=== PATIENT | female | born 1945 | race Caucasian/White ===

== ENCOUNTER 2016-04-06 16:50 | Emergency (ER) | payer OTHER ==
[2016-04-06] VITALS (9 sets, daily range): BP systolic 100–171; BP diastolic 58–103; PULSE 90–96; RESP 16–19; TEMP 98.3; O2SAT 93–100
[~2016-04-06] VITALS: Ht 152.4 cm; Wt 60.0 kg
[~2016-04-06 16:50] MED LIST: ADVA250A INH; ALBU17I INH; ASPI-119 PO; CARV3.12 PO; CYCL-36 PO; ENAL5TAB98 PO; IPRA18I INH; LISI-363 PO; ULTR50TA PO
[2016-04-06] MEDS ORDERED: SODIUM CHLORID 0.9% 500 ML INJ 500 ML IV ONE (17:00)
[2016-04-06] MEDS ORDERED: SODIUM CHLORIDE 0.9% FLUSH 5 ML FLUSH IVF PRN (17:00)
[2016-04-06] MEDS: RESP: ALBUTEROL 2.5 MG/IPRATROPIUM 0.5 MG NEB (SCH) INH (17:22)
[2016-04-06] MEDS ORDERED: LISI-515 PO (17:28)
[2016-04-06] MEDS ORDERED: ATOR40TA16 PO (17:28)
[2016-04-06] MEDS ORDERED: CARV3.125 PO (17:28)
[2016-04-06] MEDS ORDERED: ASPI1TAB69 PO (17:28)
--- NOTE | 2016-04-06 17:29 | PD ---
HPI Chief Complaint: Chest Pain Time Seen by Provider: 17:00 (Jam Che) Travel History International Travel<30 days: No Contact w/Intl Traveler<30days: No Traveled to known affect area: No (Jam Che) History of Present Illness HPI 70-year-old female brought in by EMS with complaints of intermittent chest pressure since this morning. Patient states one week history of cough and cold symptoms, without productive cough, fever, sore throat, or upper respiratory symptoms. Patient states this morning she's had increased shortness of breath, chest pressure, and cough and wheeze. Patient has a history of COPD with chronic bronchitis in the past. Patient also has a history of a stent placement for CAD in December 2015. Patient called the animal is due to the ongoing symptoms and she was afraid. Patient took 3 baby aspirin this morning. Patient was given 125 mg of Solu-Medrol and 2 DuoNeb in the ambulance with improvement of her symptoms. EKG performed by EMS showed no significant ST changes. Upon arrival the patient states she is back to her baseline. Patient continues to smoke one half to one pack of cigarettes per day. She has no known drug allergies. (Jam Che) PFSH Past Medical History Arthritis: Yes Asthma: No Blood Disorders: No Anxiety: No Depression: Yes Heart Rhythm Problems: No Cancer: No Cardiac Catheterization: Yes Cardiovascular Problems: Yes High Cholesterol: Yes Chest Pain: Yes Congestive Heart Failure: No COPD: Yes Diminished Hearing: Yes (RIGHT EAR) Endocrine: No Glaucoma: No Genitourinary: No Hypertension: Yes Immune Disorder: No Musculoskeletal: Yes Neurologic: No Psychiatric: No Reproductive: No Respiratory: No Myocardial Infarction: Yes (X 2) Sleep Apnea: No Tetanus Vaccination: < 5 Years Influenza Vaccination: No ?: Not Menopausal: Yes (Jam Che) Past Surgical History Coronary Stent: Yes (X 2) (Jam Che) Social History Alcohol Use: Yes (SOCIAL- WINE OR MIX DRINKS) Tobacco Use: Yes (<1/2 PPD) Substance Use: No (Jam Che) Allergies-Medications (Allergen,Severity, Reaction): Coded Allergies: No Known Allergies (Verified , 01/30/14) Reported Meds & Prescriptions Reported Meds & Active Scripts Active Reported Coreg (Carvedilol) 3.125 Mg Tab 3.125 Mg PO BID Lisinopril 20 Mg Tab 20 Mg PO DAILY Atorvastatin (Atorvastatin Calcium) 40 Mg Tab 40 Mg PO DAILY Aspirin 81 Mg Tabdr 81 Mg PO DAILY (Myles Hedrick MD) Review of Systems Except as stated in HPI: all other systems reviewed are Neg General / Constitutional: No: Fever, Chills, Weight Gain, Weight Loss Eyes: No: Visual changes HENT: Positive: Congestion, No: Headaches, Sore Throat, Rhinitis, Rhinorrhea, Neck Stiffness, Neck Pain, Ear Discharge, Earache Cardiovascular: Positive: Chest Pain or Discomfort, No: Palpitations, Irregular Rhythm, Tachycardia Respiratory: Positive: Cough, Shortness of Breath, Wheezing, Sneezing, No: Orthopnea, Hemoptysis, Stridor, Night Sweats, Pleuritic Pain Gastrointestinal: No: Nausea, Vomiting, Abdominal Pain Genitourinary: No: Dysuria Musculoskeletal: No: Pain Skin: No Rash Neurologic: No: Weakness Psychiatric: No: Depression Endocrine: No: Polydipsia Hematologic/Lymphatic: No: Easy Bruising (Jam Che) Physical Exam Narrative GENERAL: Patient appears in mild distress and anxious. SKIN: Warm and dry. Normal color. Normal turgor. HEAD: Atraumatic. Normocephalic. EYES: Pupils equal and round. No scleral icterus. No injection or drainage. ENT: No nasal bleeding or discharge. Mucous membranes pink and moist. TMs are clear bilaterally. Sinuses are nontender to palpation. Pharynx appears normal. No significant lymphadenopathy or erythema. No postnasal drip. NECK: Trachea midline. No JVD. Supple nontender. CARDIOVASCULAR: Regular rate and rhythm. No murmurs gallops or rubs. RESPIRATORY: No accessory muscle use. Patient has nonclearing wheezes and rhonchi in the right lower and middle lobe. To auscultation. Breath sounds equal bilaterally. GASTROINTESTINAL: Abdomen soft, non-tender, nondistended. Hepatic and splenic margins not palpable. MUSCULOSKELETAL: Extremities without clubbing, cyanosis, or edema. No obvious deformities. NEUROLOGICAL: Awake and alert. No obvious cranial nerve deficits. Motor grossly within normal limits. Five out of 5 muscle strength in the arms and legs. Normal speech. PSYCHIATRIC: Appropriate mood and affect; insight and judgment normal. (Jam Che) Data Data Last Documented VS Vital Signs Date Time Temp Pulse Resp B/P Pulse Ox O2 Delivery O2 Flow Rate FiO2 04/06/16 23:12 90 18 100/63 95 04/06/16 18:00 Nasal Cannula 2 04/06/16 16:53 98.3 (Myles Hedrick MD) Orders Electrocardiogram (04/06/16 17:00) B-Type Natriuretic Peptide (04/06/16 17:00) Ckmb (Isoenzyme) Profile (04/06/16 17:00) Complete Blood Count With Diff (04/06/16 17:00) Comprehensive Metabolic Panel (04/06/16 17:00) D-Dimer (04/06/16 17:00) Magnesium (Mg) (04/06/16 17:00) Prothrombin Time / Inr (Pt) (04/06/16 17:00) Act Partial Throm Time (Ptt) (04/06/16 17:00) Troponin I (04/06/16 17:00) Chest, Single Ap (04/06/16 17:00) Ecg Monitoring (04/06/16 17:00) Bilateral Bp Monitoring (04/06/16 17:00) Iv Access Insert/Monitor (04/06/16 17:00) Oximetry (04/06/16 17:00) Oxygen Administration (04/06/16 17:00) Sodium Chloride 0.9% Flush (Ns Flush) (04/06/16 17:00) Sodium Chlorid 0.9% 500 Ml Inj (Ns 500 M (04/06/16 17:00) Influenzae A/B Antigen (04/06/16 17:00) Albuterol-Ipratropium Neb (Duoneb Neb) (04/06/16 17:00) Ceftriaxone Inj (Rocephin Inj) (04/06/16 18:30) Azithromycin Inj (Zithromax Inj) (04/06/16 18:30) (Myles Hedrick MD) Labs Laboratory Tests Test 04/06/16 17:10 White Blood Count 10.8 TH/MM3 Red Blood Count 4.66 MIL/MM3 Hemoglobin 14.6 GM/DL Hematocrit 42.5 % Mean Corpuscular Volume 91.1 FL Mean Corpuscular Hemoglobin 31.3 PG Mean Corpuscular Hemoglobin 34.4 % Concent Red Cell Distribution Width 13.7 % Platelet Count 406 TH/MM3 Mean Platelet Volume 7.8 FL Neutrophils (%) (Auto) 50.4 % Lymphocytes (%) (Auto) 32.2 % Monocytes (%) (Auto) 8.4 % Eosinophils (%) (Auto) 7.9 % Basophils (%) (Auto) 1.1 % Neutrophils # (Auto) 5.4 TH/MM3 Lymphocytes # (Auto) 3.5 TH/MM3 Monocytes # (Auto) 0.9 TH/MM3 Eosinophils # (Auto) 0.9 TH/MM3 Basophils # (Auto) 0.1 TH/MM3 CBC Comment DIFF FINAL Differential Comment Prothrombin Time 10.8 SEC Prothromb Time International 1.0 RATIO Ratio Activated Partial 26.9 SEC Thromboplast Time D-Dimer Quantitative (PE/DVT) 0.88 MG/L FEU Sodium Level 143 MEQ/L Potassium Level 3.6 MEQ/L Chloride Level 110 MEQ/L Carbon Dioxide Level 26.2 MEQ/L Anion Gap 7 MEQ/L Blood Urea Nitrogen 19 MG/DL Creatinine 1.05 MG/DL Estimat Glomerular Filtration 52 ML/MIN Rate Random Glucose 98 MG/DL Calcium Level 8.9 MG/DL Magnesium Level 2.0 MG/DL Total Bilirubin 0.5 MG/DL Aspartate Amino Transf 13 U/L (AST/SGOT) Alanine Aminotransferase 15 U/L (ALT/SGPT) Alkaline Phosphatase 66 U/L Total Creatine Kinase 79 U/L Troponin I 0.02 NG/ML B-Type Natriuretic Peptide 129 PG/ML Total Protein 7.6 GM/DL Albumin 3.9 GM/DL (Myles Hedrick MD) Labs Laboratory Tests Test 04/06/16 17:10 White Blood Count 10.8 TH/MM3 Red Blood Count 4.66 MIL/MM3 Hemoglobin 14.6 GM/DL Hematocrit 42.5 % Mean Corpuscular Volume 91.1 FL Mean Corpuscular Hemoglobin 31.3 PG Mean Corpuscular Hemoglobin 34.4 % Concent Red Cell Distribution Width 13.7 % Platelet Count 406 TH/MM3 Mean Platelet Volume 7.8 FL Neutrophils (%) (Auto) 50.4 % Lymphocytes (%) (Auto) 32.2 % Monocytes (%) (Auto) 8.4 % Eosinophils (%) (Auto) 7.9 % Basophils (%) (Auto) 1.1 % Neutrophils # (Auto) 5.4 TH/MM3 Lymphocytes # (Auto) 3.5 TH/MM3 Monocytes # (Auto) 0.9 TH/MM3 Eosinophils # (Auto) 0.9 TH/MM3 Basophils # (Auto) 0.1 TH/MM3 CBC Comment DIFF FINAL Differential Comment Sodium Level 143 MEQ/L Potassium Level 3.6 MEQ/L Chloride Level 110 MEQ/L Carbon Dioxide Level 26.2 MEQ/L Anion Gap 7 MEQ/L Blood Urea Nitrogen 19 MG/DL Creatinine 1.05 MG/DL Estimat Glomerular Filtration 52 ML/MIN Rate Random Glucose 98 MG/DL Calcium Level 8.9 MG/DL Magnesium Level 2.0 MG/DL Total Bilirubin 0.5 MG/DL Aspartate Amino Transf 13 U/L (AST/SGOT) Alanine Aminotransferase 15 U/L (ALT/SGPT) Alkaline Phosphatase 66 U/L Total Creatine Kinase 79 U/L Troponin I 0.02 NG/ML B-Type Natriuretic Peptide 129 PG/ML Total Protein 7.6 GM/DL Albumin 3.9 GM/DL (Jam Che) [facility] Medical Decision Making Medical Screen Exam Complete: Yes Emergency Medical Condition: Yes Differential Diagnosis Atypical chest pain. Bronchitis. Pneumonia. Cardiac syndrome. CHF. Narrative Course Patient is medically stable at time of exam. EKG is performed showing nonspecific T wave abnormalities but otherwise no acute changes. This reviewed with Dr. guerra. Chest x-ray is ordered. Labs ordered including CBC, CMP, proBNP, PT PTT and INR, d-dimer, magnesium, troponin and CK-MB. Rapid influenza test is ordered. IV access is obtained patient is given a 500 mL normal saline bolus as well as duo nebs every 15 minutes 3. 1815 hrs. patient feels much improved after her duo nebs 3. CBC is unremarkable. CMP is unremarkable. ProBNP is 187. Troponin and CK-MB are normal. PT PTT and INR are within normal limits. Chest x-ray shows no significant acute findings per radiologist. Patient will be treated with Rocephin 1000 mg IV as well as azithromycin 500 mg IV. (Jam Che) Diagnosis Primary Impression: Bronchitis Additional Impression: Atypical chest pain Referrals: Primary Care Physician 3 days Scripts Azithromycin (Zithromax Z-Toribio)250 Mg [id number] Mg PO DIRECTED #1 DSPK Ref 0 500 MG (2 tabs) day 1, then 1 tab days 2-5. Prov:Myles Hedrick MD 04/06/16 Disposition: 01 DISCHARGE HOME Condition: Stable Jam Che Apr 06, 2016 17:29 Myles Hedrick MD Apr 06, 2016 23:19
[2016-04-06 17:44] LABS: AUTOMATED NEUTROPHIL # 5.4 TH/MM3 (1.8-7.7); BASOPHIL # 0.1 TH/MM3 (0-0.2); BASOPHIL % 1.1 % (0.0-2.0); EOSINOPHIL # 0.9 TH/MM3 (0-0.4); EOSINOPHIL % 7.9 % (0.0-4.0); HEMATOCRIT 42.5 % (35.0-46.0); HEMO FLAGS DIFF FINAL; LYMPH % 32.2 % (9.0-44.0); LYMPHOCYTE # 3.5 TH/MM3 (1.0-4.8); MEAN CELL VOLUME 91.1 FL (80.0-100.0); MEAN CORPUSCULAR HEMOGLOBIN 31.3 PG (27.0-34.0); MEAN CORPUSCULAR HGB CONC 34.4 % (32.0-36.0); MONO % 8.4 % (0.0-8.0); NEUT % 50.4 % (16.0-70.0); PLATELET COUNT 406 TH/MM3 (150-450); RED BLOOD COUNT 4.66 MIL/MM3 (4.00-5.30); RED CELL DISTRIBUTION WIDTH 13.7 % (11.6-17.2); WHITE BLOOD COUNT 10.8 TH/MM3 (4.0-11.0)
--- NOTE | 2016-04-06 18:03 | RADRPT ---
EXAM DATE/TIME: 04/06/2016 17:19 [facility] COMPARISON: CHEST SINGLE AP, June 21, 2012, 17:10. INDICATIONS : Cough, shortness of breath for 24 hours MEDICAL HISTORY : None. SURGICAL HISTORY : Stent placements ENCOUNTER: Initial ACUITY: 1 day PAIN SCORE: 4/10 LOCATION: Bilateral chest FINDINGS: A single view of the chest demonstrates the lungs to be symmetrically aerated without evidence of mas s, infiltrate or effusion. The cardiomediastinal contours are unremarkable. Osseous structures are intact. CONCLUSION: No acute disease. Bentley Rhodes MD on April 06, 2016 at 18:01 Board Certified Radiologist. This report was verified electronically.
[2016-04-06 18:04] LABS: ANION GAP 7 MEQ/L (5-15); AST (GOT) 13 U/L (15-37); BICARBONATE 26.2 MEQ/L (21.0-32.0); BLOOD UREA NITROGEN 19 MG/DL (7-18); CHLORIDE 110 MEQ/L (98-107); GLOMERULAR FILTRATION RATE 52 ML/MIN (>89); POTASSIUM 3.6 MEQ/L (3.5-5.1); SODIUM (NA) 143 MEQ/L (136-145)
[2016-04-06 18:08] LABS: ALKALINE PHOSPHATASE 66 U/L (45-117); ALT (GPT) 15 U/L (10-53); TOTAL BILIRUBIN ADULT 0.5 MG/DL (0.2-1.0)
[2016-04-06 18:10] LABS: CREATINE KINASE 79 U/L (26-192)
[2016-04-06 18:27] LABS: APTT (PATIENT) 26.9 SEC (24.3-30.1); PROTHROMBIN TIME - PATIENT 10.8 SEC (9.8-11.6)
[2016-04-06] MEDS ORDERED: AZITHROMYCIN INJ 500 MG in SODIUM CHLOR 0.9% 250 ML INJ 250 ML IV ONE (18:30)
[2016-04-06] MEDS ORDERED: cefTRIAXone INJ 1,000 MG in SODIUM CHLORIDE 0.9% INJ 100 ML IV ONE (18:30)
[2016-04-06] MEDS ORDERED: ZITHTAB PO (23:20)
[2016-04-07 03:55] VITALS: BP 128/59; PULSE 100; RESP 16; O2SAT 96
--- NOTE | 2016-04-08 21:03 | EKG ---
Date Performed: 04/06/2016 Time Performed: 17:14:29 PTAGE: 70 years EKG: Sinus rhythm NONSPECIFIC T-WAVE ABNORMALITY BORDERLINE ECG PREVIOUS TRACING : 06/21/2012 17.15 Compared to prior tracing no significant change DOCTOR: Rashi Whyte Interpretating Date/Time 04/08/2016 21:02:31
== END 2016-04-07 08:01 | disposition home or self-care (01) ==
LOC: NEPC 16:50 → NEPA 04-07 08:01
DX: J40 Bronchitis, not specified as acute or chronic (principal); R07.89 Other chest pain; R94.31 Abnormal electrocardiogram [ECG] [EKG]; I25.10 Atherosclerotic heart disease of native coronary artery without angina pectoris; I10 Essential (primary) hypertension; F17.200 Nicotine dependence, unspecified, uncomplicated; E78.00 Pure hypercholesterolemia, unspecified; H91.91 Unspecified hearing loss, right ear; I25.2 Old myocardial infarction; Z98.61 Coronary angioplasty status; Z87.09 Personal history of other diseases of the respiratory system; Z87.39 Personal history of other diseases of the musculoskeletal system and connective tissue; Z86.59 Personal history of other mental and behavioral disorders
CPT/HCPCS: 71010; 80053; 82550; 83735; 83880; 84484; 85025; 85379; 85610; 85730; 87804; 93005; 94640; 94664; 96361; 96374; 96375; 99285; J0456; J0696; J7040; J7050

== ENCOUNTER 2016-05-10 15:30 | Emergency (ER) | payer OTHER ==
[~2016-05-10] VITALS: Ht 149.9 cm; Wt 55.0 kg
[~2016-05-10 15:30] MED LIST changes: -ADVA250A INH; -ALBU17I INH; -ASPI-119 PO; +ASPI1TAB69 PO; +ATOR40TA16 PO; -CARV3.12 PO; +CARV3.125 PO; -CYCL-36 PO; -ENAL5TAB98 PO; -IPRA18I INH; -LISI-363 PO; +LISI-515 PO; -ULTR50TA PO; +ZITHTAB PO
[2016-05-10 15:32] VITALS: BP 112/66; PULSE 98; RESP 20; TEMP 97.8; O2SAT 95
[2016-05-10] MEDS ORDERED: VENTAER INH (15:42)
[2016-05-10] MEDS ORDERED: LEVA750T PO (15:42)
[2016-05-10 15:57] VITALS: RESP 22; O2SAT 97
[2016-05-10] MEDS: RESP: ALBUTEROL 2.5 MG/IPRATROPIUM 0.5 MG NEB (SCH) INH (15:58)
[2016-05-10] MEDS ORDERED: SODIUM CHLORIDE 0.9% FLUSH 5 ML FLUSH IVF PRN (16:00)
--- NOTE | 2016-05-10 16:00 | PD ---
HPI Chief Complaint: Respiratory Symptoms Time Seen by Provider: 15:40 Travel History International Travel<30 days: No Contact w/Intl Traveler<30days: No Traveled to known affect area: No History of Present Illness HPI This is a 70-year-old female with history of COPD, presents today with complaints of COPD exacerbation. The patient states that this time every year, she becomes short of breath and has a cough. She states she has a cough is nonproductive and feels as though she needs to cough up phlegm but just can't. She denies any fevers, chills. She does report that she's had diffuse wheezing. She uses an inhaler at home. She states that normally when she has these episodes, she has to go on steroids and antibiotics. There are no other complaints the time of my examination. PFSH Past Medical History Hx Anticoagulant Therapy: Yes (ASA) Arthritis: Yes Asthma: No Blood Disorders: No Anxiety: No Depression: Yes Heart Rhythm Problems: No Cancer: No Cardiac Catheterization: Yes Cardiovascular Problems: Yes (HBP) High Cholesterol: Yes Chest Pain: Yes Congestive Heart Failure: No COPD: Yes Diminished Hearing: Yes (RIGHT EAR) Endocrine: No Glaucoma: No Genitourinary: No Hypertension: Yes Immune Disorder: No Musculoskeletal: Yes Neurologic: No Psychiatric: No Reproductive: No Respiratory: Yes (COPD) Myocardial Infarction: Yes (X 2) Sleep Apnea: No Tetanus Vaccination: Unknown ?: Not Menopausal: Yes Past Surgical History Coronary Stent: Yes (X 2) Social History Alcohol Use: No Tobacco Use: Yes (<1/2 PPD) Substance Use: No Allergies-Medications (Allergen,Severity, Reaction): Coded Allergies: No Known Allergies (Verified , 01/30/14) Reported Meds & Prescriptions Reported Meds & Active Scripts Active Medrol Dosepak (Methylprednisolone) 4 Mg Dspk 4 Mg PO DIRECTED Per Pharmacist direction Doxycycline Hyclate 100 Mg Cap 100 Mg PO BID Reported Ventolin Hfa 18 GM Inh (Albuterol Sulfate) 90 Mcg/Act Aer 2 Puff INH Q4-6H PRN Levaquin (Levofloxacin) 750 Mg Tab 750 Mg PO DAILY Coreg (Carvedilol) 3.125 Mg Tab 3.125 Mg PO BID Lisinopril 20 Mg Tab 20 Mg PO DAILY Atorvastatin (Atorvastatin Calcium) 40 Mg Tab 40 Mg PO DAILY Aspirin 81 Mg Tabdr 81 Mg PO DAILY Review of Systems Except as stated in HPI: all other systems reviewed are Neg General / Constitutional: No: Fever, Chills HENT: No: Lightheadedness, Congestion Cardiovascular: No: Chest Pain or Discomfort, Palpitations Respiratory: Positive: Cough (nonproductive), Shortness of Breath, Wheezing Gastrointestinal: No: Nausea, Vomiting, Abdominal Pain Genitourinary: Positive: Other (patient does admit to stress incontinence.), No: Dysuria, Nocturia Musculoskeletal: No: Weakness Neurologic: No: Weakness, Dizziness Physical Exam Narrative GENERAL: Well-nourished, well-developed patient, in no acute respiratory distress.. SKIN: Warm and dry. HEAD: Normocephalic/atraumatic. EYES: No injection or drainage. NECK: Supple, trachea midline. CARDIOVASCULAR: Regular rate and rhythm without murmurs, gallops, or rubs. RESPIRATORY: Diffuse expiratory wheezes in all 4 lung gama. No Rales appreciated GASTROINTESTINAL: Abdomen soft, non-tender, nondistended. MUSCULOSKELETAL: No cyanosis, or edema. NEUROLOGICAL: Awake and alert. Cranial nerves II through XII intact. Motor grossly within normal limits. Five out of 5 muscle strength in all muscle groups. Normal speech. Data Data Last Documented VS Vital Signs Date Time Temp Pulse Resp B/P Pulse Ox O2 Delivery O2 Flow Rate FiO2 05/10/16 17:46 97.8 87 20 105/67 97 Nasal Cannula 3 Orders Iv Access Insert/Monitor (05/10/16 15:48) Ecg Monitoring (05/10/16 15:48) Oximetry (05/10/16 15:48) Oxygen Administration (05/10/16 15:48) Chest, Single Ap (05/10/16 15:48) Sodium Chloride 0.9% Flush (Ns Flush) (05/10/16 16:00) Albuterol-Ipratropium Neb (Duoneb Neb) (05/10/16 16:00) MDM Medical Decision Making Medical Screen Exam Complete: Yes Emergency Medical Condition: Yes Differential Diagnosis Bronchitis versus pneumonia versus COPD exacerbation Narrative Course 70-year-old female history COPD, who is continue to smoke, presents here with COPD exacerbation. Patient eyes a fevers, chills. She has nonproductive cough. The patient has chest x-ray is consistent with COPD with no acute infiltrate. She's been given one nebulizer via EMS into doing nebs here in the emergency department. She received Solu-Medrol via [facility]. She feels much improved. She'll be discharged with a prescription for doxycycline 100 mg by mouth twice a day 10 days. She also be given a prescription for Medrol Dosepak. She's been told to stop smoking. She'll follow up with her primary care physician as needed. Diagnosis Primary Impression: COPD exacerbation Additional Impression: tobaccoism Additional Instructions: Stop smoking. Return if feeling worse. Scripts Methylprednisolone Dosepak (Medrol Dosepak)4 Mg Dspk4 Mg PO DIRECTED #1 DSPK Ref 0 Per Pharmacist direction Prov:Capo Dalal MD 05/10/16 Doxycycline Hyclate 100 Mg [id number] Mg PO BID #20 CAP Ref 0 Prov:Capo Dalal MD 05/10/16 Disposition: 01 DISCHARGE HOME Capo Dalal MD May 10, 2016 16:00
--- NOTE | 2016-05-10 16:20 | RADRPT ---
EXAM DATE/TIME: 05/10/2016 16:08 [facility] COMPARISON: CHEST SINGLE AP, April 06, 2016, 17:19. INDICATIONS : Shortness of breath. MEDICAL HISTORY : Chronic obstructive pulmonary disease. SURGICAL HISTORY : Cardiac stent. ENCOUNTER: Initial ACUITY: 1 week PAIN SCORE: 0/10 LOCATION: chest FINDINGS: A single view of the chest demonstrates the lungs to be symmetrically aerated without evidence of mas s, infiltrate or effusion. The lungs are hyperinflated bilaterally. The cardiomediastinal contours a re unremarkable. Osseous structures are intact. CONCLUSION: Hyperinflation suggesting COPD. No acute infiltrate or effusion. Michael Damon Jr., MD on May 10, 2016 at 16:19 Board Certified Radiologist. This report was verified electronically.
[2016-05-10 17:46] VITALS: BP 105/67; PULSE 87; RESP 20; TEMP 97.8; O2SAT 97
[2016-05-10] MEDS ORDERED: MEDR4PAK PO (18:32)
[2016-05-10] MEDS ORDERED: DOXY100C PO (18:32)
== END 2016-05-10 19:15 | disposition home or self-care (01) ==
LOC: NEPE 15:30
DX: J44.1 Chronic obstructive pulmonary disease with (acute) exacerbation (principal); I10 Essential (primary) hypertension; I25.2 Old myocardial infarction; E78.00 Pure hypercholesterolemia, unspecified; F32.9 Major depressive disorder, single episode, unspecified; Z79.82 Long term (current) use of aspirin; F17.210 Nicotine dependence, cigarettes, uncomplicated
CPT/HCPCS: 71010; 94640; 94664

== ENCOUNTER 2016-06-14 00:17 | Emergency (ER) | payer OTHER ==
[~2016-06-14] VITALS: Ht 149.9 cm; Wt 54.5 kg
[~2016-06-14 00:17] MED LIST changes: +DOXY100C PO; +LEVA750T PO; +MEDR4PAK PO; +VENTAER INH; -ZITHTAB PO
[2016-06-14 00:18] VITALS: BP 189/91; PULSE 108; RESP 24; TEMP 98.2; O2SAT 89
--- NOTE | 2016-06-14 00:37 | PD ---
HPI Chief Complaint: Respiratory Distress Time Seen by Provider: 00:29 Travel History International Travel<30 days: No Contact w/Intl Traveler<30days: No Traveled to known affect area: No History of Present Illness HPI 71yo F with PMH of COPD presents to the ED with c/o sob and cough for a few hours. Feels like her COPD. Denies any fever, chest pain, n/v, abdominal pain , focal weakness or numbness. Pt used her pumps but it didnt help. Does not use oxygen at home. Pt was last here 05/10/16 for COPD exacerbation and was discharged with doxycycline. PFSH Past Medical History Hx Anticoagulant Therapy: Yes (ASA) Arthritis: Yes Asthma: No Blood Disorders: No Anxiety: No Depression: Yes Heart Rhythm Problems: No Cancer: No Cardiac Catheterization: Yes Cardiovascular Problems: Yes High Cholesterol: Yes Chest Pain: Yes Congestive Heart Failure: No COPD: Yes Diminished Hearing: Yes (RIGHT EAR) Endocrine: No Glaucoma: No Genitourinary: No Hypertension: Yes Immune Disorder: No Musculoskeletal: Yes Neurologic: No Psychiatric: No Reproductive: No Respiratory: Yes Myocardial Infarction: Yes (X 2) Sleep Apnea: No Tetanus Vaccination: > 5 Years Menopausal: Yes Past Surgical History Coronary Stent: Yes (X 2) Social History Alcohol Use: No Tobacco Use: Yes (<1/2 PPD) Substance Use: No Allergies-Medications (Allergen,Severity, Reaction): Coded Allergies: No Known Allergies (Verified , 06/14/16) Reported Meds & Prescriptions Reported Meds & Active Scripts Active Ventolin Hfa 18 GM Inh (Albuterol Sulfate) 90 Mcg/Act Aer 2 Puff INH Q4H PRN Prednisone 20 Mg Tab 20 Mg PO BID 5 Days Medrol Dosepak (Methylprednisolone) 4 Mg Dspk 4 Mg PO DIRECTED Per Pharmacist direction Doxycycline Hyclate 100 Mg Cap 100 Mg PO BID Reported Ventolin Hfa 18 GM Inh (Albuterol Sulfate) 90 Mcg/Act Aer 2 Puff INH Q4-6H PRN Levaquin (Levofloxacin) 750 Mg Tab 750 Mg PO DAILY Coreg (Carvedilol) 3.125 Mg Tab 3.125 Mg PO BID Lisinopril 20 Mg Tab 20 Mg PO DAILY Atorvastatin (Atorvastatin Calcium) 40 Mg Tab 40 Mg PO DAILY Aspirin 81 Mg Tabdr 81 Mg PO DAILY Review of Systems Except as stated in HPI: all other systems reviewed are Neg Physical Exam Narrative GENERAL: 71yo F in mild distress. SKIN: Focused skin assessment warm/dry. HEAD: Atraumatic. Normocephalic. NECK: Trachea midline. No JVD. CARDIOVASCULAR: Regular rate and rhythm. No murmur appreciated. RESPIRATORY: Expiratory wheezing bilaterally. GASTROINTESTINAL: Abdomen soft, non-tender, nondistended. MUSCULOSKELETAL: No obvious deformities. No clubbing. No cyanosis. No edema. NEUROLOGICAL: Awake and alert. No obvious cranial nerve deficits. Motor grossly within normal limits. Normal speech. PSYCHIATRIC: Appropriate mood and affect; insight and judgment normal. Data Data Last Documented VS Vital Signs Date Time Temp Pulse Resp B/P Pulse Ox O2 Delivery O2 Flow Rate FiO2 06/14/16 06:29 103 18 135/63 94 06/14/16 01:53 Nasal Cannula 1.00 06/14/16 00:18 98.2 Orders Complete Blood Count With Diff (06/14/16 00:32) Basic Metabolic Panel (Bmp) (06/14/16 00:32) B-Type Natriuretic Peptide (06/14/16 00:32) Act Partial Throm Time (Ptt) (06/14/16 00:32) Prothrombin Time / Inr (Pt) (06/14/16 00:32) Magnesium (Mg) (06/14/16 00:32) Ckmb (Isoenzyme) Profile (06/14/16 00:32) Troponin I (06/14/16 00:32) Arterial Blood Gas (Abg) (06/14/16 00:32) Blood Culture (06/14/16 00:32) Iv Access Insert/Monitor (06/14/16 00:32) Electrocardiogram (06/14/16 00:32) Ecg Monitoring (06/14/16 00:32) Oximetry (06/14/16 00:32) Oxygen Administration (06/14/16 00:32) Chest, Single Ap (06/14/16 00:32) Sodium Chloride 0.9% Flush (Ns Flush) (06/14/16 00:45) Methylprednisolone So Succ Inj (Solumedr (06/14/16 00:45) Albuterol-Ipratropium Neb (Duoneb Neb) (06/14/16 00:45) Hydralazine Inj (Apresoline Inj) (06/14/16 00:45) Guaifen-Cod 200-20 Mg/10ml Liq (Robituss (06/14/16 03:15) Labs Laboratory Tests Test 06/14/16 06/14/16 00:50 01:30 Blood Gas Puncture Site RT RADIAL Blood Gas Patient Temperature 98.6 Blood Gas HCO3 24 mmol/L Blood Gas Base Excess 0.0 mmol/L Blood Gas Oxygen Saturation 90 % Arterial Blood pH 7.41 Arterial Blood Partial 39 mmHg Pressure CO2 Arterial Blood Partial 61 mmHG Pressure O2 Arterial Blood Oxygen Content 15.4 Vol % Arterial Blood 1.9 % Carboxyhemoglobin Arterial Blood Methemoglobin 0.4 % Blood Gas Hemoglobin 12.2 G/DL Oxygen Delivery Device NASAL CANNULA Blood Gas Liter Flow 2 L/M White Blood Count 12.3 TH/MM3 Red Blood Count 4.28 MIL/MM3 Hemoglobin 12.7 GM/DL Hematocrit 38.5 % Mean Corpuscular Volume 89.9 FL Mean Corpuscular Hemoglobin 29.7 PG Mean Corpuscular Hemoglobin 33.0 % Concent Red Cell Distribution Width 13.9 % Platelet Count 334 TH/MM3 Mean Platelet Volume 9.9 FL Neutrophils (%) (Auto) 83.5 % Lymphocytes (%) (Auto) 10.4 % Monocytes (%) (Auto) 2.8 % Eosinophils (%) (Auto) 2.7 % Basophils (%) (Auto) 0.6 % Neutrophils # (Auto) 10.3 TH/MM3 Lymphocytes # (Auto) 1.3 TH/MM3 Monocytes # (Auto) 0.4 TH/MM3 Eosinophils # (Auto) 0.3 TH/MM3 Basophils # (Auto) 0.1 TH/MM3 CBC Comment DIFF FINAL Differential Comment Prothrombin Time 10.5 SEC Prothromb Time International 1.0 RATIO Ratio Activated Partial 30.1 SEC Thromboplast Time Sodium Level 139 MEQ/L Potassium Level 3.5 MEQ/L Chloride Level 106 MEQ/L Carbon Dioxide Level 27.2 MEQ/L Anion Gap 6 MEQ/L Blood Urea Nitrogen 13 MG/DL Creatinine 0.98 MG/DL Estimat Glomerular Filtration 56 ML/MIN Rate Random Glucose 144 MG/DL Calcium Level 9.3 MG/DL Magnesium Level 3.1 MG/DL Total Creatine Kinase 76 U/L Troponin I 0.03 NG/ML B-Type Natriuretic Peptide 190 PG/ML MDM Medical Decision Making Medical Screen Exam Complete: Yes Emergency Medical Condition: Yes Interpretation(s) EKG: Sinus tachycardia at 119bpm. Normal axis. TWI III. Laboratory Tests Test 06/14/16 06/14/16 00:50 01:30 Blood Gas Puncture Site RT RADIAL Blood Gas Patient Temperature 98.6 Blood Gas HCO3 24 mmol/L (22-26) Blood Gas Base Excess 0.0 mmol/L (-2-2) Blood Gas Oxygen Saturation 90 % (90-100) Arterial Blood pH 7.41 (7.380-7.420) Arterial Blood Partial 39 mmHg (38-42) Pressure CO2 Arterial Blood Partial 61 mmHG Pressure O2 (61-120) Arterial Blood Oxygen Content 15.4 Vol % (12.0-20.0) Arterial Blood 1.9 % (0-4) Carboxyhemoglobin Arterial Blood Methemoglobin 0.4 % (0-2) Blood Gas Hemoglobin 12.2 G/DL (12.0-16.0) Oxygen Delivery Device NASAL CANNULA Blood Gas Liter Flow 2 L/M White Blood Count 12.3 TH/MM3 (4.0-11.0) Red Blood Count 4.28 MIL/MM3 (4.00-5.30) Hemoglobin 12.7 GM/DL (11.6-15.3) Hematocrit 38.5 % (35.0-46.0) Mean Corpuscular Volume 89.9 FL (80.0-100.0) Mean Corpuscular Hemoglobin 29.7 PG (27.0-34.0) Mean Corpuscular Hemoglobin 33.0 % Concent (32.0-36.0) Red Cell Distribution Width 13.9 % (11.6-17.2) Platelet Count 334 TH/MM3 (150-450) Mean Platelet Volume 9.9 FL (7.0-11.0) Neutrophils (%) (Auto) 83.5 % (16.0-70.0) Lymphocytes (%) (Auto) 10.4 % (9.0-44.0) Monocytes (%) (Auto) 2.8 % (0.0-8.0) Eosinophils (%) (Auto) 2.7 % (0.0-4.0) Basophils (%) (Auto) 0.6 % (0.0-2.0) Neutrophils # (Auto) 10.3 TH/MM3 (1.8-7.7) Lymphocytes # (Auto) 1.3 TH/MM3 (1.0-4.8) Monocytes # (Auto) 0.4 TH/MM3 (0-0.9) Eosinophils # (Auto) 0.3 TH/MM3 (0-0.4) Basophils # (Auto) 0.1 TH/MM3 (0-0.2) CBC Comment DIFF FINAL Differential Comment Prothrombin Time 10.5 SEC (9.8-11.6) Prothromb Time International 1.0 RATIO Ratio Activated Partial 30.1 SEC Thromboplast Time (24.3-30.1) Sodium Level 139 MEQ/L (136-145) Potassium Level 3.5 MEQ/L (3.5-5.1) Chloride Level 106 MEQ/L (98-107) Carbon Dioxide Level 27.2 MEQ/L (21.0-32.0) Anion Gap 6 MEQ/L (5-15) Blood Urea Nitrogen 13 MG/DL (7-18) Creatinine 0.98 MG/DL (0.50-1.00) Estimat Glomerular Filtration 56 ML/MIN (>89) Rate Random Glucose 144 MG/DL (74-106) Calcium Level 9.3 MG/DL (8.5-10.1) Magnesium Level 3.1 MG/DL (1.5-2.5) Total Creatine Kinase 76 U/L (26-192) Troponin I 0.03 NG/ML (0.02-0.05) B-Type Natriuretic Peptide 190 PG/ML (0-100) Last Impressions Chest X-Ray 06/14/16 0032 Signed Impressions: Service Date/Time: Tuesday, June 14, 2016 00:34 - CONCLUSION: No acute cardiopulmonary abnormality is identified. Bentley Rincon MD Differential Diagnosis COPD exacerbation vs. Pneumonia vs. ACS Narrative Course 71yo F with COPD here with worsening sob today. Feels like her COPD but her pumps were not working. Labs reviewed, mild leukocytosis at 12.3. BNP 190. Troponin is 0.03. Magnesium is elevated at 3.1. ABG reviewed. CXR showed no acute cardiopulmonary abnormality. Pt given duonebs x3, methylprednisolone, robitussin and reevaluated at bedside. SOB has resolved. Pt is saturating at 92% on RA. Pt' blood pressure was elevated at 189/91 so hydralazine 5mg given. BP improved to 127/60. Pt has ambulated int the ED without sob so will have pt follow up as outpatient. Return precautions given. Diagnosis Primary Impression: COPD exacerbation Patient Instructions: General Instructions Departure Forms: Tests/Procedures Additional Instructions: Please follow up with your PMD in 3-7 days. Return to the ED if symptoms worsen. Med/Other Pt SpecificInfo: Prescription(s) given Scripts Albuterol 18 GM Inh (Ventolin Hfa 18 GM Inh)90 Mcg/Act Aer2 Puff INH Q4H PRN ( SHORTNESS OF BREATH) #1 INHALER Ref 0 Prov:Liz Lora DO 06/14/16 Prednisone 20 Mg Tab20 Mg PO BID 5 Days Ref 0 Prov:Liz Lora DO 06/14/16 Disposition: 01 DISCHARGE HOME Condition: Stable Liz Lora DO Jun 14, 2016 00:37
[2016-06-14] MEDS ORDERED: methylPREDNISolone SOD SUCC 125 MG/2 ML VIAL IVP ONE (00:45)
[2016-06-14] MEDS ORDERED: SODIUM CHLORIDE 0.9% FLUSH 10 ML FLUSH IVF PRN (00:45)
[2016-06-14] MEDS ORDERED: hydrALAZINE HCL 20 MG/ML VIAL IV PUSH ONE (00:45)
[2016-06-14] MEDS: RESP: ALBUTEROL 2.5 MG/IPRATROPIUM 0.5 MG NEB (SCH) INH ×2 (00:54→00:55)
[2016-06-14 00:58] LABS: BLOOD GAS CARBOXYHEMOGLOBIN 1.9 % (0-4); BLOOD GAS HCO3 24 mmol/L (22-26); BLOOD GAS METHEMOGLOBIN 0.4 % (0-2); BLOOD GAS O2 HGB SATURATION 90 % (90-100); BLOOD GAS OXYGEN CONTENT 15.4 Vol % (12.0-20.0); BLOOD GAS PCO2 39 mmHg (38-42); BLOOD GAS PO2 61 mmHG (61-120); BLOOD GAS TOTAL HGB 12.2 G/DL (12.0-16.0); CRITICAL VALUE NO; DRAW SITE RT RADIAL; LITER FLOW 2 L/M; NUMBER OF ARTERIAL PUNCTURES 1; OXYGEN DEVICE NASAL CANNULA; TEMP CORR TO 98.6
[2016-06-14 00:59] LABS: STAT YES; ULNAR PULSE PRESENT
--- NOTE | 2016-06-14 01:04 | RADRPT ---
EXAM DATE/TIME: 06/14/2016 00:34 [facility] COMPARISON: CHEST SINGLE AP, May 10, 2016, 16:08. INDICATIONS : Shortness of breath. MEDICAL HISTORY : Chronic obstructive pulmonary disease. SURGICAL HISTORY : Cardiac stent. ENCOUNTER: Initial ACUITY: 1 day PAIN SCORE: 0/10 LOCATION: Bilateral chest FINDINGS: Portable AP view of the chest demonstrates a normal-sized cardiac silhouette. No effusion, consolidat ion, or pneumothorax is visualized. The bones and soft tissues demonstrate no acute abnormality. Mult iple EKG lines overlie the patient. CONCLUSION: No acute cardiopulmonary abnormality is identified. Bentley Rincon MD on June 14, 2016 at 1:00 Board Certified Radiologist. This report was verified electronically.
[2016-06-14 01:42] VITALS: BP 127/60; PULSE 108; RESP 18; O2SAT 95
[2016-06-14 01:53] VITALS: O2SAT 95
[2016-06-14 01:53] LABS: AUTOMATED NEUTROPHIL # 10.3 TH/MM3 (1.8-7.7); BASOPHIL # 0.1 TH/MM3 (0-0.2); BASOPHIL % 0.6 % (0.0-2.0); EOSINOPHIL # 0.3 TH/MM3 (0-0.4); EOSINOPHIL % 2.7 % (0.0-4.0); HEMATOCRIT 38.5 % (35.0-46.0); HEMO FLAGS DIFF FINAL; LYMPH % 10.4 % (9.0-44.0); LYMPHOCYTE # 1.3 TH/MM3 (1.0-4.8); MEAN CELL VOLUME 89.9 FL (80.0-100.0); MEAN CORPUSCULAR HEMOGLOBIN 29.7 PG (27.0-34.0); MONO % 2.8 % (0.0-8.0); NEUT % 83.5 % (16.0-70.0); PLATELET COUNT 334 TH/MM3 (150-450); RED BLOOD COUNT 4.28 MIL/MM3 (4.00-5.30); RED CELL DISTRIBUTION WIDTH 13.9 % (11.6-17.2); WHITE BLOOD COUNT 12.3 TH/MM3 (4.0-11.0)
[2016-06-14 02:03] LABS: BICARBONATE 27.2 MEQ/L (21.0-32.0); MAGNESIUM 3.1 MG/DL (1.5-2.5); POTASSIUM 3.5 MEQ/L (3.5-5.1)
[2016-06-14 02:05] LABS: APTT (PATIENT) 30.1 SEC (24.3-30.1); PROTHROMBIN TIME - PATIENT 10.5 SEC (9.8-11.6)
[2016-06-14] MEDS ORDERED: guaiFENesin/CODEINE SYRUP 200 MG/20 MG/10 ML CUP PO ONE (03:15)
[2016-06-14] MEDS ORDERED: VENTAER INH (03:21)
[2016-06-14] MEDS ORDERED: PRED20 PO (03:21)
[2016-06-14 06:29] VITALS: BP 135/63; PULSE 103; RESP 18; O2SAT 94
--- NOTE | 2016-06-14 16:39 | EKG ---
Date Performed: 06/14/2016 Time Performed: 02:01:43 PTAGE: 71 years EKG: ATRIAL FLUTTER/TACHYCARDIA WITH RAPID VENTRICULAR RESPONSE NONSPECIFIC T-WAVE ABNORMALITY A BNORMAL RHYTHM ECG Compared to prior tracing no significant change PREVIOUS TRACING : 04/06/2016 17.14 DOCTOR: Aristides Carty Interpretating Date/Time 06/14/2016 16:36:55
== END 2016-06-14 08:31 | disposition home or self-care (01) ==
LOC: NEPC 00:17 → NEPA 08:31
DX: J44.1 Chronic obstructive pulmonary disease with (acute) exacerbation (principal); I10 Essential (primary) hypertension; I25.2 Old myocardial infarction; F17.200 Nicotine dependence, unspecified, uncomplicated; R00.0 Tachycardia, unspecified; R06.02 Shortness of breath
CPT/HCPCS: 36600; 71010; 80048; 82550; 82805; 83735; 83880; 84484; 85025; 85610; 85730; 87040; 93005; 94640; 94664; 96374; 99285; J2930

== ENCOUNTER 2017-10-18 11:52 | Inpatient (IN) ==
[2017-10-18] MEDS ORDERED: Sod Chloride 0.9% Inj 1,000 ML IV.CONT SCH (12:30)
--- NOTE | 2017-10-18 12:31 | ED ---
HPI General Chief Complaint: Altered Mental Status Stated Complaint: Altered mental Time Seen by Provider: 10/18/17 12:03 History of Present Illness HPI narrative: The patient was seen and examined in the presence of the nurse. This patient apparently was found by her intoxicated roommate this morning to be altered and paramedics were called. History is very sketchy at this point. paramedics spoke with a roommate who they describe is very intoxicated appearing. Apparently the roommate was drinking as well. She was seen normal around 8:00 last night. This morning she was found with a right-sided facial droop and has right arm weakness. She only says ouch to painful stimuli but does not speak otherwise. She does not follow commands. History is very limited. Related Data Home Medications Medication Instructions Recorded Confirmed Unable to Obtain Home Meds 10/18/17 10/18/17 Allergies Allergy/AdvReac Type Severity Reaction Status Date / Time No Known Allergies Allergy Unverified 10/18/17 12:02 Review of Systems ROS Unobtainable unobtainable due to mental status PMFSH Medical History Medical History Arthritis (Acute) CAD (coronary artery disease) (Acute) COPD (chronic obstructive pulmonary disease) (Acute) Depression (Acute) HLD (hyperlipidemia) (Acute) [place] (hard of hearing) (Acute) HTN (hypertension) (Acute) Myocardial infarct (Acute) Surgical History Surgical History Stented coronary artery (Acute) Social History Social History Substance History: Unable to Obtain Smoking Status: Unknown if ever smoked How Often Do You Have a Drink Containing Alcohol: Unable to Obtain Recent Travel in [facility] within the Last 8 Weeks: No Recent Out of Country Travel within the Last 8 Weeks: No Exam Narrative Exam Narrative: GENERAL: Well-nourished, well-developed patient in no apparent distress. SKIN: Focused skin assessment reveals no rash and nodules. Skin is Warm and dry. HEAD: Atraumatic. Normocephalic. EYES: Pupils equal and round. No scleral icterus. No injection or drainage. ENT: No nasal bleeding or discharge. Mucous membranes pink and moist. NECK: Trachea midline. No JVD. CARDIOVASCULAR: Regular rate and rhythm. No murmur appreciated. RESPIRATORY: No accessory muscle use. Clear to auscultation. Breath sounds equal bilaterally. GASTROINTESTINAL: Abdomen soft, non-tender, nondistended. Hepatic and splenic margins not palpable. MUSCULOSKELETAL: No obvious deformities. No clubbing. No cyanosis. No edema. NEUROLOGICAL: Awake but not cooperative or verbalizing. Seems obtunded. Has prominent right-sided facial droop. It is hard to accurately gauge motor strength or sensation given her limited participation. She does withdraw both legs to pain stimuli and move them. 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 I cannot get her to do much with the right hand and arm. It is not flaccid but seems very weak. Has a normal gag reflex. Is controlling her airway. PSYCHIATRIC: Appropriate mood and affect; insight and judgment poor. Course Initial Documented Vital Signs Temperature 97.8 F 10/18/17 12:02 Pulse Rate 88 10/18/17 12:02 Respiratory Rate 18 10/18/17 12:02 Blood Pressure 187/83 H 10/18/17 12:02 Pulse Oximetry 98 10/18/17 12:02 Last Documented Vital Signs Temperature 98.7 F 10/18/17 12:18 Pulse Rate 108 H 10/18/17 16:00 Respiratory Rate 18 10/18/17 16:00 Blood Pressure 187/90 H 10/18/17 16:00 Pulse Oximetry 97 10/18/17 16:00 Critical Care Time Critical Care Time: Yes Total Critical Care Time: 78 Attestation: Aggregate critical care time was 78 minutes. Time to perform other separately billable procedures was not included in the critical care time. My time did not include minutes spent treating any other patients simultaneously or on activities that did not directly contribute to the patient's treatment. The services I provided to this patient were to treat and/or prevent clinically significant deterioration that could result in: Aspiration, permanent neurologic deficit, cardiopulmonary arrest I provided critical care services requiring my management, as noted below: Chart data review, documentation time, medication orders and management, vital sign assessments/reviewing monitor data, ordering and reviewing lab tests, ordering and interpreting/reviewing x-rays and diagnostic studies, care of the patient and discussion of the patient with the admitting physicians. Medical Decision Making MDM Narrative Medical decision making narrative: IV placed and labs sent I reviewed her EKG shows sinus rhythm without ST elevation Brain CT shows subacute ischemic stroke with petechial hemorrhage Catheterized urine is reviewed Tox screen noted Alcohol is negative Patient has significant accelerated hypertension which have been monitoring closely. However it is never reaches stage where we would emergently treat in the face of ischemic stroke. I reviewed this in detail with hospitalist Dr. Morgan. He will admit to intensive care and will closely monitor the blood pressure and decide when and if to treat it. Blood thinners will be held given the petechial hemorrhage involved. I do not think the patient needs emergent neurosurgeon evaluation at this time. Patient seems to have neurologic deficits. I do not know her baseline. It is clearly not stroke alert criteria or TPA candidate given the length of time of 16 hours since last seen normal. Plus that report is from the reportedly intoxicated roommates are not reliable. Differential Diagnosis Differential Diagnosis: Acute ischemic stroke, hemorrhagic stroke, brain mass, intoxication Medical Records Medical records reviewed: Yes I reviewed the patient's medical records. She was seen last here a year and a half ago for COPD Lab Data Lab results reviewed: Yes I reviewed the patient's lab results. Result diagrams: 10/18/17 12:29 10/18/17 12:29 Lab Results 10/18/17 10/18/17 10/18/17 Range/Units 12:12 12:29 12:29 WBC 9.1 (4.0-11.0) th/mm3 RBC 4.64 (4.00-5.30) mil/mm3 Hgb 14.7 (11.6-15.3) gm/dL Hct 43.5 (35.0-46.0) % MCV 93.8 (80.0-100.0) fL MCH 31.6 (27.0-34.0) pg MCHC 33.7 (32.0-36.0) % RDW 13.5 (11.6-17.2) % Plt Count 324 (150-450) th/mm3 MPV 8.3 (7.0-11.0) fL Prelim Diff (Auto) Slide review pending Neut % (Auto) 69.1 (16.0-70.0) % Lymph % (Auto) 18.9 (9.0-44.0) % [place] % (Auto) 6.0 (0.0-8.0) % Eos % (Auto) 4.9 H (0.0-4.0) % Baso % (Auto) 1.1 (0.0-2.0) % Neut # (Auto) 6.3 (1.8-7.7) th/mm3 Lymph # (Auto) 1.7 (1.0-4.8) th/mm3 [place] # (Auto) 0.5 (0.0-0.9) th/mm3 Eos # (Auto) 0.4 (0.0-0.4) th/mm3 Baso # (Auto) 0.1 (0.0-0.2) th/mm3 WBC Differential . Diff Scan Auto diff confirmed Differential Comment . Platelet Estimate Normal (Normal) Platelet Morphology Normal (Normal) PT 10.0 (9.8-11.6) sec INR 1.0 Ratio APTT 22.7 L (24.3-30.1) sec Sodium (136-145) meq/L Potassium (3.5-5.1) meq/L Chloride (98-107) meq/L Carbon Dioxide (21.0-32.0) meq/L Anion Gap (5-15) meq/L BUN (7-18) mg/dL Creatinine (0.50-1.00) mg/dL Estimated GFR (>89) mL/min POC Glucose 79 (68-110) mg/dl Random Glucose (74-106) mg/dL Calcium (8.5-10.1) mg/dL Total Bilirubin (0.2-1.0) mg/dL AST (15-37) U/L ALT (10-53) U/L Alkaline Phosphatase (45-117) U/L Total Protein (6.4-8.2) g/dL Albumin (3.4-5.0) g/dL Urine Color (Yellw/Straw) Urine Clarity (Clear) Urine pH (5.0-8.5) Ur Specific [place] (1.002-1.035) Urine Protein (Neg-Trace) mg/dL Urine Glucose (UA) (Negative) mg/dL Urine Ketones (Negative) mg/dL Urine Occult Blood (Negative) Urine Nitrate (Negative) Urine Bilirubin (Negative) Urine Urobilinogen (Less than 2) mg/dL Ur Leukocyte Esterase (Negative) Urine RBC (0-3) /hpf Urine WBC (0-5) /hpf Ur Squamous Epith Cells (0-5) /hpf Micro UA Comment Urine Culture Comments Urine Opiates Screen (Neg) Ur Barbiturates Screen (Neg) Ur Amphetamines Screen (Neg) U Benzodiazepines Scrn (Neg) Urine Cocaine Screen (Neg) U Cannabinoids Screen (Neg) Serum Alcohol (0-5) mg/dL 10/18/17 10/18/17 10/18/17 Range/Units 12:29 12:29 12:29 WBC (4.0-11.0) th/mm3 RBC (4.00-5.30) mil/mm3 Hgb (11.6-15.3) gm/dL Hct (35.0-46.0) % MCV (80.0-100.0) fL MCH (27.0-34.0) pg MCHC (32.0-36.0) % RDW (11.6-17.2) % Plt Count (150-450) th/mm3 MPV (7.0-11.0) fL Prelim Diff (Auto) Neut % (Auto) (16.0-70.0) % Lymph % (Auto) (9.0-44.0) % [place] % (Auto) (0.0-8.0) % Eos % (Auto) (0.0-4.0) % Baso % (Auto) (0.0-2.0) % Neut # (Auto) (1.8-7.7) th/mm3 Lymph # (Auto) (1.0-4.8) th/mm3 [place] # (Auto) (0.0-0.9) th/mm3 Eos # (Auto) (0.0-0.4) th/mm3 Baso # (Auto) (0.0-0.2) th/mm3 WBC Differential Diff Scan Differential Comment Platelet Estimate (Normal) Platelet Morphology (Normal) PT (9.8-11.6) sec INR Ratio APTT (24.3-30.1) sec Sodium 141 (136-145) meq/L Potassium 4.1 (3.5-5.1) meq/L Chloride 110 H (98-107) meq/L Carbon Dioxide 23.0 (21.0-32.0) meq/L Anion Gap 8 (5-15) meq/L BUN 11 (7-18) mg/dL Creatinine 0.99 (0.50-1.00) mg/dL Estimated GFR 55 L (>89) mL/min POC Glucose (68-110) mg/dl Random Glucose 90 (74-106) mg/dL Calcium 8.7 (8.5-10.1) mg/dL Total Bilirubin 0.7 (0.2-1.0) mg/dL AST 23 (15-37) U/L ALT 15 (10-53) U/L Alkaline Phosphatase 58 (45-117) U/L Total Protein 7.2 (6.4-8.2) g/dL Albumin 3.7 (3.4-5.0) g/dL Urine Color Straw (Yellw/Straw) Urine Clarity Clear (Clear) Urine pH 5.0 (5.0-8.5) Ur Specific [place] 1.009 (1.002-1.035) Urine Protein Negative (Neg-Trace) mg/dL Urine Glucose (UA) Negative (Negative) mg/dL Urine Ketones Negative (Negative) mg/dL Urine Occult Blood Small H (Negative) Urine Nitrate Negative (Negative) Urine Bilirubin Negative (Negative) Urine Urobilinogen Less than 2 (Less than 2) mg/dL Ur Leukocyte Esterase Negative (Negative) Urine RBC Less than 1 (0-3) /hpf Urine WBC Less than 1 (0-5) /hpf Ur Squamous Epith Cells 5 (0-5) /hpf Micro UA Comment Cath-culture not ind Urine Culture Comments Cath-cult not ind Urine Opiates Screen Pos H (Neg) Ur Barbiturates Screen Neg (Neg) Ur Amphetamines Screen Neg (Neg) U Benzodiazepines Scrn Neg (Neg) Urine Cocaine Screen Neg (Neg) U Cannabinoids Screen Neg (Neg) Serum Alcohol Less than 3 (0-5) mg/dL Imaging Data Radiologist's impression: Head CT 10/18/17 12:21 CONCLUSION: 1. Subacute left MCA distribution infarct associated with some trace petechial hemorrhage in the deep white matter. . Discharge Plan Discharge Disposition Patient Disposition: 30 Still Patient Discharge Details Diagnosis: Ischemic cerebrovascular accident (CVA), Accelerated hypertension, Hemorrhage, petechial Physicians Team ED Provider: Randy Marquez Primary Care Provider: UNKNOWN, Attending Provider: Sy Morgan Rxs /Orders / Referrals /Forms Prescriptions: No Action Unable to Obtain Home Meds RF: 0 Discharge Interventions Interventions: Vital Signs Last Done: 10/18/17 16:00 Status ED Status: Admitted Patient
[2017-10-18 12:50] LABS: Baso # (Auto) 0.1 th/mm3 (0.0-0.2); Baso % (Auto) 1.1 % (0.0-2.0); Eos # (Auto) 0.4 th/mm3 (0.0-0.4); Eos % (Auto) 4.9 % (0.0-4.0); Hematocrit 43.5 % (35.0-46.0); Hemoglobin 14.7 gm/dL (11.6-15.3); Lymph # (Auto) 1.7 th/mm3 (1.0-4.8); Lymph % (Auto) 18.9 % (9.0-44.0); Mean Corpuscular HGB Conc 33.7 % (32.0-36.0); Mean Corpuscular Hemoglobin 31.6 pg (27.0-34.0); Mean Corpuscular Volume 93.8 fL (80.0-100.0); Mean Platelet Volume 8.3 fL (7.0-11.0); Mono # (Auto) 0.5 th/mm3 (0.0-0.9); Neut # (Auto) 6.3 th/mm3 (1.8-7.7); Neut % (Auto) 69.1 % (16.0-70.0); Platelet Count 324 th/mm3 (150-450); Red Blood Count 4.64 mil/mm3 (4.00-5.30); Red Cell Distribution Width 13.5 % (11.6-17.2); White Blood Count 9.1 th/mm3 (4.0-11.0)
[2017-10-18 12:55] LABS: Bilirubin,Urine Negative (Negative); Clarity,Urine Clear (Clear); Color,Urine Straw (Yellw/Straw); Glucose,Urine (UA) Negative (Negative); Leukocyte Esterase,Urine Negative (Negative); Nitrite,Urine Negative (Negative); Specific Gravity,Urine 1.009 (1.002-1.035); Squamous Epithelial Cell,Urine 5 /hpf (0-5)
[2017-10-18 12:59] LABS: Activated Partial Thrombo Time 22.7 sec (24.3-30.1); Amphetamine Screen,Urine Neg (Neg); Barbiturate Screen,Urine Neg (Neg); Cannabinoid Screen,Urine Neg (Neg); Cocaine Screen,Urine Neg (Neg)
[2017-10-18 13:04] LABS: Alanine Aminotransferase 15 U/L (10-53)
[2017-10-18 13:06] LABS: Alkaline Phosphatase 58 U/L (45-117); Total Protein 7.2 g/dL (6.4-8.2)
[2017-10-18 13:07] LABS: Albumin 3.7 g/dL (3.4-5.0); Anion Gap 8 meq/L (5-15); Aspartate Aminotransferase 23 U/L (15-37); Blood Urea Nitrogen 11 mg/dL (7-18); Calcium 8.7 mg/dL (8.5-10.1); Chloride 110 meq/L (98-107); Glomerular Filtration Rate 55 mL/min (>89); Glucose,Random 90 mg/dL (74-106); Sodium 141 meq/L (136-145)
[2017-10-18 13:08] LABS: Opiate Screen,Urine Pos (Neg); Potassium 4.1 meq/L (3.5-5.1)
[2017-10-18 13:23] LABS: Platelet Estimate Normal (Normal); Platelet Morphology Normal (Normal)
--- NOTE | 2017-10-18 13:38 | ECG ---
Date Performed: 10/18/2017 Time Performed: 12:22:11 PTAGE: 72 years EKG: Sinus rhythm WITH SINUS ARRHYTHMIA POSSIBLE LEFT ATRIAL ENLARGEMENT NONSPECIFIC T-WAVE ABNORMALITY BORDERLINE ECG Compared to PREVIOUS TRACING , no longer tachycardic PREVIOUS TRACIN06/14/2016 02.01 DOCTOR: Olena Brush Interpretating Date/Time 10/18/2017 13:36:55
--- NOTE | 2017-10-18 14:34 | CT ---
EXAM DATE: 10/18/2017 2:21 PM EDT AGE/SEX: 72 years / Female INDICATIONS: Right side weakness, non-verbal. Last seen normal yesterday. CLINICAL DATA: This is the patient's initial encounter. Patient reports that signs and symptoms have been present for 1 day and indicates a pain score of Nonresponsive. MEDICAL/SURGICAL HISTORY: Non-responsive. Non-responsive. RADIATION DOSE: 42.56 CTDI (mGy) COMPARISON: No prior exams available for comparison. TECHNIQUE: CT of the head without contrast. Using automated exposure control and adjustment of the mA and/or kV according to patient size, radiation dose was kept as low as reasonably achievable to ob tain optimal diagnostic quality images. DICOM format image data is available electronically for revi ew and comparison. FINDINGS: There is abnormal low attenuation in the left hemisphere in the left MCA distribution most characteri stic of a subacute infarction. Probable trace petechial hemorrhage in the deep white matter on the le ft side seen on image #16. Currently there is no significant mass effect or midline shift. CONCLUSION: 1. Subacute left MCA distribution infarct associated with some trace petechial hemorrhage in the julissa p white matter. . Electronically signed by: Jerrell Dodson MD 10/18/2017 2:33 PM EDT
[2017-10-18] MEDS ORDERED: Labetalol HCl Inj 100 MG/20 ML Vial IV.PUSH PRN (16:33)
[2017-10-18] MEDS ORDERED: Dextrose 50% in Water 50 ML Vial IV.PUSH PRN (16:33)
--- NOTE | 2017-10-18 17:16 | XR ---
EXAM DATE: 10/18/2017 5:13 PM EDT AGE/SEX: 72 years / Female INDICATIONS: Subacute ischemic CVA with petechial hemorrhage. COPD. CLINICAL DATA: This is the patient's initial encounter. Patient reports that signs and symptoms have been present for 1 day and indicates a pain score of Nonresponsive. MEDICAL/SURGICAL HISTORY: Chronic obstructive pulmonary disease. . Cartiac stent. COMPARISON: . FINDINGS: A single AP view of the chest demonstrates the lungs to be symmetrically aerated without evidence of mass, infiltrate or effusion. The cardiomediastinal contours are unremarkable. Osseous structures a re intact. CONCLUSION: Negative examination. Electronically signed by: Piter Cleveland MD 10/18/2017 5:15 PM EDT
--- NOTE | 2017-10-18 17:20 | P.HP ---
History of Present Illness Primary Care Physician: UNKNOWN History of Present Illness: This is a 72-year-old female who was brought in by EMS because of altered mental status. History is mainly taken from ED and chart review. Apparently patient was last seen normal last night. This morning she was found with right- sided facial droop and right arm weakness. She was not following commands and was not verbal. According to her roommate who was intoxicated, patient is also an alcoholic. Head CT shows subacute left MCA CVA with petechial hemorrhages. [employer]ch reviewed shows she has history of COPD, coronary artery disease status post stent, hyperlipidemia and hypertension. Family history father of Kourtney Gehrig's and mother with cancer type not known. At this time, she is awake but has expressive aphasia. She is following commands intermittently. All other systems reviewed negative Inpatient Certification: I certify that the inpatient services were ordered in accordance with Medicare regulations governing the order. This includes certification that hospital inpatient services are reasonable and necessary and in the case of services not specified as inpatient-only under 42 CFR 419.22(n), that they are appropriately provided as inpatient services in accordance to with the 2-midnight benchmark under 43 CFR 412.3(e) Estimated Total Length of Stay (Days): 2 Plans for Post Hospital Care: Home Review of Systems All other systems reviewed negative except as stated in HPI [facility] - History History Provided By: Medical Record - Medical History Medical History: Medical History (Last Updated 10/18/17 @ 15:05 by Hanny Marti) Arthritis CAD (coronary artery disease) COPD (chronic obstructive pulmonary disease) Depression HLD (hyperlipidemia) [place] (hard of hearing) HTN (hypertension) Myocardial infarct - Surgical History Surgical History: Surgical History (Last Updated 10/18/17 @ 15:05 by Hanny Marti) Stented coronary artery - Tobacco History Smoking Status: Unknown if ever smoked - Alcohol History How Often Do You Have a Drink Containing Alcohol: Unable to Obtain - Substance Use History Substance History: Unable to Obtain - Travel History Recent Travel in the [place] Within the Last 8 Weeks: No Recent Travel Out of the Country Within the Last 8 Weeks: No - Immunization History Tetanus Immunization: Unable to Assess Hx Influenza Vaccine This Season: Unable to Assess Medications and Allergies Active Medications: Active Medications Albuterol (Albuterol Concentrated Neb) 2.5 mg NEB Q6HR NEB PRN PRN Reason: DYSPNEA Dextrose (D50w Vial) 50 ml IV.PUSH UNSCH PRN PRN Reason: PER HYPOGLYCEMIA PROTOCOL Enalaprilat (Vasotec Inj) 1.25 mg IV.PUSH Q4H PRN PRN Reason: For SBP > 220 or DBP > 120 Flumazenil (Romazecon Inj) 0.2 mg IV.PUSH Q1M PRN PRN Reason: OVERSEDATION Glucagon (Glucagon Inj) 1 mg OTHER UNSCH PRN PRN Reason: for Hypoglycemia Protocol Sodium Chloride (Ns Inj) 1,000 mls @ 70 mls/hr IV.CONT .[id number] ORIANA Stop: 10/19/17 02:47 Last Admin: 10/18/17 13:34 Dose: 70 mls/hr Sodium Chloride (Ns Inj) 1,000 mls @ 70 mls/hr IV.CONT .[id number] ORIANA Thiamine HCl 100 mg/ Sodium (Chloride) 101 mls @ 100 mls/hr IV.SIG DAILY ORIANA Stop: 10/22/17 08:59 Insulin Aspart (Novolog Insulin Correctional Sugar Inj) 0 unit SQ ACHS ORIANA; Protocol Labetalol HCl (Trandate Inj) 10 mg IV.PUSH Q2H PRN PRN Reason: For SBP > 220 or DBP > 120 Sodium Chloride (Ns Flush) 2 ml IV.FLUSH PRN PRN PRN Reason: FLUSH AFTER USING IV ACCESS Sodium Chloride (Ns Flush) 2 ml IV.FLUSH BID ORIANA Sodium Chloride (Ns Flush) 2 ml IV.FLUSH PRN PRN PRN Reason: FLUSH AFTER USING IV ACCESS Allergies Allergy/AdvReac Type Severity Reaction Status Date / Time No Known Allergies Allergy Unverified 10/18/17 12:02 Home Medications Medication Instructions Recorded Confirmed Type Unable to Obtain Home Meds 10/18/17 10/18/17 History Exam Vital signs: Vital Signs 10/18/17 12:02 10/18/17 12:18 10/18/17 13:00 Temperature 97.8 F 98.7 F Pulse Rate 88 68 62 Respiratory Rate 18 16 16 Blood Pressure 187/83 H 187/83 H 170/76 H Pulse Oximetry 98 97 96 10/18/17 13:04 10/18/17 14:00 10/18/17 15:00 Temperature Pulse Rate 60 64 Respiratory Rate 16 Blood Pressure 170/118 H 194/94 H Pulse Oximetry 97 98 10/18/17 16:00 Temperature Pulse Rate 108 H Respiratory Rate 18 Blood Pressure 187/90 H Pulse Oximetry 97 Intake & Output 10/17/17 10/18/17 10/18/17 18:59 06:59 18:59 Weight 63.503 kg Narrative: GENERAL: Well-developed, well-nourished in no distress SKIN: Warm and dry. HEAD: Atraumatic. Normocephalic. EYES: Pupils equal and round. No scleral icterus. No injection or drainage. ENT: No nasal bleeding or discharge. Mucous membranes pink and moist. NECK: Trachea midline. No JVD. CARDIOVASCULAR: Regular rate and rhythm. RESPIRATORY: No accessory muscle use. Clear to auscultation. Breath sounds equal bilaterally. GASTROINTESTINAL: Abdomen soft, non-tender, nondistended. MUSCULOSKELETAL: Extremities without clubbing, cyanosis, or edema. No obvious deformities. NEUROLOGICAL: Awake with obvious right facial droop, flaccid right upper extremity. Right lower extremity with slight movements withdraws from pain. She has expressive aphasia Results - Labs CBC & Chem 7: 10/18/17 12:29 10/18/17 12:29 Labs: Laboratory Results - last 24 hr 10/18/17 10/18/17 10/18/17 12:12 12:29 12:29 WBC 9.1 RBC 4.64 Hgb 14.7 Hct 43.5 MCV 93.8 MCH 31.6 MCHC 33.7 RDW 13.5 Plt Count 324 MPV 8.3 Prelim Diff (Auto) Slide review pending Neut % (Auto) 69.1 Lymph % (Auto) 18.9 Gooding % (Auto) 6.0 Eos % (Auto) 4.9 H Baso % (Auto) 1.1 Neut # (Auto) 6.3 Lymph # (Auto) 1.7 Gooding # (Auto) 0.5 Eos # (Auto) 0.4 Baso # (Auto) 0.1 WBC Differential . Diff Scan Auto diff confirmed Differential Comment . Platelet Estimate Normal Platelet Morphology Normal PT 10.0 INR 1.0 APTT 22.7 L Sodium Potassium Chloride Carbon Dioxide Anion Gap BUN Creatinine Estimated GFR POC Glucose 79 Random Glucose Calcium Total Bilirubin AST ALT Alkaline Phosphatase Total Protein Albumin Urine Color Urine Clarity Urine pH Ur Specific [place] Urine Protein Urine Glucose (UA) Urine Ketones Urine Occult Blood Urine Nitrate Urine Bilirubin Urine Urobilinogen Ur Leukocyte Esterase Urine RBC Urine WBC Ur Squamous Epith Cells Micro UA Comment Urine Culture Comments Urine Opiates Screen Ur Barbiturates Screen Ur Amphetamines Screen U Benzodiazepines Scrn Urine Cocaine Screen U Cannabinoids Screen Serum Alcohol 10/18/17 10/18/17 10/18/17 12:29 12:29 12:29 WBC RBC Hgb Hct MCV MCH MCHC RDW Plt Count MPV Prelim Diff (Auto) Neut % (Auto) Lymph % (Auto) [place] % (Auto) Eos % (Auto) Baso % (Auto) Neut # (Auto) Lymph # (Auto) [place] # (Auto) Eos # (Auto) Baso # (Auto) WBC Differential Diff Scan Differential Comment Platelet Estimate Platelet Morphology PT INR APTT Sodium 141 Potassium 4.1 Chloride 110 H Carbon Dioxide 23.0 Anion Gap 8 BUN 11 Creatinine 0.99 Estimated GFR 55 L POC Glucose Random Glucose 90 Calcium 8.7 Total Bilirubin 0.7 AST 23 ALT 15 Alkaline Phosphatase 58 Total Protein 7.2 Albumin 3.7 Urine Color Straw Urine Clarity Clear Urine pH 5.0 Ur Specific [place] 1.009 Urine Protein Negative Urine Glucose (UA) Negative Urine Ketones Negative Urine Occult Blood Small H Urine Nitrate Negative Urine Bilirubin Negative Urine Urobilinogen Less than 2 Ur Leukocyte Esterase Negative Urine RBC Less than 1 Urine WBC Less than 1 Ur Squamous Epith Cells 5 Micro UA Comment Cath-culture not ind Urine Culture Comments Cath-cult not ind Urine Opiates Screen Pos H Ur Barbiturates Screen Neg Ur Amphetamines Screen Neg U Benzodiazepines Scrn Neg Urine Cocaine Screen Neg U Cannabinoids Screen Neg Serum Alcohol Less than 3 - Imaging Impressions Head CT 10/18/17 12:21 CONCLUSION: 1. Subacute left MCA distribution infarct associated with some trace petechial hemorrhage in the deep white matter. . Caprini VTE Risk Assessment Caprini VTE Risk Assessment: Moderate/High Risk (score >= 2) Caprini Risk Assessment Model: Point Value = 1 Point Value = 2 Point Value = 3 Point Value = 5 Age 41-60 Minor surgery BMI > 25 kg/m2 Swollen legs Varicose veins or History of unexplained or recurrent spontaneous Oral contraceptives or hormone replacement Sepsis (< 1 month) Serious lung disease, including pneumonia (< 1 month) Abnormal pulmonary function Acute myocardial infarction Congestive heart failure (< 1 month) History of inflammatory bowel disease Medical patient at bed rest Age 61-74 Arthroscopic surgery Major open surgery (> 45 min) Laparoscopic surgery (> 45 min) Malignancy Confined to bed (> 72 hours) Immobilizing plaster cast Central venous access Age >= 75 History of VTE Family history of VTE Factor V Leiden Prothrombin [id number] Lupus anticoagulant Anticardiolipin antibodies Elevated serum homocysteine Heparin-induced thrombocytopenia Other congenital or acquired thrombophilia Stroke (< 1 month) Elective arthroplasty Hip, pelvis, or leg fracture Acute spinal cord injury (< 1 month) Prophylaxis Regimen: Total Risk Factor Score Risk Level Prophylaxis Regimen 0-1 Low Early ambulation 2 Moderate Order ONE of the following: *Sequential Compression Device (SCD) *Heparin 5000 units SQ BID 3-4 Higher Order ONE of the following medications: *Heparin 5000 units SQ TID *Enoxaparin/Lovenox 40 mg SQ daily (WT < 150 kg, CrCl > 30 mL/min) *Enoxaparin/Lovenox 30 mg SQ daily (WT < 150 kg, CrCl > 10-29 mL/min) *Enoxaparin/Lovenox 30 mg SQ BID (WT < 150 kg, CrCl > 30 mL/min) AND/OR *Sequential Compression Device (SCD) 5 or more Highest Order ONE of the following medications: *Heparin 5000 units SQ TID (Preferred with Epidurals) *Enoxaparin/Lovenox 40 mg SQ daily (WT < 150 kg, CrCl > 30 mL/min) *Enoxaparin/Lovenox 30 mg SQ daily (WT < 150 kg, CrCl > 10-29 mL/min) *Enoxaparin/Lovenox 30 mg SQ BID (WT < 150 kg, CrCl > 30 mL/min) AND *Sequential Compression Device (SCD) Assessment and Plan - Plan This is a 72-year-old female who was brought in by EMS because of altered mental status. History is mainly taken from ED and chart review. Apparently patient was last seen normal last night. This morning she was found with right- sided facial droop and right arm weakness. She was not following commands and was not verbal. According to her roommate who was intoxicated, patient is also an alcoholic. Head CT shows subacute left MCA CVA with petechial hemorrhages. Subacute left MCA CVA with petechial hemorrhages. Patient will be admitted for stroke workup obtain MRI and MRA of the brain, carotid ultrasound and echocardiogram. Permissive hypertension start IV fluids and consult neurology and neurosurgery. Will hold antiplatelets for now secondary to hemorrhages. Check lipid profile and A1c. EKG tracing interpreted by me with sinus rhythm. PT/OT/ST [id number]. Swallowing evaluation. Monitor for hypoglycemia. Neurochecks and seizure precautions Alcohol abuse. CIWA protocol. Multiple medical conditions of COPD, coronary artery disease status post stent, hyperlipidemia and hypertension. RN to verify home medications. DVT prophylaxis with SCD and early ambulation. Hold pharmacological prophylaxis secondary to petechial hemorrhages Discharge Planning: HHC vs rehab
--- NOTE | 2017-10-18 18:05 | US ---
EXAM DATE: 10/18/2017 5:52 PM EDT AGE/SEX: 72 years / Female INDICATIONS: Cerebral vascular accident. CLINICAL DATA: This is the patient's initial encounter. Patient reports that signs and symptoms have been present for 1 day and indicates a pain score of 0/10. MEDICAL/SURGICAL HISTORY: Chronic obstructive pulmonary disease. Hypertension. Coronary artery disease. Hyperlipidemia. Myocardial infarction. . Coronary artery stent. COMPARISON: No prior exams available for comparison. VELOCITY PARAMETERS: ICA/CCA Ratio: Right 2.7 , Left N/A ICA: Right 131 cm/sec, Left N/A cm/sec CCA: Right 49 cm/sec, Left 9.6 cm/sec ECA: Right 212 cm/sec, Left N/A cm/sec Vertebral: Right 58 cm/sec antegrade, Left 157 cm/sec antegrade FINDINGS: Right Carotid: Severe plaque identified at the carotid bulb. Left Carotid: Severe plaque identified in the common carotid artery. Internal carotid artery and ext ernal carotid artery are not visualized and may be occluded. Other: None. CONCLUSION: 1. Severe plaque identified at the right carotid bulb. Elevated ICA to CCA ratio on the right indica ting possible high-grade stenosis. 2. Left ICA and ECA nonvisualized indicating possible occlusion. Electronically signed by: Piter Cleveland MD 10/18/2017 6:03 PM EDT
[2017-10-18] MEDS: Sod Chloride 0.9% Inj 1,000 ML IV.CONT SCH (18:15)
[2017-10-18] MEDS: Insulin NovoLOG Aspart Correctional Sugar Inj SQ SCH ×2 (18:58→23:22)
--- NOTE | 2017-10-18 19:04 | P.CONNS ---
History of Present Illness Service: Neurosurgery Consult date: 10/18/17 Requesting Physician: Sy Morgan Reason for Consult: CVA Primary Care Provider: UNKNOWN History of Present Illness: 72-year-old female brought to the emergency room today for altered mental status. She was apparently last seen last evening without problems. This morning she was noted to develop right facial and upper extremity weakness, and nonverbal. Initial evaluation in the emergency room included CT scan of the head which has revealed a left MCA CVA with petechial hemorrhages. The patient has a history of hypertension, dyslipidemia, COPD, CAD. Also probable chronic alcoholism. Review of Systems unobtainable due to mental status PMFSH - History History Provided By: Medical Record - Medical History Medical History: Medical History (Last Updated 10/18/17 @ 15:05 by Hanny Marti) Arthritis CAD (coronary artery disease) COPD (chronic obstructive pulmonary disease) Depression HLD (hyperlipidemia) [place] (hard of hearing) HTN (hypertension) Myocardial infarct - Surgical History Surgical History: Surgical History (Last Updated 10/18/17 @ 15:05 by Hanny Marti) Stented coronary artery - Tobacco History Smoking Status: Unknown if ever smoked - Alcohol History How Often Do You Have a Drink Containing Alcohol: Unable to Obtain - Substance Use History Substance History: Unable to Obtain - Travel History Recent Travel in the [place] Within the Last 8 Weeks: No Recent Travel Out of the Country Within the Last 8 Weeks: No - Immunization History Tetanus Immunization: Unable to Assess Hx Influenza Vaccine This Season: Unable to Assess Medications and Allergies Active Medications: Active Medications Albuterol (Albuterol Concentrated Neb) 2.5 mg NEB Q6HR NEB PRN PRN Reason: DYSPNEA Dextrose (D50w Vial) 50 ml IV.PUSH UNSCH PRN PRN Reason: PER HYPOGLYCEMIA PROTOCOL Enalaprilat (Vasotec Inj) 1.25 mg IV.PUSH Q4H PRN PRN Reason: For SBP > 220 or DBP > 120 Flumazenil (Romazecon Inj) 0.2 mg IV.PUSH Q1M PRN PRN Reason: OVERSEDATION Glucagon (Glucagon Inj) 1 mg OTHER UNSCH PRN PRN Reason: for Hypoglycemia Protocol Sodium Chloride (Ns Inj) 1,000 mls @ 70 mls/hr IV.CONT .[id number] ORIANA Stop: 10/19/17 02:47 Last Admin: 10/18/17 13:34 Dose: 70 mls/hr Sodium Chloride (Ns Inj) 1,000 mls @ 70 mls/hr IV.CONT .[id number] ORIANA Last Admin: 10/18/17 18:15 Dose: Not Given Thiamine HCl 100 mg/ Sodium (Chloride) 101 mls @ 100 mls/hr IV.SIG DAILY ORIANA Stop: 10/22/17 08:59 Insulin Aspart (Novolog Insulin Correctional Sugar Inj) 0 unit SQ ACHS ORIANA; Protocol Labetalol HCl (Trandate Inj) 10 mg IV.PUSH Q2H PRN PRN Reason: For SBP > 220 or DBP > 120 Sodium Chloride (Ns Flush) 2 ml IV.FLUSH PRN PRN PRN Reason: FLUSH AFTER USING IV ACCESS Sodium Chloride (Ns Flush) 2 ml IV.FLUSH BID ORIANA Sodium Chloride (Ns Flush) 2 ml IV.FLUSH PRN PRN PRN Reason: FLUSH AFTER USING IV ACCESS Allergies Allergy/AdvReac Type Severity Reaction Status Date / Time No Known Allergies Allergy Unverified 10/18/17 12:02 Home Medications Medication Instructions Recorded Confirmed Type Unable to Obtain Home Meds 10/18/17 10/18/17 History Exam Vital signs: Vital Signs 10/18/17 12:02 10/18/17 12:18 10/18/17 13:00 Temperature 97.8 F 98.7 F Pulse Rate 88 68 62 Respiratory Rate 18 16 16 Blood Pressure 187/83 H 187/83 H 170/76 H Pulse Oximetry 98 97 96 10/18/17 13:04 10/18/17 14:00 10/18/17 15:00 Temperature Pulse Rate 60 64 Respiratory Rate 16 Blood Pressure 170/118 H 194/94 H Pulse Oximetry 97 98 10/18/17 16:00 10/18/17 17:17 Temperature Pulse Rate 108 H 81 Respiratory Rate 18 18 Blood Pressure 187/90 H 210/85 H Pulse Oximetry 97 97 Intake & Output 10/17/17 10/18/17 10/18/17 18:59 06:59 18:59 Weight 63.503 kg Narrative: GENERAL: This is a well-nourished, well-developed patient, no apparent distress. SKIN: No abrasions, contusion, rash noted. Skin warm and dry. HEAD: Atraumatic. Normocephalic. No temporal or scalp tenderness. EYES: Sclerae are clear and nonicteric ENT: No facial edema or ecchymosis. No periorbital edema. NECK: Trachea midline. No cervical spine tenderness. CARDIOVASCULAR: Regular rate and rhythm without murmurs, gallops, or rubs. RESPIRATORY: Clear to auscultation. Breath sounds equal bilaterally. No wheezes , rales, or rhonchi. GASTROINTESTINAL: Abdomen soft, non-tender, nondistended. No hepato-splenomegaly , or palpable masses. No guarding. MUSCULOSKELETAL: Extremities without cyanosis, or edema. No joint tenderness, or edema noted. No calf tenderness. Dorsalis pedis pulses 2+ bilateral NEUROLOGICAL: Awake and alert Nonverbal. Vocalizes in response to some questions Follow simple commands well No evidence of anxiety or depression Pupils are equal and reactive to accommodation. Extraocular movements are intact. She appears to have a probable right homonymous hemianopsia, not responding to visual stimuli in the right quadrants bilaterally. Positive right facial paresis. Tongue protrudes to the right. Palate elevates slightly asymmetric. Intact sternocleidomastoid and shoulder shrug Difficult to accurately assess sensation. She seems to respond to sensory stimuli in both upper and lower extremities. Strength is normal in major flexion-extension groups left upper and lower extremity. Flaccid right upper extremity Mostly 3/5 left lower extremity major flexion-extension groups Liana's absent bilaterally No ankle clonus Plantar responses absent bilateral Results - Laboratory Findings CBC and BMP: 10/18/17 12:29 10/18/17 12:29 Abnormal lab findings: Abnormal Labs 10/18/17 10/18/17 10/18/17 12:29 12:29 12:29 Eos % (Auto) 4.9 H APTT 22.7 L Chloride 110 H Estimated GFR 55 L Urine Occult Blood Urine Opiates Screen 10/18/17 10/18/17 12:29 12:29 Eos % (Auto) APTT Chloride Estimated GFR Urine Occult Blood Small H Urine Opiates Screen Pos H - Diagnostic Findings Additional findings: 10/18/2017 CT scan head images reviewed by the undersigned. Agree with findings as noted below: There is abnormal low attenuation in the left hemisphere in the left MCA distribution most characteristic of a subacute infarction. Probable trace petechial hemorrhage in the deep white matter on the left side seen on image # 16. Currently there is no significant mass effect or midline shift. Assessment and Plan - Plan Impression: 1. Left hemisphere MCA distribution CVA with small petechial hemorrhages. No significant mass-effect. 2. Hypertension 3. Dyslipidemia 4. COPD 5. Probable chronic alcohol abuse Plan: Patient is being admitted to surgical intensive care unit for close neurologic checks and vital signs. Follow-up CT scan 10/19/2017. Maintain sodium 145-155 range anticipating possible progression of edema. Prefer nonchemical DVT prophylaxis initially due to petechial hemorrhages with potential for further delayed hemorrhage as well as edema possibly requiring surgical intervention. Permissive hypertension for cerebral perfusion.
--- NOTE | 2017-10-18 21:22 | MR ---
EXAM DATE: 10/18/2017 9:14 PM EDT AGE/SEX: 72 years / Female INDICATIONS: Right sided weakness. CLINICAL DATA: This is the patient's initial encounter. Patient reports that signs and symptoms have been present for 1 day and indicates a pain score of 0/10. MEDICAL/SURGICAL HISTORY: Hypertension. Arthritis. Coronary artery stent. COMPARISON: [facility] [place], CT HEAD W/O CONTRAST, 10/18/2017. . TECHNIQUE: Multiplanar, multisequence examination of the brain was performed without contrast. FINDINGS: Cerebrum: Restricted diffusion is seen in the left MCA distribution involving portions of the fronta l lobe and temporal lobe extending into the basal ganglia. Area of abnormality measures 4.5 cm in med ial to lateral dimension and approximately 5 cm in greatest anterior to posterior dimension. Correspo nding T2 weighted signal abnormality is also seen. Mild mass effect but no midline shift. Ventricles within normal limits in size. No evidence of hemorrhage. White Matter: Scattered chronic white matter ischemic change. Posterior Fossa: The cerebellum and brainstem are intact. The 4th ventricle is midline. The cerebel lopontine angle is unremarkable. The cerebellar tonsils are normal in position. Extracranial: The visualized portions of the orbits and paranasal sinuses are unremarkable. CONCLUSION: Moderate-sized acute infarct again seen in the left MCA distribution. There is some mass effect but n o midline shift. Electronically signed by: Piter Cleveland MD 10/18/2017 9:21 PM EDT
--- NOTE | 2017-10-18 21:25 | MR ---
EXAM DATE: 10/18/2017 9:14 PM EDT AGE/SEX: 72 years / Female INDICATIONS: Right sided weakness. CLINICAL DATA: This is the patient's initial encounter. Patient reports that signs and symptoms have been present for 1 day and indicates a pain score of 0/10. MEDICAL/SURGICAL HISTORY: Chronic obstructive pulmonary disease. Arthritis. Coronary artery st ent. COMPARISON: [facility] [place], [place] HEAD W/O CONTRAST, 10/18/2017. . TECHNIQUE: 3D [id number] MRA was performed. Source images, multiplanar STS MIP, and 3D volum e MIP reconstructions were reviewed. FINDINGS: Patent intracranial portions of the internal carotid arteries are not seen. There is a patent basilar artery, bilateral posterior cerebral arteries, and right-sided posterior communicating artery. Paten t but diffusely diminutive right MCA is noted. Patent bilateral anterior cerebral arteries are noted. Patent left MCA is not visualized. CONCLUSION: Apparent occlusion of the internal carotid arteries bilaterally as well as occlusion of the left MCA proximally. Evidence of diffuse atherosclerotic disease of the right MCA. Electronically signed by: Piter Cleveland MD 10/18/2017 9:24 PM EDT
--- NOTE | 2017-10-19 00:07 | P.PNVS ---
Subjective Subjective/Hospital Course: 72-year-old female with the new left hemispheric stroke and right-sided weakness evident by clinical exam and diagnostic studies. MRA reveals bilateral internal carotid stenoses. In face of bilateral internal carotid artery stenoses there is no surgical reconstruction or endovascular construction that would benefit this patient Full consult to follow Laura Chen Objective Vital Signs / I&O: Vital Signs 10/18/17 12:02 10/18/17 12:18 10/18/17 13:00 Temperature 97.8 F 98.7 F Pulse Rate 88 68 62 Respiratory Rate 18 16 16 Blood Pressure 187/83 H 187/83 H 170/76 H Pulse Oximetry 98 97 96 10/18/17 13:04 10/18/17 14:00 10/18/17 15:00 Temperature Pulse Rate 60 64 Respiratory Rate 16 Blood Pressure 170/118 H 194/94 H Pulse Oximetry 97 98 10/18/17 16:00 10/18/17 17:17 10/18/17 18:15 Temperature 99.2 F Pulse Rate 108 H 81 112 H Respiratory Rate 18 18 25 H Blood Pressure 187/90 H 210/85 H 167/83 H Pulse Oximetry 97 97 95 Intake & Output 10/18/17 10/18/17 10/19/17 06:59 18:59 06:59 Weight 63.503 kg 55.7 kg Laboratory Results - last 24 hr 10/18/17 10/18/17 10/18/17 12:12 12:29 12:29 WBC 9.1 RBC 4.64 Hgb 14.7 Hct 43.5 MCV 93.8 MCH 31.6 MCHC 33.7 RDW 13.5 Plt Count 324 MPV 8.3 Prelim Diff (Auto) Slide review pending Neut % (Auto) 69.1 Lymph % (Auto) 18.9 Gregg % (Auto) 6.0 Eos % (Auto) 4.9 H Baso % (Auto) 1.1 Neut # (Auto) 6.3 Lymph # (Auto) 1.7 Gregg # (Auto) 0.5 Eos # (Auto) 0.4 Baso # (Auto) 0.1 WBC Differential . Diff Scan Auto diff confirmed Differential Comment . Platelet Estimate Normal Platelet Morphology Normal PT 10.0 INR 1.0 APTT 22.7 L Sodium Potassium Chloride Carbon Dioxide Anion Gap BUN Creatinine Estimated GFR POC Glucose 79 Random Glucose Calcium Total Bilirubin AST ALT Alkaline Phosphatase Total Protein Albumin Urine Color Urine Clarity Urine pH Ur Specific [place] Urine Protein Urine Glucose (UA) Urine Ketones Urine Occult Blood Urine Nitrate Urine Bilirubin Urine Urobilinogen Ur Leukocyte Esterase Urine RBC Urine WBC Ur Squamous Epith Cells Micro UA Comment Urine Culture Comments Urine Opiates Screen Ur Barbiturates Screen Ur Amphetamines Screen U Benzodiazepines Scrn Urine Cocaine Screen U Cannabinoids Screen Serum Alcohol 10/18/17 10/18/17 10/18/17 12:29 12:29 12:29 WBC RBC Hgb Hct MCV MCH MCHC RDW Plt Count MPV Prelim Diff (Auto) Neut % (Auto) Lymph % (Auto) Gre[place] % (Auto) Eos % (Auto) Baso % (Auto) Neut # (Auto) Lymph # (Auto) [place] # (Auto) Eos # (Auto) Baso # (Auto) WBC Differential Diff Scan Differential Comment Platelet Estimate Platelet Morphology PT INR APTT Sodium 141 Potassium 4.1 Chloride 110 H Carbon Dioxide 23.0 Anion Gap 8 BUN 11 Creatinine 0.99 Estimated GFR 55 L POC Glucose Random Glucose 90 Calcium 8.7 Total Bilirubin 0.7 AST 23 ALT 15 Alkaline Phosphatase 58 Total Protein 7.2 Albumin 3.7 Urine Color Straw Urine Clarity Clear Urine pH 5.0 Ur Specific [place] 1.009 Urine Protein Negative Urine Glucose (UA) Negative Urine Ketones Negative Urine Occult Blood Small H Urine Nitrate Negative Urine Bilirubin Negative Urine Urobilinogen Less than 2 Ur Leukocyte Esterase Negative Urine RBC Less than 1 Urine WBC Less than 1 Ur Squamous Epith Cells 5 Micro UA Comment Cath-culture not ind Urine Culture Comments Cath-cult not ind Urine Opiates Screen Pos H Ur Barbiturates Screen Neg Ur Amphetamines Screen Neg U Benzodiazepines Scrn Neg Urine Cocaine Screen Neg U Cannabinoids Screen Neg Serum Alcohol Less than 3 10/18/17 10/18/17 17:18 22:49 WBC RBC Hgb Hct MCV MCH MCHC RDW Plt Count MPV Prelim Diff (Auto) Neut % (Auto) Lymph % (Auto) Gregg % (Auto) Eos % (Auto) Baso % (Auto) Neut # (Auto) Lymph # (Auto) [place] # (Auto) Eos # (Auto) Baso # (Auto) WBC Differential Diff Scan Differential Comment Platelet Estimate Platelet Morphology PT INR APTT Sodium Potassium Chloride Carbon Dioxide Anion Gap BUN Creatinine Estimated GFR POC Glucose 99 114 H Random Glucose Calcium Total Bilirubin AST ALT Alkaline Phosphatase Total Protein Albumin Urine Color Urine Clarity Urine pH Ur Specific [place] Urine Protein Urine Glucose (UA) Urine Ketones Urine Occult Blood Urine Nitrate Urine Bilirubin Urine Urobilinogen Ur Leukocyte Esterase Urine RBC Urine WBC Ur Squamous Epith Cells Micro UA Comment Urine Culture Comments Urine Opiates Screen Ur Barbiturates Screen Ur Amphetamines Screen U Benzodiazepines Scrn Urine Cocaine Screen U Cannabinoids Screen Serum Alcohol Impressions Carotid Doppler Study 10/18/17 00:00 CONCLUSION: 1. Severe plaque identified at the right carotid bulb. Elevated ICA to CCA ratio on the right indicating possible high-grade stenosis. 2. Left ICA and ECA nonvisualized indicating possible occlusion. Chest X-Ray 10/18/17 00:00 CONCLUSION: Negative examination. Head CT 10/18/17 12:21 CONCLUSION: 1. Subacute left MCA distribution infarct associated with some trace petechial hemorrhage in the deep white matter. . Head MRI 10/18/17 16:36 CONCLUSION: Moderate-sized acute infarct again seen in the left MCA distribution. There is some mass effect but no midline shift. Head MRA 10/18/17 16:36 CONCLUSION: Apparent occlusion of the internal carotid arteries bilaterally as well as occlusion of the left MCA proximally. Evidence of diffuse atherosclerotic disease of the right MCA.
[2017-10-19 05:39] LABS: Chol/HDL Ratio 1.96 Ratio; HDL Cholesterol 66.5 mg/dL (40.0-60.0)
[2017-10-19] MEDS: Sod Chloride 0.9% Inj 1,000 ML IV.CONT SCH ×3 (05:39→21:41)
--- NOTE | 2017-10-19 07:00 | MB ---
cc: Juhi Chahal MD DATE: 10/18/2017 REASON FOR CONSULTATION: Left MCA stroke, carotid occlusion. HISTORY OF PRESENT ILLNESS: This 72-year-old female was brought to the hospital with altered mental status. She was noted to have a right facial droop and weakness of the right side of the body. The patient became nonverbal and aphasic. CT scan of the head revealed a left middle cerebral artery acute stroke. The patient was then worked up for the rest of her problems. PAST MEDICAL HISTORY: COPD, coronary artery disease, hyperlipidemia and hypertension, as well as previous myocardial infarction. PAST SURGICAL HISTORY: Coronary artery angioplasty and stenting. I do not know smoking or alcohol history. PHYSICAL EXAMINATION: GENERAL: Thin, 72-year-old female. HEENT: Normocephalic. No trauma to the head. Pupils appear to be equal and reactive. Extraocular muscles seem to be intact. NECK: Bilateral carotid pulses. No bruits. CHEST: Bilateral breath sounds, decreased over both lung gama consistent with fairly advanced chronic obstructive pulmonary disease. HEART: Regular rate and rhythm. ABDOMEN: Soft. Active bowel sounds. No rebound, no guarding, no masses. EXTREMITIES: The patient has actually bilateral femoral pulses, popliteal, dorsalis pedis and posterior tibial. No signs of acute vascular deficit. NEUROLOGIC: The patient is awake, dysphagic at this time. From simple questions, the patient is trying to say yes or no. Apparently, she was a little worse and than a little better before I saw her. Follows commands. The patient has some weakness of the right side of the face and appears to have right hemianopsia glossal turn to the right. The patient has decreased sensation in both arms and legs and right arm is weak. The right leg is weaker than the left; however, she has some motion in it. Bilateral deep tendon reflexes appear to be normal. Salomon is negative. IMPRESSION AND RECOMMENDATIONS: I reviewed laboratory and diagnostic procedures. MRI confirms the diagnosis while the MRA reveals bilateral internal carotid artery occlusions. At this point with bilateral carotid artery occlusions, it becomes a mute point as far as surgery is concerned, and the patient is not a candidate for any surgical intervention as far as endovascular or vascular approach. Thank you very much for your referral. Critical care 38 minutes. MD BONI Bhatia/DANNY , 06:33 AM , 06:40 AM
[2017-10-19] MEDS: Insulin NovoLOG Aspart Correctional Sugar Inj SQ SCH ×4 (07:49→21:45)
[2017-10-19] MEDS: Thiamine Inj 100 MG in Sodium Chlor 0.9% Inj 100 ML IV.SIG SCH (08:29)
--- NOTE | 2017-10-19 10:13 | MB ---
cc: Ave Arndt MD DATE: 10/19/2017 REASON FOR CONSULTATION: Stroke. HISTORY OF PRESENT ILLNESS: This is a 72-year-old woman, history is taken from the chart, was brought in for change in mental status. Apparently was seen normal the night prior to admission. In the morning was found with right-sided weakness, slurred speech or unable to speak properly, not following any type of cues verbal. There is some report that the patient is an alcohol abuser, but not confirmed. CT showed a left MCA stroke with petechial hemorrhage. She does have a history of COPD, heart disease, stent, hyperlipidemia, hypertension per chart. She continues to have weakness on the right side face and arm, left leg and aphasic. ALLERGIES: NONE REPORTED. MEDICAL HISTORY: As stated. PAST SURGICAL HISTORY: Coronary stent, unknown if she is a smoker. ALCOHOL HISTORY: Really unknown, just report. PHYSICAL EXAMINATION: VITAL SIGNS: Temperature is 98.9, pulse 87, respiratory rate 23, blood pressure 160/74, saturating at 98% on room air. NECK: Supple. I do not appreciate any bruit. CARDIOVASCULAR: Heart: Appears regular. NEUROLOGIC: She is somnolent, arousable, moans. Tries to follow simple commands with her feet. Pupils look reactive. Her face is asymmetrical. She has a right facial droop. Difficult to tell her visual gama. She has a right hemiplegia in the right arm. She will not withdraw to painful stimuli. She does move her right leg. Left side seems to be intact. DTRs brisk. Right toe is upgoing. Cerebellar, gait could not be assessed. LABORATORY DATA: Reviewed. Her CBC is really unremarkable. Coag panel: PTT 22.7. Chemistries: GFR 55, glucose 114, triglycerides 76, cholesterol 131, LDL 49, HDL 66.5. LFTs are intact. Hemoglobin A1c is pending. Her urine showed small blood. Toxicology screen positive for opiates. IMAGING REPORTS: MRI confirms a moderate-sized left MCA infarct without any shift, some mass effect, mild. MRA [place] shows apparent occlusion of the internal carotids bilaterally as well as occlusion of the left MCA proximally and evidence of diffuse atherosclerotic disease of the right MCA. Head CT showed subacute left MCA with some trace petechial hemorrhage in the deep white matter. Carotid studies showed severe plaque identified in the right carotid bulb, elevated ICA to CCA ratio indicating high-grade stenosis and left ICA and ECA nonvisualized, indicating possible occlusion. IMPRESSION/PLAN: Possible what looks like a bilateral carotid occlusion. I would go ahead and complete the workup trying to get either CTA of the carotids versus MRA depending on what her kidney parameters are. We will get a 2-D echo. If okay with Neurosurgery, I would at least like to put her on some type of an aspirin, at least a baby aspirin. SCDs for DVT prevention, but I will go ahead and get another CT of the brain today as a followup. Permissible hypertension for cerebral perfusion. At some point in time if she does have significant carotid and intracranial stenosis disease, she probably will benefit from being on an anticoagulant, hopefully to prevent any further intracranial events. Have PT, OT, speech therapy see her. Rehab consult and further recommendations will be made accordingly. Ave Arndt MD DF/TL , 09:50 AM , 09:59 AM
[2017-10-19 12:28] LABS: Hemoglobin A1c 5.9 % (4.3-6.0)
--- NOTE | 2017-10-19 12:44 | P.PNNS ---
Subjective Interval history: Per nursing staff blood pressure has been stable overnight. Patient generally much more responsive today. No problems with respirations or oxygen saturation reported. Physical Exam Vital signs: Vital Signs 10/18/17 13:00 10/18/17 13:04 10/18/17 14:00 Temperature Pulse Rate 62 60 Respiratory Rate 16 16 Blood Pressure 170/76 H 170/118 H Pulse Oximetry 96 97 10/18/17 15:00 10/18/17 16:00 10/18/17 17:17 Temperature Pulse Rate 64 108 H 81 Respiratory Rate 18 18 Blood Pressure 194/94 H 187/90 H 210/85 H Pulse Oximetry 98 97 97 10/18/17 18:15 10/18/17 20:00 10/19/17 00:00 Temperature 99.2 F 98.9 F 98.3 F Pulse Rate 112 H 94 H 96 H Respiratory Rate 25 H 22 24 Blood Pressure 167/83 H 170/61 H 145/67 H Pulse Oximetry 95 95 10/19/17 04:00 10/19/17 07:27 10/19/17 08:00 Temperature 97.9 F 98.9 F Pulse Rate 106 H 87 Respiratory Rate 24 23 Blood Pressure 157/90 H 160/74 H Pulse Oximetry 97 99 98 10/19/17 09:00 Temperature Pulse Rate 87 Respiratory Rate Blood Pressure Pulse Oximetry Intake & Output 10/18/17 10/19/17 10/19/17 18:59 06:59 18:59 Intake Total 1000 / 1000 1000 / 1000 311 / 311 Balance 1000 / 1000 1000 / 1000 311 / 311 Weight 63.503 kg 55.7 kg Intake: IV 1000 / 1000 311 / 311 NS Inj 1,000 ML @ 70 mls/hr IV. 1000 / 1000 210 / 210 CONT .[id number] ORIANA Rx#:[id number] Thiamine Inj 100 MG In NS Inj 101 / 101 100 ML @ 100 mls/hr IV.SIG DAILY ORIANA Rx#:[id number] Other 1000 / 1000 Other: Other Intake Source Saline Solution # Voids 1 Narrative: General: Resting quietly. No agitation. Respirations clear nonlabored Cardiac regular without murmur Abdomen soft without obvious tenderness Extremities no significant edema Neurologic: Pupils are midrange moderately reactive. She tracks to the left greater than right in response to command and verbal stimuli. Follows commands left upper extremity with good strength, moderate strength left lower extremity. Spontaneously moves right lower extremity with mild mostly 2/5 strength. Absent motor movements right upper extremity. Assessment and Plan - Plan Impression: 1. Left hemisphere MCA distribution CVA with small petechial hemorrhages. No significant mass-effect. 2. Hypertension 3. Dyslipidemia 4. COPD 5. Probable chronic alcohol abuse Plan: The patient is quite a bit more alert and responsive today compared to 2017. She is following commands consistently left upper extremity. Mild eye- opening intermittent. Patient remains in surgical intensive care unit for close neurologic checks and vital signs. Follow-up CT scan 10/19/2017 pending. Maintain sodium 145-155 range anticipating possible progression of edema. Prefer nonchemical DVT prophylaxis initially due to petechial hemorrhages with potential for further delayed hemorrhage as well as edema possibly requiring surgical intervention. Permissive hypertension for cerebral perfusion.
--- NOTE | 2017-10-19 12:55 | P.PN ---
Subjective Interval history: Follow-up CVA. Patient arousable intermittently following commands. She has expressive aphasia. Discussed with neurosurgery okay to start aspirin. Discussed with nursing, unable to reach son at this time. Physical Exam Vital signs: Vital Signs 10/18/17 13:00 10/18/17 13:04 10/18/17 14:00 Temperature Pulse Rate 62 60 Respiratory Rate 16 16 Blood Pressure 170/76 H 170/118 H Pulse Oximetry 96 97 10/18/17 15:00 10/18/17 16:00 10/18/17 17:17 Temperature Pulse Rate 64 108 H 81 Respiratory Rate 18 18 Blood Pressure 194/94 H 187/90 H 210/85 H Pulse Oximetry 98 97 97 10/18/17 18:15 10/18/17 20:00 10/19/17 00:00 Temperature 99.2 F 98.9 F 98.3 F Pulse Rate 112 H 94 H 96 H Respiratory Rate 25 H 22 24 Blood Pressure 167/83 H 170/61 H 145/67 H Pulse Oximetry 95 95 10/19/17 04:00 10/19/17 07:27 10/19/17 08:00 Temperature 97.9 F 98.9 F Pulse Rate 106 H 87 Respiratory Rate 24 23 Blood Pressure 157/90 H 160/74 H Pulse Oximetry 97 99 98 10/19/17 09:00 Temperature Pulse Rate 87 Respiratory Rate Blood Pressure Pulse Oximetry Intake & Output 10/18/17 10/19/17 10/19/17 18:59 06:59 18:59 Intake Total 1000 / 1000 1000 / 1000 311 / 311 Balance 1000 / 1000 1000 / 1000 311 / 311 Weight 63.503 kg 55.7 kg Intake: IV 1000 / 1000 311 / 311 NS Inj 1,000 ML @ 70 mls/hr IV. 1000 / 1000 210 / 210 CONT .[id number] ORIANA Rx#:[id number] Thiamine Inj 100 MG In NS Inj 101 / 101 100 ML @ 100 mls/hr IV.SIG DAILY ORIANA Rx#:[id number] Other 1000 / 1000 Other: Other Intake Source Saline Solution # Voids 1 Narrative: General: Resting quietly. No agitation. Well-developed and well-nourished Respirations clear nonlabored Cardiac regular without murmur Abdomen soft without obvious tenderness Extremities no significant edema Neurologic: Pupils are equally reactive. She tracks to the left greater than right in response to command and verbal stimuli. Follows commands left upper and lower extremities Spontaneously moves right lower extremity with 2/5 strength. Absent motor movements right upper extremity. Results - Labs CBC & Chem 7: 10/18/17 12:29 10/18/17 12:29 Laboratory Results - last 24 hr 10/18/17 10/18/17 10/18/17 12:29 12:29 12:29 WBC 9.1 RBC 4.64 Hgb 14.7 Hct 43.5 MCV 93.8 MCH 31.6 MCHC 33.7 RDW 13.5 Plt Count 324 MPV 8.3 Prelim Diff (Auto) Slide review pending Neut % (Auto) 69.1 Lymph % (Auto) 18.9 Will % (Auto) 6.0 Eos % (Auto) 4.9 H Baso % (Auto) 1.1 Neut # (Auto) 6.3 Lymph # (Auto) 1.7 Will # (Auto) 0.5 Eos # (Auto) 0.4 Baso # (Auto) 0.1 WBC Differential . Diff Scan Auto diff confirmed Differential Comment . Platelet Estimate Normal Platelet Morphology Normal PT 10.0 INR 1.0 APTT 22.7 L Sodium 141 Potassium 4.1 Chloride 110 H Carbon Dioxide 23.0 Anion Gap 8 BUN 11 Creatinine 0.99 Estimated GFR 55 L POC Glucose Random Glucose 90 Calcium 8.7 Total Bilirubin 0.7 AST 23 ALT 15 Alkaline Phosphatase 58 Total Protein 7.2 Albumin 3.7 Triglycerides Cholesterol LDL Cholesterol, Calc HDL Cholesterol Cholesterol/HDL Ratio Urine Color Urine Clarity Urine pH Ur Specific [place] Urine Protein Urine Glucose (UA) Urine Ketones Urine Occult Blood Urine Nitrate Urine Bilirubin Urine Urobilinogen Ur Leukocyte Esterase Urine RBC Urine WBC Ur Squamous Epith Cells Micro UA Comment Urine Culture Comments Urine Opiates Screen Ur Barbiturates Screen Ur Amphetamines Screen U Benzodiazepines Scrn Urine Cocaine Screen U Cannabinoids Screen Serum Alcohol Less than 3 10/18/17 10/18/17 10/18/17 12:29 12:29 17:18 WBC RBC Hgb Hct MCV MCH MCHC RDW Plt Count MPV Prelim Diff (Auto) Neut % (Auto) Lymph % (Auto) Will % (Auto) Eos % (Auto) Baso % (Auto) Neut # (Auto) Lymph # (Auto) Will # (Auto) Eos # (Auto) Baso # (Auto) WBC Differential Diff Scan Differential Comment Platelet Estimate Platelet Morphology PT INR APTT Sodium Potassium Chloride Carbon Dioxide Anion Gap BUN Creatinine Estimated GFR POC Glucose 99 Random Glucose Calcium Total Bilirubin AST ALT Alkaline Phosphatase Total Protein Albumin Triglycerides Cholesterol LDL Cholesterol, Calc HDL Cholesterol Cholesterol/HDL Ratio Urine Color Straw Urine Clarity Clear Urine pH 5.0 Ur Specific [place] 1.009 Urine Protein Negative Urine Glucose (UA) Negative Urine Ketones Negative Urine Occult Blood Small H Urine Nitrate Negative Urine Bilirubin Negative Urine Urobilinogen Less than 2 Ur Leukocyte Esterase Negative Urine RBC Less than 1 Urine WBC Less than 1 Ur Squamous Epith Cells 5 Micro UA Comment Cath-culture not ind Urine Culture Comments Cath-cult not ind Urine Opiates Screen Pos H Ur Barbiturates Screen Neg Ur Amphetamines Screen Neg U Benzodiazepines Scrn Neg Urine Cocaine Screen Neg U Cannabinoids Screen Neg Serum Alcohol 10/18/17 10/19/17 10/19/17 22:49 04:14 09:52 WBC RBC Hgb Hct MCV MCH MCHC RDW Plt Count MPV Prelim Diff (Auto) Neut % (Auto) Lymph % (Auto) Will % (Auto) Eos % (Auto) Baso % (Auto) Neut # (Auto) Lymph # (Auto) Will # (Auto) Eos # (Auto) Baso # (Auto) WBC Differential Diff Scan Differential Comment Platelet Estimate Platelet Morphology PT INR APTT Sodium Potassium Chloride Carbon Dioxide Anion Gap BUN Creatinine Estimated GFR POC Glucose 114 H 99 Random Glucose Calcium Total Bilirubin AST ALT Alkaline Phosphatase Total Protein Albumin Triglycerides 76 Cholesterol 131 LDL Cholesterol, Calc 49 HDL Cholesterol 66.5 H Cholesterol/HDL Ratio 1.96 Urine Color Urine Clarity Urine pH Ur Specific [place] Urine Protein Urine Glucose (UA) Urine Ketones Urine Occult Blood Urine Nitrate Urine Bilirubin Urine Urobilinogen Ur Leukocyte Esterase Urine RBC Urine WBC Ur Squamous Epith Cells Micro UA Comment Urine Culture Comments Urine Opiates Screen Ur Barbiturates Screen Ur Amphetamines Screen U Benzodiazepines Scrn Urine Cocaine Screen U Cannabinoids Screen Serum Alcohol - Imaging Impressions Carotid Doppler Study 10/18/17 00:00 CONCLUSION: 1. Severe plaque identified at the right carotid bulb. Elevated ICA to CCA ratio on the right indicating possible high-grade stenosis. 2. Left ICA and ECA nonvisualized indicating possible occlusion. Chest X-Ray 10/18/17 00:00 CONCLUSION: Negative examination. Head CT 10/18/17 12:21 CONCLUSION: 1. Subacute left MCA distribution infarct associated with some trace petechial hemorrhage in the deep white matter. . Head MRI 10/18/17 16:36 CONCLUSION: Moderate-sized acute infarct again seen in the left MCA distribution. There is some mass effect but no midline shift. Head MRA 10/18/17 16:36 CONCLUSION: Apparent occlusion of the internal carotid arteries bilaterally as well as occlusion of the left MCA proximally. Evidence of diffuse atherosclerotic disease of the right MCA. - Procedures none Assessment and Plan - Plan This is a 72-year-old female who was brought in by EMS because of altered mental status. History is mainly taken from ED and chart review. Apparently patient was last seen normal last night. This morning she was found with right- sided facial droop and right arm weakness. She was not following commands and was not verbal. According to her roommate who was intoxicated, patient is also an alcoholic. Head CT shows subacute left MCA CVA with petechial hemorrhages. Large left MCA CVA with petechial hemorrhages. Apparent occlusion of the internal carotid arteries bilaterally as well as occlusion of the left MCA proximally. Evidence of diffuse atherosclerotic disease of the right MCA. Start aspirin, per neurology to consider anticoagulation. Continue permissive hypertension and IV fluids keep Na 145-155. LDL 48 f/u echo and A1c. EKG tracing interpreted by me with sinus rhythm. PT/OT/ST. Failed Swallowing evaluation will insert NGT for bypass feedings consult dietitian. Monitor for hypoglycemia. Neurochecks and seizure precautions Alcohol abuse. [facility] protocol. Multiple medical conditions of COPD, coronary artery disease status post stent, hyperlipidemia and hypertension. RN to verify home medications. DVT prophylaxis with SCD and early ambulation. Hold pharmacological prophylaxis secondary to petechial hemorrhages Discharge Planning: Keep patient in the ICU high likelihood of deterioration monitor for cerebral edema HHC vs rehab
[2017-10-19] MEDS: Aspirin 300 MG Supp RECTAL SCH (13:07)
--- NOTE | 2017-10-19 13:45 | CT ---
EXAM DATE: 10/19/2017 1:39 PM EDT AGE/SEX: 72 years / Female INDICATIONS: Abnormal prior CT Head CLINICAL DATA: This is the patient's subsequent encounter. Patient reports that signs and symptoms h ave been present for 1 day and indicates a pain score of Nonresponsive. MEDICAL/SURGICAL HISTORY: Chronic obstructive pulmonary disease. Hypertension. Cardiovascular dis ease. Coronary artery stent. RADIATION DOSE: 33.97 CTDI (mGy) COMPARISON: [facility] [place] HEAD W/O CONTRAST, 10/18/2017. . TECHNIQUE: CT of the head without contrast. Using automated exposure control and adjustment of the mA and/or kV according to patient size, radiation dose was kept as low as reasonably achievable to ob tain optimal diagnostic quality images. DICOM format image data is available electronically for revi ew and comparison. FINDINGS: There is an evolving infarct in the left MCA distribution, especially anteriorly with localized mass effect and sulcal effacement. There is no significant midline shift. No hydrocephalus. No abnormal ex tra-axial fluid. Previously seen trace hemorrhage in the deep white matter is not identified on the c urrent exam. No acute bony abnormalities. CONCLUSION: 1. Evolving infarct in the left MCA distribution. . Electronically signed by: Jerrell Dodson MD 10/19/2017 1:44 PM EDT
[2017-10-19 13:58] LABS: Anion Gap 11 meq/L (5-15); Aspartate Aminotransferase 37 U/L (15-37); Blood Urea Nitrogen 12 mg/dL (7-18); Calcium 9.1 mg/dL (8.5-10.1); Carbon Dioxide 20.9 meq/L (21.0-32.0); Chloride 107 meq/L (98-107); Glomerular Filtration Rate 57 mL/min (>89); Glucose,Random 85 mg/dL (74-106); Potassium 3.4 meq/L (3.5-5.1); Sodium 139 meq/L (136-145)
[2017-10-19 13:59] LABS: Alanine Aminotransferase 18 U/L (10-53)
[2017-10-19 14:25] LABS: Alkaline Phosphatase 69 U/L (45-117); Free T4 (Free Thyroxine) 1.22 ng/dL (0.76-1.46); Thyroid Stimulating Hormone 0.481 uIU/mL (0.358-3.740); Total Protein 7.7 g/dL (6.4-8.2); Vitamin B12 479 pg/mL (193-986)
--- NOTE | 2017-10-19 14:28 | P.DIET ---
Nutritional Evaluation Type of nutrition evaluation: initial Nutrition consult regarding: Tube Feeding Nutrition screening: [facility] [place] Subjective Barriers to Nutrition: Swallowing problem Objective - Diagnosis Subacute Ischemic CVA with Petechial Hemorrhage - Objective Orange body weight: 45.5 kg % IBW: 123 Body Weight Used for Calculations: Actual (55.7kg used for assessment here) Energy Needs - Lower Range (kCal/kg): 25 Energy Needs - Upper Range (kCal/kg): 30 Lower Limit kCal/kg (kCals): 1,393 Upper Limit kCal/kg (kCals): 1,671 Lower Limit Protein Factor (Grams per Kg): 1.0 Upper Limit Protein Factor (Grams per Kg): 1.3 Lower Protein Needs (Protein): 56 Upper Protein Needs (Protein): 72 Dietitian Reviewed in Medical Record: Curent medications, Intake & Output, Labs , Medical history, Tube feeding Diet Order: NPO Speech Therapy Recommendations: Yes (Strict NPO w/consideration for bypass feeding) Objective Comments: PMH: COPD, CAD s/p Stent, hyperlipidemia, HTN, MT, alcohol use HgA1C 5.9, Glucose 85 Assessment Assessment: Pt is at nutritional risk r/t diagnosis and need for strict NPO. Plan for NGT. For TF'ing, Rec Jevity 1.5 @ 30ml, increase to goal rate 45ml/hr, as tolerated. TF'ing at goal rate will offer 1620 kcal, 68.9g protein and 821ml free water. Free water flushes per MD. Additional Recs r/t Clinical Course. Recommendations: 1.For TF'ing, Rec Jevity 1.5 @ 30ml, increase to goal rate 45ml/hr, as tolerated 2.Free water flushes per MD 3.Additional Recs r/t Clinical Course Dietitian to Monitor: Lab values, Glucose level, Intake & Output, Tube feeding tolerance, Weight change, Swallow recommendations, Medical course
[2017-10-19] MEDS: Sodium Chloride 1 GM Tablet NG/OG SCH (21:41)
[2017-10-20 05:41] LABS: Calcium 8.7 mg/dL (8.5-10.1); Carbon Dioxide 21.9 meq/L (21.0-32.0); Potassium 3.3 meq/L (3.5-5.1)
[2017-10-20] MEDS: Aspirin 300 MG Supp RECTAL SCH (09:12)
[2017-10-20] MEDS: Insulin NovoLOG Aspart Correctional Sugar Inj SQ SCH ×4 (09:13→20:19)
[2017-10-20] MEDS: Sodium Chloride 1 GM Tablet NG/OG SCH ×2 (09:13→20:20)
[2017-10-20] MEDS ORDERED: Potassium Chlor 20 mEq Premix 20 MEQ/100 ML PIGGYBACK IV.SIG PRN (09:29)
[2017-10-20] MEDS ORDERED: Potassium Phosphate Inj 30 MMOL in Sodium Chlor 0.9% Inj 250 ML IV.SIG PRN (09:29)
[2017-10-20] MEDS ORDERED: Magnesium Sulfate Inj 2 GM in Sodium Chlor 0.9% Inj 96 ML IV.SIG PRN (09:29)
[2017-10-20] MEDS ORDERED: Potassium Chloride 25 MEQ Effervescent Tablet PO PRN (09:29)
[2017-10-20] MEDS ORDERED: Magnesium Sulfate Inj 4 GM in Sodium Chlor 0.9% Inj 92 ML IV.SIG PRN (09:29)
[2017-10-20] MEDS ORDERED: Potassium Chlor 40 mEq Premix 40 MEQ/100 ML PIGGYBACK IV.SIG PRN ×2 (09:29)
[2017-10-20] MEDS ORDERED: Magnesium Oxide 400 MG Tablet PO PRN (09:29)
[2017-10-20] MEDS ORDERED: Sodium Phosphate Inj 30 MMOL in Sodium Chlor 0.9% Inj 250 ML IV.SIG PRN (09:29)
[2017-10-20] MEDS ORDERED: Potassium Phosphate 500 MG Soluble Tablet PO PRN ×2 (09:29)
--- NOTE | 2017-10-20 12:40 | CT ---
EXAM DATE: 10/20/2017 12:25 PM EDT AGE/SEX: 72 years / Female INDICATIONS: F/U CVA. CLINICAL DATA: This is the patient's initial encounter. Patient reports that signs and symptoms have been present for 1 day and indicates a pain score of 0/10. MEDICAL/SURGICAL HISTORY: Cerebrovascular disease. Chronic obstructive pulmonary disease. Hyperte nsion. cardiac None. RADIATION DOSE: 25.06 CTDI (mGy) ; Combined studies COMPARISON: [facility], CT HEAD W/O CONTRAST, 10/19/2017.. MRA of the brain 10/18/2017 . CTA of the neck . TECHNIQUE: Volumetric scanning was performed using a multi-row detector CT scanner during bolus infu mata of 75 ml Omnipaque 350 (iohexol) nonionic water-soluble contrast as a single exam dose. The d aida was post processed with a variety of visualization algorithms including full volume maximum inten sity projection, multi-planar sliding thin slab reformation, curved planar reformation, and surface r endering techniques. Using automated exposure control and adjustment of the mA and/or kV according t o patient size, radiation dose was kept as low as reasonably achievable to obtain optimal diagnostic quality images. DICOM format image data is available electronically for review and comparison. FINDINGS: There is excellent visualization of the major intracranial arteries out to the second-order branch ve ssels. Again seen is occlusion of the ICAs bilaterally at the level of the cavernous sinuses. The bas ilar artery is robust in size measuring 4 mm in diameter. The right posterior communicating artery is also robust measuring 1.6 mm in diameter. There is reconstitution of the right MCA territory through this collateralization and there is reconstitution of the left A1 segment via the anterior communica ting artery. There is occlusion of the left M1 segment with reconstitution of the M2 and M3 branches on the left via collateralization. No aneurysms observed. No arteriovenous malformations. CONCLUSION: 1. Bilateral ICA occlusions as well as left M1 occlusion. Collateralization from the posterior crani al circulation is preserving flow to the bilateral anterior and right middle cranial fossa. Electronically signed by: Michael Damon MD 10/20/2017 12:39 PM EDT
--- NOTE | 2017-10-20 12:51 | CT ---
EXAM DATE: 10/20/2017 12:27 PM EDT AGE/SEX: 72 years / Female INDICATIONS: Stroke. Head and neck pain. CLINICAL DATA: This is the patient's initial encounter. Patient reports that signs and symptoms have been present for 1 day and indicates a pain score of 2/10. MEDICAL/SURGICAL HISTORY: Cerebrovascular disease. Cardiovascular disease. Chronic obstructive pu lmonary disease. Hypertension. None. RADIATION DOSE: 25.06 CTDI (mGy) ; Combined studies COMPARISON: No prior exams available for comparison. TECHNIQUE: Volumetric scanning was performed using a multirow detector CT scanner during bolus infus ion of 75 ml Omnipaque 350 (iohexol) nonionic water-soluble contrast as a cumulative dose for multip le exams. The data was postprocessed with a variety of visualization algorithms including full-volu me maximum intensity projection, multiplanar sliding thin-slab reformation, curved-planar reformation , and surface-rendering techniques. Using automated exposure control and adjustment of the mA and/or kV according to patient size, radiation dose was kept as low as reasonably achievable to obtain opti mal diagnostic quality images. DICOM format image data is available electronically for review and co mparison. FINDINGS: Motion degraded exam. This affects the arch vessels predominantly. Aortic Arch: There is concern for a small dissection flap involving the origin of the left subclavia n artery. There is equal opacification of the true and false lumens. The dissection flap is quite julian rt. Calcified plaque is seen involving the left common carotid artery origin with suspected high-grad e stenosis. This areas particularly limited by breathing motion artifact. The brachiocephalic artery origin is patent. There is a 40% stenosis at the junction of the right subclavian artery and axillary artery. This is secondary to partially calcified atheromatous plaque. Right Carotid: The right ICA is occluded beginning at its origin and extending through the skull bas e. There is a very brief segment of reconstituted vessel within the petrous portion. The CCA and ECA are patent. Left Carotid: Calcified plaque involving the carotid bulb and proximal ICA. The extracranial portion of the ICA is diffusely small in caliber measuring just over 2 mm in diameter. This generates an art ifactually low ratio. This is secondary to occlusion of the ICA at the level of the cavernous sinus. The ECA is patent. The CCA shows scattered partially calcified atheromatous plaque without ulceration or hemodynamically significant stenosis. Vertebrals: Both vertebral arteries are robust measuring 4 mm in diameter. Both supply the basilar a rtery. Both show scattered areas of calcified plaque but no significant luminal narrowing.. Emphysematous changes within the visualized lung apices. A degenerative cervical spine. Nasogastric t ube noted. Percent stenosis is calculated using the diameter of the stenotic region over the diameter of the nor mal distal internal carotid artery. CONCLUSION: 1. Right ICA occludes at its origin. The left ICA is occluded at the cavernous segment with the extr acranial aspect diffusely small in caliber. 2. Robust vertebral arteries bilaterally measuring 4 mm in diameter which are patent throughout. Electronically signed by: Michael Damon MD 10/20/2017 12:50 PM EDT
[2017-10-20] MEDS: Sod Chloride 0.9% Inj 1,000 ML IV.CONT SCH (13:10)
--- NOTE | 2017-10-20 14:22 | ECHRPT ---
Indication: CVA/TIA CONCLUSIONS The left ventricular systolic function is moderately reduced with an estimated ejection fraction @ 4 5%. Mild concentric left ventricular hypertrophy. Normal left ventricular size. BP: / HR: Rhythm: Sinus MEASUREMENTS (Male / Female) Normal Values Technical Quality:Fair 2D ECHO LV Diastolic Diameter PLAX 4.1 cm 4.2 - 5.9 / 3.9 - 5.3 cm LV Systolic Diameter PLAX 3.5 cm IVS Diastolic Thickness 1.5 cm 0.6 - 1.0 / 0.6 - 0.9 cm LVPW Diastolic Thickness 1.1 cm 0.6 - 1.0 / 0.6 - 0.9 cm LV Relative Wall Thickness 0.6 RV Internal Dim ED PLAX 1.8 cm LVOT Diameter 2.1 cm LA Systolic Diameter LX 2.5 cm 3.0 - 4.0 / 2.7 - 3.8 cm M-MODE Aortic Root Diameter MM 2.1 cm LA Systolic Diameter MM 3.9 cm LA Ao Ratio MM 1.9 AV Cusp Separation MM 1.2 cm DOPPLER AV Peak Velocity 179.0 cm/s AV Peak Gradient 12.8 mmHg AV Mean Gradient 8.0 mmHg AV Velocity Time Integral 36.9 cm LVOT Peak Velocity 82.0 cm/s LVOT Peak Gradient 2.7 mmHg LVOT Velocity Time Integral 15.0 cm AV Area Cont Eq vti 1.4 cm AV Area Cont Eq pk 1.6 cm MV Area PHT 4.2 cm Mitral E Point Velocity 73.5 cm/s Mitral A Point Velocity 126.0 cm/s Mitral E to A Ratio 0.6 LV E' Lateral Velocity 8.2 cm/s Mitral E to LV E' Lateral Ratio 9.0 LV E' Septal Velocity 6.2 cm/s Mitral E to LV E' Septal Ratio 11.8 FINDINGS LEFT VENTRICLE The left ventricular systolic function is moderately reduced with an estimated ejection fraction in the range of 40-45%. Mild concentric left ventricular hypertrophy. Normal left ventricular size. RIGHT VENTRICLE Normal right ventricular size and systolic function. LEFT ATRIUM The left atrial size is normal. RIGHT ATRIUM The right atrial size is normal. ATRIAL SEPTUM Normal atrial septal thickness without atrial level shunting by limited color doppler interrogation. AORTA The aortic root and proximal ascending aorta are normal in size on limited imaging. MITRAL VALVE Structurally normal mitral valve. No mitral valve stenosis or regurgitation. AORTIC VALVE Trileaflet aortic valve. No aortic valve stenosis or regurgitation. TRICUSPID VALVE Structurally normal tricuspid valve. No tricuspid valve stenosis or regurgitation. PULMONARY VALVE No pulmonary valve regurgitation or stenosis. VESSELS The inferior vena cava is normal in size. PERICARDIUM No pericardial effusion. Duane Ramirez MD, FACC, [facility] [place] (Electronically Signed) Final Date:20 October 2017 14:21
--- NOTE | 2017-10-20 15:09 | P.PN ---
Subjective Interval history: Follow-up CVA. Remains aphasic following simple commands. Difficult to understand. Discussed with nursing, unable to beats formally Physical Exam Vital signs: Vital Signs 10/19/17 16:00 10/19/17 17:00 10/19/17 20:00 Temperature 99.6 F 97.7 F Pulse Rate 106 H 106 H 100 H Respiratory Rate 22 Blood Pressure 144/62 H 172/81 H Pulse Oximetry 100 98 10/19/17 20:14 10/20/17 00:00 10/20/17 02:00 Temperature 97.9 F Pulse Rate 104 H 100 H Respiratory Rate 22 Blood Pressure 192/117 H Pulse Oximetry 98 97 10/20/17 04:00 10/20/17 06:00 10/20/17 07:50 Temperature 98.1 F Pulse Rate 108 H 104 H Respiratory Rate 23 Blood Pressure 199/92 H Pulse Oximetry 94 L 95 10/20/17 08:00 10/20/17 10:00 10/20/17 12:00 Temperature 98.7 F 98.4 F Pulse Rate 84 94 H 92 H Respiratory Rate 22 22 Blood Pressure 174/74 H 187/86 H Pulse Oximetry 96 95 10/20/17 14:00 Temperature Pulse Rate 89 Respiratory Rate Blood Pressure Pulse Oximetry Intake & Output 10/19/17 10/20/17 10/20/17 18:59 06:59 18:59 Intake Total 371 / 371 907 / 907 Output Total 450 / 450 700 / 700 Balance -79 / -79 207 / 207 Weight 55.1 kg Intake: IV 311 / 311 790 / 790 NS Inj 1,000 ML @ 70 mls/hr IV. 210 / 210 790 / 790 CONT .[id number] [facility] Rx#:[id number] Thiamine Inj 100 MG In NS Inj 101 / 101 100 ML @ 100 mls/hr IV.SIG DAILY [facility] Rx#:[id number] Tube Feeding 117 / 117 Tube Irrigant 60 / 60 Output: Urine 450 / 450 700 / 700 Other: # Voids 2 # Incontinent Voids 2 Date of Last Bowel Movement 10/20/17 Narrative: General: Resting quietly. No agitation. Well-developed and well-nourished Respirations clear nonlabored Cardiac regular without murmur Abdomen soft without obvious tenderness Extremities no significant edema Neurologic: Pupils are equally reactive. She tracks to the left greater than right in response to command and verbal stimuli. Follows commands left upper and lower extremities Spontaneously moves right lower extremity with 2/5 strength. Absent motor movements right upper extremity. Results - Labs CBC & Chem 7: 10/18/17 12:29 10/20/17 04:51 Laboratory Results - last 24 hr 10/19/17 10/19/17 10/19/17 13:00 16:02 22:02 Sodium Potassium Chloride Carbon Dioxide Anion Gap BUN Creatinine Estimated GFR POC Glucose 84 71 Random Glucose Calcium Magnesium RPR Nonreactive 10/20/17 10/20/17 10/20/17 04:51 04:51 08:38 Sodium 141 Potassium 3.3 L Chloride 108 H Carbon Dioxide 21.9 Anion Gap 11 BUN 12 Creatinine 0.92 Estimated GFR 60 L POC Glucose 119 H Random Glucose 93 Calcium 8.7 Magnesium 1.9 RPR 10/20/17 13:04 Sodium Potassium Chloride Carbon Dioxide Anion Gap BUN Creatinine Estimated GFR POC Glucose 111 H Random Glucose Calcium Magnesium RPR - Imaging Impressions Head CT 10/18/17 12:21 CONCLUSION: 1. Subacute left MCA distribution infarct associated with some trace petechial hemorrhage in the deep white matter. . Head CTA 10/20/17 00:00 CONCLUSION: 1. Bilateral ICA occlusions as well as left M1 occlusion. Collateralization from the posterior cranial circulation is preserving flow to the bilateral anterior and right middle cranial fossa. Neck CTA 10/20/17 00:00 CONCLUSION: 1. Right ICA occludes at its origin. The left ICA is occluded at the cavernous segment with the extracranial aspect diffusely small in caliber. 2. Robust vertebral arteries bilaterally measuring 4 mm in diameter which are patent throughout. - Procedures none Assessment and Plan - Plan This is a 72-year-old female who was brought in by EMS because of altered mental status. History is mainly taken from ED and chart review. Apparently patient was last seen normal last night. This morning she was found with right- sided facial droop and right arm weakness. She was not following commands and was not verbal. According to her roommate who was intoxicated, patient is also an alcoholic. Head CT shows subacute left MCA CVA with petechial hemorrhages. Large left MCA CVA with petechial hemorrhages. Apparent occlusion of the internal carotid arteries bilaterally as well as occlusion of the left MCA proximally. Evidence of diffuse atherosclerotic disease of the right MCA. Stable ct aspirin, per neurology to consider anticoagulation. Continue permissive hypertension and IV fluids keep Na 145-155. Continue sodium chloride tab. LDL 48 A1c 5.9. f/u echo. EKG tracing interpreted by me with sinus rhythm. PT/OT/ST start pured diet. Aspiration precautions. Monitor for hypoglycemia. Neurochecks and seizure precautions Alcohol abuse. CIWA protocol. Multiple medical conditions of COPD, coronary artery disease status post stent, hyperlipidemia and hypertension. RN to verify home medications. DVT prophylaxis with SCD and early ambulation. Hold pharmacological prophylaxis secondary to petechial hemorrhages Discharge Planning: Keep patient in the ICU high likelihood of deterioration monitor for cerebral edema. If stable transfer to floor in the morning HHC vs rehab
--- NOTE | 2017-10-20 15:56 | P.PNVS ---
Subjective Subjective/Hospital Course: 72-year-old female with the new left hemispheric stroke and right-sided weakness evident by clinical exam and diagnostic studies. MRA reveals bilateral internal carotid stenoses. In face of bilateral internal carotid artery stenoses there is no surgical reconstruction or endovascular construction that would benefit this patient Full consult to kye Chen 10/20/2017 As noted in my original consultation this patient has MRA confirmed bilateral internal carotid occlusions on the right in the neck and on the left at the level of the base of the skull i.e. cavernous sinus. This is not confirmed with CTA. Patient is not a candidate for any vascular or endovascular procedure in this area and blood flow is maintained through collaterals and vertebral arteries Nothing to add to care We will sign off at this time J Objective Vital Signs / I&O: Vital Signs 10/19/17 16:00 10/19/17 17:00 10/19/17 20:00 Temperature 99.6 F 97.7 F Pulse Rate 106 H 106 H 100 H Respiratory Rate 22 Blood Pressure 144/62 H 172/81 H Pulse Oximetry 100 98 10/19/17 20:14 10/20/17 00:00 10/20/17 02:00 Temperature 97.9 F Pulse Rate 104 H 100 H Respiratory Rate 22 Blood Pressure 192/117 H Pulse Oximetry 98 97 10/20/17 04:00 10/20/17 06:00 10/20/17 07:50 Temperature 98.1 F Pulse Rate 108 H 104 H Respiratory Rate 23 Blood Pressure 199/92 H Pulse Oximetry 94 L 95 10/20/17 08:00 10/20/17 10:00 10/20/17 12:00 Temperature 98.7 F 98.4 F Pulse Rate 84 94 H 92 H Respiratory Rate 22 22 Blood Pressure 174/74 H 187/86 H Pulse Oximetry 96 95 10/20/17 14:00 Temperature Pulse Rate 89 Respiratory Rate Blood Pressure Pulse Oximetry Intake & Output 10/19/17 10/20/17 10/20/17 18:59 06:59 18:59 Intake Total 371 / 371 907 / 907 Output Total 450 / 450 700 / 700 Balance -79 / -79 207 / 207 Weight 55.1 kg Intake: IV 311 / 311 790 / 790 NS Inj 1,000 ML @ 70 mls/hr IV. 210 / 210 790 / 790 CONT .[id number] [facility] Rx#:[id number] Thiamine Inj 100 MG In NS Inj 101 / 101 100 ML @ 100 mls/hr IV.SIG DAILY [facility] Rx#:[id number] Tube Feeding 117 / 117 Tube Irrigant 60 / 60 Output: Urine 450 / 450 700 / 700 Other: # Voids 2 # Incontinent Voids 2 Date of Last Bowel Movement 10/20/17 Laboratory Results - last 24 hr 10/19/17 10/19/17 10/19/17 13:00 16:02 22:02 Sodium Potassium Chloride Carbon Dioxide Anion Gap BUN Creatinine Estimated GFR POC Glucose 84 71 Random Glucose Calcium Magnesium RPR Nonreactive 10/20/17 10/20/17 10/20/17 04:51 04:51 08:38 Sodium 141 Potassium 3.3 L Chloride 108 H Carbon Dioxide 21.9 Anion Gap 11 BUN 12 Creatinine 0.92 Estimated GFR 60 L POC Glucose 119 H Random Glucose 93 Calcium 8.7 Magnesium 1.9 RPR 10/20/17 13:04 Sodium Potassium Chloride Carbon Dioxide Anion Gap BUN Creatinine Estimated GFR POC Glucose 111 H Random Glucose Calcium Magnesium RPR Impressions Carotid Doppler Study 10/18/17 00:00 CONCLUSION: 1. Severe plaque identified at the right carotid bulb. Elevated ICA to CCA ratio on the right indicating possible high-grade stenosis. 2. Left ICA and ECA nonvisualized indicating possible occlusion. Chest X-Ray 10/18/17 00:00 CONCLUSION: Negative examination. Head CT 10/18/17 12:21 CONCLUSION: 1. Subacute left MCA distribution infarct associated with some trace petechial hemorrhage in the deep white matter. . Head MRI 10/18/17 16:36 CONCLUSION: Moderate-sized acute infarct again seen in the left MCA distribution. There is some mass effect but no midline shift. Head MRA 10/18/17 16:36 CONCLUSION: Apparent occlusion of the internal carotid arteries bilaterally as well as occlusion of the left MCA proximally. Evidence of diffuse atherosclerotic disease of the right MCA. Head CT 10/19/17 00:00 CONCLUSION: 1. Evolving infarct in the left MCA distribution. . Head CTA 10/20/17 00:00 CONCLUSION: 1. Bilateral ICA occlusions as well as left M1 occlusion. Collateralization from the posterior cranial circulation is preserving flow to the bilateral anterior and right middle cranial fossa. Neck CTA 10/20/17 00:00 CONCLUSION: 1. Right ICA occludes at its origin. The left ICA is occluded at the cavernous segment with the extracranial aspect diffusely small in caliber. 2. Robust vertebral arteries bilaterally measuring 4 mm in diameter which are patent throughout.
[2017-10-20] MEDS: Thiamine Inj 100 MG in Sodium Chlor 0.9% Inj 100 ML IV.SIG SCH (15:59)
--- NOTE | 2017-10-20 20:21 | P.PNNS ---
Physical Exam Vital signs: Vital Signs 10/20/17 00:00 10/20/17 02:00 10/20/17 04:00 Temperature 97.9 F 98.1 F Pulse Rate 104 H 100 H 108 H Respiratory Rate 22 23 Blood Pressure 192/117 H 199/92 H Pulse Oximetry 97 94 L 10/20/17 06:00 10/20/17 07:50 10/20/17 08:00 Temperature 98.7 F Pulse Rate 104 H 84 Respiratory Rate 22 Blood Pressure 174/74 H Pulse Oximetry 95 96 10/20/17 10:00 10/20/17 12:00 10/20/17 14:00 Temperature 98.4 F Pulse Rate 94 H 92 H 89 Respiratory Rate 22 Blood Pressure 187/86 H Pulse Oximetry 95 10/20/17 16:00 10/20/17 17:00 10/20/17 18:00 Temperature 99.2 F Pulse Rate 105 H 88 90 Respiratory Rate 24 Blood Pressure 183/87 H Pulse Oximetry 97 Intake & Output 10/20/17 10/20/17 10/21/17 06:59 18:59 06:59 Intake Total 907 / 907 556 / 556 101 / 101 Output Total 700 / 700 850 / 850 Balance 207 / 207 -294 / -294 101 / 101 Weight 55.1 kg Intake: IV 790 / 790 101 / 101 NS Inj 1,000 ML @ 70 mls/hr IV. 790 / 790 CONT .[id number] [facility] Rx#:[id number] Thiamine Inj 100 MG In NS Inj 101 / 101 100 ML @ 100 mls/hr IV.SIG DAILY [facility] Rx#:[id number] Tube Feeding 117 / 117 436 / 436 Tube Irrigant 120 / 120 Output: Urine 700 / 700 850 / 850 Other: # Voids 2 Date of Last Bowel Movement 10/20/17 # Incontinent Bowel Movements 1 Assessment and Plan - Plan Impression: 1. Left hemisphere MCA distribution CVA with small petechial hemorrhages. No significant mass-effect. 2. Hypertension 3. Dyslipidemia 4. COPD 5. Probable chronic alcohol abuse Plan: The patient is quite a bit more alert and responsive today compared to 2017. She is following commands consistently left upper extremity. Mild eye- opening intermittent. Patient remains in surgical intensive care unit for close neurologic checks and vital signs. Follow-up CT scan 10/19/2017 stable Maintain sodium 145-155 range anticipating possible progression of edema. Prefer nonchemical DVT prophylaxis initially due to petechial hemorrhages with potential for further delayed hemorrhage as well as edema possibly requiring surgical intervention. Permissive hypertension for cerebral perfusion.
[2017-10-21] MEDS: Sod Chloride 0.9% Inj 1,000 ML IV.CONT SCH ×2 (05:45→17:03)
[2017-10-21 06:30] LABS: Calcium 8.9 mg/dL (8.5-10.1); Carbon Dioxide 23.8 meq/L (21.0-32.0); Magnesium 1.8 mg/dL (1.5-2.5); Potassium 3.1 meq/L (3.5-5.1)
[2017-10-21] MEDS: Insulin NovoLOG Aspart Correctional Sugar Inj SQ SCH ×4 (10:46→21:07)
[2017-10-21] MEDS: Sodium Chloride 1 GM Tablet NG/OG SCH (10:50)
[2017-10-21] MEDS: Thiamine Inj 100 MG in Sodium Chlor 0.9% Inj 100 ML IV.SIG SCH (10:50)
[2017-10-21] MEDS ORDERED: Sodium Chloride 1 GM Tablet PO SCH (11:45)
--- NOTE | 2017-10-21 11:51 | P.PN ---
Subjective Interval history: F/U CVA. Denies [facility] nods she uses [facility] Physical Exam Vital signs: Vital Signs 10/20/17 12:00 10/20/17 14:00 10/20/17 16:00 Temperature 98.4 F 99.2 F Pulse Rate 92 H 89 105 H Respiratory Rate 22 24 Blood Pressure 187/86 H 183/87 H Pulse Oximetry 95 97 10/20/17 17:00 10/20/17 18:00 10/20/17 19:15 Temperature Pulse Rate 88 90 Respiratory Rate Blood Pressure Pulse Oximetry 94 L 10/20/17 20:00 10/20/17 22:00 10/21/17 00:00 Temperature 98.9 F 99.0 F Pulse Rate 98 H 94 H 92 H Respiratory Rate 23 24 Blood Pressure 181/82 H 197/86 H Pulse Oximetry 95 93 L 10/21/17 02:00 10/21/17 04:00 10/21/17 06:00 Temperature 98.7 F Pulse Rate 84 98 H 78 Respiratory Rate 25 H Blood Pressure 190/80 H Pulse Oximetry 95 10/21/17 08:11 Temperature Pulse Rate Respiratory Rate Blood Pressure Pulse Oximetry 99 Intake & Output 10/20/17 10/21/17 10/21/17 18:59 06:59 18:59 Intake Total 1556 / 1556 101 / 101 Output Total 850 / 850 900 / 900 Balance 706 / 706 -799 / -799 Weight 55.1 kg Intake: IV 1000 / 1000 101 / 101 NS Inj 1,000 ML @ 70 mls/hr IV. 1000 / 1000 CONT .[id number] [facility] Rx#:[id number] Thiamine Inj 100 MG In NS Inj 101 / 101 100 ML @ 100 mls/hr IV.SIG DAILY [facility] Rx#:[id number] Tube Feeding 436 / 436 Tube Irrigant 120 / 120 Output: Urine 850 / 850 900 / 900 Other: Date of Last Bowel Movement 10/20/17 10/20/17 # Incontinent Bowel Movements 1 Narrative: General: Resting quietly. No agitation. Well-developed and well-nourished Respirations clear nonlabored Cardiac regular without murmur Abdomen soft without obvious tenderness Extremities no significant edema Neurologic: Pupils are equally reactive. Follows commands left upper and lower extremities Spontaneously moves right lower extremity with 2/5 strength. Absent motor movements right upper extremity. Results - Labs CBC & Chem 7: 10/18/17 12:29 10/21/17 05:14 Laboratory Results - last 24 hr 10/20/17 10/20/17 10/20/17 04:51 13:04 17:22 Sodium Potassium Chloride Carbon Dioxide Anion Gap BUN Creatinine Estimated GFR POC Glucose 111 H 125 H Random Glucose Calcium Magnesium 1.9 10/20/17 10/21/17 10/21/17 19:46 05:14 10:44 Sodium 141 Potassium 3.1 L Chloride 106 Carbon Dioxide 23.8 Anion Gap 11 BUN 11 Creatinine 0.85 Estimated GFR 66 L POC Glucose 130 H 103 Random Glucose 104 Calcium 8.9 Magnesium 1.8 - Imaging Impressions Head CTA 10/20/17 00:00 CONCLUSION: 1. Bilateral ICA occlusions as well as left M1 occlusion. Collateralization from the posterior cranial circulation is preserving flow to the bilateral anterior and right middle cranial fossa. Neck CTA 10/20/17 00:00 CONCLUSION: 1. Right ICA occludes at its origin. The left ICA is occluded at the cavernous segment with the extracranial aspect diffusely small in caliber. 2. Robust vertebral arteries bilaterally measuring 4 mm in diameter which are patent throughout. - Procedures none Assessment and Plan - Plan This is a 72-year-old female who was brought in by EMS because of altered mental status. History is mainly taken from ED and chart review. Apparently patient was last seen normal last night. This morning she was found with right- sided facial droop and right arm weakness. She was not following commands and was not verbal. According to her roommate who was intoxicated, patient is also an alcoholic. Head CT shows subacute left MCA CVA with petechial hemorrhages. Large left MCA CVA with petechial hemorrhages. Apparent occlusion of the internal carotid arteries bilaterally as well as occlusion of the left MCA proximally. Evidence of diffuse atherosclerotic disease of the right MCA. Stable ct aspirin, per neurology to consider anticoagulation. Continue permissive hypertension and IV fluids keep Na 145-155. Increase sodium chloride tab to 2 gm BID rpt BMP in am. LDL 48 A1c 5.9. f/u echo. EKG tracing interpreted by me with sinus rhythm. PT/OT/ST not eating start TF with pured diet. Aspiration precautions. Monitor for hypoglycemia. Neurochecks and seizure precautions Alcohol abuse. CIWA protocol. Multiple medical conditions of COPD, coronary artery disease status post stent, hyperlipidemia and hypertension. RN to verify home medications. DVT prophylaxis with SCD and early ambulation. Hold pharmacological prophylaxis secondary to petechial hemorrhages Discharge Planning: Pt stable to transfer to floor [facility] vs rehab
[2017-10-21] MEDS: RESP: Albuterol Concentrated 2.5 MG/0.5 ML Neb NEB PRN (18:27)
[2017-10-21] MEDS: Sodium Chloride 1 GM Tablet PO SCH (22:30)
--- NOTE | 2017-10-21 22:45 | P.PNNS ---
Physical Exam Vital signs: Vital Signs 10/21/17 00:00 10/21/17 02:00 10/21/17 04:00 Temperature 99.0 F 98.7 F Pulse Rate 92 H 84 98 H Respiratory Rate 24 25 H Blood Pressure 197/86 H 190/80 H Pulse Oximetry 93 L 95 10/21/17 06:00 10/21/17 08:00 10/21/17 08:11 Temperature 98.3 F Pulse Rate 78 92 H Respiratory Rate 22 Blood Pressure 117/70 Pulse Oximetry 97 99 10/21/17 10:00 10/21/17 12:00 10/21/17 14:00 Temperature 99.0 F Pulse Rate 86 88 82 Respiratory Rate 26 H Blood Pressure 188/84 H Pulse Oximetry 97 10/21/17 16:00 10/21/17 17:00 10/21/17 18:00 Temperature Pulse Rate 90 99 H 100 H Respiratory Rate Blood Pressure Pulse Oximetry 10/21/17 18:06 10/21/17 18:29 10/21/17 19:15 Temperature 98.7 F Pulse Rate 90 86 Respiratory Rate 21 15 Blood Pressure 185/81 H Pulse Oximetry 93 L 92 L 10/21/17 20:00 Temperature 98.8 F Pulse Rate 77 Respiratory Rate 20 Blood Pressure 165/79 H Pulse Oximetry 96 Intake & Output 10/21/17 10/21/17 10/22/17 06:59 18:59 06:59 Intake Total 101 / 101 140 / 140 Output Total 900 / 900 550 / 550 Balance -799 / -799 -410 / -410 Weight 55.1 kg Intake: IV 101 / 101 Thiamine Inj 100 MG In NS Inj 101 / 101 100 ML @ 100 mls/hr IV.SIG DAILY [facility] Rx#:[id number] Oral 0 / 0 Tube Feeding 80 / 80 Tube Irrigant 60 / 60 Output: Urine 900 / 900 550 / 550 Other: # Voids 0 # Incontinent Voids 1 Date of Last Bowel Movement 10/20/17 10/21/17 10/21/17 # Bowel Movements 1 Assessment and Plan - Plan Impression: 1. Left hemisphere MCA distribution CVA with small petechial hemorrhages. No significant mass-effect. 2. Hypertension 3. Dyslipidemia 4. COPD 5. Probable chronic alcohol abuse Plan: The patient is quite a bit more alert and responsive today compared to 2017. She is following commands consistently left upper extremity. Mild eye- opening intermittent. Patient remains in surgical intensive care unit for close neurologic checks and vital signs. Follow-up CT scan 10/19/2017 stable Maintain sodium 145-155 range anticipating possible progression of edema. Prefer nonchemical DVT prophylaxis initially due to petechial hemorrhages with potential for further delayed hemorrhage as well as edema possibly requiring surgical intervention. Permissive hypertension for cerebral perfusion.
[2017-10-22 05:36] LABS: Calcium 8.3 mg/dL (8.5-10.1); Carbon Dioxide 25.2 meq/L (21.0-32.0); Magnesium 1.9 mg/dL (1.5-2.5)
[2017-10-22 05:43] LABS: Potassium 2.9 meq/L (3.5-5.1)
[2017-10-22] MEDS: RESP: Albuterol Concentrated 2.5 MG/0.5 ML Neb NEB PRN (07:52)
[2017-10-22] MEDS: Insulin NovoLOG Aspart Correctional Sugar Inj SQ SCH ×4 (09:12→23:07)
[2017-10-22] MEDS: Sodium Chloride 1 GM Tablet PO SCH ×2 (09:13→21:26)
[2017-10-22] MEDS: Potassium Chlor 20 mEq Premix 20 MEQ/100 ML PIGGYBACK IV.SIG PRN ×3 (09:28→14:10)
[2017-10-22] MEDS: Sod Chloride 0.9% Inj 1,000 ML IV.CONT SCH ×2 (13:33→23:08)
--- NOTE | 2017-10-22 16:11 | P.PN ---
Subjective Interval history: F/u CVA. Awake remains aphasic dw RN Physical Exam Vital signs: Vital Signs 10/21/17 17:00 10/21/17 18:00 10/21/17 18:06 Temperature 98.7 F Pulse Rate 99 H 100 H 90 Respiratory Rate 21 Blood Pressure 185/81 H Pulse Oximetry 93 L 10/21/17 18:29 10/21/17 19:15 10/21/17 20:00 Temperature 98.8 F Pulse Rate 86 77 Respiratory Rate 15 20 Blood Pressure 165/79 H Pulse Oximetry 92 L 96 10/22/17 00:00 10/22/17 04:00 10/22/17 07:48 Temperature 98.7 F 98.4 F Pulse Rate 84 70 Respiratory Rate 20 20 Blood Pressure 169/73 H 167/72 H Pulse Oximetry 98 99 10/22/17 07:54 10/22/17 08:00 10/22/17 12:00 Temperature 98.7 F 99.7 F H Pulse Rate 84 92 H 86 Respiratory Rate 20 20 24 Blood Pressure 156/74 H 158/76 H Pulse Oximetry 100 97 Intake & Output 10/21/17 10/22/17 10/22/17 18:59 06:59 18:59 Intake Total 1140 / 1140 2306 / 2306 200 / 200 Output Total 550 / 550 350 / 350 Balance 590 / 590 1956 / 1956 200 / 200 Weight 55.1 kg Intake: IV 1000 / 1000 200 / 200 NS Inj 1,000 ML @ 70 mls/hr IV. 1000 / 1000 CONT .[id number] [facility] Rx#:[id number] KCl 20 mEq Premix Inj 20 meq In 200 / 200 100 ml @ 50 mls/hr IV.SIG Q2H PRN Rx#:[id number] Oral 0 / 0 120 / 120 Tube Feeding 80 / 80 353 / 353 Tube Irrigant 60 / 60 120 / 120 Other 1713 / 1713 Output: Urine 550 / 550 350 / 350 Other: Other Intake Source Saline Solution # Voids 0 0 # Incontinent Voids 1 0 Date of Last Bowel Movement 10/21/17 10/21/17 10/21/17 # Bowel Movements 1 Narrative: General: Well-developed and well-nourished Respirations clear nonlabored Cardiac regular without murmur Abdomen soft without obvious tenderness Extremities no significant edema Neurologic: Pupils are equally reactive. Follows commands left upper and lower extremities Spontaneously moves right lower extremity with 2/5 strength. Absent motor movements right upper extremity. Results - Labs CBC & Chem 7: 10/18/17 12:29 10/22/17 03:55 Laboratory Results - last 24 hr 10/21/17 10/21/17 10/22/17 17:49 20:32 03:55 Sodium 143 Potassium 2.9 L* Chloride 107 Carbon Dioxide 25.2 Anion Gap 11 BUN 14 Creatinine 0.82 Estimated GFR 69 L POC Glucose 115 H 125 H Random Glucose 118 H Calcium 8.3 L Magnesium 1.9 10/22/17 10/22/17 09:12 12:42 Sodium Potassium Chloride Carbon Dioxide Anion Gap BUN Creatinine Estimated GFR POC Glucose 138 H 128 H Random Glucose Calcium Magnesium - Procedures none Assessment and Plan - Plan This is a 72-year-old female who was brought in by EMS because of altered mental status. History is mainly taken from ED and chart review. Apparently patient was last seen normal last night. This morning she was found with right- sided facial droop and right arm weakness. She was not following commands and was not verbal. According to her roommate who was intoxicated, patient is also an alcoholic. Head CT shows subacute left MCA CVA with petechial hemorrhages. Large left MCA CVA with petechial hemorrhages. Apparent occlusion of the internal carotid arteries bilaterally as well as occlusion of the left MCA proximally. Evidence of diffuse atherosclerotic disease of the right MCA. Stable ct aspirin, per neurology to consider anticoagulation. Continue permissive hypertension and IV fluids keep Na 145-155. Increase sodium chloride tab to 2 gm BID rpt BMP in am. LDL 48 A1c 5.9. Unremarkable echo. EKG tracing interpreted by me with sinus rhythm. PT/OT/ST currently NPO start TF. Aspiration precautions. Monitor for hypoglycemia. Neurochecks and seizure precautions Alcohol abuse. CIWA protocol. Multiple medical conditions of COPD, coronary artery disease status post stent, hyperlipidemia and hypertension. RN to verify home medications. DVT prophylaxis with SCD and early ambulation. Hold pharmacological prophylaxis secondary to petechial hemorrhages Discharge Planning: HHC vs rehab
[2017-10-22] MEDS: Aspirin 300 MG Supp RECTAL SCH (16:46)
--- NOTE | 2017-10-23 05:18 | XR ---
EXAM DATE: 10/23/2017 4:46 AM EDT AGE/SEX: 72 years / Female INDICATIONS: NG tube placement CLINICAL DATA: This is the patient's initial encounter. Patient reports that signs and symptoms have been present for 1 day and indicates a pain score of 0/10. MEDICAL/SURGICAL HISTORY: None. None. COMPARISON: No prior exams available for comparison. FINDINGS: Examination of the abdomen demonstrates a normal bowel gas pattern. No free air is identified. No o rganomegaly is evident. Osseous structures are intact. Enteric tube is noted, and the side-port proj ects at the distal esophagus. CONCLUSION: NG tube as above. Electronically signed by: Maykel Patterson MD 10/23/2017 5:16 AM EDT
[2017-10-23] MEDS: Insulin NovoLOG Aspart Correctional Sugar Inj SQ SCH ×4 (07:50→22:15)
[2017-10-23 08:58] LABS: Calcium 8.5 mg/dL (8.5-10.1); Carbon Dioxide 22.7 meq/L (21.0-32.0); Magnesium 1.8 mg/dL (1.5-2.5); Potassium 3.3 meq/L (3.5-5.1)
[2017-10-23] MEDS: Sodium Chloride 1 GM Tablet PO SCH ×2 (09:16→22:14)
[2017-10-23] MEDS: Aspirin 300 MG Supp RECTAL SCH (09:17)
[2017-10-23] MEDS: Sod Chloride 0.9% Inj 1,000 ML IV.CONT SCH (10:39)
--- NOTE | 2017-10-23 15:54 | P.PN ---
Physical Exam Vital signs: Vital Signs 10/22/17 20:00 10/23/17 00:00 10/23/17 04:00 Temperature 99.2 F 99.1 F 98.2 F Pulse Rate 94 H 117 H 98 H Respiratory Rate 20 20 20 Blood Pressure 119/80 187/100 H 155/100 H Pulse Oximetry 95 94 L 94 L 10/23/17 08:00 10/23/17 12:00 Temperature 98.4 F 100.3 F H Pulse Rate 99 H 106 H Respiratory Rate 18 18 Blood Pressure 162/76 H 188/83 H Pulse Oximetry 93 L 96 Intake & Output 10/22/17 10/23/17 10/23/17 18:59 06:59 18:59 Intake Total 300 / 300 Output Total 350 / 350 Balance 300 / 300 -350 / -350 Weight 56.7 kg Intake: IV 300 / 300 KCl 20 mEq Premix Inj 20 meq In 300 / 300 100 ml @ 50 mls/hr IV.SIG Q2H PRN Rx#:[id number] Output: Urine 350 / 350 Other: # Voids 1 2 Date of Last Bowel Movement 10/21/17 10/21/17 10/21/17 # Bowel Movements 1 Narrative: Subjective Interval history: F/u CVA. Alcohol abuse. Awake, slurred speech, remains aphasic Follows some commands. In restraints as noted agitated on/off Physical Exam GENERAL: Elderly patient in bed, SKIN: Warm and dry. HEAD: Atraumatic. Normocephalic. EYES: Pupils equal and round. No scleral icterus. No injection or drainage. ENT: No nasal bleeding or discharge. Mucous membranes pink and moist. NECK: Trachea midline. No JVD. CARDIOVASCULAR: Regular rate and rhythm. RESPIRATORY: No accessory muscle use. Clear to auscultation. Breath sounds equal bilaterally. GASTROINTESTINAL: Abdomen soft, non-tender, nondistended. Hepatic and splenic margins not palpable. MUSCULOSKELETAL: Extremities without clubbing, cyanosis, or edema. No obvious deformities. NEUROLOGICAL: Pupils are equally reactive. Follows commands left upper and lower extremities. Spontaneously moves right lower extremity with 2/5 strength. Absent motor movements right upper extremity. Slurred speech. Assessment and Plan This is a 72-year-old female who was brought in by EMS because of altered mental status. History is mainly taken from ED and chart review. Apparently patient was last seen normal last night. This morning she was found with right- sided facial droop and right arm weakness. She was not following commands and was not verbal. According to her roommate who was intoxicated, patient is also an alcoholic. Head CT shows subacute left MCA CVA with petechial hemorrhages. Large left MCA CVA with petechial hemorrhages. Apparent occlusion of the internal carotid arteries bilaterally as well as occlusion of the left MCA proximally. Evidence of diffuse atherosclerotic disease of the right MCA. Stable ct aspirin, per neurology to consider anticoagulation. Continue permissive hypertension and IV fluids keep Na 145-155. Increase sodium chloride tab to 2 gm BID rpt BMP in am. LDL 48 A1c 5.9. Unremarkable echo. EKG with sinus rhythm. PT/OT/ST currently NPO start TF. ST ff. Aspiration precautions. Monitor for hypoglycemia. Neurochecks and seizure precautions Alcohol abuse. CIWA protocol. Multiple medical conditions of COPD, coronary artery disease status post stent, hyperlipidemia and hypertension. RN to verify home medications. DVT prophylaxis with SCD and early ambulation. Hold pharmacological prophylaxis secondary to petechial hemorrhages Discharge Planning: HHC vs rehab Discussed with the patient, nurse Results - Labs CBC & Chem 7: 10/18/17 12:29 10/23/17 06:46 Laboratory Results - last 24 hr 10/22/17 10/23/17 10/23/17 16:23 06:46 07:38 Sodium 141 Potassium 3.3 L Chloride 109 H Carbon Dioxide 22.7 Anion Gap 9 BUN 13 Creatinine 0.75 Estimated GFR 76 L POC Glucose 106 134 H Random Glucose 107 H Calcium 8.5 Magnesium 1.8 10/23/17 11:53 Sodium Potassium Chloride Carbon Dioxide Anion Gap BUN Creatinine Estimated GFR POC Glucose 122 H Random Glucose Calcium Magnesium - Imaging Impressions Abdomen X-Ray 10/23/17 03:16 CONCLUSION: NG tube as above. - Procedures none
[2017-10-23] MEDS ORDERED: Potassium Bicarbonate 25 MEQ Effervescent Tablet PO ONE (17:58)
--- NOTE | 2017-10-23 19:05 | P.PNNS ---
Subjective Interval history: Pt awakens to voice. Denies headache, nausea or vomiting. Physical Exam Vital signs: Vital Signs 10/22/17 20:00 10/23/17 00:00 10/23/17 04:00 Temperature 99.2 F 99.1 F 98.2 F Pulse Rate 94 H 117 H 98 H Respiratory Rate 20 20 20 Blood Pressure 119/80 187/100 H 155/100 H Pulse Oximetry 95 94 L 94 L 10/23/17 08:00 10/23/17 12:00 10/23/17 16:00 Temperature 98.4 F 100.3 F H 99.1 F Pulse Rate 99 H 106 H 93 H Respiratory Rate 18 18 18 Blood Pressure 162/76 H 188/83 H 163/70 H Pulse Oximetry 93 L 96 96 Intake & Output 10/23/17 10/23/17 10/24/17 06:59 18:59 06:59 Output Total 350 / 350 Balance -350 / -350 Weight 56.7 kg Output: Urine 350 / 350 Other: # Voids 2 3 Date of Last Bowel Movement 10/21/17 10/21/17 # Bowel Movements 1 2 - Constitutional no acute distress, cooperative, somnolent - Routine HEENT Exam Head: Present: normocephalic, atraumatic Eye: Present: PERRL (Pupils 3mm bilaterally, reactive bilaterally.). Absent: conjunctival icterus - Routine Neck Exam Present: trachea midline - Routine Respiratory Exam Present: CTA bilaterally. Absent: respiratory distress, rhonchi, wheezes - Routine Cardiovascular Exam Present: RRR, S1, S2. Absent: murmur - Routine Abdominal Exam Present: soft, normoactive bowel sounds. Absent: distended - Routine Skin Exam Absent: cyanosis, erythema - Routine Neurological Exam Present: alert, motor deficit (Right hemiplegia.), facial asymmetry (right facial paresis.). Absent: moving all extremities (right hemiplegia.), normal speech - Detailed Neurological Exam: Coma Scale Eye Opening: To sound Verbal Response: Confused Motor Response: Obey commands [place] Coma Scale Total: 13 - Routine Psychiatric Exam Present: unable to assess Assessment and Plan - Assessment (1) Ischemic cerebrovascular accident (CVA) Code(s): I63.9 - Cerebral infarction, unspecified Status: Acute (2) Accelerated hypertension Code(s): I10 - Essential (primary) hypertension Status: Acute (3) Hemorrhage, petechial Code(s): R23.3 - Spontaneous ecchymoses Status: Acute - Plan Impression: 1. Left hemisphere MCA distribution CVA with small petechial hemorrhages. No significant mass-effect. 2. Hypertension 3. Dyslipidemia 4. COPD 5. Probable chronic alcohol abuse Plan: Continue with neuro checks Continue with rehab efforts. Continue with medical management.
[2017-10-24] MEDS: Sod Chloride 0.9% Inj 1,000 ML IV.CONT SCH ×3 (03:30→19:36)
[2017-10-24] MEDS: Sodium Chloride 1 GM Tablet PO SCH ×2 (08:35→21:34)
[2017-10-24] MEDS: Aspirin 300 MG Supp RECTAL SCH (08:35)
--- NOTE | 2017-10-24 09:20 | P.PN ---
Physical Exam Vital signs: Vital Signs 10/23/17 12:00 10/23/17 16:00 10/23/17 20:00 Temperature 100.3 F H 99.1 F 100.4 F H Pulse Rate 106 H 93 H 93 H Respiratory Rate 18 Blood Pressure 188/83 H 163/70 H 187/80 H Pulse Oximetry 96 96 95 10/24/17 00:00 10/24/17 04:00 10/24/17 07:37 Temperature 98.7 F 100.9 F H 97.9 F Pulse Rate 93 H 93 H 100 H Respiratory Rate 12 Blood Pressure 184/83 H 182/74 H 180/81 H Pulse Oximetry 96 98 96 Intake & Output 10/23/17 10/24/17 10/24/17 18:59 06:59 18:59 Intake Total 290 / 290 Balance 290 / 290 Weight 57.7 kg Intake: Tube Feeding 290 / 290 Other: # Voids 3 # Incontinent Voids 1 Date of Last Bowel Movement 10/21/17 10/22/17 # Bowel Movements 2 Narrative: Subjective Interval history: F/u CVA. Alcohol abuse. Awake, slurred speech, aphasic. Less agitated. Follows some commands. The patient failed swallow evaluation, she is strict NPO. Physical Exam GENERAL: Elderly patient in bed, aphasic, nonverbal, babbles unintelligibly , follows some commands, appears lethargic ENT: Dubhoff in place. NECK: Trachea midline. No JVD. CARDIOVASCULAR: Regular rate and rhythm. RESPIRATORY: No accessory muscle use. Clear to auscultation. Breath sounds equal bilaterally. GASTROINTESTINAL: Abdomen soft, non-tender, nondistended. Hepatic and splenic margins not palpable. MUSCULOSKELETAL: Extremities without clubbing, cyanosis, or edema. No obvious deformities. NEUROLOGICAL: Pupils are equally reactive. Follows some commands left upper and lower extremities. Spontaneously moves right lower extremity with 2/5 strength. Absent motor movements right upper extremity. Slurred speech. Assessment and Plan This is a 72-year-old female who was brought in by EMS because of altered mental status. History is mainly taken from ED and chart review. Apparently patient was last seen normal last night. This morning she was found with right- sided facial droop and right arm weakness. She was not following commands and was not verbal. According to her roommate who was intoxicated, patient is also an alcoholic. Head CT shows subacute left MCA CVA with petechial hemorrhages. Large left MCA CVA with petechial hemorrhages. Apparent occlusion of the internal carotid arteries bilaterally as well as occlusion of the left MCA proximally. Evidence of diffuse atherosclerotic disease of the right MCA. Stable ct aspirin, per neurology to consider anticoagulation. Continue permissive hypertension and IV fluids keep Na 145-155. Increase sodium chloride tab to 2 gm BID rpt BMP in am. LDL 48 A1c 5.9. Unremarkable echo. EKG with sinus rhythm. PT/OT/ST currently NPO start TF. ST ff. Aspiration precautions. Monitor for hypoglycemia. Neurochecks and seizure precautions Consult palliative care for goals of care Patient might need PEG tube as patient is consistently failing swallow eval and she is strictly NPO. Alcohol abuse. [facility] protocol. Multiple medical conditions of COPD, coronary artery disease status post stent, hyperlipidemia and hypertension. RN to verify home medications. DVT prophylaxis with SCD and early ambulation. Hold pharmacological prophylaxis secondary to petechial hemorrhages Discharge Planning: HHC vs rehab Discussed with the patient, nurse Results - Labs CBC & Chem 7: 10/18/17 12:29 10/23/17 06:46 Laboratory Results - last 24 hr 10/23/17 10/23/17 11:53 16:32 POC Glucose 122 H 120 H - Procedures none
[2017-10-24] MEDS: Insulin NovoLOG Aspart Correctional Sugar Inj SQ SCH ×4 (09:34→21:33)
--- NOTE | 2017-10-24 16:17 | P.CONREH ---
History of Present Illness Service: Physical Medicien and Rehabilitatin Consult date: 10/24/17 Reason for Consult: Comprehensive rehabilitation evaluation Primary Care Provider: UNKNOWN History of Present Illness: Chichi Cadet is a 72-year-old female admitted [facility] 10/18/17 with change in mental status, right facial and upper extremity weakness and inability to speak. Head CT showed subacute left MCA CVA with petechial hemorrhage. Brain MRI 10/18/17 showed moderate acute infarct in left MCA with some mass- effect but no shift. Neurosurgery evaluated the patient and patient was treated nonsurgically. Carotid ultrasound 10/18/17 showed severe plaque in the right carotid bulb with elevated ICA to see CCA ratio indicating possible high-grade stenosis. Left ICA and ECA were not visualized indicating possible occlusion. Vascular surgery evaluated the patient in no surgical intervention was recommended. Follow-up head CT 10/19/17 showed evolving infarct in the left MCA distribution. Patient is currently n.p.o. and PEG is being considered. Review of Systems other (Unable to obtain due to aphasia but patient appears to deny any pain compla) [facility] - History History Provided By: Medical Record - Medical History Medical History: Medical History (Last Reviewed 10/24/17 @ 08:57 by Haydee Smiley) Arthritis CAD (coronary artery disease) COPD (chronic obstructive pulmonary disease) Depression HLD (hyperlipidemia) [place] (hard of hearing) HTN (hypertension) Myocardial infarct - Surgical History Surgical History: Surgical History (Last Reviewed 10/24/17 @ 08:57 by Haydee Smiley) Stented coronary artery - Family History Family History: Family History (Last Updated 10/26/17 @ 14:16 by Katerine Karimi MD) Other ALS (amyotrophic lateral sclerosis) - Tobacco History Smoking Status: Unknown if ever smoked - Alcohol History How Often Do You Have a Drink Containing Alcohol: Unable to Obtain - Substance Use History Substance History: Unable to Obtain - Travel History Recent Travel in the [place] Within the Last 8 Weeks: No Recent Travel Out of the Country Within the Last 8 Weeks: No - Immunization History Tetanus Immunization: Unable to Assess Hx Influenza Vaccine This Season: Unable to Assess Medications and Allergies Active Medications: Active Medications Albuterol (Albuterol Concentrated Neb) 2.5 mg NEB Q6HR NEB PRN PRN Reason: DYSPNEA Last Admin: 10/22/17 07:52 Dose: 2.5 mg Aspirin (Aspirin Supp) 300 mg RECTAL DAILY [facility] Last Admin: 10/24/17 08:35 Dose: 300 mg Dextrose (D50w Vial) 50 ml IV.PUSH UNSCH PRN PRN Reason: PER HYPOGLYCEMIA PROTOCOL Enalaprilat (Vasotec Inj) 1.25 mg IV.PUSH Q4H PRN PRN Reason: For SBP > 220 or DBP > 120 Flumazenil (Romazecon Inj) 0.2 mg IV.PUSH Q1M PRN PRN Reason: OVERSEDATION Glucagon (Glucagon Inj) 1 mg OTHER UNSCH PRN PRN Reason: for Hypoglycemia Protocol Sodium Chloride (Ns Inj) 1,000 mls @ 70 mls/hr IV.CONT .[id number] [facility] Last Admin: 10/24/17 06:50 Dose: 70 mls/hr Potassium Chloride (Kcl 20 Meq Premix Inj) 20 meq in 100 mls @ 50 mls/hr IV.SIG Q2H PRN PRN Reason: For Potassium 2.8 - 3.2 mEq/L Last Infusion: 10/22/17 16:14 Dose: Infused Insulin Aspart (Novolog Insulin Correctional Sugar Inj) 0 unit SQ [facility]; Protocol Last Admin: 10/24/17 12:34 Dose: Not Given Sodium Chloride (Ns Flush) 2 ml IV.FLUSH BID [facility] Last Admin: 10/24/17 08:35 Dose: 2 ml Sodium Chloride (Ns Flush) 2 ml IV.FLUSH PRN PRN PRN Reason: FLUSH AFTER USING IV ACCESS Sodium Chloride (Sodium Chloride) 2 gm PO BID [facility] Last Admin: 10/24/17 08:35 Dose: 2 gm Allergies Allergy/AdvReac Type Severity Reaction Status Date / Time No Known Allergies Allergy Unverified 10/18/17 12:02 Home Medications Medication Instructions Recorded Confirmed Type Unable to Obtain Home Meds 10/18/17 10/18/17 History Exam - Physical Examination Vital Signs / I&O: Vital Signs 10/23/17 20:00 10/24/17 00:00 10/24/17 04:00 Temperature 100.4 F H 98.7 F 100.9 F H Pulse Rate 93 H 93 H 93 H Respiratory Rate 18 18 18 Blood Pressure 187/80 H 184/83 H 182/74 H Pulse Oximetry 95 96 98 10/24/17 07:37 10/24/17 12:00 Temperature 97.9 F 99.4 F Pulse Rate 100 H 90 Respiratory Rate 12 16 Blood Pressure 180/81 H 147/76 H Pulse Oximetry 96 97 Intake & Output 10/23/17 10/24/17 10/24/17 18:59 06:59 18:59 Intake Total 290 / 290 Balance 290 / 290 Weight 57.7 kg Intake: Tube Feeding 290 / 290 Other: # Voids 3 # Incontinent Voids 1 Date of Last Bowel Movement 10/21/17 10/22/17 # Bowel Movements 2 Intake & Output 10/22/17 10/23/17 10/24/17 10/25/17 06:59 06:59 06:59 06:59 Intake Total 3446 / 3446 1300 / 1300 290 / 290 Output Total 900 / 900 350 / 350 Balance 2546 / 2546 950 / 950 290 / 290 Weight 55.1 kg 56.7 kg 57.7 kg General: No acute distress, Other (NG tube is in place) Respiratory: Lungs CTA, Non-labored respirations, BS equal, Coarse breath sounds Gastrointestinal: Positive bowel sounds, Non-distended, Non-tender Date of Last Bowel Movement: 10/22/17 Cardiovascular: Normal rate, No edema, Regular rhythm Musculoskeletal: ROM (Within functional limits) - Neurologic Orientation: unable to assess: Self, Place, Time, Situation Neurologic: Speech (No spontaneous or automatic verbal output; patient follows simple one-step commands approximately 25% correctly) Motor: Right Upper Extremity (0/5), Left Upper Extremity (Grossly intact), Right Lower Extremity (0/5), Left Lower Extremity (Grossly intact) Spasticity: Tone is flaccid in the right upper extremity and trace for hip extension and knee extension in the lower extremity Sensory: Unable to assess DTRs: Abnormal (2+ left; 1+ right) Babinski: Positive (Right) Clonus: Negative Results - Labs CBC & Chem 7: 10/25/17 06:39 10/25/17 06:39 Labs: Laboratory Results - last 24 hr 10/23/17 10/24/17 10/24/17 16:32 12:47 12:48 POC Glucose 120 H 120 H 128 H Assessment and Plan (1) Ischemic cerebrovascular accident (CVA) Status: Acute Code(s): I63.9 - Cerebral infarction, unspecified (2) Right hemiplegia Status: Acute Code(s): G81.91 - Hemiplegia, unspecified affecting right dominant side (3) Aphasia Status: Acute Code(s): R47.01 - Aphasia (4) Impaired mobility and ADLs Status: Acute Code(s): Z74.09 - Other reduced mobility - Plan 1. Physical therapy is mobilizing the patient is maximal assistance for bed mobility and for transfers sit to stand. Continue to mobilize including out of bed to chair with nursing 2. Speech therapy is addressing swallow and severe dysphagia. PEG is being considered and appears to be appropriate. Patient currently with NG tube in place 3. Occupational therapy is addressing ADLs and currently dependent 4. Continue close supervision for fall prevention 5. Continue positioning while in bed to support right shoulder while upper extremity tone is flaccid to prevent shoulder subluxation and pain 6. Patient will need ongoing inpatient debilitation at discharge in case management is addressing options with family. Given current communication and swallow deficits as well as right hemiplegia, anticipate the patient will need ongoing care in 24 hours supervision at discharge after inpatient rehabilitation. 7. Will follow while hospitalized and at discharge Thank you for this consult
--- NOTE | 2017-10-24 16:23 | P.PNNS ---
Subjective Interval history: No acute events overnight. Physical Exam Vital signs: Vital Signs 10/23/17 20:00 10/24/17 00:00 10/24/17 04:00 Temperature 100.4 F H 98.7 F 100.9 F H Pulse Rate 93 H 93 H 93 H Respiratory Rate 18 18 18 Blood Pressure 187/80 H 184/83 H 182/74 H Pulse Oximetry 95 96 98 10/24/17 07:37 10/24/17 12:00 Temperature 97.9 F 99.4 F Pulse Rate 100 H 90 Respiratory Rate 12 16 Blood Pressure 180/81 H 147/76 H Pulse Oximetry 96 97 Intake & Output 10/23/17 10/24/17 10/24/17 18:59 06:59 18:59 Intake Total 290 / 290 Balance 290 / 290 Weight 57.7 kg Intake: Tube Feeding 290 / 290 Other: # Voids 3 # Incontinent Voids 1 Date of Last Bowel Movement 10/21/17 10/22/17 10/22/17 # Bowel Movements 2 Narrative: Opens eyes to voice, bright PERRL Anti-gravity left upper and left lower extremity Right upper extremity plegia Withdraws right lower extremity Assessment and Plan - Assessment (1) Ischemic cerebrovascular accident (CVA) Code(s): I63.9 - Cerebral infarction, unspecified Status: Acute - Plan Impression: Ms. Cadet is a 72 y/o female with a left MCA stroke, bilateral ICA occlusions , left M1 occlusion. CTA on 10/20 without significant midline shift. Plan: No neurosurgical intervention. Continue medical management.
[2017-10-25] MEDS: Sod Chloride 0.9% Inj 1,000 ML IV.CONT SCH ×2 (06:50→21:03)
[2017-10-25 07:06] LABS: Baso # (Auto) 0.1 th/mm3 (0.0-0.2); Baso % (Auto) 0.6 % (0.0-2.0); Eos # (Auto) 0.6 th/mm3 (0.0-0.4); Eos % (Auto) 6.4 % (0.0-4.0); Hematocrit 37.3 % (35.0-46.0); Lymph # (Auto) 1.3 th/mm3 (1.0-4.8); Lymph % (Auto) 13.2 % (9.0-44.0); Mean Corpuscular HGB Conc 34.7 % (32.0-36.0); Mean Corpuscular Hemoglobin 31.9 pg (27.0-34.0); Mean Corpuscular Volume 91.9 fL (80.0-100.0); Mean Platelet Volume 8.6 fL (7.0-11.0); Mono # (Auto) 1.4 th/mm3 (0.0-0.9); Mono % (Auto) 13.6 % (0.0-8.0); Neut # (Auto) 6.6 th/mm3 (1.8-7.7); Neut % (Auto) 66.2 % (16.0-70.0); Platelet Count 210 th/mm3 (150-450); Red Blood Count 4.06 mil/mm3 (4.00-5.30); Red Cell Distribution Width 13.1 % (11.6-17.2); White Blood Count 9.9 th/mm3 (4.0-11.0)
[2017-10-25 07:23] LABS: Alanine Aminotransferase 19 U/L (10-53); Albumin 2.6 g/dL (3.4-5.0); Anion Gap 9 meq/L (5-15); Aspartate Aminotransferase 23 U/L (15-37); Blood Urea Nitrogen 15 mg/dL (7-18); Calcium 8.2 mg/dL (8.5-10.1); Carbon Dioxide 23.7 meq/L (21.0-32.0); Chloride 107 meq/L (98-107); Glomerular Filtration Rate 71 mL/min (>89); Glucose,Random 126 mg/dL (74-106); Potassium 3.4 meq/L (3.5-5.1); Sodium 140 meq/L (136-145)
[2017-10-25 07:26] LABS: Alkaline Phosphatase 53 U/L (45-117); Total Protein 6.3 g/dL (6.4-8.2)
[2017-10-25] MEDS: Insulin NovoLOG Aspart Correctional Sugar Inj SQ SCH ×3 (08:16→17:12)
[2017-10-25] MEDS: Sodium Chloride 1 GM Tablet PO SCH ×2 (08:19→21:03)
[2017-10-25] MEDS: Aspirin 300 MG Supp RECTAL SCH (08:19)
--- NOTE | 2017-10-25 10:30 | P.PN ---
Physical Exam Vital signs: Vital Signs 10/24/17 12:00 10/24/17 20:00 10/25/17 00:00 Temperature 99.4 F 100.1 F H 99.1 F Pulse Rate 93 H 93 H 88 Respiratory Rate 16 18 18 Blood Pressure 147/76 H 190/85 H 175/79 H Pulse Oximetry 97 95 96 10/25/17 02:01 10/25/17 04:00 10/25/17 08:00 Temperature 98.4 F 99.6 F 98.8 F Pulse Rate 96 H 94 H Respiratory Rate 18 20 Blood Pressure 141/89 H 196/91 H Pulse Oximetry 96 94 L Intake & Output 10/24/17 10/25/17 10/25/17 18:59 06:59 18:59 Intake Total 1000 / 1000 1000 / 1000 Balance 1000 / 1000 1000 / 1000 Weight 57.9 kg Intake: IV 1000 / 1000 1000 / 1000 NS Inj 1,000 ML @ 70 mls/hr IV. 1000 / 1000 1000 / 1000 CONT .[id number] [facility] Rx#:[id number] Other: # Incontinent Voids 1 1 Date of Last Bowel Movement 10/22/17 10/24/17 10/25/17 Narrative: Subjective Interval history: F/u CVA. Alcohol abuse. Awake, slurred speech, aphasic. Less agitated. More awake and oriented. Discussed with the patient regarding need of PEG tube and patient is refusing. Palliative care consulted for goals of care. Follows some commands. The patient failed swallow evaluation, she is strict NPO. Physical Exam GENERAL: Elderly patient in bed, aphasic, nonverbal, babbles unintelligibly , follows some commands, appears lethargic ENT: Dubhoff in place. NECK: Trachea midline. No JVD. CARDIOVASCULAR: Regular rate and rhythm. RESPIRATORY: No accessory muscle use. Clear to auscultation. Breath sounds equal bilaterally. GASTROINTESTINAL: Abdomen soft, non-tender, nondistended. Hepatic and splenic margins not palpable. MUSCULOSKELETAL: Extremities without clubbing, cyanosis, or edema. No obvious deformities. NEUROLOGICAL: Pupils are equally reactive. Follows some commands left upper and lower extremities. Spontaneously moves right lower extremity with 2/5 strength. Absent motor movements right upper extremity. Slurred speech. Assessment and Plan This is a 72-year-old female who was brought in by EMS because of altered mental status. History is mainly taken from ED and chart review. Apparently patient was last seen normal last night. This morning she was found with right- sided facial droop and right arm weakness. She was not following commands and was not verbal. According to her roommate who was intoxicated, patient is also an alcoholic. Head CT shows subacute left MCA CVA with petechial hemorrhages. Large left MCA CVA with petechial hemorrhages. Apparent occlusion of the internal carotid arteries bilaterally as well as occlusion of the left MCA proximally. Evidence of diffuse atherosclerotic disease of the right MCA. Stable ct aspirin, per neurology to consider anticoagulation. Continue permissive hypertension and IV fluids keep Na 145-155. Increase sodium chloride tab to 2 gm BID rpt BMP in am. LDL 48 A1c 5.9. Unremarkable echo. EKG with sinus rhythm. PT/OT/ST currently NPO start TF. ST ff. Aspiration precautions. Monitor for hypoglycemia. Neurochecks and seizure precautions Consult palliative care for goals of care Patient might need PEG tube as patient is consistently failing swallow eval and she is strictly NPO. Alcohol abuse. WA protocol. Multiple medical conditions of COPD, coronary artery disease status post stent, hyperlipidemia and hypertension. RN to verify home medications. DVT prophylaxis with SCD and early ambulation. Hold pharmacological prophylaxis secondary to petechial hemorrhages Discharge Planning: HHC vs rehab Discussed with the patient, nurse Results - Labs CBC & Chem 7: 10/25/17 06:39 10/25/17 06:39 Laboratory Results - last 24 hr 10/24/17 10/24/17 10/24/17 12:47 12:48 16:39 WBC RBC Hgb Hct MCV MCH MCHC RDW Plt Count MPV Neut % (Auto) Lymph % (Auto) Roberts % (Auto) Eos % (Auto) Baso % (Auto) Neut # (Auto) Lymph # (Auto) Roberts # (Auto) Eos # (Auto) Baso # (Auto) WBC Differential Differential Comment Sodium Potassium Chloride Carbon Dioxide Anion Gap BUN Creatinine Estimated GFR POC Glucose 120 H 128 H 133 H Random Glucose Calcium Total Bilirubin AST ALT Alkaline Phosphatase Total Protein Albumin 10/24/17 10/25/17 10/25/17 21:29 06:39 06:39 WBC 9.9 RBC 4.06 Hgb 13.0 Hct 37.3 MCV 91.9 MCH 31.9 MCHC 34.7 RDW 13.1 Plt Count 210 D MPV 8.6 Neut % (Auto) 66.2 Lymph % (Auto) 13.2 Roberts % (Auto) 13.6 H Eos % (Auto) 6.4 H Baso % (Auto) 0.6 Neut # (Auto) 6.6 Lymph # (Auto) 1.3 Roberts # (Auto) 1.4 H Eos # (Auto) 0.6 H Baso # (Auto) 0.1 WBC Differential . Differential Comment Auto diff final Sodium 140 Potassium 3.4 L Chloride 107 Carbon Dioxide 23.7 Anion Gap 9 BUN 15 Creatinine 0.80 Estimated GFR 71 L POC Glucose 119 H Random Glucose 126 H Calcium 8.2 L Total Bilirubin 0.5 AST 23 ALT 19 Alkaline Phosphatase 53 Total Protein 6.3 L D Albumin 2.6 L 10/25/17 07:30 WBC RBC Hgb Hct MCV MCH MCHC RDW Plt Count MPV Neut % (Auto) Lymph % (Auto) Roberts % (Auto) Eos % (Auto) Baso % (Auto) Neut # (Auto) Lymph # (Auto) Roberts # (Auto) Eos # (Auto) Baso # (Auto) WBC Differential Differential Comment Sodium Potassium Chloride Carbon Dioxide Anion Gap BUN Creatinine Estimated GFR POC Glucose 123 H Random Glucose Calcium Total Bilirubin AST ALT Alkaline Phosphatase Total Protein Albumin - Procedures none
--- NOTE | 2017-10-25 10:47 | P.PNNS ---
Subjective Interval history: No acute events overnight. Endorses low back pain this AM. Physical Exam Vital signs: Vital Signs 10/24/17 12:00 10/24/17 20:00 10/25/17 00:00 Temperature 99.4 F 100.1 F H 99.1 F Pulse Rate 93 H 93 H 88 Respiratory Rate 16 18 18 Blood Pressure 147/76 H 190/85 H 175/79 H Pulse Oximetry 97 95 96 10/25/17 02:01 10/25/17 04:00 10/25/17 08:00 Temperature 98.4 F 99.6 F 98.8 F Pulse Rate 96 H 94 H Respiratory Rate 18 20 Blood Pressure 141/89 H 196/91 H Pulse Oximetry 96 94 L Intake & Output 10/24/17 10/25/17 10/25/17 18:59 06:59 18:59 Intake Total 1000 / 1000 1000 / 1000 Balance 1000 / 1000 1000 / 1000 Weight 57.9 kg Intake: IV 1000 / 1000 1000 / 1000 NS Inj 1,000 ML @ 70 mls/hr IV. 1000 / 1000 1000 / 1000 CONT .[id number] [facility] Rx#:[id number] Other: # Incontinent Voids 1 1 Date of Last Bowel Movement 10/22/17 10/24/17 10/25/17 Narrative: Opens eyes to voice, bright PERRL Anti-gravity left upper and left lower extremity Right upper extremity plegia Withdraws right lower extremity Assessment and Plan - Assessment (1) Ischemic cerebrovascular accident (CVA) Code(s): I63.9 - Cerebral infarction, unspecified Status: Acute - Plan Impression: Ms. Cadet is a 72 y/o female with a left MCA stroke, bilateral ICA occlusions , left M1 occlusion. CTA on 10/20 without significant midline shift. Plan: Continue medical management. No neurosurgical intervention. She is now well outside the typical time window for symptomatic cerebral edema following ischemic stroke. Please contact neurosurgery if clinical condition changes significantly.
[2017-10-26] MEDS: Sodium Chloride 1 GM Tablet PO SCH (08:29)
--- NOTE | 2017-10-26 08:29 | P.PN ---
Physical Exam Vital signs: Vital Signs 10/25/17 12:00 10/25/17 16:00 10/25/17 17:00 Temperature 98.6 F 100.6 F H Pulse Rate 94 H 104 H Respiratory Rate 20 20 Blood Pressure 210/98 H 180/77 H 180/90 H Pulse Oximetry 93 L 92 L 10/25/17 20:00 10/26/17 00:00 Temperature 100.9 F H 99.1 F Pulse Rate 106 H 93 H Respiratory Rate 18 18 Blood Pressure 181/91 H Pulse Oximetry 91 L 91 L Intake & Output 10/25/17 10/26/17 10/26/17 18:59 06:59 18:59 Intake Total 540 / 540 1000 / 1000 Balance 540 / 540 1000 / 1000 Intake: IV 1000 / 1000 NS Inj 1,000 ML @ 70 mls/hr IV. 1000 / 1000 CONT .[id number] [facility] Rx#:[id number] Tube Feeding 540 / 540 Other: # Incontinent Voids 1 Date of Last Bowel Movement 10/25/17 10/25/17 Narrative: Subjective Interval history: F/u CVA. Alcohol abuse. Awake, slurred speech, aphasic. Less agitated. Office restraints. She pulled off the Dobbhoff. Patient is refusing Dobbhoff tube replaced back. She is also refusing PEG tube. Also will have palliative care to follow-up for goals of care. More awake and oriented. Follows some commands. The patient failed swallow evaluation, she is strict NPO. Continue IV fluids, however blood pressure is normal with the blood pressure parameters Physical Exam GENERAL: Elderly patient in bed, aphasic, nonverbal, babbles unintelligibly , follows some commands, appears lethargic ENT: Dubhoff in place. NECK: Trachea midline. No JVD. CARDIOVASCULAR: Regular rate and rhythm. RESPIRATORY: No accessory muscle use. Clear to auscultation. Breath sounds equal bilaterally. GASTROINTESTINAL: Abdomen soft, non-tender, nondistended. Hepatic and splenic margins not palpable. MUSCULOSKELETAL: Extremities without clubbing, cyanosis, or edema. No obvious deformities. NEUROLOGICAL: Pupils are equally reactive. Follows some commands left upper and lower extremities. Spontaneously moves right lower extremity with 2/5 strength. Absent motor movements right upper extremity. Slurred speech. Assessment and Plan This is a 72-year-old female who was brought in by EMS because of altered mental status. History is mainly taken from ED and chart review. Apparently patient was last seen normal last night. This morning she was found with right- sided facial droop and right arm weakness. She was not following commands and was not verbal. According to her roommate who was intoxicated, patient is also an alcoholic. Head CT shows subacute left MCA CVA with petechial hemorrhages. Large left MCA CVA with petechial hemorrhages. Apparent occlusion of the internal carotid arteries bilaterally as well as occlusion of the left MCA proximally. Evidence of diffuse atherosclerotic disease of the right MCA. Stable ct aspirin, per neurology to consider anticoagulation. Continue permissive hypertension and IV fluids keep Na 145-155. Increase sodium chloride tab to 2 gm BID rpt BMP in am. LDL 48 A1c 5.9. Unremarkable echo. EKG with sinus rhythm. PT/OT/ST currently NPO start TF. ST ff. Aspiration precautions. Monitor for hypoglycemia. Neurochecks and seizure precautions Consult palliative care for goals of care Patient might need PEG tube as patient is consistently failing swallow eval and she is strictly NPO. Alcohol abuse. CIWA protocol. Multiple medical conditions of COPD, coronary artery disease status post stent, hyperlipidemia and hypertension. RN to verify home medications. DVT prophylaxis with SCD and early ambulation. Hold pharmacological prophylaxis secondary to petechial hemorrhages Discharge Planning: HHC vs rehab Discussed with the patient, nurse Discharge plan. The patient is strict n.p.o. she needs PEG tube. Patient pulled the Dobbhoff ovary is refusing PEG tube or Dobbhoff tube replaced back. Palliative care is following for goals of care case management is also following for discharge plan. Results - Labs CBC & Chem 7: 10/25/17 06:39 10/25/17 06:39 Laboratory Results - last 24 hr 10/25/17 10/26/17 11:43 02:14 POC Glucose 121 H 111 H - Procedures none
[2017-10-26] MEDS: Aspirin 300 MG Supp RECTAL SCH (08:30)
--- NOTE | 2017-10-26 09:32 | XR ---
EXAM DATE: 10/26/2017 9:29 AM EDT AGE/SEX: 72 years / Female INDICATIONS: Cough, concern for aspiration. CLINICAL DATA: This is the patient's initial encounter. Patient reports that signs and symptoms have been present for 1 day and indicates a pain score of 0/10. MEDICAL/SURGICAL HISTORY: Chronic obstructive pulmonary disease. . Cardiac stent. [place] [facility] [place]18/2017. . FINDINGS: A single AP view of the chest demonstrates patchy densities right lower lobe. Left lung clear. Heart normal in size. The cardiomediastinal contours are unremarkable. Slight scoliotic changes and degene rative changes thoracic spine CONCLUSION: Minimal patchy densities right lower lobe, likely infiltrate. Electronically signed by: Duy Rivero MD 10/26/2017 9:31 AM EDT
[2017-10-26] MEDS: Sod Chloride 0.9% Inj 1,000 ML IV.CONT SCH (11:48)
[2017-10-27] MEDS: Sodium Chloride 1 GM Tablet PO SCH ×3 (01:00→22:57)
[2017-10-27] MEDS: Dextrose 5%/NaCl 0.9% Inj 1,000 ML IV.CONT SCH ×2 (04:55→22:15)
--- NOTE | 2017-10-27 07:40 | P.PN ---
Subjective Interval history: 72-year-old female who was brought in by EMS because of altered mental status. History is mainly taken from ED and chart review. Apparently patient was last seen normal last night. This morning she was found with right-sided facial droop and right arm weakness. She was not following commands and was not verbal. According to her roommate who was intoxicated, patient is also an alcoholic. Head CT shows subacute left MCA CVA with petechial hemorrhages. [employer] reviewed shows she has history of COPD, coronary artery disease status post stent, hyperlipidemia and hypertension. Family history father of Kourtney Gehrig's and mother with cancer type not known. At this time, she is awake but has expressive aphasia. She is following commands intermittently. All other systems reviewed negative. 10/27 - Patient seen and examined. She is awake. +slurred speech and aphasia. She answers yes to all of my ROS questions. +Coarse cough. She follows some simple commands. CXR shows patchy densities RLL, likely infiltrate. Physical Exam Vital signs: Vital Signs 10/26/17 08:00 10/26/17 12:00 10/26/17 16:00 Temperature 98.0 F 98.1 F Pulse Rate 87 95 H 93 H Respiratory Rate 17 20 20 Blood Pressure 165/95 H 171/79 H 176/92 H Pulse Oximetry 96 94 L 95 10/26/17 20:00 10/27/17 00:00 10/27/17 04:00 Temperature 98.8 F 97.1 F L Pulse Rate 91 H 86 101 H Respiratory Rate 18 18 Blood Pressure 152/72 H 165/72 H Pulse Oximetry 93 L 96 Intake & Output 10/26/17 10/27/17 10/27/17 18:59 06:59 18:59 Intake Total 1000 / 1000 Output Total 1003 / 1003 Balance -3 / -3 Weight 56.9 kg Intake: IV 1000 / 1000 NS Inj 1,000 ML @ 70 mls/hr IV. 1000 / 1000 CONT .[id number] ORIANA Rx#:[id number] Oral 0 / 0 Output: Urine 1000 / 1000 Stool 3 / 3 Other: # Voids 3 Date of Last Bowel Movement 10/22/17 10/26/17 Narrative: GENERAL: WDWN elderly female, INAD. Awake and alert. LUE in soft wrist restraint. +Expressive aphasia. SKIN: Warm and dry. No generalized rash. HEAD: Atraumatic. Normocephalic. +right sided facial droop. EYES: Pupils equal and round. No scleral icterus. No injection or drainage. ENT: No nasal bleeding or discharge. Mucous membranes pink and moist. NECK: Trachea midline. No JVD. CARDIOVASCULAR: Tachycardic. No murmur appreciated. +tenderness to palpation chest wall. RESPIRATORY: No accessory muscle use. Fair air entry. Poor effort. Clear to auscultation anteriorly. GASTROINTESTINAL: Abdomen soft, nondistended. +subjective tenderness to palpation diffusely. MUSCULOSKELETAL: Extremities without clubbing, cyanosis, or edema. NEUROLOGICAL: Awake and alert. Follows simple commands. Motor grossly intact left upper and lower extremity. +Flaccid RUE. Able to spontaneously move RLE but difficult to assess motor function. +tenderness to palpation right calf which is supple. +expressive aphasia, abnormal slurred unintelligible speech. PSYCHIATRIC: Calm. Appears depressed. Results - Labs CBC & Chem 7: 10/25/17 06:39 10/25/17 06:39 Laboratory Results - last 24 hr 10/26/17 10/27/17 10/27/17 21:07 00:50 03:47 POC Glucose 75 74 71 - Imaging Impressions Chest X-Ray 10/26/17 00:00 CONCLUSION: Minimal patchy densities right lower lobe, likely infiltrate. - Procedures none Assessment and Plan - Assessment (1) Ischemic cerebrovascular accident (CVA) Code(s): I63.9 - Cerebral infarction, unspecified Status: Acute (2) Accelerated hypertension Code(s): I10 - Essential (primary) hypertension Status: Acute (3) Hemorrhage, petechial Code(s): R23.3 - Spontaneous ecchymoses Status: Acute (4) Right hemiplegia Code(s): G81.91 - Hemiplegia, unspecified affecting right dominant side Status : Acute (5) Aphasia Code(s): R47.01 - Aphasia Status: Acute (6) Impaired mobility and ADLs Code(s): Z74.09 - Other reduced mobility Status: Acute - Plan This is a 72-year-old female who was brought in by EMS because of altered mental status. History is mainly taken from ED and chart review. Apparently patient was last seen normal last night. This morning she was found with right- sided facial droop and right arm weakness. She was not following commands and was not verbal. According to her roommate who was intoxicated, patient is also an alcoholic. Head CT shows subacute left MCA CVA with petechial hemorrhages. Large left MCA CVA with petechial hemorrhages. Apparent occlusion of the internal carotid arteries bilaterally as well as occlusion of the left MCA proximally. Evidence of diffuse atherosclerotic disease of the right MCA. Not a surgical candidate per Dr. Chahal. LDL 48 A1c 5.9. Unremarkable echo. EKG with sinus rhythm. Patient has been refusing salt tablets -Continue on aspirin, per neurology to consider anticoagulation. -Continue permissive hypertension and IV fluids keep Na 145-155 - repeat BMP this am. Continue on sodium chloride tab to 2 gm BID. -Continue PT/OT/ST -Continue NPO. ST ff. Continue on D5NS. -Aspiration precautions. Monitor for hypoglycemia. Neurochecks and seizure precautions -Palliative care consulted for goals of care, appreciate assistance. Patient might need PEG tube as patient is consistently failing swallow eval and she is strictly NPO. PNA, hospital associated, concern for aspiration CXR shows new right sided infiltrates, images reviewed by me -Begin IV Zosyn, Cefepime and Metronidazole -obtain sputum culture -scheduled Duonebs -acapella, IS -supplemental oxygen to maintain O2 sats >92% Alcohol abuse. -CIWA protocol -seizure precautions RLE pain -obtain doppler US r/o DVT Multiple medical conditions of COPD, coronary artery disease status post stent, hyperlipidemia and hypertension. DVT prophylaxis with SCD and early ambulation. Hold pharmacological prophylaxis secondary to petechial hemorrhages Code Status: FULL Discussed Condition With: patient, nursing staff, CM, Dr. Foote Discharge Planning: Not ready for discharge. Started on IV antibiotics today for HAP. CM assisting with d/c planning.
[2017-10-27] MEDS: Aspirin 300 MG Supp RECTAL SCH (08:35)
[2017-10-27 11:18] LABS: Albumin 2.5 g/dL (3.4-5.0); Anion Gap 11 meq/L (5-15); Aspartate Aminotransferase 23 U/L (15-37); Blood Urea Nitrogen 15 mg/dL (7-18); Calcium 8.3 mg/dL (8.5-10.1); Chloride 107 meq/L (98-107); Glomerular Filtration Rate 75 mL/min (>89); Glucose,Random 87 mg/dL (74-106); Potassium 3.2 meq/L (3.5-5.1); Sodium 140 meq/L (136-145)
[2017-10-27 11:19] LABS: Alanine Aminotransferase 17 U/L (10-53)
[2017-10-27 11:21] LABS: Alkaline Phosphatase 51 U/L (45-117); Total Protein 6.5 g/dL (6.4-8.2)
--- NOTE | 2017-10-27 12:32 | FL ---
EXAM DATE: 10/27/2017 11:51 AM EDT AGE/SEX: 72 years / Female INDICATIONS: Dysphagia. CLINICAL DATA: This is the patient's initial encounter. Patient reports that signs and symptoms have been present for 1 day and indicates a pain score of 0/10. MEDICAL/SURGICAL HISTORY: Chronic obstructive pulmonary disease. Stroke. . Cardiac stent. COMPARISON: No prior exams available for comparison. FLUORO TIME: 1.6 IMAGE COUNT: 0 FINDINGS: A modified barium swallow was performed with speech pathology. Patient was given a variety of liquids to swallow. Patient did not appear to have significant difficulty with the oral phase of deglutition . There was some pooling the vallecula on multiple attempts to swallow. Single episode of laryngeal p enetration and aspiration with the nectar thickened contrast which did elicit a strong cough reflex. For a full detailed report, see report by the speech pathologist. CONCLUSION: Single episode of laryngeal penetration/aspiration which did elicit a cough reflex as above. Electronically signed by: Viktor Paul MD 10/27/2017 12:31 PM EDT
[2017-10-27] MEDS: Piperacil/Tazo 4.5 GM Premix 4.5 GM/100 ML BAG IV.SIG SCH ×3 (12:38→23:47)
[2017-10-27] MEDS: Potassium Chlor 20 mEq Premix 20 MEQ/100 ML PIGGYBACK IV.SIG SCH ×2 (16:15→18:21)
--- NOTE | 2017-10-27 16:44 | US ---
EXAM DATE: 10/27/2017 4:39 PM EDT AGE/SEX: 72 years / Female INDICATIONS: Right leg pain. CLINICAL DATA: This is the patient's initial encounter. Patient reports that signs and symptoms have been present for 1 day and indicates a pain score of 5/10. MEDICAL/SURGICAL HISTORY: Chronic obstructive pulmonary disease. Hypertension. Arthritis. Rachell nary artery disease. Depression. Hyperlipidemia. Hard of hearing. Myocardial infarction. Coronary ar chai stent. COMPARISON: No prior exams available for comparison. TECHNIQUE: Venous ultrasound of both lower extremities was performed from the inguinal ligament to t he proximal calf. Real-time, color Doppler and spectral tracing, compression and augmentation techni ques were used. FINDINGS: Normal compression of the deep venous system from the inguinal region to the proximal calf . No echogenic clot is seen. Normal response of the venous system to augmentation and respiration. CONCLUSION: 1. The study is negative for lower extremity deep venous thrombosis. Electronically signed by: Kb Carson MD 10/27/2017 4:43 PM EDT
--- NOTE | 2017-10-27 17:38 | P.CONPAL ---
Consult Service: Palliative Care Requesting Physician: Melania Wilks Reason for Consult: a. To assist with evaluation and management of symptoms including: pain; dysphagia; dysphasia b. To assist medical decision maker(s) with: better understanding of current medical conditions; weighing benefits/burdens of medical treatment options; making medical treatment decisions. . Primary Care Provider: UNKNOWN History of Present Illness History of Present Illness: Ms. Cadet has significant expressive dysphasia. History is obtained from the medical records and from a phone call to her daughter in [place]. I have been unable to contact the local son. Ms. Cadet is a 72 y/o female with a known history of CAD s/p DC x 2 and stenting x2; COPD; hypertension; hyperlipidemia; spinal stenosis; chronic back pain; and hypertension who was brought to the hospital via EMS on 10/18/17 after she was found at home with a right sided facial droop; difficulty speaking ; right sided paralysis; and urinary incontinence. Paramedics found her unable to follow commands with no obvious injuries. The emergency room notes say, "This patient apparently was found by her intoxicated roommate this morning to be altered and paramedics were called." The patient was reportedly her normal self the previous evening around 7:30 PM or 8 PM. In the emergency department the patient was only able to say ouch to painful stimulus. She was not otherwise able to speak and still could not follow commands. The patient has a history of long-standing COPD, as far as I can tell she had not been oxygen dependent at home. She did use metered-dose inhalers but I do not believe she was using nebulizers. As far as I can tell there had been no recent complaints of chest pain, palpitations, syncope, edema, numbness, paresthesias. Initial vital signs in the emergency department showed the following: Temperature 97.8; heart rate 88; respiratory rate 18; blood pressure 187/83; pulse oximetry 98% on room air Initial examination by the emergency adjunct faculty mathematics department noted the following: Patient appeared well-nourished and well-developed and was in no distress. Cardiovascular; respiratory; gastrointestinal; and ENT exams were unremarkable. Neurologically, the patient seemed obtunded, had a prominent right-sided facial droop. The right side was weak but not flaccid. There was a normal gag reflex. She appeared to be controlling her airway. She could withdraw both legs to painful stimuli and move them. Initial diagnostic testing in the emergency department revealed the following: * EKG showed normal sinus rhythm without significant ST-T wave changes. * CT of the brain showed subacute ischemic left middle cerebral artery distribution infarct with trace petechial hemorrhage in the deep white matter * CBC showed WBC 9.1; hemoglobin 14.7; platelet count 324 * Coagulation profile showed PT 10.0; INR 1.0; PTT 22.7 * Chemistry profile was within normal limits except for a chloride of 110 * Liver function tests were within normal limits including total protein is 7.2 and albumin of 3.7 * Urinalysis was remarkable only for small amount of occult blood * Urine tox screen was positive for opiates * Serum alcohol level was 3 The patient was not felt to be a TPA candidate given the length of time since she was last seen to be normal. The patient was admitted to the hospitalist service. Neurosurgery was consulted. The neurosurgeon felt there was no need at this time for surgical intervention. He recommended non-chemical DVT prophylaxis due to the petechial hemorrhages. Recommended that sodium be maintained in the 145-155 range. Vascular surgery felt the patient was not a candidate for any surgical or endovascular intervention. CT angiogram performed on 10/20/17 noted the bilateral ICA occlusions as well as left M1 occlusion but also noted collateralization from the posterior cranial circulation was preserved. Since originally being seen, the patient has had some neurologic improvement. She is now able to follow some simple commands. She attempts to verbalize. Some words are understandable though she has significant expressive dysphasia. By both clinical exam and modified barium swallow, she has quite significant dysphagia and speech therapy is recommending strict n.p.o. status. Attempts have been made to provide nutrition via NG tube. Patient has pulled the tube out at least once and has resisted re-insertion. Because of the communication issues, it has been difficult to discern how much she can understand. At the time of my visit, patient grimaces occasionally. She says "yes" to most questions I ask. She is unable to put a meaningful sentence together. I try and explain her current medical condition and challenges. she nods that she understands, but she nods at most everything. . She is unable to tell/show me if/where she hurts. . Function/Cognitive Trajectory: I have not been able to get hold of the patient's son, Ramon Byrne, who lives locally and who likely knows her trajectory better than anyone else. The daughter, Sarah, who lives in [place], tells me that the patient has been quite private about her health. She has suffered from chronic pain from her degenerative disc disease / spinal stenosis / scoliosis and would walk hunched over. As far as the daughter knew, she was still able to go out and ride the bus, do simple chores around the house (e.g. wash dishes) , and dress/bathe/ feed/toilet herself up until the time of her stroke. There is some question as to whether or not there had been alcohol abuse. Daughter reports that family history is quite positive for heart disease, diabetes, and lung disease. No known stroke. . . Review of Systems Patient is unable to provide her own ROS. 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 She believes this was evaluated and not felt to be due to a cancer. No other information available at this time except that above in the history of present illness. . [facility] [place] - History History Provided By: Medical Record - Medical History Medical History: Medical History (Last Updated 10/27/17 @ 18:47 by Keshawn Tilley MD) Chronic back pain (Chronic) Scoliosis (Acute) Spinal stenosis (Chronic) HTN (hypertension) (Acute) COPD (chronic obstructive pulmonary disease) (Chronic) [place] (hard of hearing) (Acute) HLD (hyperlipidemia) (Acute) Depression (Acute) Arthritis (Chronic) Myocardial infarct (Chronic) CAD (coronary artery disease) - Surgical History Surgical History: Surgical History (Last Reviewed 10/27/17 @ 18:47 by Keshawn Tilley MD) Stented coronary artery (Acute) - Family History Family History: Family History (Last Updated 10/27/17 @ 18:02 by Keshawn Tilley MD) Father ALS (amyotrophic lateral sclerosis) Mother Cancer Asthma Heart disease - Tobacco History Second Hand Smoke Exposure: No Tobacco Use In Past 30 Days: No Smoking Status: Former smoker (Patient reportedly had been a significant smoker in the past. Cannot further quantify this at this time. It is unclear when she smoked last. There may have been some recent heavy alcohol consumption. No known use of illicits.) - Alcohol History How Often Do You Have a Drink Containing Alcohol: Unable to Obtain - Substance Use History Substance History: Unable to Obtain - Travel History Recent Travel in the [place] Within the Last 8 Weeks: No Recent Travel Out of the Country Within the Last 8 Weeks: No - Immunization History Tetanus Immunization: Unable to Assess Hx Influenza Vaccine This Season: Unable to Assess Medications and Allergies Active Medications: Active Medications Albuterol (Albuterol Concentrated Neb) 2.5 mg NEB Q6HR NEB PRN PRN Reason: DYSPNEA Last Admin: 10/22/17 07:52 Dose: 2.5 mg Albuterol (Duoneb Neb (Tomy)) 1 ampul NEB Q6HR WHILE AWAKE NEB TOMY Last Admin: 10/27/17 16:26 Dose: 1 ampul Aspirin (Aspirin Supp) 300 mg RECTAL DAILY TOMY Last Admin: 10/27/17 08:35 Dose: 300 mg Enalaprilat (Vasotec Inj) 1.25 mg IV.PUSH Q4H PRN PRN Reason: SBP>160, DBP>90 Last Admin: 10/27/17 01:44 Dose: 1.25 mg Flumazenil (Romazecon Inj) 0.2 mg IV.PUSH Q1M PRN PRN Reason: OVERSEDATION Potassium Chloride (Kcl 20 Meq Premix Inj) 20 meq in 100 mls @ 50 mls/hr IV.SIG Q2H PRN PRN Reason: For Potassium 2.8 - 3.2 mEq/L Last Infusion: 10/22/17 16:14 Dose: Infused Dextrose/Sodium Chloride (D5w/Normal Saline Inj) 1,000 mls @ 70 mls/hr IV.CONT .[id number] TOMY Last Admin: 10/27/17 04:55 Dose: 70 mls/hr Cefepime HCl 2,000 mg/ Sodium (Chloride) 100 mls @ 200 mls/hr IV.SIG Q8H TOMY Last Admin: 10/27/17 14:27 Dose: 200 mls/hr Metronidazole/Sodium Chloride (Flagyl 500 Mg Inj) 100 mls @ 100 mls/hr IV.SIG Q8H TOMY Last Admin: 10/27/17 13:33 Dose: 100 mls/hr Piperacillin/Tazobactam/Dextrose (Zosyn 4.5 Gm Premix) 4.5 gm in 100 mls @ 200 mls/hr IV.SIG Q6H TOMY Last Admin: 10/27/17 12:38 Dose: 200 mls/hr Potassium Chloride (Kcl 20 Meq Premix Inj) 20 meq in 100 mls @ 50 mls/hr IV.SIG Q2H TOMY Stop: 10/27/17 17:58 Last Admin: 10/27/17 16:15 Dose: 50 mls/hr Sodium Chloride (Ns Flush) 2 ml IV.FLUSH BID TOMY Last Admin: 10/27/17 08:34 Dose: Not Given Sodium Chloride (Ns Flush) 2 ml IV.FLUSH PRN PRN PRN Reason: FLUSH AFTER USING IV ACCESS Sodium Chloride (Sodium Chloride) 2 gm PO BID TOMY Last Admin: 10/27/17 08:34 Dose: Not Given Allergies Allergy/AdvReac Type Severity Reaction Status Date / Time No Known Allergies Allergy Unverified 10/18/17 12:02 Home Medications Medication Instructions Recorded Confirmed Type Unable to Obtain Home Meds 10/18/17 10/18/17 History Advance Directives Living Will: Unknown Power of [employer] Paper Interleafer: Unknown Documented care wishes: No written documentation of healthcare goals or preferences. Today's verbally stated goals: Patient is unable to verbally express her healthcare goals/preferences. Family/friends goals: I spoke with the patient's daughter. She did not feel like she knew the patient 's healthcare goals/preferences. She wanted to consult with her brother. I have been unable to contact the patient's son. Ethical and Legal Issues: It does not appear there are advanced directives. . Physical Exam Vital Signs: Vital Signs - 24 hr 10/26/17 20:00 10/27/17 00:00 10/27/17 04:00 Temperature 98.8 F 97.1 F L 98 F Pulse Rate 91 H 86 95 H Respiratory Rate 18 18 18 Blood Pressure 152/72 H 165/72 H 172/78 H Pulse Oximetry 93 L 96 92 L 10/27/17 08:00 10/27/17 16:26 10/27/17 16:35 Temperature 98.8 F Pulse Rate 97 H 95 H 95 H Respiratory Rate 20 17 18 Blood Pressure 189/89 H Pulse Oximetry 94 L I&O: Intake & Output 10/25/17 10/26/17 10/27/17 10/28/17 06:59 06:59 06:59 06:59 Intake Total 1999 1540 / 1540 1000 / 1000 0 / 0 Output Total 1903 / 1903 501 / 501 Balance 1999 1535 / 1535 -903 / -903 -501 / -501 Weight 57.9 kg 56.9 kg Physical Exam: CONSTITUTIONAL/GENERAL: This is an adequately nourished patient. There is occasional grimacing. She is unable to move her right side. There is a right facial droop. She vocalizes but is unable to put together a meaningful sentence. Unclear what she understands and does not understand. TUBES/LINES/DRAINS: Peripheral IV SKIN: No jaundice, rashes, or lesions. No wounds seen anteriorly. Skin temperature appropriate. Not diaphoretic. HEAD: Atraumatic. Normocephalic. EYES: Pupils equal and round and reactive. Extraocular motions intact. No scleral icterus. No injection or drainage. Fundi not examined. ENT: She turns to voice and follows some simple commands--otherwise cannot further assess hearing.. Nose without bleeding or purulent drainage. Throat without visible erythema, exudates, masses, or lesions. Mucous membranes are dry. Right facial droop. NECK: Trachea midline. Supple, nontender. No palpable thyroid enlargement or nodularity. CARDIOVASCULAR: Regular rate and rhythm without murmurs, gallops, or rubs. No JVD. Peripheral pulses symmetric. RESPIRATORY/CHEST: Symmetric, unlabored respirations. Clear to auscultation. Breath sounds equal bilaterally. No wheezes, rales, or rhonchi. GASTROINTESTINAL: Abdomen soft, non-tender, nondistended. No hepato-splenomegaly , or palpable masses. No guarding. Bowel sounds present. GENITOURINARY: Without palpable bladder distension. MUSCULOSKELETAL: Extremities without clubbing, cyanosis, or edema. No joint tenderness or effusion noted. No calf tenderness. No mottling or clubbing. LYMPHATICS: No palpable cervical or supraclavicular adenopathy. NEUROLOGICAL: Awake and alert. Follows some simple commands. No voluntary movements of the right upper or lower extremities. Right facial droop. Unable to assess how much she understands. There is certainly expressive dysphasia; unclear how much of a receptive problem there is PSYCHIATRIC: Intermittent tearfulness. No apparent hallucinations or other psychotic thought process. . Diagnostic Tests Laboratory: Laboratory Results - last 72 hr 10/24/17 10/25/17 10/25/17 21:29 06:39 06:39 WBC 9.9 RBC 4.06 Hgb 13.0 Hct 37.3 MCV 91.9 MCH 31.9 MCHC 34.7 RDW 13.1 Plt Count 210 D MPV 8.6 Neut % (Auto) 66.2 Lymph % (Auto) 13.2 Irwin % (Auto) 13.6 H Eos % (Auto) 6.4 H Baso % (Auto) 0.6 Neut # (Auto) 6.6 Lymph # (Auto) 1.3 Irwin # (Auto) 1.4 H Eos # (Auto) 0.6 H Baso # (Auto) 0.1 WBC Differential . Differential Comment Auto diff final Sodium 140 Potassium 3.4 L Chloride 107 Carbon Dioxide 23.7 Anion Gap 9 BUN 15 Creatinine 0.80 Estimated GFR 71 L POC Glucose 119 H Random Glucose 126 H Lactic Acid Calcium 8.2 L Total Bilirubin 0.5 AST 23 ALT 19 Alkaline Phosphatase 53 Total Protein 6.3 L D Albumin 2.6 L 10/25/17 10/25/17 10/26/17 07:30 11:43 02:14 WBC RBC Hgb Hct MCV MCH MCHC RDW Plt Count MPV Neut % (Auto) Lymph % (Auto) Irwin % (Auto) Eos % (Auto) Baso % (Auto) Neut # (Auto) Lymph # (Auto) Irwin # (Auto) Eos # (Auto) Baso # (Auto) WBC Differential Differential Comment Sodium Potassium Chloride Carbon Dioxide Anion Gap BUN Creatinine Estimated GFR POC Glucose 123 H 121 H 111 H Random Glucose Lactic Acid Calcium Total Bilirubin AST ALT Alkaline Phosphatase Total Protein Albumin 10/26/17 10/27/17 10/27/17 21:07 00:50 03:47 WBC RBC Hgb Hct MCV MCH MCHC RDW Plt Count MPV Neut % (Auto) Lymph % (Auto) [place]win % (Auto) Eos % (Auto) Baso % (Auto) Neut # (Auto) Lymph # (Auto) Irwin # (Auto) Eos # (Auto) Baso # (Auto) WBC Differential Differential Comment Sodium Potassium Chloride Carbon Dioxide Anion Gap BUN Creatinine Estimated GFR POC Glucose 75 74 71 Random Glucose Lactic Acid Calcium Total Bilirubin AST ALT Alkaline Phosphatase Total Protein Albumin 10/27/17 10/27/17 10/27/17 09:30 12:36 16:40 WBC RBC Hgb Hct MCV MCH MCHC RDW Plt Count MPV Neut % (Auto) Lymph % (Auto) Irwin % (Auto) Eos % (Auto) Baso % (Auto) Neut # (Auto) Lymph # (Auto) Irwin # (Auto) Eos # (Auto) Baso # (Auto) WBC Differential Differential Comment Sodium 140 Potassium 3.2 L Chloride 107 Carbon Dioxide 22.0 Anion Gap 11 BUN 15 Creatinine 0.76 Estimated GFR 75 L POC Glucose 99 Random Glucose 87 Lactic Acid 1.0 Calcium 8.3 L Total Bilirubin 0.8 AST 23 ALT 17 Alkaline Phosphatase 51 Total Protein 6.5 Albumin 2.5 L Result Diagrams: 10/25/17 06:39 10/27/17 09:30 Imaging: Carotid Doppler Study 10/18/17 00:00 CONCLUSION: 1. Severe plaque identified at the right carotid bulb. Elevated ICA to CCA ratio on the right indicating possible high-grade stenosis. 2. Left ICA and ECA nonvisualized indicating possible occlusion. Chest X-Ray 10/18/17 00:00 CONCLUSION: Negative examination. Head CT 10/18/17 12:21 CONCLUSION: 1. Subacute left MCA distribution infarct associated with some trace petechial hemorrhage in the deep white matter. . Head MRI 10/18/17 16:36 CONCLUSION: Moderate-sized acute infarct again seen in the left MCA distribution. There is some mass effect but no midline shift. Head MRA 10/18/17 16:36 CONCLUSION: Apparent occlusion of the internal carotid arteries bilaterally as well as occlusion of the left MCA proximally. Evidence of diffuse atherosclerotic disease of the right MCA. Head CT 10/19/17 00:00 CONCLUSION: 1. Evolving infarct in the left MCA distribution. . Head CTA 10/20/17 00:00 CONCLUSION: 1. Bilateral ICA occlusions as well as left M1 occlusion. Collateralization from the posterior cranial circulation is preserving flow to the bilateral anterior and right middle cranial fossa. Neck CTA 10/20/17 00:00 CONCLUSION: 1. Right ICA occludes at its origin. The left ICA is occluded at the cavernous segment with the extracranial aspect diffusely small in caliber. 2. Robust vertebral arteries bilaterally measuring 4 mm in diameter which are patent throughout. Abdomen X-Ray 10/23/17 03:16 CONCLUSION: NG tube as above. Chest X-Ray 10/26/17 00:00 CONCLUSION: Minimal patchy densities right lower lobe, likely infiltrate. Venous Doppler Study 10/27/17 00:00 CONCLUSION: 1. The study is negative for lower extremity deep venous thrombosis. Videofluoroscopic Swallow 10/27/17 00:00 CONCLUSION: Single episode of laryngeal penetration/aspiration which did elicit a cough reflex as above. Patient/Family Conference Present at Family Conference: Daughter -- Sarah Family Conference Time: 25 Family Conference Location: Telephone Issues Discussed: * Palliative care role, purpose, approach * Additional medical, psychosocial, and spiritual history * Patients general health, functional status, and cognitive changes in the months leading up to the current hospitalization * Family understanding of the current medical problems * Family understanding of prognosis * Patients goals of care as best understood from conversations and/or values * Current medical treatment options and benefits/burdens of those options * Likely scenarios comparing ongoing aggressive care with a transition to comfort measures only * Questions answered to the best of my ability * Palliative care contact information provided . Assessment and Plan - Disease Oriented Problem List (1) Ischemic cerebrovascular accident (CVA) (2) Accelerated hypertension (3) Hemorrhage, petechial (4) Right hemiplegia (5) Aphasia (6) Impaired mobility and ADLs (7) Chronic back pain (8) Scoliosis (9) Spinal stenosis (10) COPD (chronic obstructive pulmonary disease) Comment: It does not look like she was 02 dependent , but per daughter, had to stop working due to lung disease many years ago. (11) [place] (hard of hearing) (12) Depression (13) Arthritis (14) Myocardial infarct Comment: 2008 and 2011 (15) Dysphagia - Symptom Scale (1) Pain 0-10 Scale: Unable to quantify (2) Dysphagia 0-10 Scale: 10 Pertinent Non-Medical Issues: Psychosocial:Originally from [place]. Lived in [place] much of adult life. Moved to [place] 2 years ago. twice. 1st . 2nd from cancer about 10 years ago under hospice care. Two children -- Son (Ramon Byrne) lives with patient. Daughter (Sarah) lives in [place]. There is a sister (Linda) who lives in [place]. 12th grade education. Worked at [employer] -- stopped working due to COPD. Spiritual: Daughter tells me that patient self-identifies as Faith. Daughter did not feel the patient would appreciate biazzi nitrator operator visits. Legal: No known advance directive. Ethical issues impacting care: No known ethical issues at this time. . Important Contacts: Ramon Byrne (son) -- The number we were originally given -- [phone] -- appears to be no longer in service. Daughter has told me to call Ramon on a friends cell phone [phone] Sarah (daughter) -- [phone] Lives in [place] Linda (sister) [phone] Lives in [place] . Prognosis: Patient has had a major stroke with right sided hemiparesis, dysphasia, and dysphagia. She is subject to the multiple complications of a major stroke, especially aspiration pneumonia. Unclear at this time to what extent she may have some neurological recovery. Unfortunately, she also has some significant underlying comorbidities including COPD, severe CAD, and spinal stenosis with chronic back pain. All of these may impact her ability to successfully rehab. If patient becomes able to make her own decisions and decides agains tube feeds and does not want further aggressive care, she would be a hospice candidate . . . Code Status: Full Code (Patient unable to participate in code status discussion. Daughter is uncertain about patient's wishes. Have not been able to contact son.) Plan: == Code Status: FULL CODE. Patient unable to participate in code status discussion. Daughter is uncertain about patient's wishes. Have not been able to contact son. Therefore, patient remains FULL CODE. == Decision Making: It is uncertain how much the patient is able to understand , and she certainly has significant expressive challenges. At this time, I feel she is incapacitated to make her own health care decisions. Since the patient is not legally , health care proxy decision making falls to her two adult children -- Ramon and Sarah. == Goals of medical treatment: Patient cannot communicate and express her own health care goals/preferences. Sarah is uncertain of patient's goals/ preferences. I am unable to get hold of Ramon. Therefore, goals remain aggressive. == Symptoms * Pain: Per her daughter, the patient has suffered from years of chronic back pain due to a combination of degenerative disc disease, scoliosis, and spinal stenosis. It is unclear what medications, if any, the patient was using. On top of his chronic pain, patient may have additional discomfort from her prolonged bedbound status and from her vascular access lines. Unclear if she has headache from the stroke. Patient is unable to locate, quantify, or otherwise qualify her pain. * Dysphagia: This is severe and speech therapy is unable to recommend any safe texture/consistencies. * Dysphasia: Isolated words are understood. Patient is unable to put together a full sentence. Unclear to what extent she understands. * Dyspnea: Reported long history of COPD. It does not seem that she was on home oxygen though she did use nebulizers at home. == PLAN * Will continue to try and contact patient's son. Hopefully, he can provide more information regarding patient's pre-stroke functional status; EtOH consumption; and any expressed health care goals/preferences. Daughter is unwilling to make these decisions alone. * As I don't believe patient is capacitated and we are unable to get definitive goals from the two proxy decision makers, we are forced to assume goals are aggressive for now. If patient is incapacitated and goals are aggressive, we should replace the feeding tube even if she objects. * We will want to check for patient's capacity daily. At such time that there is evidence that she has become capacitated, we can begin honoring her expressed wishes even if , at that time, it is for removal of the feeding tube. * If patient remains incapacitated but the proxies agree the patient would not want artificial nutrition/hydration , then it will be time to transition to comfort measures only and enroll the patient in hospice. * Patient appears uncomfortable and she is unable to communicate about her pain. Recommend scheduling acetaminophen 650 q 8 hours ATC and re-evaluating. * Past history suggests depression. Recommend initiating an SSRI == Palliative care will continue to follow to assist with symptom management and to further clarify goals of medical treatment as the clinical course evolves. Appreciation Thank you for the opportunity to participate in the care of Chichi Cadet. Attestation Attestation: To help prompt me to consider important information that might be impacting today's encounter and assessment, information from prior notes written by myself or my colleagues may have been "brought forward" into today's note. My signature on this note, however, is an attestation that I personally performed the exam, history, and/or decision-making noted today, and, unless otherwise indicated, the interactions with patient, family, and staff as well as the review of records all occurred today. I also attest that the listed assessment and stated plan reflect my best clinical judgment today based on the combination of historical information, prior notes, and today's exam/ interactions. When time spent is documented, it refers only to time spent today by the signer, or if indicated, combined time spent today by collaborating physician/nurse practitioner.
[2017-10-28] MEDS: Piperacil/Tazo 4.5 GM Premix 4.5 GM/100 ML BAG IV.SIG SCH ×3 (06:04→18:06)
--- NOTE | 2017-10-28 07:44 | P.PN ---
Subjective Interval history: 72-year-old female who was brought in by EMS because of altered mental status. History is mainly taken from ED and chart review. Apparently patient was last seen normal last night. This morning she was found with right-sided facial droop and right arm weakness. She was not following commands and was not verbal. According to her roommate who was intoxicated, patient is also an alcoholic. Head CT shows subacute left MCA CVA with petechial hemorrhages. Meditech reviewed shows she has history of COPD, coronary artery disease status post stent, hyperlipidemia and hypertension. Family history father of Kourtney Gehrig's and mother with cancer type not known. At this time, she is awake but has expressive aphasia. She is following commands intermittently. All other systems reviewed negative. 10/27 - Patient seen and examined. She is awake. +slurred speech and aphasia. She answers yes to all of my ROS questions. +Coarse cough. She follows some simple commands. CXR shows patchy densities RLL, likely infiltrate. 10/28 - No significant change. Discussed NG tube placement with patients son yesterday which he refused. He stated he wanted PEG tube placed and for patient to come home with Hospice. Unfortunately, patient's son was clearly under the influence of alcohol at the time of our conversation. Due to patients aphasia, it is difficult to surmise patients wishes. Palliative continues to follow the patient. Physical Exam Vital signs: Vital Signs 10/27/17 08:00 10/27/17 16:26 10/27/17 16:35 Temperature 98.8 F Pulse Rate 97 H 95 H 95 H Respiratory Rate 20 17 18 Blood Pressure 189/89 H Pulse Oximetry 94 L 10/27/17 19:19 10/27/17 20:00 10/28/17 00:00 Temperature 98.4 F 98.7 F Pulse Rate 92 H 93 H 86 Respiratory Rate 16 18 18 Blood Pressure 162/77 H 146/68 H Pulse Oximetry 95 95 10/28/17 04:00 Temperature 98.6 F Pulse Rate 77 Respiratory Rate 18 Blood Pressure 166/77 H Pulse Oximetry 95 Intake & Output 10/27/17 10/28/17 10/28/17 18:59 06:59 18:59 Intake Total 300 / 300 1900 / 1900 Output Total 501 / 501 Balance -201 / -201 1899 / 1899 Weight 55.7 kg Intake: IV 300 / 300 1900 / 1900 D5W/Normal Saline Inj 1,000 ML 1000 / 1000 @ 70 mls/hr IV.CONT .[id number] [place] Rx#:[id number] Maxipime Inj 2,000 MG In NS Inj 300 / 300 100 ML @ 200 mls/hr IV.SIG Q8H [place] Rx#:[id number] Zosyn 4.5 GM Premix 4.5 gm In 100 / 100 300 / 300 100 ml @ 200 mls/hr IV.SIG Q6H [place] Rx#:[id number] KCl 20 mEq Premix Inj 20 meq In 100 / 100 100 / 100 100 ml @ 50 mls/hr IV.SIG Q2H [place] Rx#:[id number] Flagyl 500 MG Inj 100 ML @ 100 100 / 100 200 / 200 mls/hr IV.SIG Q8H [place] Rx#: [id number] Oral 0 / 0 Output: Urine 500 / 500 Stool 1 / Other: # Incontinent Voids 1 Date of Last Bowel Movement 10/27/17 10/26/17 Narrative: GENERAL: WDWN elderly female, INAD. Awake and alert. +Expressive aphasia. ?receptive aphasia SKIN: Warm and dry. No generalized rash. HEAD: Atraumatic. Normocephalic. +right sided facial droop. EYES: Pupils equal and round. No scleral icterus. No injection or drainage. ENT: No nasal bleeding or discharge. Mucous membranes pink and moist. NECK: Trachea midline. No JVD. CARDIOVASCULAR: Tachycardic. No murmur appreciated. +tenderness to palpation chest wall. RESPIRATORY: No accessory muscle use. Fair air entry. Poor effort. Clear to auscultation anteriorly. GASTROINTESTINAL: Abdomen soft, nondistended. +subjective tenderness to palpation diffusely. MUSCULOSKELETAL: Extremities without clubbing, cyanosis, or edema. NEUROLOGICAL: Awake and alert. Follows simple commands. Motor grossly intact left upper and lower extremity. +Flaccid RUE. Able to spontaneously move RLE but difficult to assess motor function. +expressive aphasia, abnormal slurred unintelligible speech. PSYCHIATRIC: Calm. Appears depressed. Flat affect. Results - Labs CBC & Chem 7: 10/25/17 06:39 10/28/17 09:46 Laboratory Results - last 24 hr 10/27/17 10/27/17 10/27/17 09:30 12:36 16:40 Sodium 140 Potassium 3.2 L Chloride 107 Carbon Dioxide 22.0 Anion Gap 11 BUN 15 Creatinine 0.76 Estimated GFR 75 L POC Glucose 99 Random Glucose 87 Lactic Acid 1.0 Calcium 8.3 L Total Bilirubin 0.8 AST 23 ALT 17 Alkaline Phosphatase 51 Total Protein 6.5 Albumin 2.5 L 10/27/17 22:17 Sodium Potassium Chloride Carbon Dioxide Anion Gap BUN Creatinine Estimated GFR POC Glucose 107 Random Glucose Lactic Acid Calcium Total Bilirubin AST ALT Alkaline Phosphatase Total Protein Albumin - Imaging Impressions Venous Doppler Study 10/27/17 00:00 CONCLUSION: 1. The study is negative for lower extremity deep venous thrombosis. Videofluoroscopic Swallow 10/27/17 00:00 CONCLUSION: Single episode of laryngeal penetration/aspiration which did elicit a cough reflex as above. - Procedures none Assessment and Plan - Assessment (1) Ischemic cerebrovascular accident (CVA) Code(s): I63.9 - Cerebral infarction, unspecified Status: Acute (2) Accelerated hypertension Code(s): I10 - Essential (primary) hypertension Status: Acute (3) Hemorrhage, petechial Code(s): R23.3 - Spontaneous ecchymoses Status: Acute (4) Right hemiplegia Code(s): G81.91 - Hemiplegia, unspecified affecting right dominant side Status : Acute (5) Aphasia Code(s): R47.01 - Aphasia Status: Acute (6) Impaired mobility and ADLs Code(s): Z74.09 - Other reduced mobility Status: Acute - Plan This is a 72-year-old female who was brought in by EMS because of altered mental status. History is mainly taken from ED and chart review. Apparently patient was last seen normal last night. This morning she was found with right- sided facial droop and right arm weakness. She was not following commands and was not verbal. According to her roommate who was intoxicated, patient is also an alcoholic. Head CT shows subacute left MCA CVA with petechial hemorrhages. Large left MCA CVA with petechial hemorrhages. Apparent occlusion of the internal carotid arteries bilaterally as well as occlusion of the left MCA proximally. Evidence of diffuse atherosclerotic disease of the right MCA. Not a surgical candidate per Dr. Chahal. LDL 48 A1c 5.9. Unremarkable echo. EKG with sinus rhythm. -Continue on aspirin, per neurology to consider anticoagulation. -Continue PT/OT/ST -Continue NPO. ST ff. Continue on D5NS. -Aspiration precautions. Monitor for hypoglycemia. Neurochecks and seizure precautions -Palliative care consulted for goals of care, appreciate assistance. Patient might need PEG tube as patient is consistently failing swallow eval and she is strictly NPO. Dysphagia -ST following. Patient failed MBS. Continue strict NPO. Lengthy discussion with son at the bedside yesterday who staunchly refuses NG tube but does want PEG tube placed however patient clearly under the influence of alcohol during our conversation. -Patient is refusing PEG placement and NG tube placement. PNA, hospital associated, concern for aspiration CXR shows new right sided infiltrates, images reviewed by me -Continue IV Zosyn, Cefepime and Metronidazole -obtain sputum culture - pending specimen -scheduled Duonebs -acapella, IS -supplemental oxygen to maintain O2 sats >92% Alcohol abuse. -CIWA protocol -seizure precautions RLE pain -Doppler negative for DVT -?neurogenic pain, unable to start patient on gabapentin at this time Multiple medical conditions of COPD, coronary artery disease status post stent, hyperlipidemia and hypertension. DVT prophylaxis with SCD and early ambulation. Hold pharmacological prophylaxis secondary to petechial hemorrhages Code Status: FULL Discussed Condition With: patient, nursing staff, SASHA, Dr. Deng Discharge Planning: Not ready for discharge. Started on IV antibiotics for HAP. CM assisting with d/c planning.
[2017-10-28] MEDS: Sodium Chloride 1 GM Tablet PO SCH (08:29)
--- NOTE | 2017-10-28 08:50 | P.CONGI ---
History of Present Illness Consult date: 10/28/17 Consult reason: PEG Chief complaint: subacute ischemic CVA with petechial hemorrhage, History of Present Illness: This is a 72 yo F who was brought to the ER on October 18 after being found by her roommate to have right sided facial droop, difficulty speaking, right sided paralysis and urinary incontinence. Due to pt not being seen normal since the night prior she was not felt to be a candidate for TPA. Imaging revealed bilateral ICA occlusions as well as left M1 occlusion but also noted collateralization from the posterior cranial circulation was preserved. Pt has been evaluated by speech therapy with a modified barium swallow and was noted to demonstrate moderate to severe oral phase and moderate to severe pharyngeal phase dysphagia with high risk of aspiration of multiple consistencies due to impaire coordination or reflexive swallow trigger. Pt previously had a NG tube she was receiving nutrition through, however she pulled this out. The issue at present is receiving consent for further treatment. Case discussed with JONATHON Long who spoke with pts son last night who stated he agreed to have PEG placed but did not agree to replacement of NG. The issue is that the pt son seemed to be intoxicated at the time of the conversation. According to palliative care notes, the daughter has also been contacted but does not want to make medical decision alone. At this time DCF has been contacted and we are waiting for recommendations for further management. <Radha Chapa - Last Filed: 10/28/17 08:41> Review of Systems unobtainable due to mental status <Radha Chapa - Last Filed: 10/28/17 08:41> [facility] - History History Provided By: Medical Record - Medical History Medical History: Medical History (Last Reviewed 10/28/17 @ 08:19 by Ansley Lazcano) Chronic back pain (Chronic) Scoliosis (Acute) Spinal stenosis (Chronic) HTN (hypertension) (Acute) COPD (chronic obstructive pulmonary disease) (Chronic) RESIGHINI (hard of hearing) (Acute) HLD (hyperlipidemia) (Acute) Depression (Acute) Arthritis (Chronic) Myocardial infarct (Chronic) CAD (coronary artery disease) - Surgical History Surgical History: Surgical History (Last Reviewed 10/28/17 @ 08:19 by Ansley Lazcano) Stented coronary artery (Acute) - Family History Family History: Family History (Last Updated 10/27/17 @ 18:02 by Keshawn Tilley MD) Father ALS (amyotrophic lateral sclerosis) Mother Cancer Asthma Heart disease - Tobacco History Second Hand Smoke Exposure: No Tobacco Use In Past 30 Days: No Smoking Status: Former smoker (Patient reportedly had been a significant smoker in the past. Cannot further quantify this at this time. It is unclear when she smoked last. There may have been some recent heavy alcohol consumption. No known use of illicits.) - Alcohol History How Often Do You Have a Drink Containing Alcohol: Unable to Obtain - Substance Use History Substance History: Unable to Obtain - Travel History Recent Travel in the [place] Within the Last 8 Weeks: No Recent Travel Out of the Country Within the Last 8 Weeks: No - Immunization History Tetanus Immunization: Unable to Assess Hx Influenza Vaccine This Season: Unable to Assess <Radha Chapa - Last Filed: 10/28/17 08:41> - Medical History Medical History: Medical History (Last Reviewed 10/28/17 @ 08:19 by Ansley Lazcano) Chronic back pain (Chronic) Scoliosis (Acute) Spinal stenosis (Chronic) HTN (hypertension) (Acute) COPD (chronic obstructive pulmonary disease) (Chronic) RESIGHINI (hard of hearing) (Acute) HLD (hyperlipidemia) (Acute) Depression (Acute) Arthritis (Chronic) Myocardial infarct (Chronic) CAD (coronary artery disease) - Surgical History Surgical History: Surgical History (Last Reviewed 10/28/17 @ 08:19 by Ansley Lazcano) Stented coronary artery (Acute) - Family History Family History: Family History (Last Updated 10/27/17 @ 18:02 by Keshawn Tilley MD) Father ALS (amyotrophic lateral sclerosis) Mother Cancer Asthma Heart disease <Daniel Watt - Last Filed: 10/28/17 13:51> Medications and Allergies Active Medications: Active Medications Albuterol (Albuterol Concentrated Neb) 2.5 mg NEB Q6HR NEB PRN PRN Reason: DYSPNEA Last Admin: 10/22/17 07:52 Dose: 2.5 mg Albuterol (Duoneb Neb (Tomy)) 1 ampul NEB Q6HR WHILE AWAKE NEB TOMY Last Admin: 10/28/17 08:07 Dose: 1 ampul Aspirin (Aspirin Supp) 300 mg RECTAL DAILY TOMY Last Admin: 10/27/17 08:35 Dose: 300 mg Enalaprilat (Vasotec Inj) 1.25 mg IV.PUSH Q4H PRN PRN Reason: SBP>160, DBP>90 Last Admin: 10/27/17 01:44 Dose: 1.25 mg Flumazenil (Romazecon Inj) 0.2 mg IV.PUSH Q1M PRN PRN Reason: OVERSEDATION Potassium Chloride (Kcl 20 Meq Premix Inj) 20 meq in 100 mls @ 50 mls/hr IV.SIG Q2H PRN PRN Reason: For Potassium 2.8 - 3.2 mEq/L Last Infusion: 10/22/17 16:14 Dose: Infused Dextrose/Sodium Chloride (D5w/Normal Saline Inj) 1,000 mls @ 70 mls/hr IV.CONT .[id number] TOMY Last Admin: 10/27/17 22:15 Dose: 70 mls/hr Cefepime HCl 2,000 mg/ Sodium (Chloride) 100 mls @ 200 mls/hr IV.SIG Q8H TOMY Last Infusion: 10/28/17 04:36 Dose: Infused Metronidazole/Sodium Chloride (Flagyl 500 Mg Inj) 100 mls @ 100 mls/hr IV.SIG Q8H TOMY Last Infusion: 10/28/17 03:56 Dose: Infused Piperacillin/Tazobactam/Dextrose (Zosyn 4.5 Gm Premix) 4.5 gm in 100 mls @ 200 mls/hr IV.SIG Q6H TOMY Last Infusion: 10/28/17 06:34 Dose: Infused Sodium Chloride (Ns Flush) 2 ml IV.FLUSH BID TOMY Last Admin: 10/28/17 08:29 Dose: 2 ml Sodium Chloride (Ns Flush) 2 ml IV.FLUSH PRN PRN PRN Reason: FLUSH AFTER USING IV ACCESS Sodium Chloride (Sodium Chloride) 2 gm PO BID TOMY Last Admin: 10/28/17 08:29 Dose: Not Given <Radha Chapa - Last Filed: 10/28/17 08:41> Active Medications: Active Medications Albuterol (Albuterol Concentrated Neb) 2.5 mg NEB Q6HR NEB PRN PRN Reason: DYSPNEA Last Admin: 10/22/17 07:52 Dose: 2.5 mg Albuterol (Duoneb Neb (Tomy)) 1 ampul NEB Q6HR WHILE AWAKE NEB TOMY Last Admin: 10/28/17 08:07 Dose: 1 ampul Aspirin (Aspirin Supp) 300 mg RECTAL DAILY [facility] Last Admin: 10/28/17 09:53 Dose: 300 mg Enalaprilat (Vasotec Inj) 1.25 mg IV.PUSH Q4H PRN PRN Reason: SBP>160, DBP>90 Last Admin: 10/27/17 01:44 Dose: 1.25 mg Flumazenil (Romazecon Inj) 0.2 mg IV.PUSH Q1M PRN PRN Reason: OVERSEDATION Potassium Chloride (Kcl 20 Meq Premix Inj) 20 meq in 100 mls @ 50 mls/hr IV.SIG Q2H PRN PRN Reason: For Potassium 2.8 - 3.2 mEq/L Last Infusion: 10/22/17 16:14 Dose: Infused Dextrose/Sodium Chloride (D5w/Normal Saline Inj) 1,000 mls @ 70 mls/hr IV.CONT .[id number] [facility] Last Admin: 10/28/17 09:51 Dose: 70 mls/hr Cefepime HCl 2,000 mg/ Sodium (Chloride) 100 mls @ 200 mls/hr IV.SIG Q8H [facility] Last Admin: 10/28/17 13:16 Dose: 200 mls/hr Metronidazole/Sodium Chloride (Flagyl 500 Mg Inj) 100 mls @ 100 mls/hr IV.SIG Q8H [facility] Last Infusion: 10/28/17 13:16 Dose: Infused Piperacillin/Tazobactam/Dextrose (Zosyn 4.5 Gm Premix) 4.5 gm in 100 mls @ 200 mls/hr IV.SIG Q6H [facility] Last Infusion: 10/28/17 06:34 Dose: Infused Sodium Chloride (Ns Flush) 2 ml IV.FLUSH BID [facility] Last Admin: 10/28/17 08:29 Dose: 2 ml Sodium Chloride (Ns Flush) 2 ml IV.FLUSH PRN PRN PRN Reason: FLUSH AFTER USING IV ACCESS Sodium Chloride (Sodium Chloride) 2 gm PO BID [facility] Last Admin: 10/28/17 08:29 Dose: Not Given <HemaidanAmmar - Last Filed: 10/28/17 13:51> Allergies Allergy/AdvReac Type Severity Reaction Status Date / Time No Known Allergies Allergy Unverified 10/18/17 12:02 Home Medications Medication Instructions Recorded Confirmed Type Unable to Obtain Home Meds 10/18/17 10/18/17 History Exam Vital signs: Vital Signs 10/27/17 16:26 10/27/17 16:35 10/27/17 19:19 Temperature Pulse Rate 95 H 95 H 92 H Respiratory Rate 17 18 16 Blood Pressure Pulse Oximetry 10/27/17 20:00 10/28/17 00:00 10/28/17 04:00 Temperature 98.4 F 98.7 F 98.6 F Pulse Rate 93 H 86 77 Respiratory Rate 18 18 18 Blood Pressure 162/77 H 146/68 H 166/77 H Pulse Oximetry 95 95 95 10/28/17 08:11 Temperature Pulse Rate 79 Respiratory Rate 16 Blood Pressure Pulse Oximetry Intake & Output 10/27/17 10/28/17 10/28/17 18:59 06:59 18:59 Intake Total 300 / 300 1900 / 1900 Output Total 501 / 501 Balance -201 / -201 1900 / 1900 Weight 55.7 kg Intake: IV 300 / 300 1900 / 1900 D5W/Normal Saline Inj 1,000 ML 1000 / 1000 @ 70 mls/hr IV.CONT .[id number] [place] Rx#:[id number] Maxipime Inj 2,000 MG In NS Inj 300 / 300 100 ML @ 200 mls/hr IV.SIG Q8H [place] Rx#:[id number] Zosyn 4.5 GM Premix 4.5 gm In 100 / 100 300 / 300 100 ml @ 200 mls/hr IV.SIG Q6H [place] Rx#:[id number] KCl 20 mEq Premix Inj 20 meq In 100 / 100 100 / 100 100 ml @ 50 mls/hr IV.SIG Q2H [place] Rx#:[id number] Flagyl 500 MG Inj 100 ML @ 100 100 / 100 200 / 200 mls/hr IV.SIG Q8H [place] Rx#: [id number] Oral 0 / 0 Output: Urine 500 / 500 Stool 1 / 1 Other: # Incontinent Voids 1 Date of Last Bowel Movement 10/27/17 10/26/17 - Constitutional no acute distress - Routine HEENT Exam Head: Present: normocephalic, atraumatic - Routine Respiratory Exam Absent: accessory muscle use - Routine Abdominal Exam Present: soft, normoactive bowel sounds. Absent: tenderness, distended - Routine Skin Exam Present: dry, warm - Routine Neurological Exam Present: alert. Absent: oriented X3 <Radha Chapa - Last Filed: 10/28/17 08:41> Vital signs: Vital Signs 10/27/17 16:26 10/27/17 16:35 10/27/17 19:19 Temperature Pulse Rate 95 H 95 H 92 H Respiratory Rate 17 18 16 Blood Pressure Pulse Oximetry 10/27/17 20:00 10/28/17 00:00 10/28/17 04:00 Temperature 98.4 F 98.7 F 98.6 F Pulse Rate 93 H 86 77 Respiratory Rate 18 18 18 Blood Pressure 162/77 H 146/68 H 166/77 H Pulse Oximetry 95 95 95 10/28/17 08:00 10/28/17 08:11 10/28/17 12:00 Temperature 98.3 F 98.8 F Pulse Rate 86 79 85 Respiratory Rate 22 16 20 Blood Pressure 138/65 134/73 Pulse Oximetry 95 94 L Intake & Output 10/27/17 10/28/17 10/28/17 18:59 06:59 18:59 Intake Total 300 / 300 1900 / 1900 1100 / 1100 Output Total 501 / 501 Balance -201 / -201 1900 / 1900 1100 / 1100 Weight 55.7 kg Intake: IV 300 / 300 1900 / 1900 1100 / 1100 D5W/Normal Saline Inj 1,000 ML 1000 / 1000 1000 / 1000 @ 70 mls/hr IV.CONT .[id number] [facility]OM[facility] Rx#:[id number] Maxipime Inj 2,000 MG In NS Inj 300 / 300 100 ML @ 200 mls/hr IV.SIG Q8H [facility] Rx#:[id number] Zosyn 4.5 GM Premix 4.5 gm In 100 / 100 300 / 300 100 ml @ 200 mls/hr IV.SIG Q6H [facility] Rx#:[id number] KCl 20 mEq Premix Inj 20 meq In 100 / 100 100 / 100 100 ml @ 50 mls/hr IV.SIG Q2H [facility] Rx#:[id number] Flagyl 500 MG Inj 100 ML @ 100 100 / 100 200 / 200 100 / 100 mls/hr IV.SIG Q8H [facility]OM[facility] Rx#: [id number] Oral 0 / 0 Output: Urine 500 / 500 Stool 1 / Other: # Incontinent Voids 1 Date of Last Bowel Movement 10/27/17 10/26/17 <Daniel Watt - Last Filed: 10/28/17 13:51> Results - Labs CBC & Chem 7: 10/25/17 06:39 10/27/17 09:30 Labs: Laboratory Results - last 24 hr 10/27/17 10/27/17 10/27/17 09:30 12:36 16:40 Sodium 140 Potassium 3.2 L Chloride 107 Carbon Dioxide 22.0 Anion Gap 11 BUN 15 Creatinine 0.76 Estimated GFR 75 L POC Glucose 99 Random Glucose 87 Lactic Acid 1.0 Calcium 8.3 L Total Bilirubin 0.8 AST 23 ALT 17 Alkaline Phosphatase 51 Total Protein 6.5 Albumin 2.5 L 10/27/17 22:17 Sodium Potassium Chloride Carbon Dioxide Anion Gap BUN Creatinine Estimated GFR POC Glucose 107 Random Glucose Lactic Acid Calcium Total Bilirubin AST ALT Alkaline Phosphatase Total Protein Albumin - Imaging Impressions Venous Doppler Study 10/27/17 00:00 CONCLUSION: 1. The study is negative for lower extremity deep venous thrombosis. Videofluoroscopic Swallow 10/27/17 00:00 CONCLUSION: Single episode of laryngeal penetration/aspiration which did elicit a cough reflex as above. <Radha Chapa - Last Filed: 10/28/17 08:41> - Labs CBC & Chem 7: 10/25/17 06:39 10/28/17 09:46 Labs: Laboratory Results - last 24 hr 10/27/17 10/27/17 10/28/17 16:40 22:17 09:46 Sodium 142 Potassium 3.4 L Chloride 108 H Carbon Dioxide 24.8 Anion Gap 9 BUN 14 Creatinine 0.98 Estimated GFR 56 L POC Glucose 99 107 Random Glucose 131 H Calcium 8.2 L 10/28/17 12:37 Sodium Potassium Chloride Carbon Dioxide Anion Gap BUN Creatinine Estimated GFR POC Glucose 115 H Random Glucose Calcium - Imaging Impressions Venous Doppler Study 10/27/17 00:00 CONCLUSION: 1. The study is negative for lower extremity deep venous thrombosis. <Daniel Watt - Last Filed: 10/28/17 13:51> Assessment and Plan - Plan Assessment: - Dysphagia S/P ischemic CVA Pt presented on October 18 after being found by her roommate to have right sided facial droop, difficulty speaking, right sided paralysis and urinary incontinence. Due to pt not being seen normal since the night prior she was not felt to be a candidate for TPA. Imaging revealed bilateral ICA occlusions as well as left M1 occlusion but also noted collateralization from the posterior cranial circulation was preserved. Speech therapy eval with a modified barium swallow and was noted to demonstrate moderate to severe oral phase and moderate to severe pharyngeal phase dysphagia with high risk of aspiration of multiple consistencies due to impaired coordination or reflexive swallow trigger. Previously had a NG tube she was receiving nutrition through, however she pulled this out. The issue at present is receiving consent for further treatment. Case discussed with JONATHON Long who spoke with pts son last night who stated he agreed to have PEG placed but did not agree to replacement of NG. The issue is that the pt son seemed to be intoxicated at the time of the conversation. According to palliative care notes, the daughter has also been contacted but does not want to make medical decision alone. At this time DCF has been contacted and we are waiting for recommendations for further management. Plan: Our service would be happy to place PEG when consent is obtained DCF consult pending for further management Would recommend replacement of NG tube NPO for risk of aspiration Further recommendations to follow Pt has been seen and examined by myself and Dr. Watt and this note is written on his behalf <Radha Chapa - Last Filed: 10/28/17 08:41> - Plan Agree with above note and plan, will place PEG tube tomorrow <Daniel Watt - Last Filed: 10/28/17 13:51>
[2017-10-28] MEDS: Dextrose 5%/NaCl 0.9% Inj 1,000 ML IV.CONT SCH (09:51)
[2017-10-28] MEDS: Aspirin 300 MG Supp RECTAL SCH (09:53)
[2017-10-28 11:13] LABS: Calcium 8.2 mg/dL (8.5-10.1); Carbon Dioxide 24.8 meq/L (21.0-32.0); Potassium 3.4 meq/L (3.5-5.1)
--- NOTE | 2017-10-28 12:11 | P.PNPAL ---
Reason for Visit Reason for visit: a. To assist with evaluation and management of symptoms including: pain; dysphagia; dysphasia b. To assist medical decision maker(s) with: better understanding of current medical conditions; weighing benefits/burdens of medical treatment options; making medical treatment decisions. . Subjective Subjective/Interval History: Ms. 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 ( Pt was not a candidate for TPA, neurosurgery recommend medical managment). Pt has noted right sided hemipereisis, dysphagia and dysphasia. Pt pulled out NG tube and resisted reinsertion We are following for pain, dysphagia, dysphasia and goals of care. Pt remains somewhat confused, unable to remember weather daughter came in to the hospital or not. She is unable to put a meaningful sentence together. I try and explain her current medical condition and challenges. she nods that she understands, but she nods at most everything. She is unable to tell/show me if/where she hurts. . Family/Friend Interactions: I have called and left voicemail for both Ramon Byrne and Sarah (pt's son and daughter) respectively. will continue to reach family today. Advance Directives Documented care wishes:: No written documentation of healthcare goals or preferences. Objective Vital Signs: Vital Signs 10/27/17 16:26 10/27/17 16:35 10/27/17 19:19 Temperature Pulse Rate 95 H 95 H 92 H Respiratory Rate 17 18 16 Blood Pressure Pulse Oximetry 10/27/17 20:00 10/28/17 00:00 10/28/17 04:00 Temperature 98.4 F 98.7 F 98.6 F Pulse Rate 93 H 86 77 Respiratory Rate 18 18 18 Blood Pressure 162/77 H 146/68 H 166/77 H Pulse Oximetry 95 95 95 10/28/17 08:00 10/28/17 08:11 Temperature 98.3 F Pulse Rate 86 79 Respiratory Rate 22 16 Blood Pressure 138/65 Pulse Oximetry 95 Intake & Output 10/27/17 10/28/17 10/28/17 18:59 06:59 18:59 Intake Total 300 / 300 1900 / 1900 1000 / 1000 Output Total 501 / 501 Balance -201 / -201 1900 / 1900 1000 / 1000 Weight 55.7 kg Intake: IV 300 / 300 1900 / 1900 1000 / 1000 D5W/Normal Saline Inj 1,000 ML 1000 / 1000 1000 / 1000 @ 70 mls/hr IV.CONT .[id number] [facility] Rx#:[id number] Maxipime Inj 2,000 MG In NS Inj 300 / 300 100 ML @ 200 mls/hr IV.SIG Q8H [facility] Rx#:[id number] Zosyn 4.5 GM Premix 4.5 gm In 100 / 100 300 / 300 100 ml @ 200 mls/hr IV.SIG Q6H [facility] Rx#:[id number] KCl 20 mEq Premix Inj 20 meq In 100 / 100 100 / 100 100 ml @ 50 mls/hr IV.SIG Q2H [facility] Rx#:[id number] Flagyl 500 MG Inj 100 ML @ 100 100 / 100 200 / 200 mls/hr IV.SIG Q8H [facility] Rx#: [id number] Oral 0 / 0 Output: Urine 500 / 500 Stool / Other: # Incontinent Voids 1 Date of Last Bowel Movement 10/27/17 10/26/17 Physical Exam: CONSTITUTIONAL/GENERAL: This is an adequately nourished patient. There is occasional grimacing. She is unable to move her right side. There is a right facial droop. She vocalizes but is unable to put together a meaningful sentence. Unclear what she understands and does not understand. TUBES/LINES/DRAINS: Peripheral IV SKIN: No jaundice, rashes, or lesions. No wounds seen anteriorly. Skin temperature appropriate. Not diaphoretic. HEAD: Atraumatic. Normocephalic. EYES: Pupils equal and round and reactive. Extraocular motions intact. No scleral icterus. No injection or drainage. Fundi not examined. ENT: She turns to voice and follows some simple commands--otherwise cannot further assess hearing.. Nose without bleeding or purulent drainage. Throat without visible erythema, exudates, masses, or lesions. Mucous membranes are dry. Right facial droop. NECK: Trachea midline. Supple, nontender. No palpable thyroid enlargement or nodularity. CARDIOVASCULAR: Regular rate and rhythm without murmurs, gallops, or rubs. No JVD. Peripheral pulses symmetric. RESPIRATORY/CHEST: Symmetric, unlabored respirations. Clear to auscultation. Breath sounds equal bilaterally. No wheezes, rales, or rhonchi. GASTROINTESTINAL: Abdomen soft, non-tender, nondistended. No hepato-splenomegaly , or palpable masses. No guarding. Bowel sounds present. GENITOURINARY: Without palpable bladder distension. MUSCULOSKELETAL: Extremities without clubbing, cyanosis, or edema. No joint tenderness or effusion noted. No calf tenderness. No mottling or clubbing. LYMPHATICS: No palpable cervical or supraclavicular adenopathy. NEUROLOGICAL: Awake and alert. Follows some simple commands. No voluntary movements of the right upper or lower extremities. Right facial droop. Unable to assess how much she understands. There is certainly expressive dysphasia; unclear how much of a receptive problem there is PSYCHIATRIC: Intermittent tearfulness. No apparent hallucinations or other psychotic thought process. . Diagnostic Tests Laboratory: Laboratory Results - last 72 hr 10/25/17 10/26/17 10/26/17 11:43 02:14 21:07 Sodium Potassium Chloride Carbon Dioxide Anion Gap BUN Creatinine Estimated GFR POC Glucose 121 H 111 H 75 Random Glucose Lactic Acid Calcium Total Bilirubin AST ALT Alkaline Phosphatase Total Protein Albumin 10/27/17 10/27/17 10/27/17 00:50 03:47 09:30 Sodium 140 Potassium 3.2 L Chloride 107 Carbon Dioxide 22.0 Anion Gap 11 BUN 15 Creatinine 0.76 Estimated GFR 75 L POC Glucose 74 71 Random Glucose 87 Lactic Acid Calcium 8.3 L Total Bilirubin 0.8 AST 23 ALT 17 Alkaline Phosphatase 51 Total Protein 6.5 Albumin 2.5 L 10/27/17 10/27/17 10/27/17 12:36 16:40 22:17 Sodium Potassium Chloride Carbon Dioxide Anion Gap BUN Creatinine Estimated GFR POC Glucose 99 107 Random Glucose Lactic Acid 1.0 Calcium Total Bilirubin AST ALT Alkaline Phosphatase Total Protein Albumin 10/28/17 09:46 Sodium 142 Potassium 3.4 L Chloride 108 H Carbon Dioxide 24.8 Anion Gap 9 BUN 14 Creatinine 0.98 Estimated GFR 56 L POC Glucose Random Glucose 131 H Lactic Acid Calcium 8.2 L Total Bilirubin AST ALT Alkaline Phosphatase Total Protein Albumin Result Diagrams: 10/25/17 06:39 10/28/17 09:46 Imaging: Carotid Doppler Study 10/18/17 00:00 CONCLUSION: 1. Severe plaque identified at the right carotid bulb. Elevated ICA to CCA ratio on the right indicating possible high-grade stenosis. 2. Left ICA and ECA nonvisualized indicating possible occlusion. Chest X-Ray 10/18/17 00:00 CONCLUSION: Negative examination. Head CT 10/18/17 12:21 CONCLUSION: 1. Subacute left MCA distribution infarct associated with some trace petechial hemorrhage in the deep white matter. . Head MRI 10/18/17 16:36 CONCLUSION: Moderate-sized acute infarct again seen in the left MCA distribution. There is some mass effect but no midline shift. Head MRA 10/18/17 16:36 CONCLUSION: Apparent occlusion of the internal carotid arteries bilaterally as well as occlusion of the left MCA proximally. Evidence of diffuse atherosclerotic disease of the right MCA. Head CT 10/19/17 00:00 CONCLUSION: 1. Evolving infarct in the left MCA distribution. . Head CTA 10/20/17 00:00 CONCLUSION: 1. Bilateral ICA occlusions as well as left M1 occlusion. Collateralization from the posterior cranial circulation is preserving flow to the bilateral anterior and right middle cranial fossa. Neck CTA 10/20/17 00:00 CONCLUSION: 1. Right ICA occludes at its origin. The left ICA is occluded at the cavernous segment with the extracranial aspect diffusely small in caliber. 2. Robust vertebral arteries bilaterally measuring 4 mm in diameter which are patent throughout. Abdomen X-Ray 10/23/17 03:16 CONCLUSION: NG tube as above. Chest X-Ray 10/26/17 00:00 CONCLUSION: Minimal patchy densities right lower lobe, likely infiltrate. Venous Doppler Study 10/27/17 00:00 CONCLUSION: 1. The study is negative for lower extremity deep venous thrombosis. Videofluoroscopic Swallow 10/27/17 00:00 CONCLUSION: Single episode of laryngeal penetration/aspiration which did elicit a cough reflex as above. Assessment and Plan - Disease Oriented Problem List (1) Ischemic cerebrovascular accident (CVA) (2) Accelerated hypertension (3) Hemorrhage, petechial (4) Right hemiplegia (5) Aphasia (6) Impaired mobility and ADLs (7) Chronic back pain (8) Scoliosis (9) Spinal stenosis (10) COPD (chronic obstructive pulmonary disease) Comment: It does not look like she was 02 dependent , but per daughter, had to stop working due to lung disease many years ago. (11) [place] (hard of hearing) (12) Depression (13) Arthritis (14) Myocardial infarct Comment: 2008 and 2011 (15) Dysphagia - Symptom Scale (1) Pain 0-10 Scale: Unable to quantify (2) Dysphagia 0-10 Scale: Unable to quantify Pertinent Non-Medical Issues: Psychosocial:Originally from [place]. Lived in [place] much of adult life. Moved to [place] 2 years ago. twice. 1st . 2nd from cancer about 10 years ago under hospice care. Two children -- Son (Ramon Byrne) lives with patient. Daughter (Sarah) lives in [place]. There is a sister (Linda) who lives in [place]. 12th grade education. Worked at [employer] -- stopped working due to COPD. Spiritual: Daughter tells me that patient self-identifies as Orthodoxy. Daughter did not feel the patient would appreciate global sourcing manager visits. Legal: No known advance directive. Ethical issues impacting care: No known ethical issues at this time. . Important Contacts: Ramon Byrne (son) -- The number we were originally given -- [phone] -- appears to be no longer in service. Daughter has told me to call Ramon on a [employer] cell phone [phone] Sarah (daughter) -- [phone] Lives in [place] Linda (sister) [phone] Lives in [place] . Prognosis: Patient has had a major stroke with right sided hemiparesis, dysphasia, and dysphagia. She is subject to the multiple complications of a major stroke, especially aspiration pneumonia. Unclear at this time to what extent she may have some neurological recovery. Unfortunately, she also has some significant underlying comorbidities including COPD, severe CAD, and spinal stenosis with chronic back pain. All of these may impact her ability to successfully rehab. If patient becomes able to make her own decisions and decides agains tube feeds and does not want further aggressive care, she would be a hospice candidate . . . Code Status: Full Code (Patient unable to participate in code status discussion. Daughter is uncertain about patient's wishes. Have not been able to contact son.) Plan: == Code Status: FULL CODE. Patient unable to participate in code status discussion. Daughter is uncertain about patient's wishes. Have not been able to contact son. Therefore, patient remains FULL CODE. == Decision Making: It is uncertain how much the patient is able to understand , and she certainly has significant expressive challenges. I do not feel patient has capaicty to make her own health care decisions. Since the patient is not legally , health care proxy decision making falls to her two adult children -- Ramon and Sarah. == Goals of medical treatment: Patient cannot communicate and express her own health care goals/preferences. In past Palliative conversation with Sarah, she is uncertain of patient's goals/preferences. I am awaitng Sarah and Ramon 's call back. Goals remain aggressive by default. == Symptoms * Pain: patient has suffered from years of chronic back pain due to a combination of degenerative disc disease, scoliosis, and spinal stenosis. It is unclear what medications, if any, the patient was using. On top of his chronic pain, patient may have additional discomfort from her prolonged bedbound status and from her vascular access lines. Unclear if she has headache from the stroke. Patient is unable to locate, quantify, or otherwise qualify her pain. * Dysphagia: This is severe and speech therapy is unable to recommend any safe texture/consistencies. * Dysphasia: Isolated words are understood. Patient is unable to put together a full sentence. Unclear to what extent she understands. * Dyspnea: Reported long history of COPD. It does not seem that she was on home oxygen though she did use nebulizers at home. == PLAN * Will continue to try and contact patient's son and daughter the rest of the day. Daughter is unwilling to make these decisions alone. We will continue to work with family. * As I don't believe patient is capacitated and we are unable to get definitive goals from the two proxy decision makers, we are forced to assume goals are aggressive for now. If patient is incapacitated and goals are aggressive, we should replace the feeding tube even if she objects. * We continue to check for patient's capacity frequently. . At such time that there is evidence that she has become capacitated, we can begin honoring her expressed wishes even if , at that time, it is for removal of the feeding tube. * If patient remains incapacitated but the proxies agree the patient would not want artificial nutrition/hydration , hospice would be appropriate if goals are comfort oriented. * Patient appears uncomfortable and she is unable to communicate about her pain. Recommend scheduling acetaminophen 650 q 8 hours ATC and re-evaluating. * Past history suggests depression. Recommend initiating an SSRI == Palliative care will continue to follow to assist with symptom management and to further clarify goals of medical treatment as the clinical course evolves. Attestation Attestation: To help prompt me to consider important information that might be impacting today's encounter and assessment, information from prior notes written by myself or my colleagues may have been "brought forward" into today's note. My signature on this note, however, is an attestation that I personally performed the exam, history, and/or decision-making noted today, and, unless otherwise indicated, the interactions with patient, family, and staff as well as the review of records all occurred today. I also attest that the listed assessment and stated plan reflect my best clinical judgment today based on the combination of historical information, prior notes, and today's exam/ interactions. When time spent is documented, it refers only to time spent today by the signer, or if indicated, combined time spent today by collaborating physician/nurse practitioner.
--- NOTE | 2017-10-28 16:22 | P.DIET ---
Nutritional Evaluation Type of nutrition evaluation: follow-up Nutrition consult regarding: Tube Feeding Nutrition screening: [facility] Subjective Subjective Comments: Pt has pulled ng-t and has no access for TF at this time. Objective - Diagnosis Subacute Ischemic CVA with Petechial Hemorrhage - Objective [place] body weight: 45.5 kg % IBW: 123 Body Weight Used for Calculations: Actual (55.7 kg) Energy Needs - Lower Range (kCal/kg): 25 Energy Needs - Upper Range (kCal/kg): 30 Lower Limit kCal/kg (kCals): 1,393 Upper Limit kCal/kg (kCals): 1,671 Lower Limit Protein Factor (Grams per Kg): 1.0 Upper Limit Protein Factor (Grams per Kg): 1.3 Lower Protein Needs (Protein): 56 Upper Protein Needs (Protein): 72 Dietitian Reviewed in Medical Record: Curent medications, Intake & Output, Labs , Medical history, Tube feeding Diet Order: NPO Speech Therapy Recommendations: Yes (Strict NPO w/consideration for bypass feeding) Objective Comments: PMH: COPD, CAD s/p Stent, hyperlipidemia, HTN, [place], alcohol use Assessment Assessment: Pt is npo per ST d/t dysphagia and she has pulled her ng-t. GI is awaiting consent for PEG placement. Recommend ng-t be replaced in the interim. To meet needs with TFing, recommend Jevity 1.5 @ 45 mls/hr to provide 1620 kcals, 69 gms protein and 821 mls of free water. Recommendations: Replace ng-t Jevity 1.5 @ 45 mls/hr goal Dietitian to Monitor: Lab values, Intake & Output, Tube feeding tolerance, Weight change, Swallow recommendations, Medical course
[2017-10-29] MEDS: Piperacil/Tazo 4.5 GM Premix 4.5 GM/100 ML BAG IV.SIG SCH ×3 (00:06→13:09)
[2017-10-29] MEDS: Dextrose 5%/NaCl 0.9% Inj 1,000 ML IV.CONT SCH ×2 (00:06→17:12)
[2017-10-29 04:46] LABS: Baso # (Auto) 0.1 th/mm3 (0.0-0.2); Baso % (Auto) 1.3 % (0.0-2.0); Eos # (Auto) 0.5 th/mm3 (0.0-0.4); Eos % (Auto) 6.9 % (0.0-4.0); Hematocrit 33.5 % (35.0-46.0); Hemoglobin 11.7 gm/dL (11.6-15.3); Lymph # (Auto) 1.3 th/mm3 (1.0-4.8); Lymph % (Auto) 16.6 % (9.0-44.0); Mean Corpuscular Hemoglobin 31.8 pg (27.0-34.0); Mean Platelet Volume 8.1 fL (7.0-11.0); Mono # (Auto) 0.9 th/mm3 (0.0-0.9); Mono % (Auto) 11.6 % (0.0-8.0); Neut # (Auto) 4.9 th/mm3 (1.8-7.7); Neut % (Auto) 63.6 % (16.0-70.0); Platelet Count 349 th/mm3 (150-450); Red Blood Count 3.69 mil/mm3 (4.00-5.30); White Blood Count 7.7 th/mm3 (4.0-11.0)
[2017-10-29 05:18] LABS: Carbon Dioxide 23.6 meq/L (21.0-32.0); Potassium 3.2 meq/L (3.5-5.1)
--- NOTE | 2017-10-29 08:13 | P.PN ---
Subjective Interval history: 72-year-old female who was brought in by EMS because of altered mental status. History is mainly taken from ED and chart review. Apparently patient was last seen normal last night. This morning she was found with right-sided facial droop and right arm weakness. She was not following commands and was not verbal. According to her roommate who was intoxicated, patient is also an alcoholic. Head CT shows subacute left MCA CVA with petechial hemorrhages. Meditech reviewed shows she has history of COPD, coronary artery disease status post stent, hyperlipidemia and hypertension. Family history father of Kourtney Gehrig's and mother with cancer type not known. At this time, she is awake but has expressive aphasia. She is following commands intermittently. All other systems reviewed negative. 10/27 - Patient seen and examined. She is awake. +slurred speech and aphasia. She answers yes to all of my ROS questions. +Coarse cough. She follows some simple commands. CXR shows patchy densities RLL, likely infiltrate. 10/28 - No significant change. Discussed NG tube placement with patients son yesterday which he refused. He stated he wanted PEG tube placed and for patient to come home with Hospice. Unfortunately, patient's son was clearly under the influence of alcohol at the time of our conversation. Due to patients aphasia, it is difficult to surmise patients wishes. Palliative continues to follow the patient. 10/29 -patient seen and examined. Patient appears to have a little less right- sided facial droop today. She also appears slightly more cognitively sharp and is able to communicate a bit better. She still has significant expressive aphasia. There is also some question of receptive aphasia. Discussed with nursing staff, no acute issues noted. Physical Exam Vital signs: Vital Signs 10/28/17 12:00 10/28/17 16:00 10/28/17 19:42 Temperature 98.8 F 98.6 F Pulse Rate 85 87 81 Respiratory Rate 20 20 18 Blood Pressure 134/73 145/77 H Pulse Oximetry 94 L 95 10/28/17 20:00 10/29/17 00:00 10/29/17 04:00 Temperature 98.4 F 98.2 F 97.4 F L Pulse Rate 82 88 99 H Respiratory Rate 22 20 20 Blood Pressure 148/79 H 154/70 H 143/73 H Pulse Oximetry 95 95 94 L Intake & Output 10/28/17 10/29/17 10/29/17 18:59 06:59 18:59 Intake Total 1400 / 1400 1500 / 1500 Output Total 975 / 975 Balance 1400 / 1400 525 / 525 Weight 56.6 kg Intake: IV 1400 / 1400 1500 / 1500 D5W/Normal Saline Inj 1,000 ML 1000 / 1000 1000 / 1000 @ 70 mls/hr IV.CONT .[id number] [facility] Rx#:[id number] Maxipime Inj 2,000 MG In NS Inj 100 / 100 100 / 100 100 ML @ 200 mls/hr IV.SIG Q8H [facility] Rx#:[id number] Zosyn 4.5 GM Premix 4.5 gm In 200 / 200 200 / 200 100 ml @ 200 mls/hr IV.SIG Q6H [facility] Rx#:[id number] Flagyl 500 MG Inj 100 ML @ 100 100 / 100 200 / 200 mls/hr IV.SIG Q8H [facility] Rx#: [id number] Output: Urine 975 / 975 Other: # Voids 1 Narrative: GENERAL: WDWN elderly female, INAD. Awake. Appears more alert today. Able to communicate a bit more effectively but still unable to perform a meaningful sentence. +Expressive aphasia. ?receptive aphasia SKIN: Warm and dry. No generalized rash. HEAD: Atraumatic. Normocephalic. +right sided facial droop, less pronounced today. EYES: Pupils equal and round. No scleral icterus. No injection or drainage. ENT: No nasal bleeding or discharge. Mucous membranes pink and moist. NECK: Trachea midline. CARDIOVASCULAR: Regular rate and rhythm. No murmur appreciated. RESPIRATORY: No accessory muscle use. Fair air entry. Poor effort. Clear to auscultation anteriorly. GASTROINTESTINAL: Abdomen soft, nondistended, nontender to palpation. MUSCULOSKELETAL: Extremities without clubbing, cyanosis, or edema. NEUROLOGICAL: Awake and alert. Follows simple commands. Motor grossly intact left upper and lower extremity. +Flaccid RUE. Able to spontaneously move RLE but difficult to assess motor function. +expressive aphasia. Speech is more clear. PSYCHIATRIC: Calm. Appears depressed. Flat affect. Results - Labs CBC & Chem 7: 10/29/17 03:57 10/29/17 03:57 Laboratory Results - last 24 hr 10/28/17 10/28/17 10/28/17 09:46 12:37 17:23 WBC RBC Hgb Hct MCV MCH MCHC RDW Plt Count MPV Neut % (Auto) Lymph % (Auto) [place] % (Auto) Eos % (Auto) Baso % (Auto) Neut # (Auto) Lymph # (Auto) [place] # (Auto) Eos # (Auto) Baso # (Auto) WBC Differential Differential Comment Sodium 142 Potassium 3.4 L Chloride 108 H Carbon Dioxide 24.8 Anion Gap 9 BUN 14 Creatinine 0.98 Estimated GFR 56 L POC Glucose 115 H 107 Random Glucose 131 H Calcium 8.2 L 10/29/17 10/29/17 10/29/17 03:57 03:57 06:55 WBC 7.7 RBC 3.69 L Hgb 11.7 Hct 33.5 L MCV 91.0 MCH 31.8 MCHC 35.0 RDW 13.0 Plt Count 349 D MPV 8.1 Neut % (Auto) 63.6 Lymph % (Auto) 16.6 [place] % (Auto) 11.6 H Eos % (Auto) 6.9 H Baso % (Auto) 1.3 Neut # (Auto) 4.9 Lymph # (Auto) 1.3 [place] # (Auto) 0.9 Eos # (Auto) 0.5 H Baso # (Auto) 0.1 WBC Differential . Differential Comment Auto diff final Sodium 143 Potassium 3.2 L Chloride 110 H Carbon Dioxide 23.6 Anion Gap 9 BUN 13 Creatinine 1.01 H Estimated GFR 54 L POC Glucose 98 Random Glucose 103 Calcium 8.0 L 10/29/17 07:43 WBC RBC Hgb Hct MCV MCH MCHC RDW Plt Count MPV Neut % (Auto) Lymph % (Auto) [place] % (Auto) Eos % (Auto) Baso % (Auto) Neut # (Auto) Lymph # (Auto) [place] # (Auto) Eos # (Auto) Baso # (Auto) WBC Differential Differential Comment Sodium Potassium Chloride Carbon Dioxide Anion Gap BUN Creatinine Estimated GFR POC Glucose 103 Random Glucose Calcium - Imaging ITS Impressions Carotid Doppler Study 10/18/17 00:00 CONCLUSION: 1. Severe plaque identified at the right carotid bulb. Elevated ICA to CCA ratio on the right indicating possible high-grade stenosis. 2. Left ICA and ECA nonvisualized indicating possible occlusion. Head MRI 10/18/17 16:36 CONCLUSION: Moderate-sized acute infarct again seen in the left MCA distribution. There is some mass effect but no midline shift. Head MRA 10/18/17 16:36 CONCLUSION: Apparent occlusion of the internal carotid arteries bilaterally as well as occlusion of the left MCA proximally. Evidence of diffuse atherosclerotic disease of the right MCA. Head CT 10/19/17 00:00 CONCLUSION: 1. Evolving infarct in the left MCA distribution. . Head CTA 10/20/17 00:00 CONCLUSION: 1. Bilateral ICA occlusions as well as left M1 occlusion. Collateralization from the posterior cranial circulation is preserving flow to the bilateral anterior and right middle cranial fossa. Neck CTA 10/20/17 00:00 CONCLUSION: 1. Right ICA occludes at its origin. The left ICA is occluded at the cavernous segment with the extracranial aspect diffusely small in caliber. 2. Robust vertebral arteries bilaterally measuring 4 mm in diameter which are patent throughout. Abdomen X-Ray 10/23/17 03:16 CONCLUSION: NG tube as above. Chest X-Ray 10/26/17 00:00 CONCLUSION: Minimal patchy densities right lower lobe, likely infiltrate. Venous Doppler Study 10/27/17 00:00 CONCLUSION: 1. The study is negative for lower extremity deep venous thrombosis. Videofluoroscopic Swallow 10/27/17 00:00 CONCLUSION: Single episode of laryngeal penetration/aspiration which did elicit a cough reflex as above. - Procedures none Assessment and Plan - Assessment (1) Ischemic cerebrovascular accident (CVA) Code(s): I63.9 - Cerebral infarction, unspecified Status: Acute (2) Accelerated hypertension Code(s): I10 - Essential (primary) hypertension Status: Acute (3) Hemorrhage, petechial Code(s): R23.3 - Spontaneous ecchymoses Status: Acute (4) Right hemiplegia Code(s): G81.91 - Hemiplegia, unspecified affecting right dominant side Status : Acute (5) Aphasia Code(s): R47.01 - Aphasia Status: Acute (6) Impaired mobility and ADLs Code(s): Z74.09 - Other reduced mobility Status: Acute - Plan This is a 72-year-old female who was brought in by EMS because of altered mental status. History is mainly taken from ED and chart review. Apparently patient was last seen normal last night. This morning she was found with right- sided facial droop and right arm weakness. She was not following commands and was not verbal. According to her roommate who was intoxicated, patient is also an alcoholic. Head CT shows subacute left MCA CVA with petechial hemorrhages. Large left MCA CVA with petechial hemorrhages. Apparent occlusion of the internal carotid arteries bilaterally as well as occlusion of the left MCA proximally. Evidence of diffuse atherosclerotic disease of the right MCA. Not a surgical candidate per Dr. Chahal. LDL 48 A1c 5.9. Unremarkable echo. EKG with sinus rhythm. -Continue on aspirin, per neurology to consider anticoagulation. -Continue PT/OT/ST -Continue NPO. ST ff. Continue on D5NS. -Aspiration precautions. Monitor for hypoglycemia. Neurochecks and seizure precautions -Palliative care following, appreciate assistance. Per Dr. Hoyt, patient does not have capacity. Patient's children have consented to PEG tube placement. -Neuropsychology following, appreciate assistance Dysphagia -ST following. Patient failed MBS. Continue strict NPO. -GI following, appreciate assistance. Plan for PEG tube placement tomorrow if consent is obtained. PNA, hospital associated, concern for aspiration CXR shows new right sided infiltrates, images reviewed by me -Continue IV Zosyn, Cefepime and Metronidazole -obtain sputum culture - pending specimen -scheduled Duonebs -acapella, IS -supplemental oxygen to maintain O2 sats >92% [place], mild, suspect secondary to dehydration -small IVF bolus ordered -avoid nephrotoxic agents -repeat BMP in am Hypokalemia K 3.2 -obtain mag level -IV repletion ordered -repeat BMP in am to monitor response Alcohol abuse. -CIWA protocol -seizure precautions RLE pain -Doppler negative for DVT -?neurogenic pain, unable to start patient on gabapentin at this time Multiple medical conditions of COPD, coronary artery disease status post stent, hyperlipidemia and hypertension. DVT prophylaxis with SCD and early ambulation. Hold pharmacological prophylaxis secondary to petechial hemorrhages Code Status: FULL Discussed Condition With: patient, Dr. Hoyt, Alcon Pennington ARNP, RN and CM Discharge Planning: Not ready for discharge.
[2017-10-29] MEDS: Aspirin 300 MG Supp RECTAL SCH (09:13)
--- NOTE | 2017-10-29 09:41 | P.PNGI ---
Subjective Interval history: Pt resting in bed. Oriented to name but unable to tell me where she is or what the year is. No complaints at this time. Still with no NG tube. Pt remains NPO Physical Exam Vital signs: Vital Signs 10/28/17 12:00 10/28/17 16:00 10/28/17 19:42 Temperature 98.8 F 98.6 F Pulse Rate 85 87 81 Respiratory Rate 20 20 18 Blood Pressure 134/73 145/77 H Pulse Oximetry 94 L 95 10/28/17 20:00 10/29/17 00:00 10/29/17 04:00 Temperature 98.4 F 98.2 F 97.4 F L Pulse Rate 82 88 99 H Respiratory Rate 22 20 20 Blood Pressure 148/79 H 154/70 H 143/73 H Pulse Oximetry 95 95 94 L 10/29/17 08:00 10/29/17 08:32 Temperature 98.0 F Pulse Rate 85 82 Respiratory Rate 16 17 Blood Pressure 158/71 H Pulse Oximetry 93 L Intake & Output 10/28/17 10/29/17 10/29/17 18:59 06:59 18:59 Intake Total 1400 / 1400 1500 / 1500 Output Total 975 / 975 Balance 1400 / 1400 525 / 525 Weight 56.6 kg Intake: IV 1400 / 1400 1500 / 1500 D5W/Normal Saline Inj 1,000 ML 1000 / 1000 1000 / 1000 @ 70 mls/hr IV.CONT .[id number] [facility] Rx#:[id number] Maxipime Inj 2,000 MG In NS Inj 100 / 100 100 / 100 100 ML @ 200 mls/hr IV.SIG Q8H [facility] Rx#:[id number] Zosyn 4.5 GM Premix 4.5 gm In 200 / 200 200 / 200 100 ml @ 200 mls/hr IV.SIG Q6H [facility] Rx#:[id number] Flagyl 500 MG Inj 100 ML @ 100 100 / 100 200 / 200 mls/hr IV.SIG Q8H [facility] Rx#: [id number] Output: Urine 975 / 975 Other: # Voids 1 - Constitutional no acute distress - Routine HEENT Exam Head: Present: normocephalic, atraumatic - Routine Respiratory Exam Absent: accessory muscle use - Routine Abdominal Exam Present: soft, normoactive bowel sounds. Absent: tenderness, distended - Routine Skin Exam Present: dry, warm - Routine Neurological Exam Present: alert. Absent: oriented X3 Results - Labs CBC & Chem 7: 10/29/17 03:57 10/29/17 03:57 Laboratory Results - last 24 hr 10/28/17 10/28/17 10/28/17 09:46 12:37 17:23 WBC RBC Hgb Hct MCV MCH MCHC RDW Plt Count MPV Neut % (Auto) Lymph % (Auto) [place] % (Auto) Eos % (Auto) Baso % (Auto) Neut # (Auto) Lymph # (Auto) [place] # (Auto) Eos # (Auto) Baso # (Auto) WBC Differential Differential Comment Sodium 142 Potassium 3.4 L Chloride 108 H Carbon Dioxide 24.8 Anion Gap 9 BUN 14 Creatinine 0.98 Estimated GFR 56 L POC Glucose 115 H 107 Random Glucose 131 H Calcium 8.2 L 10/29/17 10/29/17 10/29/17 03:57 03:57 06:55 WBC 7.7 RBC 3.69 L Hgb 11.7 Hct 33.5 L MCV 91.0 MCH 31.8 MCHC 35.0 RDW 13.0 Plt Count 349 D MPV 8.1 Neut % (Auto) 63.6 Lymph % (Auto) 16.6 [place] % (Auto) 11.6 H Eos % (Auto) 6.9 H Baso % (Auto) 1.3 Neut # (Auto) 4.9 Lymph # (Auto) 1.3 [place] # (Auto) 0.9 Eos # (Auto) 0.5 H Baso # (Auto) 0.1 WBC Differential . Differential Comment Auto diff final Sodium 143 Potassium 3.2 L Chloride 110 H Carbon Dioxide 23.6 Anion Gap 9 BUN 13 Creatinine 1.01 H Estimated GFR 54 L POC Glucose 98 Random Glucose 103 Calcium 8.0 L 10/29/17 07:43 WBC RBC Hgb Hct MCV MCH MCHC RDW Plt Count MPV Neut % (Auto) Lymph % (Auto) [place] % (Auto) Eos % (Auto) Baso % (Auto) Neut # (Auto) Lymph # (Auto) [place] # (Auto) Eos # (Auto) Baso # (Auto) WBC Differential Differential Comment Sodium Potassium Chloride Carbon Dioxide Anion Gap BUN Creatinine Estimated GFR POC Glucose 103 Random Glucose Calcium - Procedures none Assessment and Plan - Plan Assessment: - Dysphagia S/P ischemic CVA Pt presented on October 18 after being found by her roommate to have right sided facial droop, difficulty speaking, right sided paralysis and urinary incontinence. Due to pt not being seen normal since the night prior she was not felt to be a candidate for TPA. Imaging revealed bilateral ICA occlusions as well as left M1 occlusion but also noted collateralization from the posterior cranial circulation was preserved. Speech therapy eval with a modified barium swallow and was noted to demonstrate moderate to severe oral phase and moderate to severe pharyngeal phase dysphagia with high risk of aspiration of multiple consistencies due to impaired coordination or reflexive swallow trigger. Previously had a NG tube she was receiving nutrition through, however she pulled this out. The issue at present is receiving consent for further treatment. Case discussed with JONATHON Long who spoke with pts son last night who stated he agreed to have PEG placed but did not agree to replacement of NG. The issue is that the pt son seemed to be intoxicated at the time of the conversation. According to palliative care notes, the daughter has also been contacted but does not want to make medical decision alone. At this time DCF has been contacted and we are waiting for recommendations for further management. (10/29) Pt unable to make medical decisions. DCF getting involved in case because the son does not seem to be competent in making decisions and according to [place] law either both siblings have to agree or one sibling has to relinquish their rights. The daughter wants to be involved in the decision making. At this time our service will sign off, discussed with JONATHON Long- we will be available when consent can be obtained Discussed case with palliative care, Dr. Hoyt who states he spoke with both the daughter Sarah (contacted at number [phone]) and the son Ramon (contacted at number [phone]) and states both siblings were consenting to pt having a PEG tube and seemed capable to make this decision. Pt is unable to consent. Plan: EGD tomorrow Obtain consent Pt already on Cefepime and Zosyn- no additional pre-procedure abx needed Keep NPO Dietary recommendations appreciated Further recommendations to follow Pt has been seen and examined by myself and Dr. Watt and this note is written on his behalf
--- NOTE | 2017-10-29 11:43 | P.PNPAL ---
Reason for Visit Reason for visit: a. To assist with evaluation and management of symptoms including: pain; dysphagia; dysphasia b. To assist medical decision maker(s) with: better understanding of current medical conditions; weighing benefits/burdens of medical treatment options; making medical treatment decisions. . Subjective Subjective/Interval History: Ms. 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 ( Pt was not a candidate for TPA, neurosurgery recommend medical managment). Pt has noted right sided hemipereisis, dysphagia and dysphasia. Pt pulled out NG tube and resisted reinsertion We are following for pain, dysphagia, dysphasia and goals of care. Pt remains confused. Pt could answer yes no questions. Patient answer some questions correctly, but other times could not. Patient could not correctly identify color with yes or no. Pt at times remains confused does not know we are in [place]. Pt is not capacitated to make medical decisions by herself. She also has very poor short term memory, and could not remember she had a stroke or that she was in [place]. Daughter did ask me to try to ask her and see if she wants peg tube and continue to try to get better to which she did say yes. . Very difficult for pt to quantify and characterize dysphagia, pain, dysphasia. Family/Friend Interactions: I was only able to speak with patient's daughter. Daughter at this point said yes to peg tube placement and feeding. A lot of time was spent discussing, risk of aspiration even with peg tube placement, her cardiac disease, her copd, and other comorbidities for her to rebound to a functional level. She understands that but for now she states mom would want peg tube placement to buy patient some time. Patient's daughter Sarah is unsure about transition to comfort measures vs rehab. She wants to spend more time discussing with her brother/pt's son Ramon. I was also able to talk with patient's son. He had expressed he wants peg tube feedings. We spoke about code status. We also talked about rehab vs comfort care etc. He state he and Sarah will talk over it today. Advance Directives Documented care wishes:: No written documentation of healthcare goals or preferences. Objective Vital Signs: Vital Signs 10/28/17 12:00 10/28/17 16:00 10/28/17 19:42 Temperature 98.8 F 98.6 F Pulse Rate 85 87 81 Respiratory Rate 20 20 18 Blood Pressure 134/73 145/77 H Pulse Oximetry 94 L 95 10/28/17 20:00 10/29/17 00:00 10/29/17 04:00 Temperature 98.4 F 98.2 F 97.4 F L Pulse Rate 82 88 99 H Respiratory Rate 22 20 20 Blood Pressure 148/79 H 154/70 H 143/73 H Pulse Oximetry 95 95 94 L 10/29/17 08:00 10/29/17 08:32 Temperature 98.0 F Pulse Rate 85 82 Respiratory Rate 16 17 Blood Pressure 158/71 H Pulse Oximetry 93 L Intake & Output 10/28/17 10/29/17 10/29/17 18:59 06:59 18:59 Intake Total 1400 / 1400 1500 / 1500 100 / 100 Output Total 975 / 975 Balance 1400 / 1400 525 / 525 100 / 100 Weight 56.6 kg Intake: IV 1400 / 1400 1500 / 1500 100 / 100 D5W/Normal Saline Inj 1,000 ML 1000 / 1000 1000 / 1000 @ 70 mls/hr IV.CONT .[id number] [facility] Rx#:[id number] Maxipime Inj 2,000 MG In NS Inj 100 / 100 100 / 100 100 / 100 100 ML @ 200 mls/hr IV.SIG Q8H [place] Rx#:[id number] Zosyn 4.5 GM Premix 4.5 gm In 200 / 200 200 / 200 100 ml @ 200 mls/hr IV.SIG Q6H [facility] Rx#:[id number] Flagyl 500 MG Inj 100 ML @ 100 100 / 100 200 / 200 mls/hr IV.SIG Q8H [place] Rx#: [id number] Output: Urine 975 / 975 Other: # Voids 1 Physical Exam: CONSTITUTIONAL/GENERAL: This is an adequately nourished patient. There is occasional grimacing. She is unable to move her right side. There is a right facial droop. She vocalizes but is unable to put together a meaningful sentence. Unclear what she understands and does not understand. TUBES/LINES/DRAINS: Peripheral IV SKIN: No jaundice, rashes, or lesions. No wounds seen anteriorly. Skin temperature appropriate. Not diaphoretic. HEAD: Atraumatic. Normocephalic. EYES: Pupils equal and round and reactive. Extraocular motions intact. No scleral icterus. No injection or drainage. Fundi not examined. ENT: She turns to voice and follows some simple commands--otherwise cannot further assess hearing.. Nose without bleeding or purulent drainage. Throat without visible erythema, exudates, masses, or lesions. Mucous membranes are dry. Right facial droop. NECK: Trachea midline. Supple, nontender. No palpable thyroid enlargement or nodularity. CARDIOVASCULAR: Regular rate and rhythm without murmurs, gallops, or rubs. No JVD. Peripheral pulses symmetric. RESPIRATORY/CHEST: Symmetric, unlabored respirations. Clear to auscultation. Breath sounds equal bilaterally. No wheezes, rales, or rhonchi. GASTROINTESTINAL: Abdomen soft, non-tender, nondistended. No hepato-splenomegaly , or palpable masses. No guarding. Bowel sounds present. GENITOURINARY: Without palpable bladder distension. MUSCULOSKELETAL: Extremities without clubbing, cyanosis, or edema. No joint tenderness or effusion noted. No calf tenderness. No mottling or clubbing. LYMPHATICS: No palpable cervical or supraclavicular adenopathy. NEUROLOGICAL: Awake and alert. Follows some simple commands. No voluntary movements of the right upper or lower extremities. Right facial droop. Unable to assess how much she understands. There is certainly expressive dysphasia; unclear how much of a receptive problem there is PSYCHIATRIC: Intermittent tearfulness. No apparent hallucinations or other psychotic thought process. . Diagnostic Tests Laboratory: Laboratory Results - last 72 hr 10/26/17 10/27/17 10/27/17 21:07 00:50 03:47 WBC RBC Hgb Hct MCV MCH MCHC RDW Plt Count MPV Neut % (Auto) Lymph % (Auto) [place] % (Auto) Eos % (Auto) Baso % (Auto) Neut # (Auto) Lymph # (Auto) [place] # (Auto) Eos # (Auto) Baso # (Auto) WBC Differential Differential Comment Sodium Potassium Chloride Carbon Dioxide Anion Gap BUN Creatinine Estimated GFR POC Glucose 75 74 71 Random Glucose Lactic Acid Calcium Total Bilirubin AST ALT Alkaline Phosphatase Total Protein Albumin 10/27/17 10/27/17 10/27/17 09:30 12:36 16:40 WBC RBC Hgb Hct MCV MCH MCHC RDW Plt Count MPV Neut % (Auto) Lymph % (Auto) [place] % (Auto) Eos % (Auto) Baso % (Auto) Neut # (Auto) Lymph # (Auto) [place] # (Auto) Eos # (Auto) Baso # (Auto) WBC Differential Differential Comment Sodium 140 Potassium 3.2 L Chloride 107 Carbon Dioxide 22.0 Anion Gap 11 BUN 15 Creatinine 0.76 Estimated GFR 75 L POC Glucose 99 Random Glucose 87 Lactic Acid 1.0 Calcium 8.3 L Total Bilirubin 0.8 AST 23 ALT 17 Alkaline Phosphatase 51 Total Protein 6.5 Albumin 2.5 L 10/27/17 10/28/17 10/28/17 22:17 09:46 12:37 WBC RBC Hgb Hct MCV MCH MCHC RDW Plt Count MPV Neut % (Auto) Lymph % (Auto) [place] % (Auto) Eos % (Auto) Baso % (Auto) Neut # (Auto) Lymph # (Auto) [place] # (Auto) Eos # (Auto) Baso # (Auto) WBC Differential Differential Comment Sodium 142 Potassium 3.4 L Chloride 108 H Carbon Dioxide 24.8 Anion Gap 9 BUN 14 Creatinine 0.98 Estimated GFR 56 L POC Glucose 107 115 H Random Glucose 131 H Lactic Acid Calcium 8.2 L Total Bilirubin AST ALT Alkaline Phosphatase Total Protein Albumin 10/28/17 10/29/17 10/29/17 17:23 03:57 03:57 WBC 7.7 RBC 3.69 L Hgb 11.7 Hct 33.5 L MCV 91.0 MCH 31.8 MCHC 35.0 RDW 13.0 Plt Count 349 D MPV 8.1 Neut % (Auto) 63.6 Lymph % (Auto) 16.6 [place] % (Auto) 11.6 H Eos % (Auto) 6.9 H Baso % (Auto) 1.3 Neut # (Auto) 4.9 Lymph # (Auto) 1.3 [place] # (Auto) 0.9 Eos # (Auto) 0.5 H Baso # (Auto) 0.1 WBC Differential . Differential Comment Auto diff final Sodium 143 Potassium 3.2 L Chloride 110 H Carbon Dioxide 23.6 Anion Gap 9 BUN 13 Creatinine 1.01 H Estimated GFR 54 L POC Glucose 107 Random Glucose 103 Lactic Acid Calcium 8.0 L Total Bilirubin AST ALT Alkaline Phosphatase Total Protein Albumin 10/29/17 10/29/17 06:55 07:43 WBC RBC Hgb Hct MCV MCH MCHC RDW Plt Count MPV Neut % (Auto) Lymph % (Auto) [place] % (Auto) Eos % (Auto) Baso % (Auto) Neut # (Auto) Lymph # (Auto) [place] # (Auto) Eos # (Auto) Baso # (Auto) WBC Differential Differential Comment Sodium Potassium Chloride Carbon Dioxide Anion Gap BUN Creatinine Estimated GFR POC Glucose 98 103 Random Glucose Lactic Acid Calcium Total Bilirubin AST ALT Alkaline Phosphatase Total Protein Albumin Result Diagrams: 10/29/17 03:57 10/30/17 03:45 Assessment and Plan - Disease Oriented Problem List (1) Ischemic cerebrovascular accident (CVA) (2) Accelerated hypertension (3) Hemorrhage, petechial (4) Right hemiplegia (5) Aphasia (6) Impaired mobility and ADLs (7) Chronic back pain (8) Scoliosis (9) Spinal stenosis (10) COPD (chronic obstructive pulmonary disease) Comment: It does not look like she was 02 dependent , but per daughter, had to stop working due to lung disease many years ago. (11) [place] (hard of hearing) (12) Depression (13) Arthritis (14) Myocardial infarct Comment: 2008 and 2011 (15) Dysphagia - Symptom Scale (1) Pain 0-10 Scale: Unable to quantify (2) Dysphagia 0-10 Scale: Unable to quantify Pertinent Non-Medical Issues: Psychosocial:Originally from [place]. Lived in [place] much of adult life. Moved to [place] 2 years ago. twice. 1st . 2nd from cancer about 10 years ago under hospice care. Two children -- Son (Ramon Byrne) lives with patient. Daughter (Sarah) lives in [place]. There is a sister (Linda) who lives in [place]. 12th grade education. Worked at [employer] -- stopped working due to COPD. Spiritual: Daughter tells me that patient self-identifies as [employer]. Daughter did not feel the patient would appreciate vending stand supervisor visits. Legal: No known advance directive. Ethical issues impacting care: No known ethical issues at this time. . Important Contacts: Ramon Byrne (son) -- (need to leave a verbal message with someone and son will call back). [phone] JoB. Sarah (daughter) -- [phone] Lives in [place] Linda (sister) [phone] Lives in [place] . Prognosis: Patient has had a major stroke with right sided hemiparesis, dysphasia, and dysphagia. She is subject to the multiple complications of a major stroke, especially aspiration pneumonia. Unclear at this time to what extent she may have some neurological recovery. Unfortunately, she also has some significant underlying comorbidities including COPD, severe CAD, and spinal stenosis with chronic back pain. All of these may impact her ability to successfully rehab. . Code Status: Full Code (Patient unable to participate in code status discussion. Daughter is uncertain about patient's wishes. Have not been able to contact son.) Plan: == Code Status: FULL CODE. Patient unable to participate in code status discussion. Daughter is uncertain about patient's wishes. Son is uncertain. Therefore, patient remains FULL CODE. == Decision Making: It is uncertain how much the patient is able to understand , and she certainly has significant expressive challenges. After my reexamination today, I do not feel patient has capacity to make her own health care decisions. Since the patient is not legally , health care proxy decision making falls to her two adult children -- Ramon and Sarah. == Goals of medical treatment: spoke with both daughter Sarah and son Ramon today. they do want peg tube feedings. Sarah and Ramon are unsure of rehab vs. hospice. I review comfort measures and what that means, meaning, no further hospitalizations or aggressive treatment. Sarah and Ramon wants to talk it over. I made it clear to Ramon goals needs to be comfort oriented by both him and sister for hospice to be an option. Pt's Son and daughter remains uncertain at this point. == Symptoms * Pain: patient has suffered from years of chronic back pain due to a combination of degenerative disc disease, scoliosis, and spinal stenosis. It is unclear what medications, if any, the patient was using. On top of his chronic pain, patient may have additional discomfort from her prolonged bedbound status and from her vascular access lines. Unclear if she has headache from the stroke. Patient is unable to locate, quantify, or otherwise qualify her pain. * Dysphagia: This is severe and speech therapy is unable to recommend any safe texture/consistencies. * Dysphasia: Isolated words are understood. Patient is unable to put together a full sentence. Unclear to what extent she understands. * Dyspnea: Reported long history of COPD. It does not seem that she was on home oxygen though she did use nebulizers at home. == PLAN * Will continue to try and contact patient's son and daughter to discuss goals of care. * As I don't believe patient is capacitated and we are unable to get definitive goals from the two proxy decision makers, we are forced to assume goals are aggressive for now. If patient is incapacitated and goals are aggressive, we should replace the feeding tube even if she objects. * We continue to check for patient's capacity frequently. * If patient remains incapacitated but the proxies agree the patient would not want artificial nutrition/hydration , hospice would be appropriate if goals are comfort oriented. * Patient appears uncomfortable and she is unable to communicate about her pain. Recommend scheduling acetaminophen 650 q 8 hours ATC and re-evaluating. * Past history suggests depression. Recommend initiating an SSRI == Palliative care will continue to follow to assist with symptom management and to further clarify goals of medical treatment as the clinical course evolves. d/w medical team. Attestation Attestation: To help prompt me to consider important information that might be impacting today's encounter and assessment, information from prior notes written by myself or my colleagues may have been "brought forward" into today's note. My signature on this note, however, is an attestation that I personally performed the exam, history, and/or decision-making noted today, and, unless otherwise indicated, the interactions with patient, family, and staff as well as the review of records all occurred today. I also attest that the listed assessment and stated plan reflect my best clinical judgment today based on the combination of historical information, prior notes, and today's exam/ interactions. When time spent is documented, it refers only to time spent today by the signer, or if indicated, combined time spent today by collaborating physician/nurse practitioner.
--- NOTE | 2017-10-29 12:02 | P.NPEVAL ---
Patient History - Record/History Review Reason for Referral: The patient is a 72 year old right handed female who was admitted to [facility] on 10/18/2017 for mental status changes. The patient was found with right facial droop and RUE weakness, and aphasic. This patient is known to be alcohol dependent. Head CT showed left MCA CVA. Medical comorbidities include COPD, CAD, hyperlipidemia and HTN. She is referred for baseline neurobehavioral status examination to assess cognitive, behavioral and emotional aspects of the injury and to provide treatment recommendations. [facility] - History History Provided By: Medical Record - Medical History Medical History: Medical History (Last Reviewed 10/28/17 @ 08:19 by Ansley Lazcano) Chronic back pain (Chronic) Scoliosis (Acute) Spinal stenosis (Chronic) HTN (hypertension) (Acute) COPD (chronic obstructive pulmonary disease) (Chronic) [place] (hard of hearing) (Acute) HLD (hyperlipidemia) (Acute) Depression (Acute) Arthritis (Chronic) Myocardial infarct (Chronic) CAD (coronary artery disease) - Surgical History Surgical History: Surgical History (Last Reviewed 10/28/17 @ 08:19 by Ansley Lazcano) Stented coronary artery (Acute) - Family History Family History: Family History (Last Updated 10/27/17 @ 18:02 by Keshawn Tilley MD) Father ALS (amyotrophic lateral sclerosis) Mother Cancer Asthma Heart disease - Tobacco History Second Hand Smoke Exposure: No Tobacco Use In Past 30 Days: No Smoking Status: Former smoker (Patient reportedly had been a significant smoker in the past. Cannot further quantify this at this time. It is unclear when she smoked last. There may have been some recent heavy alcohol consumption. No known use of illicits.) - Alcohol History How Often Do You Have a Drink Containing Alcohol: Unable to Obtain - Substance Use History Substance History: Unable to Obtain - Travel History Recent Travel in the [place] Within the Last 8 Weeks: No Recent Travel Out of the Country Within the Last 8 Weeks: No - Immunization History Tetanus Immunization: Unable to Assess Hx Influenza Vaccine This Season: Unable to Assess Medications Active Medications Albuterol (Albuterol Concentrated Neb) 2.5 mg NEB Q6HR NEB PRN PRN Reason: DYSPNEA Last Admin: 10/22/17 07:52 Dose: 2.5 mg Albuterol (Duoneb Neb (Tomy)) 1 ampul NEB Q6HR WHILE AWAKE NEB TOMY Last Admin: 10/29/17 11:49 Dose: 1 ampul Aspirin (Aspirin Supp) 300 mg RECTAL DAILY [facility] Last Admin: 10/29/17 09:13 Dose: 300 mg Enalaprilat (Vasotec Inj) 1.25 mg IV.PUSH Q4H PRN PRN Reason: SBP>160, DBP>90 Last Admin: 10/27/17 01:44 Dose: 1.25 mg Flumazenil (Romazecon Inj) 0.2 mg IV.PUSH Q1M PRN PRN Reason: OVERSEDATION Potassium Chloride (Kcl 20 Meq Premix Inj) 20 meq in 100 mls @ 50 mls/hr IV.SIG Q2H PRN PRN Reason: For Potassium 2.8 - 3.2 mEq/L Last Infusion: 10/22/17 16:14 Dose: Infused Dextrose/Sodium Chloride (D5w/Normal Saline Inj) 1,000 mls @ 70 mls/hr IV.CONT .[id number] [facility] Last Admin: 10/29/17 00:06 Dose: 70 mls/hr Cefepime HCl 2,000 mg/ Sodium (Chloride) 100 mls @ 200 mls/hr IV.SIG Q8H [facility] Last Admin: 10/29/17 11:22 Dose: 200 mls/hr Metronidazole/Sodium Chloride (Flagyl 500 Mg Inj) 100 mls @ 100 mls/hr IV.SIG Q8H TOM[facility] Last Infusion: 10/29/17 11:22 Dose: Infused Piperacillin/Tazobactam/Dextrose (Zosyn 4.5 Gm Premix) 4.5 gm in 100 mls @ 200 mls/hr IV.SIG Q6H [facility] Last Infusion: 10/29/17 05:49 Dose: Infused Sodium Chloride (Ns Flush) 2 ml IV.FLUSH BID [facility] Last Admin: 10/29/17 09:13 Dose: Not Given Sodium Chloride (Ns Flush) 2 ml IV.FLUSH PRN PRN PRN Reason: FLUSH AFTER USING IV ACCESS Mental Status Assessment - Mental Status Orientation: unable to assess: Self, Place, Time, Situation Mental Status: Impaired: Thought processing, Language/interactions, Attention, Learning/memory, Problem-solving, Self-regulation, Other Absent: Hallucinations, Delusions Adjustment/Coping Assessment - Adjustment/Coping Adjustment/Coping: Severe: Awareness, Insight - Observation In terms of emotional functioning, the patient demonstrated challenges. This patient demonstrated no signs of agitation, impulsivity or disinhibition, and it is unclear whether she demonstrated remarkable evidence of a formal thought disorder or psychosis. There was no evidence of depression or anxiety. Thought content appeared free from suicidal, homicidal or paranoid ideation, and thought processes were bradyphrenic. The patients mood was euthymic, and her affect was stable and appropriate . The patient appears to possess poor insight and awareness into their situation and within the limits of this brief evaluation, poor judgment. Behavior - Behavior Treatment Engagement: Minimal - Observation Behaviorally, the patient demonstrated no signs of agitation, impulsivity or disinhibition. - Goals LTG Status: Deferred STG Status: Deferred - Team Members Team Members: Neuropsychologist Diagnosis/Discharge Plan - Diagnosis (1) Vascular dementia of acute onset without behavioral disturbance Status: Acute (2) Alcohol dependence in controlled environment Status: Acute Impression: This is a 72 year old woman s/p left MCA CVA with right hemiplegia and presently global aphasia. Other higher cortical functions unable to be assessed due to severe language impairment. Maximizing Acute Care Outcome: It is recommended that the patient be monitored for emergent behavioral impulsivity as the medical condition evolves. This patients neuropathological challenges may limit rehabilitation potential going forward, and these challenges will require specialized therapeutic skills to maximize outcome. Additionally, the patients family is experiencing ongoing issues of adjustment given the traumatic nature of the injury, and they may benefit from ongoing psychological assistance. At this point in the recovery process, the patient does not have cognitive capacity as the patient is unable to understand a situation and its likely consequences, nor is the patient able to manipulate information rationally. Cognitive capacity will be assessed throughout the recovery process. - Discharge Planning Anticipated Problems: Ongoing areas of concern will include behavioral impulsivity, lack of insight and judgment, which is expected to improve with time and treatment. Presently , the patient is globally aphasic. Treatment Plan: This clinician will continue to follow with you throughout the course of this patients rehabilitation treatment, and I will be available to meet with the patients family/support system to facilitate their understanding and the ongoing care of their family member. The goals of neuropsychological intervention shall be both educational and supportive to the family/support system as is deemed clinically appropriate. Thank you for the opportunity to assist in this patients care. Sunny De Oliveira, Ph.D., ABPP Board Certified in Clinical Neuropsychology [place] [employer] [place] Licensed Psychologist #[id number]
[2017-10-29] MEDS ORDERED: Sodium Chlor 0.9% Inj 250 ML IV.SIG ONE (16:53)
[2017-10-29] MEDS: Morphine Sulfate Inj 2 MG/ML Vial IV.PUSH PRN (17:13)
--- NOTE | 2017-10-29 17:19 | P.PNREH ---
Subjective Interval history: Patient resting comfortably in bed. Does not appear to be in any pain or discomfort. No shortness of breath noted. Review of Systems other (Aphasic) Exam - Physical Examination Vital Signs / I&O: Vital Signs 10/28/17 19:42 10/28/17 20:00 10/29/17 00:00 Temperature 98.4 F 98.2 F Pulse Rate 81 82 88 Respiratory Rate 18 22 20 Blood Pressure 148/79 H 154/70 H Pulse Oximetry 95 95 10/29/17 04:00 10/29/17 08:00 10/29/17 08:32 Temperature 97.4 F L 98.0 F Pulse Rate 99 H 71 82 Respiratory Rate 20 16 17 Blood Pressure 143/73 H 158/71 H Pulse Oximetry 94 L 93 L 10/29/17 11:51 10/29/17 12:00 Temperature Pulse Rate 88 97 H Respiratory Rate 14 Blood Pressure Pulse Oximetry Intake & Output 10/28/17 10/29/17 10/29/17 18:59 06:59 18:59 Intake Total 1400 / 1400 1500 / 1500 400 / 400 Output Total 975 / 975 Balance 1400 / 1400 525 / 525 400 / 400 Weight 56.6 kg Intake: IV 1400 / 1400 1500 / 1500 400 / 400 D5W/Normal Saline Inj 1,000 ML 1000 / 1000 1000 / 1000 @ 70 mls/hr IV.CONT .[id number] [facility] Rx#:[id number] Maxipime Inj 2,000 MG In NS Inj 100 / 100 100 / 100 200 / 200 100 ML @ 200 mls/hr IV.SIG Q8H [facility] Rx#:[id number] Zosyn 4.5 GM Premix 4.5 gm In 200 / 200 200 / 200 100 / 100 100 ml @ 200 mls/hr IV.SIG Q6H [facility] Rx#:[id number] Flagyl 500 MG Inj 100 ML @ 100 100 / 100 200 / 200 100 / 100 mls/hr IV.SIG Q8H [facility] Rx#: [id number] Output: Urine 975 / 975 Other: # Voids 1 Intake & Output 10/27/17 10/28/17 10/29/17 10/30/17 06:59 06:59 06:59 06:59 Intake Total 1000 / 1000 2200 / 2200 2900 / 2900 400 / 400 Output Total 1903 / 1903 501 / 501 975 / 975 Balance -903 / -903 1699 / 1699 1925 / 192 400 / 400 Weight 56.9 kg 55.7 kg 56.6 kg General: No acute distress Date of Last Bowel Movement: 10/26/17 Cardiovascular: No edema Musculoskeletal: ROM (Within functional limits) Psychiatric: Cooperative - Neurologic Orientation: oriented to: Self, unable to assess: Place, Time, Situation Neurologic: Speech (Some automatic speech and patient is able to count 1-3; aphasic) Motor: Right Upper Extremity (0/5 and tone is flaccid), Left Upper Extremity ( Moves to command), Right Lower Extremity (0/5 and tone is slightly increased), Left Lower Extremity (Moves to command) Clonus: Negative Objective Laboratory Results - last 24 hr 10/28/17 10/29/17 10/29/17 17:23 03:57 03:57 WBC 7.7 RBC 3.69 L Hgb 11.7 Hct 33.5 L MCV 91.0 MCH 31.8 MCHC 35.0 RDW 13.0 Plt Count 349 D MPV 8.1 Neut % (Auto) 63.6 Lymph % (Auto) 16.6 Banks % (Auto) 11.6 H Eos % (Auto) 6.9 H Baso % (Auto) 1.3 Neut # (Auto) 4.9 Lymph # (Auto) 1.3 Banks # (Auto) 0.9 Eos # (Auto) 0.5 H Baso # (Auto) 0.1 WBC Differential . Differential Comment Auto diff final Sodium 143 Potassium 3.2 L Chloride 110 H Carbon Dioxide 23.6 Anion Gap 9 BUN 13 Creatinine 1.01 H Estimated GFR 54 L POC Glucose 107 Random Glucose 103 Calcium 8.0 L 10/29/17 10/29/17 10/29/17 06:55 07:43 11:41 WBC RBC Hgb Hct MCV MCH MCHC RDW Plt Count MPV Neut % (Auto) Lymph % (Auto) Banks % (Auto) Eos % (Auto) Baso % (Auto) Neut # (Auto) Lymph # (Auto) Banks # (Auto) Eos # (Auto) Baso # (Auto) WBC Differential Differential Comment Sodium Potassium Chloride Carbon Dioxide Anion Gap BUN Creatinine Estimated GFR POC Glucose 98 103 98 Random Glucose Calcium Assessment and Plan (1) Ischemic cerebrovascular accident (CVA) Status: Acute Code(s): I63.9 - Cerebral infarction, unspecified (2) Right hemiplegia Status: Acute Code(s): G81.91 - Hemiplegia, unspecified affecting right dominant side (3) Aphasia Status: Acute Code(s): R47.01 - Aphasia (4) Impaired mobility and ADLs Status: Acute Code(s): Z74.09 - Other reduced mobility - Plan Assessment: 1. 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 Physical therapy is mobilizing the patient is maximal assistance for bed mobility and for transfers sit to stand. Continue to mobilize including out of bed to chair with nursing 2. Speech therapy is addressing swallow and severe dysphagia. PEG is being planned for 10/30/17 per GI. 3. Occupational therapy is addressing ADLs and currently dependent 4. Continue close supervision for fall prevention 5. Continue positioning while in bed to support right shoulder while upper extremity tone is flaccid to prevent shoulder subluxation and pain 6. Patient will need ongoing rehabilitation at discharge and case management is addressing options with family. Palliative care is also following. Given current communication and swallow deficits as well as right hemiplegia, anticipate the patient will need ongoing care in 24 hours supervision at discharge 7. Will follow while hospitalized and at discharge
[2017-10-29] MEDS: Potassium Chlor 10 mEq Premix 10 MEQ/100 ML PIGGYBACK IV.SIG SCH ×3 (18:19→23:45)
[2017-10-29] MEDS: Piperacil/Tazo 3.375 GM Premix 50 ML IV.SIG SCH (23:44)
[2017-10-30] MEDS: Piperacil/Tazo 3.375 GM Premix 50 ML IV.SIG SCH ×4 (01:40→20:22)
[2017-10-30] MEDS: Potassium Chlor 10 mEq Premix 10 MEQ/100 ML PIGGYBACK IV.SIG SCH (01:44)
[2017-10-30 04:31] LABS: Carbon Dioxide 22.3 meq/L (21.0-32.0); Potassium 3.6 meq/L (3.5-5.1)
[2017-10-30] MEDS: Dextrose 5%/NaCl 0.9% Inj 1,000 ML IV.CONT SCH ×2 (05:49→20:22)
--- NOTE | 2017-10-30 06:50 | P.PN ---
Subjective Interval history: 72-year-old female who was brought in by EMS because of altered mental status. History is mainly taken from ED and chart review. Apparently patient was last seen normal last night. This morning she was found with right-sided facial droop and right arm weakness. She was not following commands and was not verbal. According to her roommate who was intoxicated, patient is also an alcoholic. Head CT shows subacute left MCA CVA with petechial hemorrhages. [employer] reviewed shows she has history of COPD, coronary artery disease status post stent, hyperlipidemia and hypertension. Family history father of Kourtney Gehrig's and mother with cancer type not known. At this time, she is awake but has expressive aphasia. She is following commands intermittently. All other systems reviewed negative. 10/27 - Patient seen and examined. She is awake. +slurred speech and aphasia. She answers yes to all of my ROS questions. +Coarse cough. She follows some simple commands. CXR shows patchy densities RLL, likely infiltrate. 10/28 - No significant change. Discussed NG tube placement with patients son yesterday which he refused. He stated he wanted PEG tube placed and for patient to come home with Hospice. Unfortunately, patient's son was clearly under the influence of alcohol at the time of our conversation. Due to patients aphasia, it is difficult to surmise patients wishes. Palliative continues to follow the patient. 10/29 -patient seen and examined. Patient appears to have a little less right- sided facial droop today. She also appears slightly more cognitively sharp and is able to communicate a bit better. She still has significant expressive aphasia. There is also some question of receptive aphasia. Discussed with nursing staff, no acute issues noted. 10/30 Patient appears to be comfortable at present. Scheduled for PEG tube placement today. DW nursing staff, no overnight events noted. Physical Exam Vital signs: Vital Signs 10/29/17 08:00 10/29/17 08:32 10/29/17 11:51 Temperature 98.0 F Pulse Rate 71 82 88 Respiratory Rate 16 17 14 Blood Pressure 158/71 H Pulse Oximetry 93 L 10/29/17 12:00 10/29/17 16:00 10/29/17 19:13 Temperature 97.5 F L Pulse Rate 97 H 89 89 Respiratory Rate 16 16 Blood Pressure 104/72 Pulse Oximetry 92 L 10/29/17 20:00 10/30/17 00:00 10/30/17 04:00 Temperature 98.3 F 98.9 F 97.7 F Pulse Rate 90 96 H 93 H Respiratory Rate 18 Blood Pressure 139/83 158/78 H 153/74 H Pulse Oximetry 94 L 94 L 97 Intake & Output 10/29/17 10/29/17 10/30/17 06:59 18:59 06:59 Intake Total 1500 / 1500 1400 / 1400 1900 / 1900 Output Total 975 / 975 800 / 800 Balance 525 / 525 600 / 600 1900 / 1900 Weight 56.6 kg 55.6 kg Intake: IV 1500 / 1500 1400 / 1400 1900 / 1900 D5W/Normal Saline Inj 1,000 ML 1000 / 1000 1000 / 1000 1000 / 1000 @ 70 mls/hr IV.CONT .[id number] [facility] Rx#:[id number] Maxipime Inj 2,000 MG In NS Inj 100 / 100 200 / 200 100 / 100 100 ML @ 200 mls/hr IV.SIG Q12H [facility] Rx#:[id number] Zosyn 3.375 GM Premix 50 ML @ 50 / 50 100 mls/hr IV.SIG Q6H [facility] Rx#: [id number] Zosyn 4.5 GM Premix 4.5 gm In 200 / 200 100 / 100 100 ml @ 200 mls/hr IV.SIG Q6H [facility] Rx#:[id number] KCl 10 mEq Premix Inj 10 meq In 400 / 400 100 ml @ 100 mls/hr IV.SIG Q2H [facility] Rx#:[id number] Flagyl 500 MG Inj 100 ML @ 100 200 / 200 100 / 100 100 / 100 mls/hr IV.SIG Q8H [facility] Rx#: [id number] Output: Urine 975 / 975 500 / 500 Urine Amount (Catheter) 300 / 300 Female External 300 / 300 Other: # Voids 1 # Incontinent Voids 1 Date of Last Bowel Movement 10/29/17 Narrative: GENERAL: WDWN elderly female, INAD. Awake and alert. Able to communicate a bit more effectively but still unable to perform a meaningful sentence. +Expressive aphasia. ?receptive aphasia SKIN: Warm and dry. No generalized rash. HEAD: Atraumatic. Normocephalic. +right sided facial droop, less pronounced. EYES: Pupils equal and round. No scleral icterus. No injection or drainage. ENT: No nasal bleeding or discharge. Mucous membranes pink and moist. NECK: Trachea midline. CARDIOVASCULAR: Regular rate and rhythm. No murmur appreciated. RESPIRATORY: No accessory muscle use. Fair air entry. Poor effort. Clear to auscultation anteriorly. GASTROINTESTINAL: Abdomen soft, nondistended, nontender to palpation. MUSCULOSKELETAL: Extremities without clubbing, cyanosis, or edema. NEUROLOGICAL: Awake and alert. Follows simple commands. Motor grossly intact left upper and lower extremity. +Flaccid RUE. Able to spontaneously move RLE but difficult to assess motor function. +expressive aphasia. Speech is more clear. PSYCHIATRIC: Calm. Appears depressed. Flat affect. - Urinary Catheter Management Female External Cath placed during this visit: no Results - Labs CBC & Chem 7: 10/29/17 03:57 10/30/17 03:45 Laboratory Results - last 24 hr 10/29/17 10/29/17 10/29/17 03:57 06:55 07:43 Sodium Potassium Chloride Carbon Dioxide Anion Gap BUN Creatinine Estimated GFR POC Glucose 98 103 Random Glucose Calcium Magnesium 2.1 10/29/17 10/29/17 10/30/17 11:41 17:11 03:45 Sodium 143 Potassium 3.6 Chloride 111 H Carbon Dioxide 22.3 Anion Gap 10 BUN 11 Creatinine 0.97 Estimated GFR 57 L POC Glucose 98 92 Random Glucose 114 H Calcium 8.0 L Magnesium - Imaging ITS Impressions Carotid Doppler Study 10/18/17 00:00 CONCLUSION: 1. Severe plaque identified at the right carotid bulb. Elevated ICA to CCA ratio on the right indicating possible high-grade stenosis. 2. Left ICA and ECA nonvisualized indicating possible occlusion. Head MRI 10/18/17 16:36 CONCLUSION: Moderate-sized acute infarct again seen in the left MCA distribution. There is some mass effect but no midline shift. Head MRA 10/18/17 16:36 CONCLUSION: Apparent occlusion of the internal carotid arteries bilaterally as well as occlusion of the left MCA proximally. Evidence of diffuse atherosclerotic disease of the right MCA. Head CT 10/19/17 00:00 CONCLUSION: 1. Evolving infarct in the left MCA distribution. . Head CTA 10/20/17 00:00 CONCLUSION: 1. Bilateral ICA occlusions as well as left M1 occlusion. Collateralization from the posterior cranial circulation is preserving flow to the bilateral anterior and right middle cranial fossa. Neck CTA 10/20/17 00:00 CONCLUSION: 1. Right ICA occludes at its origin. The left ICA is occluded at the cavernous segment with the extracranial aspect diffusely small in caliber. 2. Robust vertebral arteries bilaterally measuring 4 mm in diameter which are patent throughout. Abdomen X-Ray 10/23/17 03:16 CONCLUSION: NG tube as above. Chest X-Ray 10/26/17 00:00 CONCLUSION: Minimal patchy densities right lower lobe, likely infiltrate. Venous Doppler Study 10/27/17 00:00 CONCLUSION: 1. The study is negative for lower extremity deep venous thrombosis. Videofluoroscopic Swallow 10/27/17 00:00 CONCLUSION: Single episode of laryngeal penetration/aspiration which did elicit a cough reflex as above. - Procedures none Assessment and Plan - Assessment (1) Ischemic cerebrovascular accident (CVA) Code(s): I63.9 - Cerebral infarction, unspecified Status: Acute (2) Accelerated hypertension Code(s): I10 - Essential (primary) hypertension Status: Acute (3) Hemorrhage, petechial Code(s): R23.3 - Spontaneous ecchymoses Status: Acute (4) Right hemiplegia Code(s): G81.91 - Hemiplegia, unspecified affecting right dominant side Status : Acute (5) Aphasia Code(s): R47.01 - Aphasia Status: Acute (6) Impaired mobility and ADLs Code(s): Z74.09 - Other reduced mobility Status: Acute - Plan This is a 72-year-old female who was brought in by EMS because of altered mental status. History is mainly taken from ED and chart review. Apparently patient was last seen normal last night. This morning she was found with right- sided facial droop and right arm weakness. She was not following commands and was not verbal. According to her roommate who was intoxicated, patient is also an alcoholic. Head CT shows subacute left MCA CVA with petechial hemorrhages. Large left MCA CVA with petechial hemorrhages. Apparent occlusion of the internal carotid arteries bilaterally as well as occlusion of the left MCA proximally. Evidence of diffuse atherosclerotic disease of the right MCA. Not a surgical candidate per Dr. Chahal. LDL 48 A1c 5.9. Unremarkable echo. EKG with sinus rhythm. -Continue on aspirin, per neurology to consider anticoagulation. -Continue PT/OT/ST -Continue NPO. ST ff. Continue on D5NS. -Aspiration precautions. Monitor for hypoglycemia. Neurochecks and seizure precautions -Palliative care following, appreciate assistance. Per Dr. Hoyt, patient does not have capacity but feels she is getting close. Patient's children have consented to PEG tube placement. -Neuropsychology following, appreciate assistance Dysphagia -ST following. Patient failed MBS. Continue strict NPO. -GI following, appreciate assistance. PEG today. PNA, hospital associated, concern for aspiration CXR shows new right sided infiltrates, images reviewed by me -Continue IV Zosyn, Cefepime and Metronidazole -de-escalate antibiotics. Change to po once PEG tube placed. -scheduled Duonebs -acapella, IS -supplemental oxygen to maintain O2 sats >92% CRISTA, mild, suspect secondary to dehydration -resolved s/p small IVF bolus -avoid nephrotoxic agents -monitor kidney fxn as indicated Hypokalemia K 3.2 -> 3.6 mag 2.1 -resolved s/p repletion Alcohol abuse. -CIWA protocol -seizure precautions RLE pain -Doppler negative for DVT -?neurogenic pain, unable to start patient on gabapentin at this time Multiple medical conditions of COPD, coronary artery disease status post stent, hyperlipidemia and hypertension. DVT prophylaxis with SCD and early ambulation. Hold pharmacological prophylaxis secondary to petechial hemorrhages Code Status: FULL Discussed Condition With: patient, nursing staff, Dr. Hoyt, Dr. Deng, CM Discharge Planning: Not ready for discharge.
[2017-10-30] MEDS: Aspirin 300 MG Supp RECTAL SCH (08:33)
--- NOTE | 2017-10-30 12:48 | P.PNPAL ---
Reason for Visit Reason for visit: a. To assist with evaluation and management of symptoms including: pain; dysphagia; dysphasia b. To assist medical decision maker(s) with: better understanding of current medical conditions; weighing benefits/burdens of medical treatment options; making medical treatment decisions. . Subjective Subjective/Interval History: Ms. 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 ( Pt was not a candidate for TPA, neurosurgery recommend medical managment). Pt has noted right sided hemipereisis, dysphagia and dysphasia. Pt pulled out NG tube and resisted reinsertion We are following for pain, dysphagia, dysphasia and goals of care. Patient today is able to answer more yes or no questions correctly. Able to id correct color of glove. Able to correctly id the correct name of son and daughter. When ask "is your son's name Fausto" She shock her head and voiced no. "Is your son name Ramon?" She is able to say yes. She does still have some short term memory deficit for me today. Family/Friend Interactions: I spoke with Ramon today and able to get a hold of Ramon. He endorse wanting the patient home. At first he endorse full code, but they change to DNR, when I state most likely hospice will not take patient as a full code. Reviewed the following: Pt is at risk for aspiration, infection, and recurrent stroke: these are all obstacles and barrier for patient to get better. In terms of capacity, each day she has made progress, and I suspect she is getting close to getting capacity to make medical decisions If she is able to regain capacity to make medical decisions; the decision making is not going to fall on her children, but the patient herself. I told Ramon, if she does not regain capacity, he alone cannot make medical decisions, but require Sarah to be involved. Given some of the neurological progress, hospice would need to evaluate, if patient prognosis is less than 6 months or not. Ramon told me he is concern of pt's finances and ability to receive a check to pay for her apartment. I told him I am sorry about that, but I suggest he speak to case management for any resources. I am awaiting for Sarah's call back. Advance Directives Documented care wishes:: No written documentation of healthcare goals or preferences. Objective Vital Signs: Vital Signs 10/29/17 16:00 10/29/17 19:13 10/29/17 20:00 Temperature 97.5 F L 98.3 F Pulse Rate 89 89 90 Respiratory Rate 16 16 18 Blood Pressure 104/72 139/83 Pulse Oximetry 92 L 94 L 10/30/17 00:00 10/30/17 04:00 10/30/17 07:54 Temperature 98.9 F 97.7 F Pulse Rate 96 H 93 H 89 Respiratory Rate 18 18 16 Blood Pressure 158/78 H 153/74 H Pulse Oximetry 94 L 97 10/30/17 08:00 10/30/17 10:58 Temperature 98.3 F Pulse Rate 90 Respiratory Rate 20 18 Blood Pressure 138/67 Pulse Oximetry 94 L Intake & Output 10/29/17 10/30/17 10/30/17 18:59 06:59 18:59 Intake Total 1400 / 1400 1999 / 2000 Output Total 800 / 800 Balance 600 / 600 1999 / 1999 Weight 55.6 kg Intake: IV 1400 / 1400 2000 / 2000 D5W/Normal Saline Inj 1,000 ML 1000 / 1000 1000 / 1000 @ 70 mls/hr IV.CONT .[id number] [facility] Rx#:[id number] Maxipime Inj 2,000 MG In NS Inj 200 / 200 100 / 100 100 ML @ 200 mls/hr IV.SIG Q12H [facility] Rx#:[id number] Zosyn 3.375 GM Premix 50 ML @ 50 / 50 100 mls/hr IV.SIG Q6H [facility] Rx#: [id number] Zosyn 4.5 GM Premix 4.5 gm In 100 / 100 100 ml @ 200 mls/hr IV.SIG Q6H [facility] Rx#:[id number] KCl 10 mEq Premix Inj 10 meq In 400 / 400 100 ml @ 100 mls/hr IV.SIG Q2H [facility] Rx#:[id number] Flagyl 500 MG Inj 100 ML @ 100 100 / 100 200 / 200 mls/hr IV.SIG Q8H [facility] Rx#: [id number] Output: Urine 500 / 500 Urine Amount (Catheter) 300 / 300 Female External 300 / 300 Other: # Incontinent Voids 1 Date of Last Bowel Movement 10/29/17 Physical Exam: CONSTITUTIONAL/GENERAL: This is an adequately nourished patient. There is occasional grimacing. She is unable to move her right side. There is a right facial droop. She vocalizes but is unable to put together a meaningful sentence. TUBES/LINES/DRAINS: Peripheral IV SKIN: No jaundice, rashes, or lesions. No wounds seen anteriorly. Skin temperature appropriate. Not diaphoretic. HEAD: Atraumatic. Normocephalic. EYES: Pupils equal and round and reactive. Extraocular motions intact. No scleral icterus. No injection or drainage. Fundi not examined. ENT: She turns to voice and follows some simple commands--otherwise cannot further assess hearing.. Nose without bleeding or purulent drainage. Throat without visible erythema, exudates, masses, or lesions. Mucous membranes are dry. Right facial droop. NECK: Trachea midline. Supple, nontender. No palpable thyroid enlargement or nodularity. CARDIOVASCULAR: Regular rate and rhythm without murmurs, gallops, or rubs. No JVD. Peripheral pulses symmetric. RESPIRATORY/CHEST: Symmetric, unlabored respirations. Clear to auscultation. Breath sounds equal bilaterally. No wheezes, rales, or rhonchi. GASTROINTESTINAL: Abdomen soft, non-tender, nondistended. No hepato-splenomegaly , or palpable masses. No guarding. Bowel sounds present. GENITOURINARY: Without palpable bladder distension. MUSCULOSKELETAL: Extremities without clubbing, cyanosis, or edema. No joint tenderness or effusion noted. No calf tenderness. No mottling or clubbing. LYMPHATICS: No palpable cervical or supraclavicular adenopathy. NEUROLOGICAL: Awake and alert. Follows some simple commands. No voluntary movements of the right upper or lower extremities. Right facial droop. certainly expressive dysphasia. PSYCHIATRIC: Intermittent tearfulness. No apparent hallucinations or other psychotic thought process. . Diagnostic Tests Laboratory: Laboratory Results - last 72 hr 10/27/17 10/27/17 10/27/17 12:36 16:40 22:17 WBC RBC Hgb Hct MCV MCH MCHC RDW Plt Count MPV Neut % (Auto) Lymph % (Auto) Turner % (Auto) Eos % (Auto) Baso % (Auto) Neut # (Auto) Lymph # (Auto) Turner # (Auto) Eos # (Auto) Baso # (Auto) WBC Differential Differential Comment Sodium Potassium Chloride Carbon Dioxide Anion Gap BUN Creatinine Estimated GFR POC Glucose 99 107 Random Glucose Lactic Acid 1.0 Calcium Magnesium 10/28/17 10/28/17 10/28/17 09:46 12:37 17:23 WBC RBC Hgb Hct MCV MCH MCHC RDW Plt Count MPV Neut % (Auto) Lymph % (Auto) Turner % (Auto) Eos % (Auto) Baso % (Auto) Neut # (Auto) Lymph # (Auto) Turner # (Auto) Eos # (Auto) Baso # (Auto) WBC Differential Differential Comment Sodium 142 Potassium 3.4 L Chloride 108 H Carbon Dioxide 24.8 Anion Gap 9 BUN 14 Creatinine 0.98 Estimated GFR 56 L POC Glucose 115 H 107 Random Glucose 131 H Lactic Acid Calcium 8.2 L Magnesium 10/29/17 10/29/17 10/29/17 03:57 03:57 03:57 WBC 7.7 RBC 3.69 L Hgb 11.7 Hct 33.5 L MCV 91.0 MCH 31.8 MCHC 35.0 RDW 13.0 Plt Count 349 D MPV 8.1 Neut % (Auto) 63.6 Lymph % (Auto) 16.6 Turner % (Auto) 11.6 H Eos % (Auto) 6.9 H Baso % (Auto) 1.3 Neut # (Auto) 4.9 Lymph # (Auto) 1.3 Turner # (Auto) 0.9 Eos # (Auto) 0.5 H Baso # (Auto) 0.1 WBC Differential . Differential Comment Auto diff final Sodium 143 Potassium 3.2 L Chloride 110 H Carbon Dioxide 23.6 Anion Gap 9 BUN 13 Creatinine 1.01 H Estimated GFR 54 L POC Glucose Random Glucose 103 Lactic Acid Calcium 8.0 L Magnesium 2.1 10/29/17 10/29/17 10/29/17 06:55 07:43 11:41 WBC RBC Hgb Hct MCV MCH MCHC RDW Plt Count MPV Neut % (Auto) Lymph % (Auto) Turner % (Auto) Eos % (Auto) Baso % (Auto) Neut # (Auto) Lymph # (Auto) Turner # (Auto) Eos # (Auto) Baso # (Auto) WBC Differential Differential Comment Sodium Potassium Chloride Carbon Dioxide Anion Gap BUN Creatinine Estimated GFR POC Glucose 98 103 98 Random Glucose Lactic Acid Calcium Magnesium 10/29/17 10/30/17 10/30/17 17:11 03:45 07:53 WBC RBC Hgb Hct MCV MCH MCHC RDW Plt Count MPV Neut % (Auto) Lymph % (Auto) Turner % (Auto) Eos % (Auto) Baso % (Auto) Neut # (Auto) Lymph # (Auto) Turner # (Auto) Eos # (Auto) Baso # (Auto) WBC Differential Differential Comment Sodium 143 Potassium 3.6 Chloride 111 H Carbon Dioxide 22.3 Anion Gap 10 BUN 11 Creatinine 0.97 Estimated GFR 57 L POC Glucose 92 102 Random Glucose 114 H Lactic Acid Calcium 8.0 L Magnesium Result Diagrams: 10/29/17 03:57 10/30/17 03:45 Imaging: To help prompt me to consider important information that might be impacting today's encounter and assessment, information from prior notes written by myself or my colleagues may have been "brought forward" into today's note. My signature on this note, however, is an attestation that I personally performed the exam, history, and/or decision-making noted today, and, unless otherwise indicated, the interactions with patient, family, and staff as well as the review of records all occurred today. I also attest that the listed assessment and stated plan reflect my best clinical judgment today based on the combination of historical information, prior notes, and today's exam/ interactions. When time spent is documented, it refers only to time spent today by the signer, or if indicated, combined time spent today by collaborating physician/nurse practitioner. Assessment and Plan - Disease Oriented Problem List (1) Ischemic cerebrovascular accident (CVA) (2) Accelerated hypertension (3) Hemorrhage, petechial (4) Right hemiplegia (5) Aphasia (6) Impaired mobility and ADLs (7) Chronic back pain (8) Scoliosis (9) Spinal stenosis (10) COPD (chronic obstructive pulmonary disease) Comment: It does not look like she was 02 dependent , but per daughter, had to stop working due to lung disease many years ago. (11) APACHE (hard of hearing) (12) Depression (13) Arthritis (14) Myocardial infarct Comment: 2008 and 2011 (15) Dysphagia - Symptom Scale (1) Pain 0-10 Scale: Unable to quantify (2) Dysphagia 0-10 Scale: Unable to quantify Pertinent Non-Medical Issues: Psychosocial:Originally from [place]. Lived in [place] much of adult life. Moved to [place] 2 years ago. twice. 1st . 2nd from cancer about 10 years ago under hospice care. Two children -- Son (Ramon Byrne) lives with patient. Daughter (Sarah) lives in [place]. There is a sister (Linda) who lives in [place]. 12th grade education. Worked at [employer] -- stopped working due to COPD. Spiritual: Daughter tells me that patient self-identifies as Orthodoxy. Daughter did not feel the patient would appreciate loss prevention operations manager visits. Legal: No known advance directive. Ethical issues impacting care: No known ethical issues at this time. . Important Contacts: Ramon Byrne (son) -- (need to leave a verbal message with someone and son will call back). [phone] JoB. Sarah (daughter) -- [phone] Lives in [place] Linda (sister) [phone] Lives in [place] . Prognosis: Patient has had a major stroke with right sided hemiparesis, dysphasia, and dysphagia. She is subject to the multiple complications of a major stroke, especially aspiration pneumonia. Unclear at this time to what extent she may have some neurological recovery. Unfortunately, she also has some significant underlying comorbidities including COPD, severe CAD, and spinal stenosis with chronic back pain. All of these may impact her ability to successfully rehab. Capacity however seems to be improving. . Code Status: Full Code (Patient unable to participate in code status discussion. Daughter is uncertain about patient's wishes. Have not been able to contact son.) Plan: == Code Status: FULL CODE. Patient unable to participate in code status discussion. Daughter is uncertain about patient's wishes. Son is uncertain. Therefore, patient remains FULL CODE. == Decision Making: I feel patient is getting very close in terms of capacity to make medical decisions. I don't feel currently she could weigh the risk and benefits of medical decisions given some the poor memory recall, but she is able to answer many of the yes and no questions correctly compare to prior days. == Goals of medical treatment: ewed the following: Pt is at risk for aspiration, infection, and recurrent stroke: these are all obstacles and barrier for patient to get better. In terms of capacity, each day she has made progress, and I suspect she is getting close to getting capacity to make medical decisions If she is able to regain capacity to make medical decisions; the decision making is not going to fall on her children, but the patient herself. I told Ramon, if she does not regain capacity, he alone cannot make medical decisions, but require Sarah to be involved. Given some of the neurological progress, hospice would need to evaluate, weather patient prognosis is less than 6 months or not? Ramon told me he is concern of pt's finances and ability to receive a check to pay for her apartment. I told him I am sorry about that, but I suggest he speak to case management for any resources. I am awaiting for Sarah's call back. She had expressed in the past she wants patient to participate and make her own medical decisions. == Symptoms * Pain: patient has suffered from years of chronic back pain due to a combination of degenerative disc disease, scoliosis, and spinal stenosis. It is unclear what medications, if any, the patient was using. On top of his chronic pain, patient may have additional discomfort from her prolonged bedbound status and from her vascular access lines. Patient is unable to locate, quantify, or otherwise qualify her pain. * Dysphagia: This is severe and speech therapy is unable to recommend any safe texture/consistencies. Going to receive peg tube today. * Dysphasia: Isolated words are understood. Patient is unable to put together a full sentence. * Dyspnea: Reported long history of COPD. It does not seem that she was on home oxygen though she did use nebulizers at home. == PLAN * Await Sarah call back * We continue to check for patient's capacity frequently. I feel she is close to getting capacity to make medical decisions, and am considering psych eval to evaluate [facility] with their expertise. * Patient appears uncomfortable and she is unable to communicate about her pain. Recommend scheduling acetaminophen 650 q 8 hours ATC and re-evaluating. * == Palliative care will continue to follow to assist with symptom management and to further clarify goals of medical treatment as the clinical course evolves. d/w medical team. Attestation Attestation: To help prompt me to consider important information that might be impacting today's encounter and assessment, information from prior notes written by myself or my colleagues may have been "brought forward" into today's note. My signature on this note, however, is an attestation that I personally performed the exam, history, and/or decision-making noted today, and, unless otherwise indicated, the interactions with patient, family, and staff as well as the review of records all occurred today. I also attest that the listed assessment and stated plan reflect my best clinical judgment today based on the combination of historical information, prior notes, and today's exam/ interactions. When time spent is documented, it refers only to time spent today by the signer, or if indicated, combined time spent today by collaborating physician/nurse practitioner.
--- NOTE | 2017-10-30 17:03 | P.PCN ---
Procedure: THANK YOU FOR THE REFERRAL Indication; dysphagia, poor nutrition Procedure Performed; upper endoscopy with PEG tube placement After informing the patient about procedure and possible complications consent was signed. history and physical were updated. Patient was taken to the procedure room and placed in position. Time out was completed. Adequate sedation was performed by anesthesia provider. Upper Endoscopy, the scope was placed in the mouth advanced under video guide to the second portion of the duodenum, then the scope was withdrawal to the stomach and retro-flexion was performed,, the area for the PEG tube was identified by illumination and indentation, sterilized with Betadine, injected with lidocaine, catheter was advanced through the abdominal wall was suctioning air to ensure that it is in the stomach, guidewire was advanced through the catheter and retrieved snare, 20 Vietnamese Microvasive PEG tube was placed with a pull technique without any immediate complication verification of the PEG tube was done endoscopically at the end of the case the scope was withdrawal to the esophagus then out of the mouth without any immediate complication, patient was already on antibiotic Findings; Esophagus: Normal Stomach normal, PEG tube was placed without any difficulty Duodenum normal Recommendations; 1- Supportive care 2- ok to transfer to recovery area then discharge per protocol 3-n.p.o. for 6 hours then may use feeding
--- NOTE | 2017-10-30 17:05 | P.PNGI ---
Subjective Interval history: Patient laying in bed, seems to be comfortable, still confused, family signed consent Physical Exam Vital signs: Vital Signs 10/29/17 19:13 10/29/17 20:00 10/30/17 00:00 Temperature 98.3 F 98.9 F Pulse Rate 89 90 96 H Respiratory Rate 16 18 18 Blood Pressure 139/83 158/78 H Pulse Oximetry 94 L 94 L 10/30/17 04:00 10/30/17 07:54 10/30/17 08:00 Temperature 97.7 F 98.3 F Pulse Rate 93 H 89 90 Respiratory Rate 18 16 20 Blood Pressure 153/74 H 138/67 Pulse Oximetry 97 94 L 10/30/17 10:58 10/30/17 12:00 Temperature 97.7 F Pulse Rate 89 Respiratory Rate 18 18 Blood Pressure 151/72 H Pulse Oximetry 94 L Intake & Output 10/29/17 10/30/17 10/30/17 18:59 06:59 18:59 Intake Total 1400 / 1400 1999 / 1999 Output Total 800 / 800 Balance 600 / 600 1999 / 1999 Weight 55.6 kg Intake: IV 1400 / 1400 1999 / 1999 D5W/Normal Saline Inj 1,000 ML 1000 / 1000 1000 / 1000 @ 70 mls/hr IV.CONT .[id number] [facility] Rx#:[id number] Maxipime Inj 2,000 MG In NS Inj 200 / 200 100 / 100 100 ML @ 200 mls/hr IV.SIG Q12H [facility] Rx#:[id number] Zosyn 3.375 GM Premix 50 ML @ 50 / 50 100 mls/hr IV.SIG Q6H [facility] Rx#: [id number] Zosyn 4.5 GM Premix 4.5 gm In 100 / 100 100 ml @ 200 mls/hr IV.SIG Q6H [facility] Rx#:[id number] KCl 10 mEq Premix Inj 10 meq In 400 / 400 100 ml @ 100 mls/hr IV.SIG Q2H [facility] Rx#:[id number] Flagyl 500 MG Inj 100 ML @ 100 100 / 100 200 / 200 mls/hr IV.SIG Q8H [facility] Rx#: [id number] Output: Urine 500 / 500 Urine Amount (Catheter) 300 / 300 Female External 300 / 300 Other: # Incontinent Voids 1 Date of Last Bowel Movement 10/29/17 10/26/17 - Constitutional no acute distress - Routine HEENT Exam Head: Present: normocephalic, atraumatic Eye: Present: EOMI, PERRL ENT: Present: mucous membranes moist - Routine Neck Exam Present: supple, full ROM - Routine Respiratory Exam Present: CTA bilaterally - Routine Abdominal Exam Present: soft, normoactive bowel sounds - Urinary Catheter Management Female External Cath placed during this visit: no Results - Labs CBC & Chem 7: 10/29/17 03:57 10/30/17 03:45 Laboratory Results - last 24 hr 10/29/17 10/29/17 10/30/17 03:57 17:11 03:45 Sodium 143 Potassium 3.6 Chloride 111 H Carbon Dioxide 22.3 Anion Gap 10 BUN 11 Creatinine 0.97 Estimated GFR 57 L POC Glucose 92 Random Glucose 114 H Calcium 8.0 L Magnesium 2.1 10/30/17 07:53 Sodium Potassium Chloride Carbon Dioxide Anion Gap BUN Creatinine Estimated GFR POC Glucose 102 Random Glucose Calcium Magnesium - Procedures none Assessment and Plan - Plan Assessment: - Dysphagia S/P ischemic CVA Pt presented on October 18 after being found by her roommate to have right sided facial droop, difficulty speaking, right sided paralysis and urinary incontinence. Due to pt not being seen normal since the night prior she was not felt to be a candidate for TPA. Imaging revealed bilateral ICA occlusions as well as left M1 occlusion but also noted collateralization from the posterior cranial circulation was preserved. Speech therapy eval with a modified barium swallow and was noted to demonstrate moderate to severe oral phase and moderate to severe pharyngeal phase dysphagia with high risk of aspiration of multiple consistencies due to impaired coordination or reflexive swallow trigger. Previously had a NG tube she was receiving nutrition through, however she pulled this out. The issue at present is receiving consent for further treatment. Case discussed with JONATHON Long who spoke with pts son last night who stated he agreed to have PEG placed but did not agree to replacement of NG. The issue is that the pt son seemed to be intoxicated at the time of the conversation. According to palliative care notes, the daughter has also been contacted but does not want to make medical decision alone. At this time DCF has been contacted and we are waiting for recommendations for further management. (10/29) Pt unable to make medical decisions. DCF getting involved in case because the son does not seem to be competent in making decisions and according to [place] law either both siblings have to agree or one sibling has to relinquish their rights. The daughter wants to be involved in the decision making. At this time our service will sign off, discussed with JONATHON Long- we will be available when consent can be obtained Discussed case with palliative care, Dr. Hoyt who states he spoke with both the daughter Sarah (contacted at number [phone]) and the son Ramon (contacted at number [phone]) and states both siblings were consenting to pt having a PEG tube and seemed capable to make this decision. Pt is unable to consent. 10/30/2017, consent was signed, PEG tube was placed today Findings; Esophagus: Normal Stomach normal, PEG tube was placed without any difficulty Duodenum normal Recommendations; 1- Supportive care 2- ok to transfer to recovery area then discharge per protocol 3-n.p.o. for 6 hours then may use feeding
[2017-10-30] MEDS ORDERED: *Ondansetron Inj 4 MG/2 ML Vial PERIprocedural Use ONLY ONE (17:08)
[2017-10-30] MEDS: Morphine Sulfate Inj 2 MG/ML Vial IV.PUSH PRN (20:21)
[2017-10-31] MEDS: Morphine Sulfate Inj 2 MG/ML Vial IV.PUSH PRN ×4 (02:17→21:19)
[2017-10-31] MEDS: Piperacil/Tazo 3.375 GM Premix 50 ML IV.SIG SCH ×4 (02:17→21:10)
[2017-10-31] MEDS: Aspirin 325 MG Tablet G-TUBE SCH (09:00)
--- NOTE | 2017-10-31 09:09 | P.PN ---
Subjective Interval history: 72-year-old female who was brought in by EMS because of altered mental status. History is mainly taken from ED and chart review. Apparently patient was last seen normal last night. This morning she was found with right-sided facial droop and right arm weakness. She was not following commands and was not verbal. According to her roommate who was intoxicated, patient is also an alcoholic. Head CT shows subacute left MCA CVA with petechial hemorrhages. [employer]ch reviewed shows she has history of COPD, coronary artery disease status post stent, hyperlipidemia and hypertension. Family history father of Kourtney Gehrig's and mother with cancer type not known. At this time, she is awake but has expressive aphasia. She is following commands intermittently. All other systems reviewed negative. 10/27 - Patient seen and examined. She is awake. +slurred speech and aphasia. She answers yes to all of my ROS questions. +Coarse cough. She follows some simple commands. CXR shows patchy densities RLL, likely infiltrate. 10/28 - No significant change. Discussed NG tube placement with patients son yesterday which he refused. He stated he wanted PEG tube placed and for patient to come home with Hospice. Unfortunately, patient's son was clearly under the influence of alcohol at the time of our conversation. Due to patients aphasia, it is difficult to surmise patients wishes. Palliative continues to follow the patient. 10/29 -patient seen and examined. Patient appears to have a little less right- sided facial droop today. She also appears slightly more cognitively sharp and is able to communicate a bit better. She still has significant expressive aphasia. There is also some question of receptive aphasia. Discussed with nursing staff, no acute issues noted. 10/30 Patient appears to be comfortable at present. Scheduled for PEG tube placement today. DW nursing staff, no overnight events noted. 10/31 status post PEG tube placement yesterday. Tube feeds running 10 cc/h. She could not tolerate TF at 15cc due to increased abdominal pain. She grimaces with light palpation of abdomen. She is not able to communicate very well today. Discussed with nursing staff, no acute events noted. Physical Exam Vital signs: Vital Signs 10/30/17 10:58 10/30/17 12:00 10/30/17 16:00 Temperature 97.7 F Pulse Rate 90 91 H Respiratory Rate 18 18 Blood Pressure 151/72 H Pulse Oximetry 94 L 10/30/17 17:00 10/30/17 17:15 10/30/17 17:30 Temperature 98.4 F Pulse Rate 91 H 81 84 Respiratory Rate 20 21 19 Blood Pressure 138/62 135/62 139/65 Pulse Oximetry 93 L 96 94 L 10/30/17 17:40 10/30/17 17:41 10/30/17 17:45 Temperature 98.5 F 97.6 F Pulse Rate 82 92 H Respiratory Rate 20 18 Blood Pressure 145/61 H 136/68 Pulse Oximetry 95 94 L 93 L 10/30/17 19:29 10/30/17 20:00 10/30/17 23:31 Temperature 97.4 F L Pulse Rate 93 H 93 H 120 H Respiratory Rate 18 16 16 Blood Pressure 108/53 L 154/70 H Pulse Oximetry 95 94 L 10/31/17 00:00 10/31/17 02:04 10/31/17 04:00 Temperature 99.3 F Pulse Rate 91 H 97 H 83 Respiratory Rate 18 20 Blood Pressure 129/65 Pulse Oximetry 92 L 10/31/17 05:57 Temperature 97.9 F Pulse Rate 89 Respiratory Rate 18 Blood Pressure 111/70 Pulse Oximetry 91 L Intake & Output 10/30/17 10/31/17 10/31/17 18:59 06:59 18:59 Intake Total 600 / 600 1300 / 1300 Output Total 600 / 600 Balance 0 / 0 1300 / 1300 Intake: IV 100 / 100 1300 / 1300 D5W/Normal Saline Inj 1,000 ML 1000 / 1000 @ 70 mls/hr IV.CONT .[id number] [place] Rx#:[id number] Maxipime Inj 2,000 MG In NS Inj 100 / 100 100 / 100 100 ML @ 200 mls/hr IV.SIG Q12H [place] Rx#:[id number] Zosyn 3.375 GM Premix 50 ML @ 100 / 100 100 mls/hr IV.SIG Q6H [place] Rx#: [id number] Flagyl 500 MG Inj 100 ML @ 100 100 / 100 mls/hr IV.SIG Q8H [facility] Rx#: [id number] Anesthesia Amount 500 / 500 Output: Urine 600 / 600 Other: Date of Last Bowel Movement 10/26/17 Narrative: GENERAL: WDWN elderly female, INAD. Awake. Lethargic this am. + Expressive aphasia. ?receptive aphasia SKIN: Warm and dry. No generalized rash. HEAD: Atraumatic. Normocephalic. +right sided facial droop, less pronounced. EYES: Pupils equal and round. No scleral icterus. No injection or drainage. ENT: No nasal bleeding or discharge. Mucous membranes pink and moist. NECK: Trachea midline. CARDIOVASCULAR: Regular rate and rhythm. No murmur appreciated. RESPIRATORY: No accessory muscle use. Fair air entry. Poor effort. Clear to auscultation anteriorly. GASTROINTESTINAL: Abdomen soft, nondistended, nontender to palpation. + abdominal binder on. s/p PEG tube placement, site C/D/I MUSCULOSKELETAL: Extremities without clubbing, cyanosis, or edema. NEUROLOGICAL: Awake and alert. Follows simple commands. Motor grossly intact left upper and lower extremity. +Flaccid RUE. Able to spontaneously move RLE but difficult to assess motor function. +expressive aphasia. Minimal speech. PSYCHIATRIC: Calm. Depressed affect. - Urinary Catheter Management Female External Cath placed during this visit: no Results - Labs CBC & Chem 7: 10/29/17 03:57 10/30/17 03:45 Laboratory Results - last 24 hr 10/30/17 10/31/17 20:47 07:26 POC Glucose 95 124 H - Imaging ITS Impressions Carotid Doppler Study 10/18/17 00:00 CONCLUSION: 1. Severe plaque identified at the right carotid bulb. Elevated ICA to CCA ratio on the right indicating possible high-grade stenosis. 2. Left ICA and ECA nonvisualized indicating possible occlusion. Head MRI 10/18/17 16:36 CONCLUSION: Moderate-sized acute infarct again seen in the left MCA distribution. There is some mass effect but no midline shift. Head MRA 10/18/17 16:36 CONCLUSION: Apparent occlusion of the internal carotid arteries bilaterally as well as occlusion of the left MCA proximally. Evidence of diffuse atherosclerotic disease of the right MCA. Head CT 10/19/17 00:00 CONCLUSION: 1. Evolving infarct in the left MCA distribution. . Head CTA 10/20/17 00:00 CONCLUSION: 1. Bilateral ICA occlusions as well as left M1 occlusion. Collateralization from the posterior cranial circulation is preserving flow to the bilateral anterior and right middle cranial fossa. Neck CTA 10/20/17 00:00 CONCLUSION: 1. Right ICA occludes at its origin. The left ICA is occluded at the cavernous segment with the extracranial aspect diffusely small in caliber. 2. Robust vertebral arteries bilaterally measuring 4 mm in diameter which are patent throughout. Abdomen X-Ray 10/23/17 03:16 CONCLUSION: NG tube as above. Chest X-Ray 10/26/17 00:00 CONCLUSION: Minimal patchy densities right lower lobe, likely infiltrate. Venous Doppler Study 10/27/17 00:00 CONCLUSION: 1. The study is negative for lower extremity deep venous thrombosis. Videofluoroscopic Swallow 10/27/17 00:00 CONCLUSION: Single episode of laryngeal penetration/aspiration which did elicit a cough reflex as above. - Procedures none Assessment and Plan - Assessment (1) Ischemic cerebrovascular accident (CVA) Code(s): I63.9 - Cerebral infarction, unspecified Status: Acute (2) Accelerated hypertension Code(s): I10 - Essential (primary) hypertension Status: Acute (3) Hemorrhage, petechial Code(s): R23.3 - Spontaneous ecchymoses Status: Acute (4) Right hemiplegia Code(s): G81.91 - Hemiplegia, unspecified affecting right dominant side Status : Acute (5) Aphasia Code(s): R47.01 - Aphasia Status: Acute (6) Impaired mobility and ADLs Code(s): Z74.09 - Other reduced mobility Status: Acute - Plan This is a 72-year-old female who was brought in by EMS because of altered mental status. History is mainly taken from ED and chart review. Apparently patient was last seen normal last night. This morning she was found with right- sided facial droop and right arm weakness. She was not following commands and was not verbal. According to her roommate who was intoxicated, patient is also an alcoholic. Head CT shows subacute left MCA CVA with petechial hemorrhages. Large left MCA CVA with petechial hemorrhages. Apparent occlusion of the internal carotid arteries bilaterally as well as occlusion of the left MCA proximally. Evidence of diffuse atherosclerotic disease of the right MCA. Not a surgical candidate per Dr. Chahal. LDL 48 A1c 5.9. Unremarkable echo. EKG with sinus rhythm. -Continue on aspirin, per neurology to consider anticoagulation. -Continue PT/OT/ST -Continue NPO. ST ff. Continue on D5NS until able to tolerate higher TF. -Aspiration precautions. Monitor for hypoglycemia. Neurochecks and seizure precautions -Palliative care following, appreciate assistance. Per Dr. Hoyt, patient does not have capacity but feels she is getting close. -Neuropsychology following, appreciate assistance Dysphagia -ST following. Patient failed MBS. Continue strict NPO. -GI following, appreciate assistance. PEG tube placed 10/30. Consult Head Of Marketing [employer]. Unable to tolerate Jevity 1.5 @ 15cc secondary to abdominal pain, dropped back down to 10cc. Continue to monitor. PNA, hospital associated, concern for aspiration -treated with IV abx, de-escalate to Ceftin now that PEG is in place -scheduled Duonebs -acapella, IS -supplemental oxygen to maintain O2 sats >92% CRISTA, mild, suspect secondary to dehydration -resolved s/p small IVF bolus -avoid nephrotoxic agents -monitor kidney fxn as indicated Hypokalemia K 3.2 -> 3.6 mag 2.1 -resolved s/p repletion Alcohol abuse. -CIWA protocol -seizure precautions RLE pain -Doppler negative for DVT Multiple medical conditions of COPD, coronary artery disease status post stent, hyperlipidemia and hypertension. DVT prophylaxis with SCD and early ambulation. Hold pharmacological prophylaxis secondary to petechial hemorrhages Code Status: FULL Discussed Condition With: patient, RN, Dr. Deng Discharge Planning: Palliative care following closely. Son has decided to take patient home with [facility]. Awaiting decision by daughter her preference for d/c. Patient not ready for discharge. Unable to tolerate TF. CM assisting with discharge planning.
--- NOTE | 2017-10-31 11:02 | P.PNPAL ---
Reason for Visit Reason for visit: a. To assist with evaluation and management of symptoms including: pain; dysphagia; dysphasia b. To assist medical decision maker(s) with: better understanding of current medical conditions; weighing benefits/burdens of medical treatment options; making medical treatment decisions. . Subjective Subjective/Interval History: Patient is a bit more confused, still able to follow commands, but does not recognize me. Pt just had peg tube place, anticipate mentation will improve back to previous baseline prior to procedure. Pt does appear to grimace. Morphine available. Family/Friend Interactions: Sarah has not called me back despite me leaving a message x 2. Son has been involved, spoke with case managment. Indicate he wants home health not hospice. Advance Directives Documented care wishes:: No written documentation of healthcare goals or preferences. Objective Vital Signs: Vital Signs 10/30/17 10:58 10/30/17 12:00 10/30/17 16:00 Temperature 97.7 F Pulse Rate 90 91 H Respiratory Rate 18 18 Blood Pressure 151/72 H Pulse Oximetry 94 L 10/30/17 17:00 10/30/17 17:15 10/30/17 17:30 Temperature 98.4 F Pulse Rate 91 H 81 84 Respiratory Rate 20 21 19 Blood Pressure 138/62 135/62 139/65 Pulse Oximetry 93 L 96 94 L 10/30/17 17:40 10/30/17 17:41 10/30/17 17:45 Temperature 98.5 F 97.6 F Pulse Rate 82 92 H Respiratory Rate 20 18 Blood Pressure 145/61 H 136/68 Pulse Oximetry 95 94 L 93 L 10/30/17 19:29 10/30/17 20:00 10/30/17 23:31 Temperature 97.4 F L Pulse Rate 93 H 93 H 120 H Respiratory Rate 18 16 16 Blood Pressure 108/53 L 154/70 H Pulse Oximetry 95 94 L 10/31/17 00:00 10/31/17 02:04 10/31/17 04:00 Temperature 99.3 F Pulse Rate 91 H 97 H 83 Respiratory Rate 18 20 Blood Pressure 129/65 Pulse Oximetry 92 L 10/31/17 05:57 10/31/17 08:00 10/31/17 09:23 Temperature 97.9 F 98.8 F Pulse Rate 89 88 80 Respiratory Rate 18 16 12 Blood Pressure 111/70 117/57 L Pulse Oximetry 91 L 93 L 10/31/17 10:24 Temperature Pulse Rate Respiratory Rate 18 Blood Pressure Pulse Oximetry Intake & Output 10/30/17 10/31/17 10/31/17 18:59 06:59 18:59 Intake Total 600 / 600 1300 / 1300 Output Total 600 / 600 Balance 0 / 0 1300 / 1300 Intake: IV 100 / 100 1300 / 1300 D5W/Normal Saline Inj 1,000 ML 1000 / 1000 @ 70 mls/hr IV.CONT .[id number] [facility] Rx#:[id number] Maxipime Inj 2,000 MG In NS Inj 100 / 100 100 / 100 100 ML @ 200 mls/hr IV.SIG Q12H [facility] Rx#:[id number] Zosyn 3.375 GM Premix 50 ML @ 100 / 100 100 mls/hr IV.SIG Q6H [facility] Rx#: [id number] Flagyl 500 MG Inj 100 ML @ 100 100 / 100 mls/hr IV.SIG Q8H [facility] Rx#: [id number] Anesthesia Amount 500 / 500 Output: Urine 600 / 600 Other: Date of Last Bowel Movement 10/26/17 Physical Exam: CONSTITUTIONAL/GENERAL: This is an adequately nourished patient. There is occasional grimacing. She is unable to move her right side. There is a right facial droop. She vocalizes but is unable to put together a meaningful sentence. A bit more painful. TUBES/LINES/DRAINS: Peripheral IV SKIN: No jaundice, rashes, or lesions. No wounds seen anteriorly. Skin temperature appropriate. Not diaphoretic. HEAD: Atraumatic. Normocephalic. EYES: Pupils equal and round and reactive. Extraocular motions intact. No scleral icterus. No injection or drainage. Fundi not examined. ENT: She turns to voice and follows some simple commands--otherwise cannot further assess hearing.. Nose without bleeding or purulent drainage. Throat without visible erythema, exudates, masses, or lesions. Mucous membranes are dry. Right facial droop. NECK: Trachea midline. Supple, nontender. No palpable thyroid enlargement or nodularity. CARDIOVASCULAR: Regular rate and rhythm without murmurs, gallops, or rubs. No JVD. Peripheral pulses symmetric. RESPIRATORY/CHEST: Symmetric, unlabored respirations. Clear to auscultation. Breath sounds equal bilaterally. No wheezes, rales, or rhonchi. GASTROINTESTINAL: Abdomen soft, non-tender, nondistended. No hepato-splenomegaly , or palpable masses. No guarding. Bowel sounds present. GENITOURINARY: Without palpable bladder distension. MUSCULOSKELETAL: Extremities without clubbing, cyanosis, or edema. No joint tenderness or effusion noted. No calf tenderness. No mottling or clubbing. LYMPHATICS: No palpable cervical or supraclavicular adenopathy. NEUROLOGICAL: Awake and alert. Follows some simple commands. No voluntary movements of the right upper or lower extremities. Right facial droop. certainly expressive dysphasia. PSYCHIATRIC: Intermittent tearfulness. No apparent hallucinations or other psychotic thought process. . Diagnostic Tests Laboratory: Laboratory Results - last 72 hr 10/28/17 10/28/17 10/28/17 09:46 12:37 17:23 WBC RBC Hgb Hct MCV MCH MCHC RDW Plt Count MPV Neut % (Auto) Lymph % (Auto) [place] % (Auto) Eos % (Auto) Baso % (Auto) Neut # (Auto) Lymph # (Auto) [place] # (Auto) Eos # (Auto) Baso # (Auto) WBC Differential Differential Comment Sodium 142 Potassium 3.4 L Chloride 108 H Carbon Dioxide 24.8 Anion Gap 9 BUN 14 Creatinine 0.98 Estimated GFR 56 L POC Glucose 115 H 107 Random Glucose 131 H Calcium 8.2 L Magnesium 10/29/17 10/29/17 10/29/17 03:57 03:57 03:57 WBC 7.7 RBC 3.69 L Hgb 11.7 Hct 33.5 L MCV 91.0 MCH 31.8 MCHC 35.0 RDW 13.0 Plt Count 349 D MPV 8.1 Neut % (Auto) 63.6 Lymph % (Auto) 16.6 [place] % (Auto) 11.6 H Eos % (Auto) 6.9 H Baso % (Auto) 1.3 Neut # (Auto) 4.9 Lymph # (Auto) 1.3 [place] # (Auto) 0.9 Eos # (Auto) 0.5 H Baso # (Auto) 0.1 WBC Differential . Differential Comment Auto diff final Sodium 143 Potassium 3.2 L Chloride 110 H Carbon Dioxide 23.6 Anion Gap 9 BUN 13 Creatinine 1.01 H Estimated GFR 54 L POC Glucose Random Glucose 103 Calcium 8.0 L Magnesium 2.1 08/15/18 08/15/18 08/15/18 06:55 07:43 11:41 WBC RBC Hgb Hct MCV MCH MCHC RDW Plt Count MPV Neut % (Auto) Lymph % (Auto) [place] % (Auto) Eos % (Auto) Baso % (Auto) Neut # (Auto) Lymph # (Auto) [place] # (Auto) Eos # (Auto) Baso # (Auto) WBC Differential Differential Comment Sodium Potassium Chloride Carbon Dioxide Anion Gap BUN Creatinine Estimated GFR POC Glucose 98 103 98 Random Glucose Calcium Magnesium 10/29/17 10/30/17 10/30/17 17:11 03:45 07:53 WBC RBC Hgb Hct MCV MCH MCHC RDW Plt Count MPV Neut % (Auto) Lymph % (Auto) [place] % (Auto) Eos % (Auto) Baso % (Auto) Neut # (Auto) Lymph # (Auto) [place] # (Auto) Eos # (Auto) Baso # (Auto) WBC Differential Differential Comment Sodium 143 Potassium 3.6 Chloride 111 H Carbon Dioxide 22.3 Anion Gap 10 BUN 11 Creatinine 0.97 Estimated GFR 57 L POC Glucose 92 102 Random Glucose 114 H Calcium 8.0 L Magnesium 10/30/17 10/31/17 20:47 07:26 WBC RBC Hgb Hct MCV MCH MCHC RDW Plt Count MPV Neut % (Auto) Lymph % (Auto) [place] % (Auto) Eos % (Auto) Baso % (Auto) Neut # (Auto) Lymph # (Auto) [place] # (Auto) Eos # (Auto) Baso # (Auto) WBC Differential Differential Comment Sodium Potassium Chloride Carbon Dioxide Anion Gap BUN Creatinine Estimated GFR POC Glucose 95 124 H Random Glucose Calcium Magnesium Result Diagrams: 10/29/17 03:57 10/30/17 03:45 Imaging: ITS Impressions Carotid Doppler Study 10/18/17 00:00 CONCLUSION: 1. Severe plaque identified at the right carotid bulb. Elevated ICA to CCA ratio on the right indicating possible high-grade stenosis. 2. Left ICA and ECA nonvisualized indicating possible occlusion. Head MRI 10/18/17 16:36 CONCLUSION: Moderate-sized acute infarct again seen in the left MCA distribution. There is some mass effect but no midline shift. Head MRA 10/18/17 16:36 CONCLUSION: Apparent occlusion of the internal carotid arteries bilaterally as well as occlusion of the left MCA proximally. Evidence of diffuse atherosclerotic disease of the right MCA. Head CT 10/19/17 00:00 CONCLUSION: 1. Evolving infarct in the left MCA distribution. . Head CTA 10/20/17 00:00 CONCLUSION: 1. Bilateral ICA occlusions as well as left M1 occlusion. Collateralization from the posterior cranial circulation is preserving flow to the bilateral anterior and right middle cranial fossa. Neck CTA 10/20/17 00:00 CONCLUSION: 1. Right ICA occludes at its origin. The left ICA is occluded at the cavernous segment with the extracranial aspect diffusely small in caliber. 2. Robust vertebral arteries bilaterally measuring 4 mm in diameter which are patent throughout. Abdomen X-Ray 10/23/17 03:16 CONCLUSION: NG tube as above. Chest X-Ray 10/26/17 00:00 CONCLUSION: Minimal patchy densities right lower lobe, likely infiltrate. Venous Doppler Study 10/27/17 00:00 CONCLUSION: 1. The study is negative for lower extremity deep venous thrombosis. Videofluoroscopic Swallow 10/27/17 00:00 CONCLUSION: Single episode of laryngeal penetration/aspiration which did elicit a cough reflex as above. Procedures: peg tube placement 10/31/2017 Assessment and Plan - Disease Oriented Problem List (1) Ischemic cerebrovascular accident (CVA) (2) Accelerated hypertension (3) Hemorrhage, petechial (4) Right hemiplegia (5) Aphasia (6) Impaired mobility and ADLs (7) Chronic back pain (8) Scoliosis (9) Spinal stenosis (10) COPD (chronic obstructive pulmonary disease) Comment: It does not look like she was 02 dependent , but per daughter, had to stop working due to lung disease many years ago. (11) [place] (hard of hearing) (12) Depression (13) Arthritis (14) Myocardial infarct Comment: 2008 and 2011 (15) Dysphagia - Symptom Scale (1) Pain 0-10 Scale: Unable to quantify (2) Dysphagia 0-10 Scale: Unable to quantify Pertinent Non-Medical Issues: Psychosocial:Originally from [place]. Lived in [place] much of adult life. Moved to [place] 2 years ago. twice. 1st . 2nd from cancer about 10 years ago under hospice care. Two children -- Son (Ramon Byrne) lives with patient. Daughter (Sarah) lives in [place]. There is a sister (Linda) who lives in [place]. 12th grade education. Worked at [employer] -- stopped working due to COPD. Spiritual: Daughter tells me that patient self-identifies as Zoroastrian. Daughter did not feel the patient would appreciate welder/installer visits. Legal: No known advance directive. Ethical issues impacting care: No known ethical issues at this time. . Important Contacts: Ramon Byrne (son) -- (need to leave a verbal message with someone and son will call back). [phone] JoB. Sarah (daughter) -- [phone] Lives in [place] Linda (sister) [phone] Lives in [place] . Prognosis: Patient has had a major stroke with right sided hemiparesis, dysphasia, and dysphagia. She is subject to the multiple complications of a major stroke, especially aspiration pneumonia. Unclear at this time to what extent she may have some neurological recovery. Unfortunately, she also has some significant underlying comorbidities including COPD, severe CAD, and spinal stenosis with chronic back pain. All of these may impact her ability to successfully rehab. Capacity however seems to be improving. . Code Status: Full Code (Patient unable to participate in code status discussion. Daughter is uncertain about patient's wishes. Have not been able to contact son.) Plan: == Code Status: FULL CODE. Patient unable to participate in code status discussion. Daughter is uncertain about patient's wishes. Son is uncertain. Therefore, patient remains FULL CODE. == Decision Making: I feel patient is getting very close in terms of capacity to make medical decisions. I don't feel currently she could weigh the risk and benefits of medical decisions given some the poor memory recall, but she is able to answer many of the yes and no questions correctly compare to prior days ago. == Goals of medical treatment: ewed the following: * Pt is at risk for aspiration, infection, and recurrent stroke: these are all obstacles and barrier for patient to get better. * In terms of capacity, each day she has made progress, and I suspect she is getting close to getting capacity to make medical decisions * If she is able to regain capacity to make medical decisions; the decision making is not going to fall on her children, but the patient herself. * told (son)Ramon, if she does not regain capacity, he alone cannot make medical decisions, but require Sarah to be involved. * Given some of the neurological progress, hospice would need to evaluate, weather patient prognosis is less than 6 months or not? * Son has been involved, spoke with case managment. Indicate he wants home health not hospice. I am awaiting for Sarah's call back. She has not the past 2 days. == Symptoms * Pain: patient has suffered from years of chronic back pain due to a combination of degenerative disc disease, scoliosis, and spinal stenosis. It is unclear what medications, if any, the patient was using. On top of his chronic pain, patient may have additional discomfort from her prolonged bedbound status and from her vascular access lines. Patient s/p peg tube procedure, prns available. * Dysphagia: Peg tube, gi on board and will increase tube feedings gradually. * Dysphasia: Isolated words are understood. Patient is unable to put together a full sentence. * Dyspnea: Reported long history of COPD. It does not seem that she was on home oxygen though she did use nebulizers at home. == PLAN * Await Sarah call back. * We continue to check for patient's capacity frequently. I feel she is close to getting capacity to make medical decisions, and am considering psych eval to evaluate [facility] with their expertise. == Palliative care will continue to follow to assist with symptom management and to further clarify goals of medical treatment as the clinical course evolves. d/w medical team. d/w gi team. Attestation Collaborating MD Comments: To help prompt me to consider important information that might be impacting today's encounter and assessment, information from prior notes written by myself or my colleagues may have been "brought forward" into today's note. My signature on this note, however, is an attestation that I personally performed the exam, history, and/or decision-making noted today, and, unless otherwise indicated, the interactions with patient, family, and staff as well as the review of records all occurred today. I also attest that the listed assessment and stated plan reflect my best clinical judgment today based on the combination of historical information, prior notes, and today's exam/ interactions. When time spent is documented, it refers only to time spent today by the signer, or if indicated, combined time spent today by collaborating physician/nurse practitioner. Attestation: To help prompt me to consider important information that might be impacting today's encounter and assessment, information from prior notes written by myself or my colleagues may have been "brought forward" into today's note. My signature on this note, however, is an attestation that I personally performed the exam, history, and/or decision-making noted today, and, unless otherwise indicated, the interactions with patient, family, and staff as well as the review of records all occurred today. I also attest that the listed assessment and stated plan reflect my best clinical judgment today based on the combination of historical information, prior notes, and today's exam/ interactions. When time spent is documented, it refers only to time spent today by the signer, or if indicated, combined time spent today by collaborating physician/nurse practitioner.
--- NOTE | 2017-10-31 13:03 | P.PNGI ---
Subjective Interval history: Patient has eyes open today responding to simple conversation with her facial expression No obvious nausea or vomiting Hemoglobin 11.7 on 10/29, no obvious bleeding Patient is status post PEG tube placement <Marilyn Liang - Last Filed: 10/31/17 12:56> Interval history: Agree with above note, patient was seen and examined, will sign off at this time <Daniel Watt - Last Filed: 10/31/17 15:32> Physical Exam Vital signs: Vital Signs 10/30/17 16:00 10/30/17 17:00 10/30/17 17:15 Temperature 98.4 F Pulse Rate 91 H 91 H 81 Respiratory Rate 20 21 Blood Pressure 138/62 135/62 Pulse Oximetry 93 L 96 10/30/17 17:30 10/30/17 17:40 10/30/17 17:41 Temperature 98.5 F Pulse Rate 84 82 Respiratory Rate 19 20 Blood Pressure 139/65 145/61 H Pulse Oximetry 94 L 95 94 L 10/30/17 17:45 10/30/17 19:29 10/30/17 20:00 Temperature 97.6 F 97.4 F L Pulse Rate 92 H 93 H 93 H Respiratory Rate 18 18 16 Blood Pressure 136/68 108/53 L Pulse Oximetry 93 L 95 10/30/17 23:31 10/31/17 00:00 10/31/17 02:04 Temperature 99.3 F Pulse Rate 120 H 91 H 97 H Respiratory Rate 16 18 20 Blood Pressure 154/70 H 129/65 Pulse Oximetry 94 L 92 L 10/31/17 04:00 10/31/17 05:57 10/31/17 08:00 Temperature 97.9 F 98.8 F Pulse Rate 83 89 88 Respiratory Rate 18 16 Blood Pressure 111/70 117/57 L Pulse Oximetry 91 L 93 L 10/31/17 09:23 10/31/17 10:24 10/31/17 12:00 Temperature 98.2 F Pulse Rate 80 92 H Respiratory Rate 12 18 18 Blood Pressure 95/60 L Pulse Oximetry 93 L Intake & Output 10/30/17 10/31/17 10/31/17 18:59 06:59 18:59 Intake Total 600 / 600 1300 / 1300 Output Total 600 / 600 Balance 0 / 0 1300 / 1300 Intake: IV 100 / 100 1300 / 1300 D5W/Normal Saline Inj 1,000 ML 1000 / 1000 @ 70 mls/hr IV.CONT .[id number] [facility] Rx#:[id number] Maxipime Inj 2,000 MG In NS Inj 100 / 100 100 / 100 100 ML @ 200 mls/hr IV.SIG Q12H [facility] Rx#:[id number] Zosyn 3.375 GM Premix 50 ML @ 100 / 100 100 mls/hr IV.SIG Q6H [facility] Rx#: [id number] Flagyl 500 MG Inj 100 ML @ 100 100 / 100 mls/hr IV.SIG Q8H [facility] Rx#: [id number] Anesthesia Amount 500 / 500 Output: Urine 600 / 600 Other: Date of Last Bowel Movement 10/26/17 - Constitutional no acute distress - Routine HEENT Exam Head: Present: normocephalic (Facial droop status post CVA) ENT: Present: mucous membranes dry - Routine Respiratory Exam Present: accessory muscle use (Even, unlabored) - Routine Cardiovascular Exam Present: S1, S2 - Routine Abdominal Exam Present: soft - Routine Skin Exam Present: intact - Routine Neurological Exam Present: alert (More awake today eyes open, ) - Urinary Catheter Management Female External Cath placed during this visit: no <Marilyn Liang - Last Filed: 10/31/17 12:56> Vital signs: Vital Signs 10/30/17 16:00 10/30/17 17:00 10/30/17 17:15 Temperature 98.4 F Pulse Rate 91 H 91 H 81 Respiratory Rate 20 21 Blood Pressure 138/62 135/62 Pulse Oximetry 93 L 96 10/30/17 17:30 10/30/17 17:40 10/30/17 17:41 Temperature 98.5 F Pulse Rate 84 82 Respiratory Rate 19 20 Blood Pressure 139/65 145/61 H Pulse Oximetry 94 L 95 94 L 10/30/17 17:45 10/30/17 19:29 10/30/17 20:00 Temperature 97.6 F 97.4 F L Pulse Rate 92 H 93 H 93 H Respiratory Rate 18 18 16 Blood Pressure 136/68 108/53 L Pulse Oximetry 93 L 95 10/30/17 23:31 10/31/17 00:00 10/31/17 02:04 Temperature 99.3 F Pulse Rate 120 H 91 H 97 H Respiratory Rate 16 18 20 Blood Pressure 154/70 H 129/65 Pulse Oximetry 94 L 92 L 10/31/17 04:00 10/31/17 05:57 10/31/17 08:00 Temperature 97.9 F 98.8 F Pulse Rate 83 89 88 Respiratory Rate 18 16 Blood Pressure 111/70 117/57 L Pulse Oximetry 91 L 93 L 10/31/17 09:23 10/31/17 10:24 10/31/17 12:00 Temperature 98.2 F Pulse Rate 80 92 H Respiratory Rate 12 18 18 Blood Pressure 95/60 L Pulse Oximetry 93 L 10/31/17 13:26 Temperature Pulse Rate 94 H Respiratory Rate 12 Blood Pressure Pulse Oximetry Intake & Output 10/30/17 10/31/17 10/31/17 18:59 06:59 18:59 Intake Total 600 / 600 1350 / 1350 Output Total 600 / 600 Balance 0 / 0 1350 / 1350 Intake: IV 100 / 100 1350 / 1350 D5W/Normal Saline Inj 1,000 ML 1000 / 1000 @ 70 mls/hr IV.CONT .[id number] [facility] Rx#:[id number] Maxipime Inj 2,000 MG In NS Inj 100 / 100 100 / 100 100 ML @ 200 mls/hr IV.SIG Q12H [facility] Rx#:[id number] Zosyn 3.375 GM Premix 50 ML @ 150 / 150 100 mls/hr IV.SIG Q6H [facility] Rx#: [id number] Flagyl 500 MG Inj 100 ML @ 100 100 / 100 mls/hr IV.SIG Q8H [facility] Rx#: [id number] Anesthesia Amount 500 / 500 Output: Urine 600 / 600 Other: Date of Last Bowel Movement 10/26/17 - Urinary Catheter Management Female External Cath placed during this visit: no <Daniel Watt - Last Filed: 10/31/17 15:32> Results - Labs CBC & Chem 7: 10/29/17 03:57 10/30/17 03:45 Laboratory Results - last 24 hr 10/30/17 10/31/17 20:47 07:26 POC Glucose 95 124 H - Procedures none <Marilyn Liang - Last Filed: 10/31/17 12:56> - Labs CBC & Chem 7: 10/29/17 03:57 10/30/17 03:45 Laboratory Results - last 24 hr 10/30/17 10/31/17 20:47 07:26 POC Glucose 95 124 H <Daniel Watt - Last Filed: 10/31/17 15:32> Assessment and Plan - Plan Assessment: - Dysphagia S/P ischemic CVA Pt presented on October 18 after being found by her roommate to have right sided facial droop, difficulty speaking, right sided paralysis and urinary incontinence. Due to pt not being seen normal since the night prior she was not felt to be a candidate for TPA. Imaging revealed bilateral ICA occlusions as well as left M1 occlusion but also noted collateralization from the posterior cranial circulation was preserved. Speech therapy eval with a modified barium swallow and was noted to demonstrate moderate to severe oral phase and moderate to severe pharyngeal phase dysphagia with high risk of aspiration of multiple consistencies due to impaired coordination or reflexive swallow trigger. Previously had a NG tube she was receiving nutrition through, however she pulled this out. The issue at present is receiving consent for further treatment. Case discussed with JONATHON Long who spoke with pts son last night who stated he agreed to have PEG placed but did not agree to replacement of NG. The issue is that the pt son seemed to be intoxicated at the time of the conversation. According to palliative care notes, the daughter has also been contacted but does not want to make medical decision alone. At this time DCF has been contacted and we are waiting for recommendations for further management. (10/29) Pt unable to make medical decisions. DCF getting involved in case because the son does not seem to be competent in making decisions and [place] either both siblings have to agree or one sibling has to relinquish their rights. The daughter wants to be involved in the decision making. At this time our service will sign off, discussed with JONATHON Long- we will be available when consent can be obtained Discussed case with palliative care, Dr. Hoyt who states he spoke with both the daughter Sarah (contacted at number [phone]) and the son Ramon (contacted at number [phone]) and states both siblings were consenting to pt having a PEG tube and seemed capable to make this decision. Pt is unable to consent. 10/30/2017, consent was signed, PEG tube was placed today. Note esophagus normal stomach normal PEG tube was placed with no difficulty duodenum normal 10/31/2017, status post PEG tube placement day 1. Patient is tolerating Jevity 1.5 trickle feeds at 10 cc an hour. As long as patient tolerates it without high residuals may increase to goal rate. IV fluids continue at 70 cc an hour until patient is receiving enough hydration. Palliative care visit noted currently is not moving forward with any type of hospice for now. Hope is that patient can help make those decisions for herself. GI is available for any acute GI symptoms changes or problems with PEG tube otherwise will see as needed and can follow on an outpatient basis if needed. Plan Diet tube feeds, may increase to goal rate Monitor labs for any acute bleeding Any pain management per attending Supportive care Patient was seen per myself and Dr. Watt, note was written on his behalf <Marilyn Liang - Last Filed: 10/31/17 12:56>
[2017-11-01] MEDS: Dextrose 5%/NaCl 0.9% Inj 1,000 ML IV.CONT SCH (04:13)
[2017-11-01] MEDS: Morphine Sulfate Inj 2 MG/ML Vial IV.PUSH PRN (04:30)
[2017-11-01] MEDS: Piperacil/Tazo 3.375 GM Premix 50 ML IV.SIG SCH ×2 (04:30→08:03)
--- NOTE | 2017-11-01 07:22 | P.PN ---
Subjective Interval history: 72-year-old female who was brought in by EMS because of altered mental status. History is mainly taken from ED and chart review. Apparently patient was last seen normal last night. This morning she was found with right-sided facial droop and right arm weakness. She was not following commands and was not verbal. According to her roommate who was intoxicated, patient is also an alcoholic. Head CT shows subacute left MCA CVA with petechial hemorrhages. Meditech reviewed shows she has history of COPD, coronary artery disease status post stent, hyperlipidemia and hypertension. Family history father of Kourtney Gehrig's and mother with cancer type not known. At this time, she is awake but has expressive aphasia. She is following commands intermittently. All other systems reviewed negative. 10/27 - Patient seen and examined. She is awake. +slurred speech and aphasia. She answers yes to all of my ROS questions. +Coarse cough. She follows some simple commands. CXR shows patchy densities RLL, likely infiltrate. 10/28 - No significant change. Discussed NG tube placement with patients son yesterday which he refused. He stated he wanted PEG tube placed and for patient to come home with Hospice. Unfortunately, patient's son was clearly under the influence of alcohol at the time of our conversation. Due to patients aphasia, it is difficult to surmise patients wishes. Palliative continues to follow the patient. 10/29 -patient seen and examined. Patient appears to have a little less right- sided facial droop today. She also appears slightly more cognitively sharp and is able to communicate a bit better. She still has significant expressive aphasia. There is also some question of receptive aphasia. Discussed with nursing staff, no acute issues noted. 10/30 Patient appears to be comfortable at present. Scheduled for PEG tube placement today. DW nursing staff, no overnight events noted. 10/31 status post PEG tube placement yesterday. Tube feeds running 10 cc/h. She could not tolerate TF at 15cc due to increased abdominal pain. She grimaces with light palpation of abdomen. She is not able to communicate very well today. Discussed with nursing staff, no acute events noted. 11/01 Patient is stable. Patient does not appear to be tolerating TF well, at 15cc currently. Patient grimacing with palpation of abdomen diffusely. +BM per nursing staff. DW nursing staff, no acute events overnight. Physical Exam Vital signs: Vital Signs 10/31/17 08:00 10/31/17 09:23 10/31/17 10:24 Temperature 98.8 F Pulse Rate 90 80 Respiratory Rate 16 12 18 Blood Pressure 117/57 L Pulse Oximetry 93 L 10/31/17 12:00 10/31/17 13:26 10/31/17 16:00 Temperature 98.2 F 99.0 F Pulse Rate 95 H 94 H 96 H Respiratory Rate 18 12 18 Blood Pressure 95/60 L 108/63 Pulse Oximetry 93 L 92 L 10/31/17 20:00 11/01/17 00:00 11/01/17 03:38 Temperature 98.6 F 98.7 F Pulse Rate 95 H 84 Respiratory Rate 18 20 18 Blood Pressure 111/60 109/65 Pulse Oximetry 93 L 93 L 11/01/17 04:00 11/01/17 04:30 Temperature 98.5 F Pulse Rate 80 113 H Respiratory Rate 17 Blood Pressure 112/67 Pulse Oximetry 94 L Intake & Output 10/31/17 11/01/17 11/01/17 18:59 06:59 18:59 Intake Total 470 / 470 50 / 50 Output Total 300 / 300 Balance 170 / 170 50 / 50 Weight 55.5 kg Intake: IV 50 / 50 50 / 50 Zosyn 3.375 GM Premix 50 ML @ 50 / 50 50 / 50 100 mls/hr IV.SIG Q6H [facility] Rx#: [id number] Tube Feeding 120 / 120 Tube Irrigant 300 / 300 Output: Urine 300 / 300 Other: # Bowel Movements 0 Narrative: GENERAL: WDWN elderly female, INAD. Awake and alert. +Expressive aphasia. ?receptive aphasia SKIN: Warm and dry. No generalized rash. HEENT: Atraumatic. Normocephalic. +right sided facial droop, less pronounced. Pupils equal and round. No scleral icterus. No injection or drainage. No nasal bleeding or discharge. Mucous membranes pink and moist. NECK: Trachea midline. CARDIOVASCULAR: Regular rate and rhythm. No murmur appreciated. RESPIRATORY: No accessory muscle use. Fair air entry. Poor effort. Clear to auscultation anteriorly. GASTROINTESTINAL: Abdomen soft, nondistended. +abdominal binder on. s/p PEG tube placement, site C/D/I. +diffuse tenderness to palpation. +Suprapubic tenderness to palpation. +BS. MUSCULOSKELETAL: Extremities without clubbing, cyanosis, or edema. NEUROLOGICAL: Awake and alert. Follows simple commands. Motor grossly intact left upper and lower extremity. +Flaccid RUE. Able to spontaneously move RLE but difficult to assess motor function. +expressive aphasia. Minimal speech. PSYCHIATRIC: Calm. Depressed affect. - Urinary Catheter Management Female External Cath placed during this visit: no Results - Labs CBC & Chem 7: 11/01/17 09:35 11/01/17 09:35 Laboratory Results - last 24 hr 10/31/17 10/31/17 10/31/17 07:26 16:54 21:22 POC Glucose 124 H 147 H 125 H - Procedures none Assessment and Plan - Assessment (1) Ischemic cerebrovascular accident (CVA) Code(s): I63.9 - Cerebral infarction, unspecified Status: Acute (2) Accelerated hypertension Code(s): I10 - Essential (primary) hypertension Status: Acute (3) Hemorrhage, petechial Code(s): R23.3 - Spontaneous ecchymoses Status: Acute (4) Right hemiplegia Code(s): G81.91 - Hemiplegia, unspecified affecting right dominant side Status : Acute (5) Aphasia Code(s): R47.01 - Aphasia Status: Acute (6) Impaired mobility and ADLs Code(s): Z74.09 - Other reduced mobility Status: Acute - Plan This is a 72-year-old female who was brought in by EMS because of altered mental status. History is mainly taken from ED and chart review. Apparently patient was last seen normal last night. This morning she was found with right- sided facial droop and right arm weakness. She was not following commands and was not verbal. According to her roommate who was intoxicated, patient is also an alcoholic. Head CT shows subacute left MCA CVA with petechial hemorrhages. Large left MCA CVA with petechial hemorrhages. Apparent occlusion of the internal carotid arteries bilaterally as well as occlusion of the left MCA proximally. Evidence of diffuse atherosclerotic disease of the right MCA. Not a surgical candidate per Dr. Chahal. LDL 48 A1c 5.9. Unremarkable echo. EKG with sinus rhythm. -Continue on aspirin, per neurology to consider anticoagulation. -Continue PT/OT/ST -Continue NPO. ST ff. -Aspiration precautions. Monitor for hypoglycemia. Neurochecks and seizure precautions -Palliative care following, appreciate assistance. Per Dr. Hoyt, patient does not have capacity but feels she is getting close. -Neuropsychology following, appreciate assistance Dysphagia -ST following. Patient failed MBS. Continue strict NPO. -GI following, appreciate assistance. PEG tube placed 10/30. Consult [employer] Drier. Poorly tolerating Jevity 1.5 @ 15cc secondary to abdominal pain. Continue to monitor. -Continue on IVF hydration until able to tolerate increase TF rate -Continue with IV Morphine and Tramadol prn pain Abdominal discomfort she is afebrile. no white count ?due to poorly tolerating TF -obtain KUB and UA -CMP pending -monitor PNA, hospital associated, concern for aspiration -treated with IV abx, now on Ceftin -scheduled Duonebs -acapella, IS -supplemental oxygen to maintain O2 sats >92% CRISTA, mild, suspect secondary to dehydration -resolved s/p small IVF bolus -avoid nephrotoxic agents -monitor kidney fxn as indicated Hypokalemia resolved s/p repletion -repeat BMP pending for today Alcohol abuse. -no evidence of withdrawal Multiple medical conditions of COPD, coronary artery disease status post stent, hyperlipidemia and hypertension. DVT prophylaxis with SCD and early ambulation. Hold pharmacological prophylaxis secondary to petechial hemorrhages Code Status: FULL Discussed Condition With: patient, nursing staff, Dr. Deng Discharge Planning: Palliative care following closely. Son has decided to take patient home with [facility]. Awaiting decision by daughter her preference for d/c. Patient not ready for discharge. Unable to tolerate TF. CM assisting with discharge planning.
[2017-11-01] MEDS: Aspirin 325 MG Tablet G-TUBE SCH (08:02)
--- NOTE | 2017-11-01 09:21 | XR ---
EXAM DATE: 11/01/2017 8:56 AM EDT AGE/SEX: 72 years / Female INDICATIONS: Pain. CLINICAL DATA: This is the patient's subsequent encounter. Patient reports that signs and symptoms h ave been present for 1 day and indicates a pain score of 2/10. MEDICAL/SURGICAL HISTORY: . Chronic obstructive pulmonary disease. Hypertension. Arthritis. Cor onary artery disease. Depression. Hyperlipidemia. Hard of hearing. Myocardial infarction . Coronary artery stent. COMPARISON: [facility] [place], ABDOMEN SINGLE VIEW, 10/23/2017. . FINDINGS: Single AP view of the abdomen. Gastrostomy tube is in place. Scattered contrast in the colon. Scatte red gas in nondilated small bowel. Prominent degenerative findings of the lumbar spine. CONCLUSION: Scattered contrast in the colon. Nonspecific bowel gas in nondilated small bowel. Electronically signed by: Piter Cleveland MD 11/01/2017 9:20 AM EDT
[2017-11-01 10:51] LABS: Baso % (Auto) 0.4 % (0.0-2.0); Eos # (Auto) 0.5 th/mm3 (0.0-0.4); Eos % (Auto) 4.9 % (0.0-4.0); Hematocrit 34.7 % (35.0-46.0); Hemoglobin 11.6 gm/dL (11.6-15.3); Lymph % (Auto) 9.2 % (9.0-44.0); Mean Corpuscular HGB Conc 33.4 % (32.0-36.0); Mean Corpuscular Hemoglobin 31.4 pg (27.0-34.0); Mean Corpuscular Volume 93.9 fL (80.0-100.0); Mono # (Auto) 0.6 th/mm3 (0.0-0.9); Mono % (Auto) 5.8 % (0.0-8.0); Neut # (Auto) 8.6 th/mm3 (1.8-7.7); Neut % (Auto) 79.7 % (16.0-70.0); Platelet Count 432 th/mm3 (150-450); Red Blood Count 3.69 mil/mm3 (4.00-5.30); Red Cell Distribution Width 13.3 % (11.6-17.2); White Blood Count 10.8 th/mm3 (4.0-11.0)
[2017-11-01 11:12] LABS: Alanine Aminotransferase 24 U/L (10-53); Anion Gap 7 meq/L (5-15); Aspartate Aminotransferase 38 U/L (15-37); Blood Urea Nitrogen 11 mg/dL (7-18); Calcium 7.9 mg/dL (8.5-10.1); Carbon Dioxide 26.3 meq/L (21.0-32.0); Chloride 109 meq/L (98-107); Glomerular Filtration Rate 60 mL/min (>89); Glucose,Random 122 mg/dL (74-106); Lipase 69 U/L (73-393); Potassium 3.3 meq/L (3.5-5.1); Sodium 142 meq/L (136-145)
[2017-11-01 11:14] LABS: Alkaline Phosphatase 37 U/L (45-117); Total Protein 6.2 g/dL (6.4-8.2)
[2017-11-01] MEDS ORDERED: Potassium Chloride 25 MEQ Effervescent Tablet G-TUBE ONE (13:27)
[2017-11-01 19:45] LABS: Bilirubin,Urine Negative (Negative); Clarity,Urine Clear (Clear); Color,Urine Straw (Yellw/Straw); Glucose,Urine (UA) Negative (Negative); Leukocyte Esterase,Urine Negative (Negative); Mucus,Urine Few /lpf (Occasional); Nitrite,Urine Negative (Negative); Specific Gravity,Urine 1.009 (1.002-1.035); Squamous Epithelial Cell,Urine <1 /hpf (0-5)
[2017-11-02] MEDS: Dextrose 5%/NaCl 0.9% Inj 1,000 ML IV.CONT SCH ×2 (01:06→23:14)
[2017-11-02 05:35] LABS: Calcium 8.3 mg/dL (8.5-10.1); Carbon Dioxide 26.7 meq/L (21.0-32.0); Potassium 3.4 meq/L (3.5-5.1)
--- NOTE | 2017-11-02 07:28 | P.PN ---
Subjective Interval history: 72-year-old female who was brought in by EMS because of altered mental status. History is mainly taken from ED and chart review. Apparently patient was last seen normal last night. This morning she was found with right-sided facial droop and right arm weakness. She was not following commands and was not verbal. According to her roommate who was intoxicated, patient is also an alcoholic. Head CT shows subacute left MCA CVA with petechial hemorrhages. Meditech reviewed shows she has history of COPD, coronary artery disease status post stent, hyperlipidemia and hypertension. Family history father of Kourtney Gehrig's and mother with cancer type not known. At this time, she is awake but has expressive aphasia. She is following commands intermittently. All other systems reviewed negative. 10/27 - Patient seen and examined. She is awake. +slurred speech and aphasia. She answers yes to all of my ROS questions. +Coarse cough. She follows some simple commands. CXR shows patchy densities RLL, likely infiltrate. 10/28 - No significant change. Discussed NG tube placement with patients son yesterday which he refused. He stated he wanted PEG tube placed and for patient to come home with Hospice. Unfortunately, patient's son was clearly under the influence of alcohol at the time of our conversation. Due to patients aphasia, it is difficult to surmise patients wishes. Palliative continues to follow the patient. 10/29 -patient seen and examined. Patient appears to have a little less right- sided facial droop today. She also appears slightly more cognitively sharp and is able to communicate a bit better. She still has significant expressive aphasia. There is also some question of receptive aphasia. Discussed with nursing staff, no acute issues noted. 10/30 Patient appears to be comfortable at present. Scheduled for PEG tube placement today. DW nursing staff, no overnight events noted. 10/31 status post PEG tube placement yesterday. Tube feeds running 10 cc/h. She could not tolerate TF at 15cc due to increased abdominal pain. She grimaces with light palpation of abdomen. She is not able to communicate very well today. Discussed with nursing staff, no acute events noted. 11/01 Patient is stable. Patient does not appear to be tolerating TF well, at 15cc currently. Patient grimacing with palpation of abdomen diffusely. +BM per nursing staff. DW nursing staff, no acute events overnight. 11/02 Patient still with c/o abdominal pain. No vomiting. TF running at 15cc. She is stable. BP elevated. DW nursing staff. Physical Exam Vital signs: Vital Signs 11/01/17 08:00 11/01/17 12:00 11/01/17 16:00 Temperature 98.9 F 99.2 F 98.6 F Pulse Rate 96 H 93 H 101 H Respiratory Rate 20 20 20 Blood Pressure 151/70 H 150/73 H 163/79 H Pulse Oximetry 95 94 L 95 11/01/17 20:00 11/02/17 00:00 11/02/17 04:00 Temperature 99.1 F 98.5 F 97.9 F Pulse Rate 107 H 101 H 91 H Respiratory Rate 18 Blood Pressure 191/95 H 179/87 H 170/97 H Pulse Oximetry 95 95 100 Intake & Output 11/01/17 11/02/17 11/02/17 18:59 06:59 18:59 Intake Total 1000 / 1000 Output Total 925 / 925 300 / 300 Balance 75 / 75 -300 / -300 Weight 58.7 kg Intake: IV 1000 / 1000 D5W/Normal Saline Inj 1,000 ML 1000 / 1000 @ 42 mls/hr IV.CONT .[id number] REPLACED BY [facility] Rx#:[id number] Output: Urine 675 / 675 300 / 300 Urine Amount (Catheter) 250 / 250 Female External 250 / 250 Other: # Incontinent Voids 1 # Incontinent Bowel Movements 1 Narrative: GENERAL: WDWN elderly female, INAD. Awake and alert, lying in bed. +Expressive aphasia. ?receptive aphasia SKIN: Warm and dry. No generalized rash. HEAD: Atraumatic. Normocephalic. +right sided facial droop. EYES: Pupils equal and round. No scleral icterus. No injection or drainage. ENT: No nasal bleeding or discharge. Mucous membranes pink and moist. NECK: Trachea midline. No JVD. CARDIOVASCULAR: Tachycardic. No murmur appreciated. +tenderness to palpation chest wall. RESPIRATORY: No accessory muscle use. Diminished BS. +rhonchi. GASTROINTESTINAL: Abdomen soft, nondistended. +subjective tenderness to palpation diffusely but moreso around the PEG site which she is guarding. PEG site C/D/I. MUSCULOSKELETAL: Extremities without clubbing, cyanosis, or edema. NEUROLOGICAL: Awake and alert. Follows simple commands. Motor grossly intact left upper and lower extremity. +Flaccid RUE. Not moving RLE today. + expressive aphasia. PSYCHIATRIC: Calm. Appears depressed. Flat affect. - Urinary Catheter Management Female External Cath placed during this visit: no Results - Labs CBC & Chem 7: 11/02/17 08:27 11/02/17 04:31 Laboratory Results - last 24 hr 11/01/17 11/01/17 11/01/17 07:25 09:35 09:35 WBC 10.8 RBC 3.69 L Hgb 11.6 Hct 34.7 L MCV 93.9 MCH 31.4 MCHC 33.4 RDW 13.3 Plt Count 432 MPV 8.0 Neut % (Auto) 79.7 H Lymph % (Auto) 9.2 Snyder % (Auto) 5.8 Eos % (Auto) 4.9 H Baso % (Auto) 0.4 Neut # (Auto) 8.6 H Lymph # (Auto) 1.0 Snyder # (Auto) 0.6 Eos # (Auto) 0.5 H Baso # (Auto) 0.0 WBC Differential . Differential Comment Auto diff final Sodium 142 Potassium 3.3 L Chloride 109 H Carbon Dioxide 26.3 Anion Gap 7 BUN 11 Creatinine 0.92 Estimated GFR 60 L POC Glucose 127 H Random Glucose 122 H Calcium 7.9 L Total Bilirubin 0.4 AST 38 H ALT 24 Alkaline Phosphatase 37 L Total Protein 6.2 L Albumin 2.0 L Lipase 69 L Urine Color Urine Clarity Urine pH Ur Specific [place] Urine Protein Urine Glucose (UA) Urine Ketones Urine Occult Blood Urine Nitrate Urine Bilirubin Urine Urobilinogen Ur Leukocyte Esterase Urine RBC Ur Squamous Epith Cells Urine Mucus Micro UA Comment Urine Culture Comments 11/01/17 11/01/17 11/01/17 11:03 16:06 18:38 WBC RBC Hgb Hct MCV MCH MCHC RDW Plt Count MPV Neut % (Auto) Lymph % (Auto) Snyder % (Auto) Eos % (Auto) Baso % (Auto) Neut # (Auto) Lymph # (Auto) Snyder # (Auto) Eos # (Auto) Baso # (Auto) WBC Differential Differential Comment Sodium Potassium Chloride Carbon Dioxide Anion Gap BUN Creatinine Estimated GFR POC Glucose 120 H 129 H Random Glucose Calcium Total Bilirubin AST ALT Alkaline Phosphatase Total Protein Albumin Lipase Urine Color Straw Urine Clarity Clear Urine pH 6.0 Ur Specific [place] 1.009 Urine Protein Negative Urine Glucose (UA) Negative Urine Ketones Negative Urine Occult Blood Small H Urine Nitrate Negative Urine Bilirubin Negative Urine Urobilinogen Less than 2 Ur Leukocyte Esterase Negative Urine RBC Less than 1 Ur Squamous Epith Cells <1 Urine Mucus Few H Micro UA Comment Cath-culture not ind Urine Culture Comments Cath-cult not ind 11/01/17 11/02/17 11/02/17 23:07 04:31 06:55 WBC RBC Hgb Hct MCV MCH MCHC RDW Plt Count MPV Neut % (Auto) Lymph % (Auto) Snyder % (Auto) Eos % (Auto) Baso % (Auto) Neut # (Auto) Lymph # (Auto) Snyder # (Auto) Eos # (Auto) Baso # (Auto) WBC Differential Differential Comment Sodium 141 Potassium 3.4 L Chloride 109 H Carbon Dioxide 26.7 Anion Gap 5 BUN 7 Creatinine 0.73 Estimated GFR 79 L POC Glucose 107 114 H Random Glucose 122 H Calcium 8.3 L Total Bilirubin AST ALT Alkaline Phosphatase Total Protein Albumin Lipase Urine Color Urine Clarity Urine pH Ur Specific [place] Urine Protein Urine Glucose (UA) Urine Ketones Urine Occult Blood Urine Nitrate Urine Bilirubin Urine Urobilinogen Ur Leukocyte Esterase Urine RBC Ur Squamous Epith Cells Urine Mucus Micro UA Comment Urine Culture Comments - Imaging Impressions Abdomen X-Ray 11/01/17 00:00 CONCLUSION: Scattered contrast in the colon. Nonspecific bowel gas in nondilated small bowel. - Procedures none Assessment and Plan - Assessment (1) Ischemic cerebrovascular accident (CVA) Code(s): I63.9 - Cerebral infarction, unspecified Status: Acute (2) Accelerated hypertension Code(s): I10 - Essential (primary) hypertension Status: Acute (3) Hemorrhage, petechial Code(s): R23.3 - Spontaneous ecchymoses Status: Acute (4) Right hemiplegia Code(s): G81.91 - Hemiplegia, unspecified affecting right dominant side Status : Acute (5) Aphasia Code(s): R47.01 - Aphasia Status: Acute (6) Impaired mobility and ADLs Code(s): Z74.09 - Other reduced mobility Status: Acute - Plan This is a 72-year-old female who was brought in by EMS because of altered mental status. History is mainly taken from ED and chart review. Apparently patient was last seen normal last night. This morning she was found with right- sided facial droop and right arm weakness. She was not following commands and was not verbal. According to her roommate who was intoxicated, patient is also an alcoholic. Head CT shows subacute left MCA CVA with petechial hemorrhages. Large left MCA CVA with petechial hemorrhages. Apparent occlusion of the internal carotid arteries bilaterally as well as occlusion of the left MCA proximally. Evidence of diffuse atherosclerotic disease of the right MCA. Not a surgical candidate per Dr. Chahal. LDL 48 A1c 5.9. Unremarkable echo. EKG with sinus rhythm. -Continue on aspirin, per neurology to consider anticoagulation. -Continue PT/OT/ST -Continue NPO. ST ff. -Aspiration precautions. Monitor for hypoglycemia. Neurochecks and seizure precautions -Palliative care following, appreciate assistance. -Neuropsychology following Dysphagia -ST following. Patient failed MBS. Continue strict NPO. -GI following, appreciate assistance. PEG tube placed 10/30. Consult Wax Ball Molder. Poorly tolerating Jevity 1.5 @ 15cc secondary to abdominal pain. Continue to monitor. -Continue on IVF hydration until able to tolerate increase TF rate -Continue with IV Morphine and Tramadol prn pain Abdominal discomfort ?due to poorly tolerating TF -KUB reviewed, unremarkable -UA neg -Will dw GI ?further imaging PNA, hospital associated, concern for aspiration 11/02 +rhonchi on exam. CXR shows mild airspace opacity right lung base. She is afebrile. Not in any respiratory distress. -treated with IV abx, now on Ceftin -scheduled Duonebs -acapella, IS. EZPAP. -supplemental oxygen to maintain O2 sats >92% Hypertension -begin Norvasc 5mg daily -IV Vasotec prn -monitor BP and adjust treatment as indicated Hypokalemia K 3.4 Mag level 2.1 -repletion ordered -repeat BMP in am to monitor response Alcohol abuse. -no evidence of withdrawal Multiple medical conditions of COPD, coronary artery disease status post stent, hyperlipidemia and hypertension. DVT prophylaxis with SCD and early ambulation. Hold pharmacological prophylaxis secondary to petechial hemorrhages Code Status: FULL Discussed Condition With: patient, RN, Dr. Deng Discharge Planning: Not ready for discharge. Both adult children have decided to take patient home with [facility]. Unable to tolerate TF. Still with abdominal pain. CM assisting with discharge planning.
[2017-11-02] MEDS ORDERED: Potassium Chloride 25 MEQ Effervescent Tablet PO ONE (07:29)
[2017-11-02 08:37] LABS: Magnesium 2.1 mg/dL (1.5-2.5); Phosphorus 2.4 mg/dL (2.5-4.9)
[2017-11-02 09:11] LABS: Baso # (Auto) 0.1 th/mm3 (0.0-0.2); Baso % (Auto) 0.6 % (0.0-2.0); Eos # (Auto) 0.6 th/mm3 (0.0-0.4); Eos % (Auto) 5.9 % (0.0-4.0); Hematocrit 38.8 % (35.0-46.0); Hemoglobin 13.2 gm/dL (11.6-15.3); Lymph # (Auto) 1.3 th/mm3 (1.0-4.8); Lymph % (Auto) 12.6 % (9.0-44.0); Mean Corpuscular HGB Conc 33.9 % (32.0-36.0); Mean Corpuscular Hemoglobin 31.8 pg (27.0-34.0); Mean Corpuscular Volume 93.9 fL (80.0-100.0); Mean Platelet Volume 7.8 fL (7.0-11.0); Mono # (Auto) 0.7 th/mm3 (0.0-0.9); Mono % (Auto) 6.3 % (0.0-8.0); Neut # (Auto) 7.8 th/mm3 (1.8-7.7); Neut % (Auto) 74.6 % (16.0-70.0); Platelet Count 520 th/mm3 (150-450); Red Blood Count 4.14 mil/mm3 (4.00-5.30); Red Cell Distribution Width 13.3 % (11.6-17.2); White Blood Count 10.5 th/mm3 (4.0-11.0)
[2017-11-02] MEDS: amLODIPine 5 MG Tablet G-TUBE SCH (09:12)
[2017-11-02] MEDS: Aspirin 325 MG Tablet G-TUBE SCH (09:12)
--- NOTE | 2017-11-02 09:57 | XR ---
EXAM DATE: 11/02/2017 9:54 AM EDT AGE/SEX: 72 years / Female INDICATIONS: Congestion CLINICAL DATA: This is the patient's subsequent encounter. Patient reports that signs and symptoms h ave been present for 4 - 6 days and indicates a pain score of Nonresponsive. MEDICAL/SURGICAL HISTORY: . Chronic obstructive pulmonary disease. Hypertension. Arthritis. Cor onary artery disease. Depression. Hyperlipidemia. Hard of hearing. Myocardial infarction . . Gonzalez ry artery stent. COMPARISON: [facility] [place] SINGLE [place], 10/26/2017. . FINDINGS: Portable AP view of the chest demonstrates a normal-sized cardiac silhouette. EKG lines overlie the p atient. Lungs are mildly underinflated. There is stable mild opacity at the right lung base. No pneum othorax or pleural effusion is identified. Bones demonstrate no acute abnormality. CONCLUSION: Stable chest x-ray with mild airspace opacity at the right lung base representing either subsegmental atelectasis or consolidation. Electronically signed by: Bentley Rincon MD 11/02/2017 9:56 AM EDT
--- NOTE | 2017-11-02 13:37 | P.PNGI ---
Subjective Interval history: Awake, guarding abdomen and grimacing with pain to even light palpation Status post PEG tube, feedings initiated at trickle feeds but patient is not tolerating. No nausea no vomiting BM charted Temp noted 99.1 <Marilyn Liang - Last Filed: 11/02/17 13:30> Physical Exam Vital signs: Vital Signs 11/01/17 16:00 11/01/17 20:00 11/01/17 20:30 Temperature 98.6 F 99.1 F Pulse Rate 101 H 107 H 110 H Respiratory Rate 20 18 Blood Pressure 163/79 H 191/95 H Pulse Oximetry 95 95 11/02/17 00:00 11/02/17 00:30 11/02/17 04:00 Temperature 98.5 F 97.9 F Pulse Rate 101 H 96 H 91 H Respiratory Rate 18 18 Blood Pressure 179/87 H 170/97 H Pulse Oximetry 95 100 11/02/17 07:48 11/02/17 08:00 11/02/17 12:00 Temperature 98.4 F 98.5 F Pulse Rate 101 H 96 H 96 H Respiratory Rate 20 20 20 Blood Pressure 166/79 H 165/75 H Pulse Oximetry 95 95 Intake & Output 11/01/17 11/02/17 11/02/17 18:59 06:59 18:59 Intake Total 1000 / 1000 Output Total 925 / 925 300 / 300 Balance 75 / 75 -300 / -300 Weight 58.7 kg Intake: IV 1000 / 1000 D5W/Normal Saline Inj 1,000 ML 1000 / 1000 @ 42 mls/hr IV.CONT .[id number] REPLACED BY [facility] Rx#:[id number] Output: Urine 675 / 675 300 / 300 Urine Amount (Catheter) 250 / 250 Female External 250 / 250 Other: # Incontinent Voids 1 # Incontinent Bowel Movements 1 - Constitutional moderate distress (To abdominal palpation) - Routine HEENT Exam ENT: Present: mucous membranes moist - Routine Neck Exam Present: supple - Routine Respiratory Exam Present: accessory muscle use (Even, unlabored) - Routine Cardiovascular Exam Present: S1, S2 - Routine Abdominal Exam Present: tenderness, guarding (To light palpation, tube feedings trickle feed) - Urinary Catheter Management Female External Cath placed during this visit: no <Marilyn Liang - Last Filed: 11/02/17 13:30> Vital signs: Vital Signs 11/02/17 00:00 11/02/17 00:30 11/02/17 04:00 Temperature 98.5 F 97.9 F Pulse Rate 101 H 96 H 91 H Respiratory Rate 18 18 Blood Pressure 179/87 H 170/97 H Pulse Oximetry 95 100 11/02/17 07:48 11/02/17 08:00 11/02/17 12:00 Temperature 98.4 F 98.5 F Pulse Rate 101 H 96 H 102 H Respiratory Rate 20 20 20 Blood Pressure 166/79 H 165/75 H Pulse Oximetry 95 95 11/02/17 15:10 11/02/17 16:00 11/02/17 20:00 Temperature 98.8 F 98.0 F Pulse Rate 102 H 106 H 100 H Respiratory Rate 16 20 18 Blood Pressure 169/90 H 165/77 H Pulse Oximetry 98 95 Intake & Output 11/02/17 11/02/17 11/03/17 06:59 18:59 06:59 Output Total 300 / 300 750 / 750 Balance -300 / -300 -750 / -750 Weight 58.7 kg Output: Urine 300 / 300 750 / 750 Other: # Incontinent Voids 1 # Incontinent Bowel Movements 1 - Urinary Catheter Management Female External Cath placed during this visit: no <SeanhasmukhDaniel - Last Filed: 11/02/17 20:35> Results - Labs CBC & Chem 7: 11/02/17 08:27 11/02/17 04:31 Laboratory Results - last 24 hr 11/01/17 11/01/17 11/01/17 16:06 18:38 23:07 WBC RBC Hgb Hct MCV MCH MCHC RDW Plt Count MPV Neut % (Auto) Lymph % (Auto) [place] % (Auto) Eos % (Auto) Baso % (Auto) Neut # (Auto) Lymph # (Auto) [place] # (Auto) Eos # (Auto) Baso # (Auto) WBC Differential Differential Comment Sodium Potassium Chloride Carbon Dioxide Anion Gap BUN Creatinine Estimated GFR POC Glucose 129 H 107 Random Glucose Calcium Phosphorus Magnesium Urine Color Straw Urine Clarity Clear Urine pH 6.0 Ur Specific [place] 1.009 Urine Protein Negative Urine Glucose (UA) Negative Urine Ketones Negative Urine Occult Blood Small H Urine Nitrate Negative Urine Bilirubin Negative Urine Urobilinogen Less than 2 Ur Leukocyte Esterase Negative Urine RBC Less than 1 Ur Squamous Epith Cells <1 Urine Mucus Few H Micro UA Comment Cath-culture not ind Urine Culture Comments Cath-cult not ind 11/02/17 11/02/17 11/02/17 04:31 04:31 06:55 WBC RBC Hgb Hct MCV MCH MCHC RDW Plt Count MPV Neut % (Auto) Lymph % (Auto) [place] % (Auto) Eos % (Auto) Baso % (Auto) Neut # (Auto) Lymph # (Auto) [place] # (Auto) Eos # (Auto) Baso # (Auto) WBC Differential Differential Comment Sodium 141 Potassium 3.4 L Chloride 109 H Carbon Dioxide 26.7 Anion Gap 5 BUN 7 Creatinine 0.73 Estimated GFR 79 L POC Glucose 114 H Random Glucose 122 H Calcium 8.3 L Phosphorus 2.4 L Cancelled Magnesium 2.1 Cancelled Urine Color Urine Clarity Urine pH Ur Specific [place] Urine Protein Urine Glucose (UA) Urine Ketones Urine Occult Blood Urine Nitrate Urine Bilirubin Urine Urobilinogen Ur Leukocyte Esterase Urine RBC Ur Squamous Epith Cells Urine Mucus Micro UA Comment Urine Culture Comments 11/02/17 08:27 WBC 10.5 RBC 4.14 Hgb 13.2 Hct 38.8 MCV 93.9 MCH 31.8 MCHC 33.9 RDW 13.3 Plt Count 520 H MPV 7.8 Neut % (Auto) 74.6 H Lymph % (Auto) 12.6 [place] % (Auto) 6.3 Eos % (Auto) 5.9 H Baso % (Auto) 0.6 Neut # (Auto) 7.8 H Lymph # (Auto) 1.3 [place] # (Auto) 0.7 Eos # (Auto) 0.6 H Baso # (Auto) 0.1 WBC Differential . Differential Comment Auto diff final Sodium Potassium Chloride Carbon Dioxide Anion Gap BUN Creatinine Estimated GFR POC Glucose Random Glucose Calcium Phosphorus Magnesium Urine Color Urine Clarity Urine pH Ur Specific [place] Urine Protein Urine Glucose (UA) Urine Ketones Urine Occult Blood Urine Nitrate Urine Bilirubin Urine Urobilinogen Ur Leukocyte Esterase Urine RBC Ur Squamous Epith Cells Urine Mucus Micro UA Comment Urine Culture Comments - Imaging Impressions Chest X-Ray 11/02/17 00:00 CONCLUSION: Stable chest x-ray with mild airspace opacity at the right lung base representing either subsegmental atelectasis or consolidation. - Procedures none <Marilyn Liang - Last Filed: 11/02/17 13:30> - Labs CBC & Chem 7: 11/02/17 08:27 11/02/17 04:31 Laboratory Results - last 24 hr 11/01/17 11/02/17 11/02/17 23:07 04:31 04:31 WBC RBC Hgb Hct MCV MCH MCHC RDW Plt Count MPV Neut % (Auto) Lymph % (Auto) [place] % (Auto) Eos % (Auto) Baso % (Auto) Neut # (Auto) Lymph # (Auto) [place] # (Auto) Eos # (Auto) Baso # (Auto) WBC Differential Differential Comment Sodium 141 Potassium 3.4 L Chloride 109 H Carbon Dioxide 26.7 Anion Gap 5 BUN 7 Creatinine 0.73 Estimated GFR 79 L POC Glucose 107 Random Glucose 122 H Calcium 8.3 L Phosphorus 2.4 L Cancelled Magnesium 2.1 Cancelled 11/02/17 11/02/17 06:55 08:27 WBC 10.5 RBC 4.14 Hgb 13.2 Hct 38.8 MCV 93.9 MCH 31.8 MCHC 33.9 RDW 13.3 Plt Count 520 H MPV 7.8 Neut % (Auto) 74.6 H Lymph % (Auto) 12.6 [place] % (Auto) 6.3 Eos % (Auto) 5.9 H Baso % (Auto) 0.6 Neut # (Auto) 7.8 H Lymph # (Auto) 1.3 [place] # (Auto) 0.7 Eos # (Auto) 0.6 H Baso # (Auto) 0.1 WBC Differential . Differential Comment Auto diff final Sodium Potassium Chloride Carbon Dioxide Anion Gap BUN Creatinine Estimated GFR POC Glucose 114 H Random Glucose Calcium Phosphorus Magnesium - Imaging Impressions Chest X-Ray 11/02/17 00:00 CONCLUSION: Stable chest x-ray with mild airspace opacity at the right lung base representing either subsegmental atelectasis or consolidation. <Daniel Watt - Last Filed: 11/02/17 20:35> Assessment and Plan - Plan Assessment: - Dysphagia S/P ischemic CVA Pt presented on October 18 after being found by her roommate to have right sided facial droop, difficulty speaking, right sided paralysis and urinary incontinence. Due to pt not being seen normal since the night prior she was not felt to be a candidate for TPA. Imaging revealed bilateral ICA occlusions as well as left M1 occlusion but also noted collateralization from the posterior cranial circulation was preserved. Speech therapy eval with a modified barium swallow and was noted to demonstrate moderate to severe oral phase and moderate to severe pharyngeal phase dysphagia with high risk of aspiration of multiple consistencies due to impaired coordination or reflexive swallow trigger. Previously had a NG tube she was receiving nutrition through, however she pulled this out. The issue at present is receiving consent for further treatment. Case discussed with JONATHON Long who spoke with pts son last night who stated he agreed to have PEG placed but did not agree to replacement of NG. The issue is that the pt son seemed to be intoxicated at the time of the conversation. According to palliative care notes, the daughter has also been contacted but does not want to make medical decision alone. At this time DCF has been contacted and we are waiting for recommendations for further management. (10/29) Pt unable to make medical decisions. DCF getting involved in case because the son does not seem to be competent in making decisions and according to [place] law either both siblings have to agree or one sibling has to relinquish their rights. The daughter wants to be involved in the decision making. At this time our service will sign off, discussed with JONATHON Long- we will be available when consent can be obtained Discussed case with palliative care, Dr. Hoyt who states he spoke with both the daughter Sarah (contacted at number [phone]) and the son Ramon (contacted at number [phone]) and states both siblings were consenting to pt having a PEG tube and seemed capable to make this decision. Pt is unable to consent. 10/30/2017, consent was signed, PEG tube was placed today. Note esophagus normal stomach normal PEG tube was placed with no difficulty duodenum normal 10/31/2017, status post PEG tube placement day 1. Patient is tolerating Jevity 1.5 trickle feeds at 10 cc an hour. As long as patient tolerates it without high residuals may increase to goal rate. IV fluids continue at 70 cc an hour until patient is receiving enough hydration. Palliative care visit noted currently is not moving forward with any type of hospice for now. Hope is that patient can help make those decisions for herself. GI is available for any acute GI symptoms changes or problems with PEG tube otherwise will see as needed and can follow on an outpatient basis if needed. 11/02/2017, hospitalist asked to reevaluate patient and abdominal pain and guarding. PEG tube was placed on 10/30/2017, tube feeds were restarted on 2017 but patient is guarding her abdomen and complaining of abdominal pain to even light palpation. Minimal communication secondary to her CVA but does have positive facial grimace. Since patient is resistant postop PEG tube, will evaluate for any cellulitis or malposition of the tube, will stop tube feedings immediately, and reevaluate after CT has been done. Monitor for any fever, leukocytosis. Plan Stop tube feedings CT scan with IV contrast today Recheck CBC in a.m. Monitor labs Patient was seen per myself and Dr. Watt, note was written on his behalf <Marilyn Liang - Last Filed: 11/02/17 13:30> - Plan agree with above note and plan, will check CT scan, check CBC, Dr. Rollins will follow up in the morning <Daniel Watt - Last Filed: 11/02/17 20:35>
--- NOTE | 2017-11-02 14:22 | ECG ---
Date Performed: 11/01/2017 Time Performed: 16:33:01 PTAGE: 72 years EKG: Sinus rhythm POSSIBLE LEFT ATRIAL ENLARGEMENT NONSPECIFIC ST & T-WAVE ABNORMALITY ABNORMAL ECG Compared to PREVIOUS TRACING , sinus arrhythmia no longer present, ST-T changes more prominent infero laterally. PREVIOUS TRACIN10/18/2017 12.22 DOCTOR: Villa Ruiz Interpretating Date/Time 11/02/2017 14:20:43
--- NOTE | 2017-11-03 01:16 | CT ---
EXAM DATE: 11/03/2017 1:04 AM EDT AGE/SEX: 72 years / Female INDICATIONS: Recent peg tube placement; possible inflammation. Confirm placement. CLINICAL DATA: This is the patient's initial encounter. Patient reports that signs and symptoms have been present for 1 day and indicates a pain score of 0/10. MEDICAL/SURGICAL HISTORY: Cerebrovascular disease. Hypertension. Chronic obstructive pulmonar y disease. Right hemiplegia, aphasic, MS, coronary stents None. ORAL CONTRAST: No oral contrast ingested. RADIATION DOSE: 7.99 CTDI (mGy) COMPARISON: No prior exams available for comparison. TECHNIQUE: Multiple contiguous axial images were obtained through the abdomen and pelvis following b olus infusion of 96 ml Omnipaque 350 (iohexol) nonionic water-soluble contrast as a single exam dos e. No oral contrast ingested. Using automated exposure control and adjustment of the mA and/or kV ac cording to patient size, radiation dose was kept as low as reasonably achievable to obtain optimal di agnostic quality images. DICOM format image data is available electronically for review and comparis on. FINDINGS: Lower Lungs: Tiny right pleural effusion with mild right basilar atelectasis. Mild left basilar atele ctasis.. Liver: The liver has a homogeneous density without space-occupying lesion. There is no dilation of th e biliary tree. Gallbladder is unremarkable. Spleen: Homogeneous density without enlargement. Pancreas: Unremarkable without mass or calcification. Kidneys: The left kidney is atrophic. It does not enhance significantly following contrast. Right ki dney is normal.. Adrenal Glands: Unremarkable. Aorta: Diffuse calcified atherosclerotic plaque with significant calcified plaque involving the inf low vessels. Mild fusiform aneurysmal change of the infrarenal aorta reaching a maximum diameter 3.1 cm.. Bowel/Mesentery: Gastrostomy tube seen in good position. The bowel loops are grossly unremarkable. T he cecum and sigmoid colon have a normal configuration. Abdominal Wall: Intact. Retroperitoneum: No evidence of adenopathy in the retrocrural, para-aortic, or deep pelvic regions. Bladder: Contours are smooth. Reproductive Organs: 5 cm mass is seen involving the uterus. No free fluid.. Inguinal: The inguinal region is unremarkable without evidence of adenopathy. Bony Structures: Unremarkable. CONCLUSION: 1. Gastrostomy tube in good position. 2. Tiny right pleural effusion with mild bibasilar atelectasis. 3. Atrophic left kidney. 4. 5 cm mass involving the uterus. This may simply relate to a fibroid. 5. 3.1 cm AAA. Electronically signed by: Michael Damon MD 11/03/2017 1:14 AM EDT
[2017-11-03 06:44] LABS: Baso # (Auto) 0.1 th/mm3 (0.0-0.2); Baso % (Auto) 0.6 % (0.0-2.0); Eos # (Auto) 0.5 th/mm3 (0.0-0.4); Eos % (Auto) 4.9 % (0.0-4.0); Hematocrit 37.5 % (35.0-46.0); Hemoglobin 12.7 gm/dL (11.6-15.3); Lymph # (Auto) 1.1 th/mm3 (1.0-4.8); Lymph % (Auto) 11.8 % (9.0-44.0); Mean Corpuscular HGB Conc 33.9 % (32.0-36.0); Mean Corpuscular Hemoglobin 31.4 pg (27.0-34.0); Mean Corpuscular Volume 92.6 fL (80.0-100.0); Mean Platelet Volume 7.8 fL (7.0-11.0); Mono # (Auto) 0.7 th/mm3 (0.0-0.9); Mono % (Auto) 6.9 % (0.0-8.0); Neut # (Auto) 7.1 th/mm3 (1.8-7.7); Neut % (Auto) 75.8 % (16.0-70.0); Platelet Count 549 th/mm3 (150-450); Red Blood Count 4.06 mil/mm3 (4.00-5.30); Red Cell Distribution Width 13.4 % (11.6-17.2); White Blood Count 9.4 th/mm3 (4.0-11.0)
[2017-11-03 07:09] LABS: Calcium 8.6 mg/dL (8.5-10.1); Carbon Dioxide 24.1 meq/L (21.0-32.0); Potassium 3.6 meq/L (3.5-5.1)
--- NOTE | 2017-11-03 07:11 | P.PN ---
Subjective Interval history: Patient seen and examined. Patient stable. No significant change. Tube feedings have not been resumed as of yet. Physical Exam Vital signs: Vital Signs 11/02/17 07:48 11/02/17 08:00 11/02/17 12:00 Temperature 98.4 F 98.5 F Pulse Rate 101 H 96 H 102 H Respiratory Rate 20 20 20 Blood Pressure 166/79 H 165/75 H Pulse Oximetry 95 95 11/02/17 15:10 11/02/17 16:00 11/02/17 20:00 Temperature 98.8 F 98.0 F Pulse Rate 102 H 106 H 101 H Respiratory Rate 16 20 18 Blood Pressure 169/90 H 165/77 H Pulse Oximetry 98 95 11/03/17 00:00 11/03/17 01:28 11/03/17 04:00 Temperature 98.1 F 98.1 F Pulse Rate 93 H 107 H Respiratory Rate 18 18 18 Blood Pressure 152/82 H 149/82 H Pulse Oximetry 95 95 11/03/17 05:03 Temperature Pulse Rate Respiratory Rate 18 Blood Pressure Pulse Oximetry Intake & Output 11/02/17 11/03/17 11/03/17 18:59 06:59 18:59 Output Total 750 / 750 900 / 900 Balance -750 / -750 -900 / -900 Weight 70 kg Output: Urine 750 / 750 900 / 900 Other: # Incontinent Voids 3 Narrative: GENERAL: WDWN elderly female, INAD. Awake, lying in bed. + Expressive aphasia. ?receptive aphasia. Less communicative today. SKIN: Warm and dry. No generalized rash. HEAD: Atraumatic. Normocephalic. +right sided facial droop. EYES: Pupils equal and round. No scleral icterus. No injection or drainage. ENT: No nasal bleeding or discharge. Mucous membranes pink and moist. NECK: Trachea midline. No JVD. CARDIOVASCULAR: Tachycardic. No murmur appreciated. RESPIRATORY: No accessory muscle use. Diminished BS. +rhonchi. GASTROINTESTINAL: Abdomen soft, nondistended. +subjective tenderness to palpation diffusely but moreso around the PEG site which she is guarding. PEG site C/D/I. MUSCULOSKELETAL: Extremities without clubbing, cyanosis, or edema. NEUROLOGICAL: Awake and alert. Follows simple commands. Motor grossly intact left upper and lower extremity. +Flaccid RUE. Not moving RLE today. + expressive aphasia. PSYCHIATRIC: Calm. Appears depressed. Flat affect. - Urinary Catheter Management Female External Cath placed during this visit: no Results - Labs CBC & Chem 7: 11/03/17 04:25 11/03/17 04:25 Laboratory Results - last 24 hr 11/02/17 11/02/17 11/02/17 04:31 04:31 08:27 WBC 10.5 RBC 4.14 Hgb 13.2 Hct 38.8 MCV 93.9 MCH 31.8 MCHC 33.9 RDW 13.3 Plt Count 520 H MPV 7.8 Neut % (Auto) 74.6 H Lymph % (Auto) 12.6 [place] % (Auto) 6.3 Eos % (Auto) 5.9 H Baso % (Auto) 0.6 Neut # (Auto) 7.8 H Lymph # (Auto) 1.3 [place] # (Auto) 0.7 Eos # (Auto) 0.6 H Baso # (Auto) 0.1 WBC Differential . Differential Comment Auto diff final Sodium 141 Potassium 3.4 L Chloride 109 H Carbon Dioxide 26.7 Anion Gap 5 BUN 7 Creatinine 0.73 Estimated GFR 79 L Random Glucose 122 H Calcium 8.3 L Phosphorus 2.4 L Cancelled Magnesium 2.1 Cancelled 11/03/17 11/03/17 04:25 04:25 WBC 9.4 RBC 4.06 Hgb 12.7 Hct 37.5 MCV 92.6 MCH 31.4 MCHC 33.9 RDW 13.4 Plt Count 549 H MPV 7.8 Neut % (Auto) 75.8 H Lymph % (Auto) 11.8 [place] % (Auto) 6.9 Eos % (Auto) 4.9 H Baso % (Auto) 0.6 Neut # (Auto) 7.1 Lymph # (Auto) 1.1 [place] # (Auto) 0.7 Eos # (Auto) 0.5 H Baso # (Auto) 0.1 WBC Differential . Differential Comment Auto diff final Sodium 140 Potassium 3.6 Chloride 105 Carbon Dioxide 24.1 Anion Gap 11 BUN 8 Creatinine 0.68 Estimated GFR 86 L Random Glucose 95 Calcium 8.6 Phosphorus Magnesium - Imaging Impressions Chest X-Ray 11/02/17 00:00 CONCLUSION: Stable chest x-ray with mild airspace opacity at the right lung base representing either subsegmental atelectasis or consolidation. Abdomen/Pelvis CT 11/03/17 00:00 CONCLUSION: 1. Gastrostomy tube in good position. 2. Tiny right pleural effusion with mild bibasilar atelectasis. 3. Atrophic left kidney. 4. 5 cm mass involving the uterus. This may simply relate to a fibroid. 5. 3.1 cm AAA. - Procedures none Assessment and Plan - Assessment (1) Ischemic cerebrovascular accident (CVA) Code(s): I63.9 - Cerebral infarction, unspecified Status: Acute (2) Accelerated hypertension Code(s): I10 - Essential (primary) hypertension Status: Acute (3) Hemorrhage, petechial Code(s): R23.3 - Spontaneous ecchymoses Status: Acute (4) Right hemiplegia Code(s): G81.91 - Hemiplegia, unspecified affecting right dominant side Status : Acute (5) Aphasia Code(s): R47.01 - Aphasia Status: Acute (6) Impaired mobility and ADLs Code(s): Z74.09 - Other reduced mobility Status: Acute - Plan This is a 72-year-old female who was brought in by EMS because of altered mental status. History is mainly taken from ED and chart review. Apparently patient was last seen normal last night. This morning she was found with right- sided facial droop and right arm weakness. She was not following commands and was not verbal. According to her roommate who was intoxicated, patient is also an alcoholic. Head CT shows subacute left MCA CVA with petechial hemorrhages. Large left MCA CVA with petechial hemorrhages. Apparent occlusion of the internal carotid arteries bilaterally as well as occlusion of the left MCA proximally. Evidence of diffuse atherosclerotic disease of the right MCA. Not a surgical candidate per Dr. Chahal. LDL 48 A1c 5.9. Unremarkable echo. EKG with sinus rhythm. -Continue on aspirin, per neurology to consider anticoagulation. -Continue PT/OT/ST -Continue NPO. ST ff. -Aspiration precautions. Monitor for hypoglycemia. Neurochecks and seizure precautions -Palliative care following, appreciate assistance. -Neuropsychology following Dysphagia -ST following. Patient failed MBS. Continue strict NPO. -GI following, appreciate assistance. PEG tube placed 10/30. Consult Jewel Staker. Poorly tolerating Jevity 1.5 @ 15cc secondary to abdominal pain. Continue to monitor. -Continue on IVF hydration until able to tolerate increase TF rate -Continue with IV Morphine and Tramadol prn pain Abdominal discomfort ?due to poorly tolerating TF -KUB reviewed, unremarkable -CT reviewed, PEG tube in good position, no obstruction -D/W GI, plan to resume tube feeding. PNA, hospital associated, concern for aspiration 11/02 +rhonchi on exam. CXR shows mild airspace opacity right lung base. She is afebrile. Not in any respiratory distress. -treated with IV abx, now on Ceftin -scheduled Duonebs -acapella, IS. EZPAP. -supplemental oxygen to maintain O2 sats >92% Hypertension -continue Norvasc 5mg daily -IV Vasotec prn -monitor BP and adjust treatment as indicated Hypokalemia K 3.4 Mag level 2.1 -resolved s/p repletion Alcohol abuse. -no evidence of withdrawal Multiple medical conditions of COPD, coronary artery disease status post stent, hyperlipidemia and hypertension. DVT prophylaxis with SCD and early ambulation. Hold pharmacological prophylaxis secondary to petechial hemorrhages Code Status: FULL Discussed Condition With: patient, nursing staff, GI service, Dr. Machado Discharge Planning: Not ready for discharge. Both adult children have decided to take patient home with [facility]. Unable to tolerate TF. Still with abdominal pain. CM assisting with discharge planning.
[2017-11-03] MEDS: Aspirin 325 MG Tablet G-TUBE SCH (09:56)
[2017-11-03] MEDS: amLODIPine 5 MG Tablet G-TUBE SCH (09:57)
--- NOTE | 2017-11-03 13:08 | P.PNPAL ---
Reason for Visit Reason for visit: a. To assist with evaluation and management of symptoms including: pain; dysphagia; dysphasia b. To assist medical decision maker(s) with: better understanding of current medical conditions; weighing benefits/burdens of medical treatment options; making medical treatment decisions. . Subjective Subjective/Interval History: Patient alert, has confusion, poor memory. Pt remembers daughter and son, but could not remember she is in the hospital due to a stroke. Patient tube feedings has been held, has abdominal pain. CT did not show anything acute. Tube feedings will restart today. Family/Friend Interactions: I spoke with pt's Daughter. She has decline hospice and comfort care. She wants more time for the patient to be in the hospital to adjust tube feedings. Pt's daughter goals of care is aggressive. I am awaiting call back from the son. Regardless, of the son's Ramon decision, pt's goals of care would be aggressive as daughter (Sarah) endoreses continue care. Advance Directives Documented care wishes:: No written documentation of healthcare goals or preferences. Objective Vital Signs: Vital Signs 11/02/17 15:10 11/02/17 16:00 11/02/17 20:00 Temperature 98.8 F 98.0 F Pulse Rate 102 H 106 H 101 H Respiratory Rate 16 20 18 Blood Pressure 169/90 H 165/77 H Pulse Oximetry 98 95 11/03/17 00:00 11/03/17 01:28 11/03/17 04:00 Temperature 98.1 F 98.1 F Pulse Rate 93 H 107 H Respiratory Rate 18 18 18 Blood Pressure 152/82 H 149/82 H Pulse Oximetry 95 95 11/03/17 05:03 11/03/17 07:36 11/03/17 08:00 Temperature 98.7 F Pulse Rate 103 H 106 H Respiratory Rate 18 12 16 Blood Pressure 165/81 H Pulse Oximetry 94 L 11/03/17 11:42 Temperature Pulse Rate 103 H Respiratory Rate Blood Pressure Pulse Oximetry Intake & Output 11/02/17 11/03/17 11/03/17 18:59 06:59 18:59 Output Total 750 / 750 900 / 900 Balance -750 / -750 -900 / -900 Weight 70 kg Output: Urine 750 / 750 900 / 900 Other: # Incontinent Voids 3 Physical Exam: CONSTITUTIONAL/GENERAL: This is an adequately nourished patient. There is occasional grimacing. She is unable to move her right side. There is a right facial droop. She vocalizes but is unable to put together a meaningful sentence. A bit more painful. TUBES/LINES/DRAINS: Peripheral IV SKIN: No jaundice, rashes, or lesions. No wounds seen anteriorly. Skin temperature appropriate. Not diaphoretic. HEAD: Atraumatic. Normocephalic. EYES: Pupils equal and round and reactive. Extraocular motions intact. No scleral icterus. No injection or drainage. Fundi not examined. ENT: She turns to voice and follows some simple commands--otherwise cannot further assess hearing.. Nose without bleeding or purulent drainage. Throat without visible erythema, exudates, masses, or lesions. Mucous membranes are dry. Right facial droop. NECK: Trachea midline. Supple, nontender. No palpable thyroid enlargement or nodularity. CARDIOVASCULAR: Regular rate and rhythm without murmurs, gallops, or rubs. No JVD. Peripheral pulses symmetric. RESPIRATORY/CHEST: Symmetric, unlabored respirations. Clear to auscultation. Breath sounds equal bilaterally. No wheezes, rales, or rhonchi. GASTROINTESTINAL: Abdomen soft, non-tender, nondistended. No hepato-splenomegaly , or palpable masses. No guarding. Bowel sounds present. GENITOURINARY: Without palpable bladder distension. MUSCULOSKELETAL: Extremities without clubbing, cyanosis, or edema. No joint tenderness or effusion noted. No calf tenderness. No mottling or clubbing. LYMPHATICS: No palpable cervical or supraclavicular adenopathy. NEUROLOGICAL: Awake and alert. Follows some simple commands. No voluntary movements of the right upper or lower extremities. Right facial droop. certainly expressive dysphasia. PSYCHIATRIC: Intermittent tearfulness. No apparent hallucinations or other psychotic thought process. . Diagnostic Tests Laboratory: Laboratory Results - last 72 hr 10/31/17 10/31/17 11/01/17 16:54 21:22 07:25 WBC RBC Hgb Hct MCV MCH MCHC RDW Plt Count MPV Neut % (Auto) Lymph % (Auto) [place] % (Auto) Eos % (Auto) Baso % (Auto) Neut # (Auto) Lymph # (Auto) [place] # (Auto) Eos # (Auto) Baso # (Auto) WBC Differential Differential Comment Sodium Potassium Chloride Carbon Dioxide Anion Gap BUN Creatinine Estimated GFR POC Glucose 147 H 125 H 127 H Random Glucose Calcium Phosphorus Magnesium Total Bilirubin AST ALT Alkaline Phosphatase Total Protein Albumin Lipase Urine Color Urine Clarity Urine pH Ur Specific [place] Urine Protein Urine Glucose (UA) Urine Ketones Urine Occult Blood Urine Nitrate Urine Bilirubin Urine Urobilinogen Ur Leukocyte Esterase Urine RBC Ur Squamous Epith Cells Urine Mucus Micro UA Comment Urine Culture Comments 11/01/17 11/01/17 11/01/17 09:35 09:35 11:03 WBC 10.8 RBC 3.69 L Hgb 11.6 Hct 34.7 L MCV 93.9 MCH 31.4 MCHC 33.4 RDW 13.3 Plt Count 432 MPV 8.0 Neut % (Auto) 79.7 H Lymph % (Auto) 9.2 Allen % (Auto) 5.8 Eos % (Auto) 4.9 H Baso % (Auto) 0.4 Neut # (Auto) 8.6 H Lymph # (Auto) 1.0 Allen # (Auto) 0.6 Eos # (Auto) 0.5 H Baso # (Auto) 0.0 WBC Differential . Differential Comment Auto diff final Sodium 142 Potassium 3.3 L Chloride 109 H Carbon Dioxide 26.3 Anion Gap 7 BUN 11 Creatinine 0.92 Estimated GFR 60 L POC Glucose 120 H Random Glucose 122 H Calcium 7.9 L Phosphorus Magnesium Total Bilirubin 0.4 AST 38 H ALT 24 Alkaline Phosphatase 37 L Total Protein 6.2 L Albumin 2.0 L Lipase 69 L Urine Color Urine Clarity Urine pH Ur Specific [place] Urine Protein Urine Glucose (UA) Urine Ketones Urine Occult Blood Urine Nitrate Urine Bilirubin Urine Urobilinogen Ur Leukocyte Esterase Urine RBC Ur Squamous Epith Cells Urine Mucus Micro UA Comment Urine Culture Comments 11/01/17 11/01/17 11/01/17 16:06 18:38 23:07 WBC RBC Hgb Hct MCV MCH MCHC RDW Plt Count MPV Neut % (Auto) Lymph % (Auto) [place] % (Auto) Eos % (Auto) Baso % (Auto) Neut # (Auto) Lymph # (Auto) [place] # (Auto) Eos # (Auto) Baso # (Auto) WBC Differential Differential Comment Sodium Potassium Chloride Carbon Dioxide Anion Gap BUN Creatinine Estimated GFR POC Glucose 129 H 107 Random Glucose Calcium Phosphorus Magnesium Total Bilirubin AST ALT Alkaline Phosphatase Total Protein Albumin Lipase Urine Color Straw Urine Clarity Clear Urine pH 6.0 Ur Specific [place] 1.009 Urine Protein Negative Urine Glucose (UA) Negative Urine Ketones Negative Urine Occult Blood Small H Urine Nitrate Negative Urine Bilirubin Negative Urine Urobilinogen Less than 2 Ur Leukocyte Esterase Negative Urine RBC Less than 1 Ur Squamous Epith Cells <1 Urine Mucus Few H Micro UA Comment Cath-culture not ind Urine Culture Comments Cath-cult not ind 11/02/17 11/02/17 11/02/17 04:31 04:31 06:55 WBC RBC Hgb Hct MCV MCH MCHC RDW Plt Count MPV Neut % (Auto) Lymph % (Auto) [place] % (Auto) Eos % (Auto) Baso % (Auto) Neut # (Auto) Lymph # (Auto) [place] # (Auto) Eos # (Auto) Baso # (Auto) WBC Differential Differential Comment Sodium 141 Potassium 3.4 L Chloride 109 H Carbon Dioxide 26.7 Anion Gap 5 BUN 7 Creatinine 0.73 Estimated GFR 79 L POC Glucose 114 H Random Glucose 122 H Calcium 8.3 L Phosphorus 2.4 L Cancelled Magnesium 2.1 Cancelled Total Bilirubin AST ALT Alkaline Phosphatase Total Protein Albumin Lipase Urine Color Urine Clarity Urine pH Ur Specific [place] Urine Protein Urine Glucose (UA) Urine Ketones Urine Occult Blood Urine Nitrate Urine Bilirubin Urine Urobilinogen Ur Leukocyte Esterase Urine RBC Ur Squamous Epith Cells Urine Mucus Micro UA Comment Urine Culture Comments 11/02/17 11/03/17 11/03/17 08:27 04:25 04:25 WBC 10.5 9.4 RBC 4.14 4.06 Hgb 13.2 12.7 Hct 38.8 37.5 MCV 93.9 92.6 MCH 31.8 31.4 MCHC 33.9 33.9 RDW 13.3 13.4 Plt Count 520 H 549 H MPV 7.8 7.8 Neut % (Auto) 74.6 H 75.8 H Lymph % (Auto) 12.6 11.8 Allen % (Auto) 6.3 6.9 Eos % (Auto) 5.9 H 4.9 H Baso % (Auto) 0.6 0.6 Neut # (Auto) 7.8 H 7.1 Lymph # (Auto) 1.3 1.1 Allen # (Auto) 0.7 0.7 Eos # (Auto) 0.6 H 0.5 H Baso # (Auto) 0.1 0.1 WBC Differential . . Differential Comment Auto diff final Auto diff final Sodium 140 Potassium 3.6 Chloride 105 Carbon Dioxide 24.1 Anion Gap 11 BUN 8 Creatinine 0.68 Estimated GFR 86 L POC Glucose Random Glucose 95 Calcium 8.6 Phosphorus Magnesium Total Bilirubin AST ALT Alkaline Phosphatase Total Protein Albumin Lipase Urine Color Urine Clarity Urine pH Ur Specific [place] Urine Protein Urine Glucose (UA) Urine Ketones Urine Occult Blood Urine Nitrate Urine Bilirubin Urine Urobilinogen Ur Leukocyte Esterase Urine RBC Ur Squamous Epith Cells Urine Mucus Micro UA Comment Urine Culture Comments Result Diagrams: 11/03/17 04:25 11/03/17 04:25 Procedures: peg tube placement 10/31/2017 Assessment and Plan - Disease Oriented Problem List (1) Ischemic cerebrovascular accident (CVA) (2) Accelerated hypertension (3) Hemorrhage, petechial (4) Right hemiplegia (5) Aphasia (6) Impaired mobility and ADLs (7) Chronic back pain (8) Scoliosis (9) Spinal stenosis (10) COPD (chronic obstructive pulmonary disease) Comment: It does not look like she was 02 dependent , but per daughter, had to stop working due to lung disease many years ago. (11) [place] (hard of hearing) (12) Depression (13) Arthritis (14) Myocardial infarct Comment: 2008 and 2011 (15) Dysphagia - Symptom Scale (1) Pain 0-10 Scale: Unable to quantify (2) Dysphagia 0-10 Scale: Unable to quantify Pertinent Non-Medical Issues: Psychosocial:Originally from [place]. Lived in [place] much of adult life. Moved to [place] ago. twice. 1st . 2nd from cancer about 10 years ago under hospice care. Two children -- Son (Ramon Byrne) lives with patient. Daughter (Sarah) lives in [place]. There is a sister (Linda) who lives in [place]. 12th grade education. Worked at [employer] -- stopped working due to COPD. Spiritual: Daughter tells me that patient self-identifies as [employer]. 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 Legal: No known advance directive. Ethical issues impacting care: No known ethical issues at this time. . Important Contacts: Ramon Byrne (son) -- (need to leave a verbal message with someone and son will call back). [phone] JoB. Sarah (daughter) -- [phone] Lives in [place] Linda (sister) [phone] Lives in [place] . Prognosis: Patient has had a major stroke with right sided hemiparesis, dysphasia, and dysphagia. She is subject to the multiple complications of a major stroke, especially aspiration pneumonia. Unclear at this time to what extent she may have some neurological recovery. Unfortunately, she also has some significant underlying comorbidities including COPD, severe CAD, and spinal stenosis with chronic back pain. All of these may impact her ability to successfully rehab. Capacity however seems to be improving. . Code Status: Full Code (Patient unable to participate in code status discussion. Daughter is uncertain about patient's wishes. Have not been able to contact son.) Plan: == Code Status: FULL CODE. Long discussion with pt's daughter; could not make a decision. Full Code by default. == Decision Making: Does not have capacity to make medical decisions. Poor short term memory. == Goals of medical treatment: * I spoke with pt's Daughter. She has decline hospice and comfort care. She wants more time for the patient to be in the hospital to adjust tube feedings. Pt's daughter goals of care is aggressive. * I am awaiting call back from the son. Regardless, of the son's Ramon decision, pt's goals of care would be aggressive as daughter (Sarah) endorsers continue care. Wish for mom to stay in the hospital to continue get workup for abdominal pain and toleration of tube feedings. == Symptoms * Pain: patient has suffered from years of chronic back pain due to a combination of degenerative disc disease, scoliosis, and spinal stenosis. It is unclear what medications, if any, the patient was using. On top of his chronic pain, patient may have additional discomfort from her prolonged bedbound status and from her vascular access lines. Patient s/p peg tube procedure, prns available. * Dysphagia: Peg tube, gi on board and will increase tube feedings gradually. * Dysphasia: Isolated words are understood. Patient is unable to put together a full sentence. * Dyspnea: Reported long history of COPD. It does not seem that she was on home oxygen though she did use nebulizers at home. == PLAN * pain- prn pain meds available. no new med rec. * We continue to check for patient's capacity frequently. I feel she is close to getting capacity to make medical decisions. == Palliative care will continue to follow to assist with symptom management and to further clarify goals of medical treatment as the clinical course evolves. d/w medical team. Attestation Attestation: To help prompt me to consider important information that might be impacting today's encounter and assessment, information from prior notes written by myself or my colleagues may have been "brought forward" into today's note. My signature on this note, however, is an attestation that I personally performed the exam, history, and/or decision-making noted today, and, unless otherwise indicated, the interactions with patient, family, and staff as well as the review of records all occurred today. I also attest that the listed assessment and stated plan reflect my best clinical judgment today based on the combination of historical information, prior notes, and today's exam/ interactions. When time spent is documented, it refers only to time spent today by the signer, or if indicated, combined time spent today by collaborating physician/nurse practitioner.
--- NOTE | 2017-11-03 16:34 | P.PNGI ---
Subjective Interval history: Eyes open a phasic but responding to simple verbal communication Still has some abdominal soreness especially around PEG tube site, but no obvious acute tenderness in her lower abdomen <Marilyn Liang - Last Filed: 11/03/17 16:34> Physical Exam Vital signs: Vital Signs 11/02/17 20:00 11/03/17 00:00 11/03/17 01:28 Temperature 98.0 F 98.1 F Pulse Rate 101 H 93 H Respiratory Rate 18 18 18 Blood Pressure 165/77 H 152/82 H Pulse Oximetry 95 95 11/03/17 04:00 11/03/17 05:03 11/03/17 07:36 Temperature 98.1 F Pulse Rate 107 H 103 H Respiratory Rate 18 18 12 Blood Pressure 149/82 H Pulse Oximetry 95 11/03/17 08:00 11/03/17 11:42 11/03/17 12:00 Temperature 98.7 F 98.4 F Pulse Rate 106 H 103 H 105 H Respiratory Rate 16 18 Blood Pressure 165/81 H 138/82 Pulse Oximetry 94 L 92 L 11/03/17 13:52 11/03/17 13:56 Temperature Pulse Rate 98 H 99 H Respiratory Rate 12 Blood Pressure Pulse Oximetry Intake & Output 11/02/17 11/03/17 11/03/17 18:59 06:59 18:59 Output Total 750 / 750 900 / 900 Balance -750 / -750 -900 / -900 Weight 70 kg Output: Urine 750 / 750 900 / 900 Other: # Voids 2 # Incontinent Voids 3 # Bowel Movements 1 - Constitutional mild distress, thin - Routine HEENT Exam ENT: Present: mucous membranes dry - Routine Cardiovascular Exam Present: S1, S2 - Routine Abdominal Exam Present: soft, tenderness (Mild discomfort around PEG site) - Routine Skin Exam Present: dry - Urinary Catheter Management Female External Cath placed during this visit: no <Marilyn Liang - Last Filed: 11/03/17 16:34> Vital signs: Vital Signs 11/02/17 20:00 11/03/17 00:00 11/03/17 01:28 Temperature 98.0 F 98.1 F Pulse Rate 101 H 93 H Respiratory Rate 18 18 18 Blood Pressure 165/77 H 152/82 H Pulse Oximetry 95 95 11/03/17 04:00 11/03/17 05:03 11/03/17 07:36 Temperature 98.1 F Pulse Rate 107 H 103 H Respiratory Rate 18 18 12 Blood Pressure 149/82 H Pulse Oximetry 95 11/03/17 08:00 11/03/17 11:42 11/03/17 12:00 Temperature 98.7 F 98.4 F Pulse Rate 106 H 103 H 105 H Respiratory Rate 16 18 Blood Pressure 165/81 H 138/82 Pulse Oximetry 94 L 92 L 11/03/17 13:52 11/03/17 13:56 11/03/17 16:00 Temperature 97.8 F Pulse Rate 98 H 99 H 115 H Respiratory Rate 12 18 Blood Pressure 137/73 Pulse Oximetry 93 L 11/03/17 18:14 Temperature Pulse Rate 111 H Respiratory Rate Blood Pressure Pulse Oximetry Intake & Output 11/03/17 11/03/17 11/04/17 06:59 18:59 06:59 Output Total 900 / 900 300 / 300 Balance -900 / -900 -300 / -300 Weight 70 kg Output: Urine 900 / 900 300 / 300 Other: # Voids 2 # Incontinent Voids 3 # Bowel Movements 1 - Urinary Catheter Management Female External Cath placed during this visit: no <Joao Hardy E - Last Filed: 11/03/17 19:47> Results - Labs CBC & Chem 7: 11/03/17 04:25 11/03/17 04:25 Laboratory Results - last 24 hr 11/03/17 11/03/17 04:25 04:25 WBC 9.4 RBC 4.06 Hgb 12.7 Hct 37.5 MCV 92.6 MCH 31.4 MCHC 33.9 RDW 13.4 Plt Count 549 H MPV 7.8 Neut % (Auto) 75.8 H Lymph % (Auto) 11.8 [place] % (Auto) 6.9 Eos % (Auto) 4.9 H Baso % (Auto) 0.6 Neut # (Auto) 7.1 Lymph # (Auto) 1.1 [place] # (Auto) 0.7 Eos # (Auto) 0.5 H Baso # (Auto) 0.1 WBC Differential . Differential Comment Auto diff final Sodium 140 Potassium 3.6 Chloride 105 Carbon Dioxide 24.1 Anion Gap 11 BUN 8 Creatinine 0.68 Estimated GFR 86 L Random Glucose 95 Calcium 8.6 - Imaging Impressions Abdomen/Pelvis CT 11/03/17 00:00 CONCLUSION: 1. Gastrostomy tube in good position. 2. Tiny right pleural effusion with mild bibasilar atelectasis. 3. Atrophic left kidney. 4. 5 cm mass involving the uterus. This may simply relate to a fibroid. 5. 3.1 cm AAA. - Procedures none <AzulMarilyn M - Last Filed: 11/03/17 16:34> - Labs CBC & Chem 7: 11/03/17 04:25 11/03/17 04:25 Laboratory Results - last 24 hr 11/03/17 11/03/17 04:25 04:25 WBC 9.4 RBC 4.06 Hgb 12.7 Hct 37.5 MCV 92.6 MCH 31.4 MCHC 33.9 RDW 13.4 Plt Count 549 H MPV 7.8 Neut % (Auto) 75.8 H Lymph % (Auto) 11.8 [place] % (Auto) 6.9 Eos % (Auto) 4.9 H Baso % (Auto) 0.6 Neut # (Auto) 7.1 Lymph # (Auto) 1.1 [place] # (Auto) 0.7 Eos # (Auto) 0.5 H Baso # (Auto) 0.1 WBC Differential . Differential Comment Auto diff final Sodium 140 Potassium 3.6 Chloride 105 Carbon Dioxide 24.1 Anion Gap 11 BUN 8 Creatinine 0.68 Estimated GFR 86 L Random Glucose 95 Calcium 8.6 - Imaging Impressions Abdomen/Pelvis CT 11/03/17 00:00 CONCLUSION: 1. Gastrostomy tube in good position. 2. Tiny right pleural effusion with mild bibasilar atelectasis. 3. Atrophic left kidney. 4. 5 cm mass involving the uterus. This may simply relate to a fibroid. 5. 3.1 cm AAA. <Joao Hardy - Last Filed: 11/03/17 19:47> Assessment and Plan - Plan - Dysphagia S/P ischemic CVA Pt presented on October 18 after being found by her roommate to have right sided facial droop, difficulty speaking, right sided paralysis and urinary incontinence. Due to pt not being seen normal since the night prior she was not felt to be a candidate for TPA. Imaging revealed bilateral ICA occlusions as well as left M1 occlusion but also noted collateralization from the posterior cranial circulation was preserved. Speech therapy eval with a modified barium swallow and was noted to demonstrate moderate to severe oral phase and moderate to severe pharyngeal phase dysphagia with high risk of aspiration of multiple consistencies due to impaired coordination or reflexive swallow trigger. Previously had a NG tube she was receiving nutrition through, however she pulled this out. The issue at present is receiving consent for further treatment. Case discussed with JONATHON Long who spoke with pts son last night who stated he agreed to have PEG placed but did not agree to replacement of NG. The issue is that the pt son seemed to be intoxicated at the time of the conversation. According to palliative care notes, the daughter has also been contacted but does not want to make medical decision alone. At this time DCF has been contacted and we are waiting for recommendations for further management. (10/29) Pt unable to make medical decisions. DCF getting involved in case because the son does not seem to be competent in making decisions and according to [place] law either both siblings have to agree or one sibling has to relinquish their rights. The daughter wants to be involved in the decision making. At this time our service will sign off, discussed with JONATHON Long- we will be available when consent can be obtained Discussed case with palliative care, Dr. Hoyt who states he spoke with both the daughter Sarah (contacted at number [phone]) and the son Ramon (contacted at number [phone]) and states both siblings were consenting to pt having a PEG tube and seemed capable to make this decision. Pt is unable to consent. 10/30/2017, consent was signed, PEG tube was placed today. Note esophagus normal stomach normal PEG tube was placed with no difficulty duodenum normal 10/31/2017, status post PEG tube placement day 1. Patient is tolerating Jevity 1.5 trickle feeds at 10 cc an hour. As long as patient tolerates it without high residuals may increase to goal rate. IV fluids continue at 70 cc an hour until patient is receiving enough hydration. Palliative care visit noted currently is not moving forward with any type of hospice for now. Hope is that patient can help make those decisions for herself. GI is available for any acute GI symptoms changes or problems with PEG tube otherwise will see as needed and can follow on an outpatient basis if needed. 11/02/2017, hospitalist asked to reevaluate patient and abdominal pain and guarding. PEG tube was placed on 10/30/2017, tube feeds were restarted on 2017 but patient is guarding her abdomen and complaining of abdominal pain to even light palpation. Minimal communication secondary to her CVA but does have positive facial grimace. Since patient is resistant postop PEG tube, will evaluate for any cellulitis or malposition of the tube, will stop tube feedings immediately, and reevaluate after CT has been done. Monitor for any fever, leukocytosis. 11/03/2017 patient is still having some abdominal soreness but appears to be more at the PEG site. Lower abdomen palpated with minimal discomfort. CT scan showed G-tube in good position. Will start trickle feeds back this afternoon at 10 cc an hour and move towards goal rate of 45 cc an hour monitor for high residuals and may increase feedings every 12 hours if tolerated. PEG tube site evaluated which shows no erythema or edema. GI will see and follow as needed. Bowel sounds are active. Palliative care still support and following patient and family member. Plan Tube feeds Jevity 1.5 at 10 cc an hour trickle feed goal rate 45 cc an hour Encourage patient or assist patient to turn from side to side Monitor labs Supportive care Patient was seen per myself and Dr. hardy, note was written on his behalf <Marilyn Liang M - Last Filed: 11/03/17 16:34> - Attending Attestation Patient seen and examined Agree with above Continue with current supportive care Monitor labs <Joao Hardy - Last Filed: 11/03/17 19:47>
[2017-11-03] MEDS: Dextrose 5%/NaCl 0.9% Inj 1,000 ML IV.CONT SCH (20:42)
[2017-11-04] MEDS: Dextrose 5%/NaCl 0.9% Inj 1,000 ML IV.CONT SCH ×3 (00:13→21:42)
--- NOTE | 2017-11-04 06:58 | P.PN ---
Subjective Interval history: No significant change. Patient is stable. She is tolerating current tube feeds running at 15 cc. Discussed with nursing staff, no acute events noted overnight. Physical Exam Vital signs: Vital Signs 11/03/17 07:36 11/03/17 08:00 11/03/17 11:42 Temperature 98.7 F Pulse Rate 103 H 106 H 103 H Respiratory Rate 12 16 Blood Pressure 165/81 H Pulse Oximetry 94 L 11/03/17 12:00 11/03/17 13:52 11/03/17 13:56 Temperature 98.4 F Pulse Rate 105 H 98 H 99 H Respiratory Rate 18 12 Blood Pressure 138/82 Pulse Oximetry 92 L 11/03/17 16:00 11/03/17 18:14 11/03/17 19:22 Temperature 97.8 F 98.7 F Pulse Rate 115 H 111 H 108 H Respiratory Rate 18 18 Blood Pressure 137/73 134/63 Pulse Oximetry 93 L 94 L 11/03/17 20:00 11/03/17 23:40 11/04/17 00:00 Temperature 98.2 F Pulse Rate 107 H 105 H 95 H Respiratory Rate 16 Blood Pressure 144/77 H Pulse Oximetry 98 11/04/17 04:00 Temperature 97.8 F Pulse Rate 93 H Respiratory Rate 18 Blood Pressure 145/76 H Pulse Oximetry 94 L Intake & Output 11/03/17 11/03/17 11/04/17 06:59 18:59 06:59 Intake Total 1679 / 1679 Output Total 900 / 900 300 / 300 600 / 600 Balance -900 / -900 -300 / -300 1079 / 1079 Weight 70 kg 56.2 kg Intake: IV 1432 / 1432 D5W/Normal Saline Inj 1,000 ML 1432 / 1432 @ 42 mls/hr IV.CONT .[id number] [facility] Rx#:[id number] Tube Feeding 47 / 47 Water Bolus Amount 200 / 200 Output: Urine 900 / 900 300 / 300 600 / 600 Other: # Voids 2 # Incontinent Voids 3 2 Date of Last Bowel Movement 11/04/17 # Bowel Movements 1 # Incontinent Bowel Movements 3 Narrative: GENERAL: WDWN elderly female, INAD. Awake, lying in bed. No significant change. +Expressive aphasia. ?receptive aphasia. SKIN: Warm and dry. No generalized rash. HEENT: Atraumatic. Normocephalic. +right sided facial droop. Pupils equal and round. No scleral icterus. No injection or drainage. No nasal bleeding or discharge. Mucous membranes pink and moist. NECK: Trachea midline. CARDIOVASCULAR: Tachycardic. No murmur appreciated. RESPIRATORY: No accessory muscle use. Diminished BS. GASTROINTESTINAL: Abdomen soft, nondistended. +mild tenderness around PEG site. PEG site C/D/I. MUSCULOSKELETAL: Extremities without clubbing, cyanosis, or edema. NEUROLOGICAL: Awake and alert. Follows simple commands. Motor grossly intact left upper and lower extremity. +Flaccid RUE. Not moving RLE. +expressive aphasia. PSYCHIATRIC: Calm. Appears depressed. Flat affect. - Urinary Catheter Management Female External Cath placed during this visit: no Results - Labs CBC & Chem 7: 11/03/17 04:25 11/03/17 04:25 Laboratory Results - last 24 hr 11/03/17 04:25 Sodium 140 Potassium 3.6 Chloride 105 Carbon Dioxide 24.1 Anion Gap 11 BUN 8 Creatinine 0.68 Estimated GFR 86 L Random Glucose 95 Calcium 8.6 - Imaging ITS Impressions Carotid Doppler Study 10/18/17 00:00 CONCLUSION: 1. Severe plaque identified at the right carotid bulb. Elevated ICA to CCA ratio on the right indicating possible high-grade stenosis. 2. Left ICA and ECA nonvisualized indicating possible occlusion. Head MRI 10/18/17 16:36 CONCLUSION: Moderate-sized acute infarct again seen in the left MCA distribution. There is some mass effect but no midline shift. Head MRA 10/18/17 16:36 CONCLUSION: Apparent occlusion of the internal carotid arteries bilaterally as well as occlusion of the left MCA proximally. Evidence of diffuse atherosclerotic disease of the right MCA. Head CT 10/19/17 00:00 CONCLUSION: 1. Evolving infarct in the left MCA distribution. . Head CTA 10/20/17 00:00 CONCLUSION: 1. Bilateral ICA occlusions as well as left M1 occlusion. Collateralization from the posterior cranial circulation is preserving flow to the bilateral anterior and right middle cranial fossa. Neck CTA 10/20/17 00:00 CONCLUSION: 1. Right ICA occludes at its origin. The left ICA is occluded at the cavernous segment with the extracranial aspect diffusely small in caliber. 2. Robust vertebral arteries bilaterally measuring 4 mm in diameter which are patent throughout. Venous Doppler Study 10/27/17 00:00 CONCLUSION: 1. The study is negative for lower extremity deep venous thrombosis. Videofluoroscopic Swallow 10/27/17 00:00 CONCLUSION: Single episode of laryngeal penetration/aspiration which did elicit a cough reflex as above. Abdomen X-Ray 11/01/17 00:00 CONCLUSION: Scattered contrast in the colon. Nonspecific bowel gas in nondilated small bowel. Chest X-Ray 11/02/17 00:00 CONCLUSION: Stable chest x-ray with mild airspace opacity at the right lung base representing either subsegmental atelectasis or consolidation. Abdomen/Pelvis CT 11/03/17 00:00 CONCLUSION: 1. Gastrostomy tube in good position. 2. Tiny right pleural effusion with mild bibasilar atelectasis. 3. Atrophic left kidney. 4. 5 cm mass involving the uterus. This may simply relate to a fibroid. 5. 3.1 cm AAA. - Procedures none Assessment and Plan - Assessment (1) Ischemic cerebrovascular accident (CVA) Code(s): I63.9 - Cerebral infarction, unspecified Status: Acute (2) Accelerated hypertension Code(s): I10 - Essential (primary) hypertension Status: Acute (3) Hemorrhage, petechial Code(s): R23.3 - Spontaneous ecchymoses Status: Acute (4) Right hemiplegia Code(s): G81.91 - Hemiplegia, unspecified affecting right dominant side Status : Acute (5) Aphasia Code(s): R47.01 - Aphasia Status: Acute (6) Impaired mobility and ADLs Code(s): Z74.09 - Other reduced mobility Status: Acute - Plan This is a 72-year-old female who was brought in by EMS because of altered mental status. History is mainly taken from ED and chart review. Apparently patient was last seen normal last night. This morning she was found with right- sided facial droop and right arm weakness. She was not following commands and was not verbal. According to her roommate who was intoxicated, patient is also an alcoholic. Head CT shows subacute left MCA CVA with petechial hemorrhages. Large left MCA CVA with petechial hemorrhages. Apparent occlusion of the internal carotid arteries bilaterally as well as occlusion of the left MCA proximally. Evidence of diffuse atherosclerotic disease of the right MCA. Not a surgical candidate per Dr. Chahal. LDL 48 A1c 5.9. Unremarkable echo. EKG with sinus rhythm. -Continue on aspirin, per neurology to consider anticoagulation. -Continue PT/OT/ST -Continue NPO. ST ff. -Aspiration precautions. Monitor for hypoglycemia. Neurochecks and seizure precautions -Palliative care following, appreciate assistance. -Neuropsychology following Dysphagia -ST following. Patient failed MBS. Continue strict NPO. -GI following, appreciate assistance. PEG tube placed 10/30. Consult Dump Motor Operator. Continue Jevity 1.5 @ 15cc, increase TF as tolerated. Continue to monitor. -Continue on IVF hydration until able to tolerate increase TF rate -Continue with IV Morphine and Tramadol prn pain Abdominal discomfort, improved ?due to poorly tolerating TF -KUB reviewed, unremarkable -CT reviewed, PEG tube in good position, no obstruction PNA, hospital associated, concern for aspiration 11/02 +rhonchi on exam. CXR shows mild airspace opacity right lung base. She is afebrile. Not in any respiratory distress. -treated with IV abx, now on Ceftin -scheduled Duonebs -acapella, IS. EZPAP. -supplemental oxygen to maintain O2 sats >92% Hypertension -continue Norvasc 5mg daily -IV Vasotec prn -monitor BP and adjust treatment as indicated Hypokalemia K 3.4 Mag level 2.1 -resolved s/p repletion Alcohol abuse. -no evidence of withdrawal Multiple medical conditions of COPD, coronary artery disease status post stent, hyperlipidemia and hypertension. DVT prophylaxis with SCD and early ambulation. Hold pharmacological prophylaxis secondary to petechial hemorrhages Code Status: FULL Discussed Condition With: Patient, nursing staff, Dr. Machado, GI service Discharge Planning: Not ready for discharge. Both adult children have decided to take patient home with [facility]. Slowly titrating up TF to goal rate. CM assisting with discharge planning.
[2017-11-04] MEDS: amLODIPine 5 MG Tablet G-TUBE SCH (08:37)
[2017-11-04] MEDS: Aspirin 325 MG Tablet G-TUBE SCH (08:37)
--- NOTE | 2017-11-04 12:37 | P.PNPAL ---
Reason for Visit Reason for visit: a. To assist with evaluation and management of symptoms including: pain; dysphagia; dysphasia b. To assist medical decision maker(s) with: better understanding of current medical conditions; weighing benefits/burdens of medical treatment options; making medical treatment decisions. . Subjective Subjective/Interval History: Patient alert, has confusion, poor memory. Dysphasia seems worse today, answer most questions with no. Patient is up in the recliner and no grimacing does not appear to be in pain. Family/Friend Interactions: Spoke with pt's son today. Updated him on pt's clinical condition. He understands that it will take time for tube feedings to increase. No change in goals of care. Advance Directives Documented care wishes:: No written documentation of healthcare goals or preferences. Objective Vital Signs: Vital Signs 11/03/17 13:52 11/03/17 13:56 11/03/17 16:00 Temperature 97.8 F Pulse Rate 98 H 99 H 115 H Respiratory Rate 12 18 Blood Pressure 137/73 Pulse Oximetry 93 L 11/03/17 18:14 11/03/17 19:22 11/03/17 20:00 Temperature 98.7 F Pulse Rate 111 H 108 H 107 H Respiratory Rate 18 Blood Pressure 134/63 Pulse Oximetry 94 L 11/03/17 23:40 11/04/17 00:00 11/04/17 04:00 Temperature 98.2 F 97.8 F Pulse Rate 105 H 95 H 93 H Respiratory Rate 16 18 Blood Pressure 144/77 H 145/76 H Pulse Oximetry 98 94 L 11/04/17 08:00 11/04/17 09:18 11/04/17 10:07 Temperature 98.7 F Pulse Rate 107 H 94 H 103 H Respiratory Rate 19 14 Blood Pressure 142/81 H Pulse Oximetry 92 L Intake & Output 11/03/17 11/04/17 11/04/17 18:59 06:59 18:59 Intake Total 1679 / 1679 Output Total 300 / 300 600 / 600 Balance -300 / -300 1079 / 1079 Weight 56.2 kg Intake: IV 1432 / 1432 D5W/Normal Saline Inj 1,000 ML 1432 / 1432 @ 42 mls/hr IV.CONT .[id number] [facility] Rx#:[id number] Tube Feeding 47 / 47 Water Bolus Amount 200 / 200 Output: Urine 300 / 300 600 / 600 Other: # Voids 2 1 # Incontinent Voids 2 Date of Last Bowel Movement 11/04/17 # Bowel Movements 1 1 # Incontinent Bowel Movements 3 Physical Exam: CONSTITUTIONAL/GENERAL: This is an adequately nourished patient. She is unable to move her right upper ext.. left facial asymetry. She vocalizes but is unable to put together a meaningful sentence. Up in the chair. TUBES/LINES/DRAINS: Peripheral IV SKIN: No jaundice, rashes, or lesions. No wounds seen anteriorly. Skin temperature appropriate. Not diaphoretic. HEAD: Atraumatic. Normocephalic. EYES: Pupils equal and round and reactive. Extraocular motions intact. No scleral icterus. CARDIOVASCULAR: Regular rate and rhythm without murmurs, gallops, or rubs. No JVD. Peripheral pulses symmetric. RESPIRATORY/CHEST: Symmetric, unlabored respirations. Clear to auscultation. GASTROINTESTINAL: Abdomen soft, non-tender, nondistended. No hepato-splenomegaly , or palpable masses. No guarding. Bowel sounds present. Peg tube in place GENITOURINARY: Without palpable bladder distension. MUSCULOSKELETAL: Extremities without clubbing, cyanosis, or edema. LYMPHATICS: No palpable cervical or supraclavicular adenopathy. NEUROLOGICAL: Awake and alert. Follows some simple commands. certainly expressive dysphasia. Unable to move right upper ext. Facial assymetry. PSYCHIATRIC: No apparent hallucinations or other psychotic thought process. . Diagnostic Tests Laboratory: Laboratory Results - last 72 hr 11/01/17 11/01/17 11/01/17 16:06 18:38 23:07 WBC RBC Hgb Hct MCV MCH MCHC RDW Plt Count MPV Neut % (Auto) Lymph % (Auto) [place] % (Auto) Eos % (Auto) Baso % (Auto) Neut # (Auto) Lymph # (Auto) [place] # (Auto) Eos # (Auto) Baso # (Auto) WBC Differential Differential Comment Sodium Potassium Chloride Carbon Dioxide Anion Gap BUN Creatinine Estimated GFR POC Glucose 129 H 107 Random Glucose Calcium Phosphorus Magnesium Urine Color Straw Urine Clarity Clear Urine pH 6.0 Ur Specific Center 1.009 Urine Protein Negative Urine Glucose (UA) Negative Urine Ketones Negative Urine Occult Blood Small H Urine Nitrate Negative Urine Bilirubin Negative Urine Urobilinogen Less than 2 Ur Leukocyte Esterase Negative Urine RBC Less than 1 Ur Squamous Epith Cells <1 Urine Mucus Few H Micro UA Comment Cath-culture not ind Urine Culture Comments Cath-cult not ind 11/02/17 11/02/17 11/02/17 04:31 04:31 06:55 WBC RBC Hgb Hct MCV MCH MCHC RDW Plt Count MPV Neut % (Auto) Lymph % (Auto) [place] % (Auto) Eos % (Auto) Baso % (Auto) Neut # (Auto) Lymph # (Auto) [place] # (Auto) Eos # (Auto) Baso # (Auto) WBC Differential Differential Comment Sodium 141 Potassium 3.4 L Chloride 109 H Carbon Dioxide 26.7 Anion Gap 5 BUN 7 Creatinine 0.73 Estimated GFR 79 L POC Glucose 114 H Random Glucose 122 H Calcium 8.3 L Phosphorus 2.4 L Cancelled Magnesium 2.1 Cancelled Urine Color Urine Clarity Urine pH Ur Specific Center Urine Protein Urine Glucose (UA) Urine Ketones Urine Occult Blood Urine Nitrate Urine Bilirubin Urine Urobilinogen Ur Leukocyte Esterase Urine RBC Ur Squamous Epith Cells Urine Mucus Micro UA Comment Urine Culture Comments 11/02/17 11/03/17 11/03/17 08:27 04:25 04:25 WBC 10.5 9.4 RBC 4.14 4.06 Hgb 13.2 12.7 Hct 38.8 37.5 MCV 93.9 92.6 MCH 31.8 31.4 MCHC 33.9 33.9 RDW 13.3 13.4 Plt Count 520 H 549 H MPV 7.8 7.8 Neut % (Auto) 74.6 H 75.8 H Lymph % (Auto) 12.6 11.8 [place] % (Auto) 6.3 6.9 Eos % (Auto) 5.9 H 4.9 H Baso % (Auto) 0.6 0.6 Neut # (Auto) 7.8 H 7.1 Lymph # (Auto) 1.3 1.1 [place] # (Auto) 0.7 0.7 Eos # (Auto) 0.6 H 0.5 H Baso # (Auto) 0.1 0.1 WBC Differential . . Differential Comment Auto diff final Auto diff final Sodium 140 Potassium 3.6 Chloride 105 Carbon Dioxide 24.1 Anion Gap 11 BUN 8 Creatinine 0.68 Estimated GFR 86 L POC Glucose Random Glucose 95 Calcium 8.6 Phosphorus Magnesium Urine Color Urine Clarity Urine pH Ur Specific Center Urine Protein Urine Glucose (UA) Urine Ketones Urine Occult Blood Urine Nitrate Urine Bilirubin Urine Urobilinogen Ur Leukocyte Esterase Urine RBC Ur Squamous Epith Cells Urine Mucus Micro UA Comment Urine Culture Comments Result Diagrams: 11/03/17 04:25 11/03/17 04:25 Procedures: peg tube placement 10/31/2017 Assessment and Plan - Disease Oriented Problem List (1) Ischemic cerebrovascular accident (CVA) (2) Accelerated hypertension (3) Hemorrhage, petechial (4) Right hemiplegia (5) Aphasia (6) Impaired mobility and ADLs (7) Chronic back pain (8) Scoliosis (9) Spinal stenosis (10) COPD (chronic obstructive pulmonary disease) Comment: It does not look like she was 02 dependent , but per daughter, had to stop working due to lung disease many years ago. (11) [place] (hard of hearing) (12) Depression (13) Arthritis (14) Myocardial infarct Comment: 2008 and 2011 (15) Dysphagia - Symptom Scale (1) Pain 0-10 Scale: Unable to quantify (2) Dysphagia 0-10 Scale: Unable to quantify Pertinent Non-Medical Issues: Psychosocial:Originally from [place]. Lived in [place] much of adult life. Moved to [place] 2 years ago. twice. 1st . 2nd from cancer about 10 years ago under hospice care. Two children -- Son (Ramon Byrne) lives with patient. Daughter (Sarah) lives in [place]. There is a sister (Linda) who lives in [place]. 12th grade education. Worked at [employer] -- stopped working due to COPD. Spiritual: Daughter tells me that patient self-identifies as Buddhist. Daughter did not feel the patient would appreciate engineering drawings checker visits. Legal: No known advance directive. Ethical issues impacting care: No known ethical issues at this time. . Important Contacts: Ramon Byrne (son) -- (need to leave a verbal message with someone and son will call back). [phone] JoB. Sarah (daughter) -- [phone] Lives in [place] Linda (sister) [phone] Lives in [place] . Prognosis: Patient has had a major stroke with right sided hemiparesis, dysphasia, and dysphagia. She is subject to the multiple complications of a major stroke, especially aspiration pneumonia. Unclear at this time to what extent she may have some neurological recovery. Unfortunately, she also has some significant underlying comorbidities including COPD, severe CAD, and spinal stenosis with chronic back pain. All of these may impact her ability to successfully rehab. . Code Status: Full Code (Patient unable to participate in code status discussion. Daughter is uncertain about patient's wishes. Have not been able to contact son.) Plan: == Code Status: FULL CODE. Long discussion with pt's daughter; could not make a decision. Full Code by default. == Decision Making: Does not have capacity to make medical decisions. Poor short term memory. Pt's children Sarah and Ramon are health care proxy by [facility] Ruiz. == Goals of medical treatment: * I spoke with pt's Daughter(yesterday). She has decline hospice and comfort care. She wants more time for the patient to be in the hospital to adjust tube feedings. Pt's daughter goals of care is aggressive. * Spoke with son today. Goals are aggressive. Updated him on pt's clinical condition. He understands that it will take time for tube feedings to increase. == Symptoms * Pain: patient has suffered from years of chronic back pain due to a combination of degenerative disc disease, scoliosis, and spinal stenosis. It is unclear what medications, if any, the patient was using. On top of his chronic pain, patient may have additional discomfort from her prolonged bedbound status and from her vascular access lines. Patient s/p peg tube procedure, prns available. * Dysphagia: Peg tube, gi on board and will increase tube feedings gradually. * Dysphasia: Isolated words are understood. Patient is unable to put together a full sentence. Dysphasia remains * Dyspnea: Reported long history of COPD. It does not seem that she was on home oxygen though she did use nebulizers at home. == PLAN * pain- prn pain meds available. no new med rec. * We continue to check for patient's capacity frequently. After peg tube procedure, pt remains not capacitated to make medical decisions. == Palliative care will continue to follow to assist with symptom management and to further clarify goals of medical treatment as the clinical course evolves. Attestation Collaborating MD Comments: To help prompt me to consider important information that might be impacting today's encounter and assessment, information from prior notes written by myself or my colleagues may have been "brought forward" into today's note. My signature on this note, however, is an attestation that I personally performed the exam, history, and/or decision-making noted today, and, unless otherwise indicated, the interactions with patient, family, and staff as well as the review of records all occurred today. I also attest that the listed assessment and stated plan reflect my best clinical judgment today based on the combination of historical information, prior notes, and today's exam/ interactions. When time spent is documented, it refers only to time spent today by the signer, or if indicated, combined time spent today by collaborating physician/nurse practitioner.
--- NOTE | 2017-11-04 15:26 | P.DIET ---
Nutritional Evaluation Type of nutrition evaluation: follow-up Nutrition consult regarding: Tube Feeding Nutrition screening: [facility] Objective - Diagnosis Subacute Ischemic CVA with Petechial Hemorrhage - Objective [place] body weight: 45.5 kg % IBW: 123 Body Weight Used for Calculations: Actual (55.7 kg) Energy Needs - Lower Range (kCal/kg): 25 Energy Needs - Upper Range (kCal/kg): 30 Lower Limit kCal/kg (kCals): 1,393 Upper Limit kCal/kg (kCals): 1,671 Lower Limit Protein Factor (Grams per Kg): 1.0 Upper Limit Protein Factor (Grams per Kg): 1.3 Lower Protein Needs (Protein): 56 Upper Protein Needs (Protein): 72 Dietitian Reviewed in Medical Record: Curent medications, Intake & Output, Labs , Medical history, Tube feeding Diet Order: NPO Speech Therapy Recommendations: Yes (Strict NPO w/consideration for bypass feeding) Objective Comments: PMH: COPD, CAD s/p Stent, hyperlipidemia, HTN, CA, alcohol use Assessment Assessment: Pt is npo per ST d/t dysphagia and PEG was placed 10/31. To meet needs with TFing, recommend Jevity 1.5 @ 45 mls/hr to provide 1620 kcals, 69 gms protein and 821 mls of free water. Labs, wts and clinical course reviewed. CBW = 56.2 kg Recommendations: Jevity 1.5 @ 45 mls/hr goal Dietitian to Monitor: Lab values, Intake & Output, Tube feeding tolerance, Weight change, Swallow recommendations, Medical course
--- NOTE | 2017-11-04 15:34 | P.PNGI ---
Subjective Interval history: Resting in the bed more alert today and smiling Denies any nausea or vomiting and abdominal pain noted more like soreness around PEG tube site Current hemoglobin 12.7 <AzulMarilyn - Last Filed: 11/04/17 15:30> Physical Exam Vital signs: Vital Signs 11/03/17 16:00 11/03/17 18:14 11/03/17 19:22 Temperature 97.8 F 98.7 F Pulse Rate 115 H 111 H 108 H Respiratory Rate 18 18 Blood Pressure 137/73 134/63 Pulse Oximetry 93 L 94 L 11/03/17 20:00 11/03/17 23:40 11/04/17 00:00 Temperature 98.2 F Pulse Rate 107 H 105 H 95 H Respiratory Rate 16 Blood Pressure 144/77 H Pulse Oximetry 98 11/04/17 04:00 11/04/17 08:00 11/04/17 09:18 Temperature 97.8 F 98.7 F Pulse Rate 93 H 107 H 94 H Respiratory Rate 18 19 14 Blood Pressure 145/76 H 142/81 H Pulse Oximetry 94 L 92 L 11/04/17 10:07 11/04/17 12:00 11/04/17 12:57 Temperature 98 F Pulse Rate 103 H 103 H 102 H Respiratory Rate 18 Blood Pressure 136/70 Pulse Oximetry 97 Intake & Output 11/03/17 11/04/17 11/04/17 18:59 06:59 18:59 Intake Total 1679 / 1679 Output Total 300 / 300 600 / 600 Balance -300 / -300 1079 / 1079 Weight 56.2 kg Intake: IV 1432 / 1432 D5W/Normal Saline Inj 1,000 ML 1432 / 1432 @ 42 mls/hr IV.CONT .[id number] [facility] Rx#:[id number] Tube Feeding 47 / 47 Water Bolus Amount 200 / 200 Output: Urine 300 / 300 600 / 600 Other: # Voids 2 1 # Incontinent Voids 2 Date of Last Bowel Movement 11/04/17 # Bowel Movements 1 1 # Incontinent Bowel Movements 3 - Constitutional no acute distress - Routine HEENT Exam Head: Present: normocephalic Eye: Present: EOMI ENT: Present: mucous membranes moist - Routine Neck Exam Present: supple - Routine Respiratory Exam Present: accessory muscle use (No shortness of breath) - Routine Cardiovascular Exam Present: S1, S2 - Routine Abdominal Exam Present: soft, ostomy - Routine Neurological Exam Present: motor deficit (Old CVA) - Urinary Catheter Management Female External Cath placed during this visit: no <Marilyn Liang - Last Filed: 11/04/17 15:30> Vital signs: Vital Signs 11/04/17 04:00 11/04/17 08:00 11/04/17 09:18 Temperature 97.8 F 98.7 F Pulse Rate 93 H 107 H 94 H Respiratory Rate 18 19 14 Blood Pressure 145/76 H 142/81 H Pulse Oximetry 94 L 92 L 11/04/17 10:07 11/04/17 12:00 11/04/17 12:57 Temperature 98 F Pulse Rate 103 H 103 H 102 H Respiratory Rate 18 Blood Pressure 136/70 Pulse Oximetry 97 11/04/17 16:00 11/04/17 20:00 11/04/17 20:31 Temperature 98 F 97.8 F Pulse Rate 99 H 105 H 100 H Respiratory Rate 18 18 16 Blood Pressure 140/66 122/66 Pulse Oximetry 97 95 Intake & Output 11/04/17 11/04/17 11/05/17 06:59 18:59 06:59 Intake Total 1679 / 1679 568 / 568 1000 / 1000 Output Total 600 / 600 Balance 1079 / 1079 568 / 568 1000 / 1000 Weight 56.2 kg Intake: IV 1432 / 1432 568 / 568 1000 / 1000 D5W/Normal Saline Inj 1,000 ML 1432 / 1432 568 / 568 1000 / 1000 @ 42 mls/hr IV.CONT .[id number] [facility] Rx#:[id number] Tube Feeding 47 / 47 Water Bolus Amount 200 / 200 Output: Urine 600 / 600 Other: # Voids 1 # Incontinent Voids 2 Date of Last Bowel Movement 11/04/17 # Bowel Movements 1 # Incontinent Bowel Movements 3 - Urinary Catheter Management Female External Cath placed during this visit: no <Joao Rollins - Last Filed: 11/05/17 00:32> Results - Labs CBC & Chem 7: 11/03/17 04:25 11/03/17 04:25 - Procedures none <Marilyn Liang - Last Filed: 11/04/17 15:30> - Labs CBC & Chem 7: 11/03/17 04:25 08/20/18 04:25 <Joao Rollins E - Last Filed: 11/05/17 00:32> Assessment and Plan - Plan - Dysphagia S/P ischemic CVA Pt presented on October 18 after being found by her roommate to have right sided facial droop, difficulty speaking, right sided paralysis and urinary incontinence. Due to pt not being seen normal since the night prior she was not felt to be a candidate for TPA. Imaging revealed bilateral ICA occlusions as well as left M1 occlusion but also noted collateralization from the posterior cranial circulation was preserved. Speech therapy eval with a modified barium swallow and was noted to demonstrate moderate to severe oral phase and moderate to severe pharyngeal phase dysphagia with high risk of aspiration of multiple consistencies due to impaired coordination or reflexive swallow trigger. Previously had a NG tube she was receiving nutrition through, however she pulled this out. The issue at present is receiving consent for further treatment. Case discussed with JONATHON Long who spoke with pts son last night who stated he agreed to have PEG placed but did not agree to replacement of NG. The issue is that the pt son seemed to be intoxicated at the time of the conversation. According to palliative care notes, the daughter has also been contacted but does not want to make medical decision alone. At this time DCF has been contacted and we are waiting for recommendations for further management. (10/29) Pt unable to make medical decisions. DCF getting involved in case because the son does not seem to be competent in making decisions and according to [place] law either both siblings have to agree or one sibling has to relinquish their rights. The daughter wants to be involved in the decision making. At this time our service will sign off, discussed with JONATHON Long- we will be available when consent can be obtained Discussed case with palliative care, Dr. Hoty who states he spoke with both the daughter Sarah (contacted at number [phone]) and the son Ramon (contacted at number [phone]) and states both siblings were consenting to pt having a PEG tube and seemed capable to make this decision. Pt is unable to consent. 10/30/2017, consent was signed, PEG tube was placed today. Note esophagus normal stomach normal PEG tube was placed with no difficulty duodenum normal 10/31/2017, status post PEG tube placement day 1. Patient is tolerating Jevity 1.5 trickle feeds at 10 cc an hour. As long as patient tolerates it without high residuals may increase to goal rate. IV fluids continue at 70 cc an hour until patient is receiving enough hydration. Palliative care visit noted currently is not moving forward with any type of hospice for now. Hope is that patient can help make those decisions for herself. GI is available for any acute GI symptoms changes or problems with PEG tube otherwise will see as needed and can follow on an outpatient basis if needed. 11/02/2017, hospitalist asked to reevaluate patient and abdominal pain and guarding. PEG tube was placed on 10/30/2017, tube feeds were restarted on 2017 but patient is guarding her abdomen and complaining of abdominal pain to even light palpation. Minimal communication secondary to her CVA but does have positive facial grimace. Since patient is resistant postop PEG tube, will evaluate for any cellulitis or malposition of the tube, will stop tube feedings immediately, and reevaluate after CT has been done. Monitor for any fever, leukocytosis. 11/03/2017 patient is still having some abdominal soreness but appears to be more at the PEG site. Lower abdomen palpated with minimal discomfort. CT scan showed G-tube in good position. Will start trickle feeds back this afternoon at 10 cc an hour and move towards goal rate of 45 cc an hour monitor for high residuals and may increase feedings every 12 hours if tolerated. PEG tube site evaluated which shows no erythema or edema. GI will see and follow as needed. Bowel sounds are active. Palliative care still support and following patient and family member. 11/04/2017 patient has had tube feeds restarted at trickle feed and currently going at 15 cc an hour. Will continue to increase dose until she is back up to her goal rate. Patient does grimace when mild palpation at the PEG site but this appears to be more generalized soreness no further abdominal pain noted in her lower abdomen. Patient should be stable from a GI standpoint for her feedings please call us if any other needs. Will sign off Plan Tube feeds Jevity 1.5 , goal rate 45 cc an hour Bowel regimen as needed Monitor labs Supportive care Patient was seen per myself and Dr. Rollins, note was written on his behalf <Marilyn Liang - Last Filed: 11/04/17 15:30> - Attending Attestation Patient seen and examined Agree with above Continue with current supportive care Monitor labs Not much to add from a GI standpoint we will sign off <Joao Rollins E - Last Filed: 11/05/17 00:32>
--- NOTE | 2017-11-05 07:23 | P.PN ---
Subjective Interval history: Patient remained stable. She is tolerating tube feeds at 25 cc/h and we will continue to increase to goal rate of 45 as tolerated. Patient continues to have significant aphasia. She answers "no" to all questions. She appears more depressed today and is crying while attempting to communicate. Discussed with nursing staff, no acute issues noted overnight. Physical Exam Vital signs: Vital Signs 11/04/17 08:00 11/04/17 09:18 11/04/17 10:07 Temperature 98.7 F Pulse Rate 107 H 94 H 103 H Respiratory Rate 19 14 Blood Pressure 142/81 H Pulse Oximetry 92 L 11/04/17 12:00 11/04/17 12:57 11/04/17 16:00 Temperature 98 F 98 F Pulse Rate 103 H 102 H 99 H Respiratory Rate 18 18 Blood Pressure 136/70 140/66 Pulse Oximetry 97 97 11/04/17 20:00 11/04/17 20:31 Temperature 97.9 F Pulse Rate 99 H 100 H Respiratory Rate 18 16 Blood Pressure 135/62 Pulse Oximetry 94 L Intake & Output 11/04/17 11/05/17 11/05/17 18:59 06:59 18:59 Intake Total 568 / 568 1000 / 1000 Balance 568 / 568 1000 / 1000 Intake: IV 568 / 568 1000 / 1000 D5W/Normal Saline Inj 1,000 ML 568 / 568 1000 / 1000 @ 42 mls/hr IV.CONT .[id number] [facility] Rx#:[id number] Other: # Voids 1 # Bowel Movements 1 Narrative: GENERAL: WDWN elderly female, INAD. No change. Awake, lying in bed. +Global aphasia SKIN: Warm and dry. No generalized rash. HEENT: Atraumatic. Normocephalic. +right sided facial droop. Pupils equal and round. No scleral icterus. No injection or drainage. No nasal bleeding or discharge. Mucous membranes pink and moist. NECK: Trachea midline. CARDIOVASCULAR: Tachycardic. No murmur appreciated. RESPIRATORY: No accessory muscle use. Diminished BS in bases. Poor effort. GASTROINTESTINAL: Abdomen soft, nondistended. +mild tenderness around PEG site. PEG site C/D/I. MUSCULOSKELETAL: Extremities without clubbing, cyanosis, or edema. NEUROLOGICAL: Awake and alert. Follows some simple commands. Motor grossly intact left upper and lower extremity. +Flaccid RUE. Not moving RLE spontaneously. +Global aphasia. PSYCHIATRIC: Calm. Appears depressed, tearful. - Urinary Catheter Management Female External Cath placed during this visit: no Results - Labs CBC & Chem 7: 11/03/17 04:25 11/03/17 04:25 - Procedures none Assessment and Plan - Assessment (1) Ischemic cerebrovascular accident (CVA) Code(s): I63.9 - Cerebral infarction, unspecified Status: Acute (2) Accelerated hypertension Code(s): I10 - Essential (primary) hypertension Status: Acute (3) Hemorrhage, petechial Code(s): R23.3 - Spontaneous ecchymoses Status: Acute (4) Right hemiplegia Code(s): G81.91 - Hemiplegia, unspecified affecting right dominant side Status : Acute (5) Aphasia Code(s): R47.01 - Aphasia Status: Acute (6) Impaired mobility and ADLs Code(s): Z74.09 - Other reduced mobility Status: Acute - Plan This is a 72-year-old female who was brought in by EMS because of altered mental status. History is mainly taken from ED and chart review. Apparently patient was last seen normal last night. This morning she was found with right- sided facial droop and right arm weakness. She was not following commands and was not verbal. According to her roommate who was intoxicated, patient is also an alcoholic. Head CT shows subacute left MCA CVA with petechial hemorrhages. Large left MCA CVA with petechial hemorrhages. Apparent occlusion of the internal carotid arteries bilaterally as well as occlusion of the left MCA proximally. Evidence of diffuse atherosclerotic disease of the right MCA. Not a surgical candidate per Dr. Chahal. LDL 48 A1c 5.9. Unremarkable echo. EKG with sinus rhythm. -Continue on aspirin, per neurology to consider anticoagulation. -Continue PT/OT/ST -Continue NPO. ST ff. -Aspiration precautions. Monitor for hypoglycemia. Neurochecks and seizure precautions -Palliative care following, appreciate assistance. Family has declined hospice and comfort care, goals of care remain aggressive. -Neuropsychology following, appreciate assistance -Dr. Karimi of rehab medicine following, appreciate assistance. Patient may benefit from initiation of SSRI. Will discuss further with Dr. Karimi time frame SSRI can be safely initiated given concern for bleeding. Dysphagia -ST following. Patient failed MBS. Continue strict NPO. -GI following, appreciate assistance. PEG tube placed 10/30. Continue Jevity 1.5 @ 25cc, with goal rate of 45. Continue slow titration up to goal as tolerated. Dietitian following. -Continue with IV Morphine and Tramadol prn pain Abdominal discomfort, improved ?due to poorly tolerating TF -KUB reviewed, unremarkable -CT reviewed, PEG tube in good position, no obstruction PNA, hospital associated, concern for aspiration 11/02 +rhonchi on exam. CXR shows mild airspace opacity right lung base. She is afebrile. Not in any respiratory distress. -treated with IV abx, completed course of po Ceftin -scheduled Duonebs -acapella, IS. EZPAP. -supplemental oxygen to maintain O2 sats >92% Hypertension -continue Norvasc 5mg daily -IV Vasotec prn -monitor BP and adjust treatment as indicated Hypokalemia K 3.4 Mag level 2.1 -resolved s/p repletion Alcohol abuse. -no evidence of withdrawal Multiple medical conditions of COPD, coronary artery disease status post stent and hyperlipidemia. DVT prophylaxis with SCD and early ambulation. Hold pharmacological prophylaxis secondary to petechial hemorrhages Code Status: FULL Discussed Condition With: patient, nursing staff, Dr. Machado Discharge Planning: Not ready for discharge. Both adult children have decided to take patient home with [facility]. Slowly titrating up TF to goal rate. CM assisting with discharge planning.
--- NOTE | 2017-11-05 08:34 | P.PNNPSY ---
- Progress Notes/Response to Treatment Premorbid Psychological Status: Premorbid Cognitive, Emotional and Behavioral Status: Unstable. The patient has high school years of education and a minimal work history prior to this injury. The patient has possible prior psychiatric difficulties, as described above. Substance abuse history includes EtOH. Behavioral Reactions of Patient and Family/Support System: Tenuous. The patients family is experiencing ongoing issues of adjustment given the nature of the injury, and this aspect of recovery will require ongoing monitoring. Emotional/Behavioral Status of Patient and Family/Support System: Tenuous. Pertinent issues, if appropriate to this patients clinical care, are described in detail above. Maximizing Acute Care Outcome: It is recommended that the patient be monitored for emergent behavioral impulsivity as the medical condition evolves. This patients neuropathological challenges may limit rehabilitation potential going forward, and these challenges will require specialized therapeutic skills to maximize outcome. Additionally, the patients family is experiencing ongoing issues of adjustment given the traumatic nature of the injury, and they may benefit from ongoing psychological assistance. At this point in the recovery process, the patient does not have cognitive capacity as the patient is unable to understand a situation and its likely consequences, nor is the patient able to manipulate information rationally. Cognitive capacity will be assessed throughout the recovery process. Anticipated Problems: Ongoing areas of concern will include behavioral impulsivity, lack of insight and judgment, which is expected to improve with time and treatment. Presently , the patient is globally aphasic. Treatment Plan: This clinician will continue to follow with you throughout the course of this patients rehabilitation treatment, and I will be available to meet with the patients family/support system to facilitate their understanding and the ongoing care of their family member. The goals of neuropsychological intervention shall be both educational and supportive to the family/support system as is deemed clinically appropriate. Impression: This is a 72 year old woman s/p left MCA CVA with right hemiplegia and presently global aphasia. Other higher cortical functions unable to be assessed due to severe language impairment. Progress Note Narrative: Day 18 post stroke. The patient is stable, participating in therapies. No issues of agitation/restlessness noted. I would recommend a consult to Dr. Katerine Karimi to follow for rehabilitation possibilities. I will follow. - Diagnosis (1) Vascular dementia of acute onset without behavioral disturbance Status: Acute (2) Alcohol dependence in controlled environment Status: Acute
[2017-11-05] MEDS: amLODIPine 5 MG Tablet G-TUBE SCH (11:17)
[2017-11-05] MEDS: Aspirin 325 MG Tablet G-TUBE SCH (11:17)
--- NOTE | 2017-11-06 07:39 | P.PN ---
Subjective Interval history: Patient appears more depressed and withdrawn today. Minimal verbalization. She is tolerating tube feeds at 35 mL/hour. Discussed with nursing staff, no acute issues noted. Physical Exam Vital signs: Vital Signs 11/05/17 08:00 11/05/17 12:00 11/05/17 16:00 Temperature 98.6 F 98.4 F 99.1 F Pulse Rate 96 H 108 H 113 H Respiratory Rate 18 18 18 Blood Pressure 149/69 H 135/87 139/74 Pulse Oximetry 95 96 95 11/05/17 20:00 11/06/17 00:00 11/06/17 04:00 Temperature 99.3 F 97.6 F Pulse Rate 105 H 108 H 97 H Respiratory Rate 18 16 Blood Pressure 146/77 H 118/80 Pulse Oximetry 95 98 Intake & Output 11/05/17 11/06/17 11/06/17 18:59 06:59 18:59 Intake Total 0 / 0 420 / 420 Output Total 3 / 3 Balance -3 / -3 0 / 0 420 / 420 Intake: Oral 0 / 0 Tube Feeding 420 / 420 Output: Urine 3 / 3 Other: # Voids 0 # Incontinent Voids 4 Date of Last Bowel Movement 11/05/17 # Bowel Movements 2 0 # Incontinent Bowel Movements 2 Narrative: GENERAL: WDWN elderly female, INAD. Awake. Appears depressed. + Global aphasia. SKIN: Warm and dry. No generalized rash. HEENT: Atraumatic. Normocephalic. +right sided facial droop. Pupils equal and round. No scleral icterus. No injection or drainage. No nasal bleeding or discharge. Mucous membranes pink and moist. NECK: Trachea midline. CARDIOVASCULAR: Tachycardic. No murmur appreciated. RESPIRATORY: No accessory muscle use. Diminished BS in bases. Poor effort. GASTROINTESTINAL: Abdomen soft, nondistended. +mild tenderness around PEG site. PEG site C/D/I. MUSCULOSKELETAL: Extremities without clubbing, cyanosis, or edema. NEUROLOGICAL: Awake and alert. Follows some simple commands. Motor grossly intact left upper and lower extremity. +Flaccid RUE. Not moving RLE spontaneously. +Global aphasia. PSYCHIATRIC: Calm. Depressed affect. - Urinary Catheter Management Female External Cath placed during this visit: no Results - Labs CBC & Chem 7: 11/06/17 13:27 11/06/17 13:27 - Procedures none Assessment and Plan - Assessment (1) Ischemic cerebrovascular accident (CVA) Code(s): I63.9 - Cerebral infarction, unspecified Status: Acute (2) Accelerated hypertension Code(s): I10 - Essential (primary) hypertension Status: Acute (3) Hemorrhage, petechial Code(s): R23.3 - Spontaneous ecchymoses Status: Acute (4) Right hemiplegia Code(s): G81.91 - Hemiplegia, unspecified affecting right dominant side Status : Acute (5) Aphasia Code(s): R47.01 - Aphasia Status: Acute (6) Impaired mobility and ADLs Code(s): Z74.09 - Other reduced mobility Status: Acute - Plan This is a 72-year-old female who was brought in by EMS because of altered mental status. History is mainly taken from ED and chart review. Apparently patient was last seen normal last night. This morning she was found with right- sided facial droop and right arm weakness. She was not following commands and was not verbal. According to her roommate who was intoxicated, patient is also an alcoholic. Head CT shows subacute left MCA CVA with petechial hemorrhages. Large left MCA CVA with petechial hemorrhages. Apparent occlusion of the internal carotid arteries bilaterally as well as occlusion of the left MCA proximally. Evidence of diffuse atherosclerotic disease of the right MCA. Not a surgical candidate per Dr. Chahal. LDL 48 A1c 5.9. Unremarkable echo. EKG with sinus rhythm. -Continue on aspirin, per neurology to consider anticoagulation. -Continue PT/OT/ST -Continue NPO. ST ff. Currently with severe expressive and severe receptive aphasia deficits. -Aspiration precautions. Monitor for hypoglycemia. Neurochecks and seizure precautions -Palliative care following, appreciate assistance. Family has declined hospice and comfort care, goals of care remain aggressive. -Neuropsychology following, appreciate assistance. Recommends Buspar to help with depression and anxiety. Will begin with 5mg BID and titrate as indicated. -Dr. Karimi of rehab medicine following, appreciate assistance. Dysphagia -ST following. Patient failed MBS. Continue strict NPO. -GI following, appreciate assistance. PEG tube placed 10/30. Continue Jevity 1.5 @ 35cc, with goal rate of 45. Continue slow titration up to goal as tolerated. Dietitian following. -Continue with IV Morphine and Tramadol prn pain Abdominal discomfort, improved ?due to poorly tolerating TF -KUB reviewed, unremarkable -CT reviewed, PEG tube in good position, no obstruction PNA, hospital associated, concern for aspiration 11/02 +rhonchi on exam. CXR shows mild airspace opacity right lung base. She is afebrile. Not in any respiratory distress. -treated with IV abx, completed course of po Ceftin -Duonebs prn -acapella, IS. EZPAP. -supplemental oxygen to maintain O2 sats >92% Hypertension -continue Norvasc 5mg daily -IV Vasotec prn -monitor BP and adjust treatment as indicated Hypokalemia K 3.4 -repletion ordered Alcohol abuse. -no evidence of withdrawal Multiple medical conditions of COPD, coronary artery disease status post stent and hyperlipidemia. DVT prophylaxis with SCD and early ambulation. Hold pharmacological prophylaxis secondary to petechial hemorrhages Code Status: FULL Discussed Condition With: patient, Dr. Machado, Dr. De Oliveira, nursing staff Discharge Planning: Not ready for discharge. Both adult children have decided to take patient home with [facility]. Slowly titrating up TF to goal rate. CM assisting with discharge planning.
[2017-11-06] MEDS: amLODIPine 5 MG Tablet G-TUBE SCH (09:58)
[2017-11-06] MEDS: Aspirin 325 MG Tablet G-TUBE SCH (09:58)
--- NOTE | 2017-11-06 11:21 | P.PNNPSY ---
- Emotional Moderate: Anxious/fearful, Depressed/sad - Behavior Intact: Coping/acceptance, Cooperative with treatment, Motivation - Progress Notes/Response to Treatment Contents of Sessions: Adjustment, Level of consciousness Time with Patient: 15 minutes Premorbid Psychological Status: Premorbid Cognitive, Emotional and Behavioral Status: Unstable. The patient has high school years of education and a minimal work history prior to this injury. The patient has possible prior psychiatric difficulties, as described above. Substance abuse history includes EtOH. Behavioral Reactions of Patient and Family/Support System: Tenuous. The patients family is experiencing ongoing issues of adjustment given the nature of the injury, and this aspect of recovery will require ongoing monitoring. Emotional/Behavioral Status of Patient and Family/Support System: Tenuous. Pertinent issues, if appropriate to this patients clinical care, are described in detail above. Maximizing Acute Care Outcome: It is recommended that the patient be monitored for emergent behavioral impulsivity as the medical condition evolves. This patients neuropathological challenges may limit rehabilitation potential going forward, and these challenges will require specialized therapeutic skills to maximize outcome. Additionally, the patients family is experiencing ongoing issues of adjustment given the traumatic nature of the injury, and they may benefit from ongoing psychological assistance. At this point in the recovery process, the patient does not have cognitive capacity as the patient is unable to understand a situation and its likely consequences, nor is the patient able to manipulate information rationally. Cognitive capacity will be assessed throughout the recovery process. Anticipated Problems: Ongoing areas of concern will include behavioral impulsivity, lack of insight and judgment, which is expected to improve with time and treatment. Presently , the patient is globally aphasic. Treatment Plan: This clinician will continue to follow with you throughout the course of this patients rehabilitation treatment, and I will be available to meet with the patients family/support system to facilitate their understanding and the ongoing care of their family member. The goals of neuropsychological intervention shall be both educational and supportive to the family/support system as is deemed clinically appropriate. Impression: This is a 72 year old woman s/p left MCA CVA with right hemiplegia and presently global aphasia. Other higher cortical functions unable to be assessed due to severe language impairment. Progress Note Narrative: Ongoing follow-up of patient. She appears more tearful and dysthymic today on exam, with likely depressive disorder in light of left hemisphere stroke, which is common. No issues of agitation/restlessness. I will follow. - Diagnosis (1) Vascular dementia of acute onset without behavioral disturbance Status: Acute (2) Alcohol dependence in controlled environment Status: Acute
[2017-11-06 14:35] LABS: Baso # (Auto) 0.1 th/mm3 (0.0-0.2); Baso % (Auto) 0.6 % (0.0-2.0); Eos # (Auto) 0.4 th/mm3 (0.0-0.4); Eos % (Auto) 3.3 % (0.0-4.0); Hemoglobin 12.9 gm/dL (11.6-15.3); Lymph # (Auto) 1.3 th/mm3 (1.0-4.8); Lymph % (Auto) 11.6 % (9.0-44.0); Mean Corpuscular Hemoglobin 30.9 pg (27.0-34.0); Mean Corpuscular Volume 93.6 fL (80.0-100.0); Mono # (Auto) 0.8 th/mm3 (0.0-0.9); Mono % (Auto) 7.1 % (0.0-8.0); Neut % (Auto) 77.4 % (16.0-70.0); Platelet Count 553 th/mm3 (150-450); Red Blood Count 4.17 mil/mm3 (4.00-5.30); Red Cell Distribution Width 13.2 % (11.6-17.2); White Blood Count 11.6 th/mm3 (4.0-11.0)
[2017-11-06] MEDS ORDERED: Metoprolol Tartrate 25 MG Tablet PO ONE (14:52)
[2017-11-06 14:55] LABS: Albumin 2.7 g/dL (3.4-5.0); Anion Gap 10 meq/L (5-15); Aspartate Aminotransferase 33 U/L (15-37); Blood Urea Nitrogen 14 mg/dL (7-18); Calcium 8.9 mg/dL (8.5-10.1); Chloride 106 meq/L (98-107); Glomerular Filtration Rate Greater Than 89 mL/min (>89); Glucose,Random 91 mg/dL (74-106); Potassium 3.4 meq/L (3.5-5.1); Sodium 142 meq/L (136-145)
[2017-11-06 14:57] LABS: Alanine Aminotransferase 36 U/L (10-53)
[2017-11-06 14:59] LABS: Alkaline Phosphatase 54 U/L (45-117); Total Protein 6.8 g/dL (6.4-8.2)
[2017-11-06] MEDS ORDERED: Potassium Chloride 25 MEQ Effervescent Tablet G-TUBE ONE (17:00)
[2017-11-06] MEDS ORDERED: Metoprolol Tartrate 25 MG Tablet PO SCH (21:00)
--- NOTE | 2017-11-07 07:20 | P.PN ---
Subjective Interval history: No significant change. Patient remained stable. She is tolerating tube feeds at goal rate of 45 ML's per/hour. Discussed with nursing staff, no acute events noted overnight. Physical Exam Vital signs: Vital Signs 11/06/17 08:00 11/06/17 12:00 11/06/17 16:00 Temperature 97.9 F 97.7 F 98.3 F Pulse Rate 103 H 101 H 98 H Respiratory Rate 16 16 14 Blood Pressure 143/67 H 153/74 H 133/65 Pulse Oximetry 93 L 94 L 93 L 11/06/17 20:00 11/06/17 23:32 11/07/17 04:00 Temperature 98.2 F 98.3 F 97.7 F Pulse Rate 103 H 103 H 97 H Respiratory Rate 18 18 18 Blood Pressure 153/78 H 142/66 H 147/67 H Pulse Oximetry 95 95 95 Intake & Output 11/06/17 11/07/17 11/07/17 18:59 06:59 18:59 Intake Total 420 / 420 Output Total Balance 419 / 419 Weight 53.9 kg Intake: Oral 0 / 0 Tube Feeding 420 / 420 Output: Stool Other: # Voids 1 # Incontinent Voids 2 Date of Last Bowel Movement 11/05/17 # Bowel Movements 0 # Incontinent Bowel Movements 1 Narrative: GENERAL: WDWN elderly female, INAD. Awake and alert. +Global aphasia. SKIN: Warm and dry. No generalized rash. HEENT: Atraumatic. Normocephalic. +right sided facial droop. Pupils equal and round. No scleral icterus. No injection or drainage. No nasal bleeding or discharge. Mucous membranes pink and moist. NECK: Trachea midline. CARDIOVASCULAR: Tachycardic. No murmur appreciated. RESPIRATORY: No accessory muscle use. Diminished BS in bases. Poor effort. GASTROINTESTINAL: Abdomen soft, nondistended. +mild tenderness around PEG site. PEG site C/D/I. MUSCULOSKELETAL: Extremities without clubbing, cyanosis, or edema. NEUROLOGICAL: Awake and alert. Follows some simple commands. Motor grossly intact left upper and lower extremity. +Flaccid RUE. Not moving RLE spontaneously. +Global aphasia. PSYCHIATRIC: Calm. Depressed affect. - Urinary Catheter Management Female External Cath placed during this visit: no Results - Labs CBC & Chem 7: 11/06/17 13:27 11/07/17 08:28 Laboratory Results - last 24 hr 11/06/17 11/06/17 13:27 13:27 WBC 11.6 H RBC 4.17 Hgb 12.9 Hct 39.0 MCV 93.6 MCH 30.9 MCHC 33.0 RDW 13.2 Plt Count 553 H MPV 8.0 Neut % (Auto) 77.4 H Lymph % (Auto) 11.6 [place] % (Auto) 7.1 Eos % (Auto) 3.3 Baso % (Auto) 0.6 Neut # (Auto) 9.0 H Lymph # (Auto) 1.3 [place] # (Auto) 0.8 Eos # (Auto) 0.4 Baso # (Auto) 0.1 WBC Differential . Differential Comment Auto diff final Sodium 142 Potassium 3.4 L Chloride 106 Carbon Dioxide 26.0 Anion Gap 10 BUN 14 Creatinine 0.63 Estimated GFR Greater than 89 Random Glucose 91 Calcium 8.9 Phosphorus 4.0 Magnesium 2.0 Total Bilirubin 0.5 AST 33 ALT 36 Alkaline Phosphatase 54 Total Protein 6.8 D Albumin 2.7 L - Procedures none Assessment and Plan - Assessment (1) Ischemic cerebrovascular accident (CVA) Code(s): I63.9 - Cerebral infarction, unspecified Status: Acute (2) Accelerated hypertension Code(s): I10 - Essential (primary) hypertension Status: Acute (3) Hemorrhage, petechial Code(s): R23.3 - Spontaneous ecchymoses Status: Acute (4) Right hemiplegia Code(s): G81.91 - Hemiplegia, unspecified affecting right dominant side Status : Acute (5) Aphasia Code(s): R47.01 - Aphasia Status: Acute (6) Impaired mobility and ADLs Code(s): Z74.09 - Other reduced mobility Status: Acute - Plan This is a 72-year-old female who was brought in by EMS because of altered mental status. History is mainly taken from ED and chart review. Apparently patient was last seen normal last night. This morning she was found with right- sided facial droop and right arm weakness. She was not following commands and was not verbal. According to her roommate who was intoxicated, patient is also an alcoholic. Head CT shows subacute left MCA CVA with petechial hemorrhages. 11/07 Patient is stable. No significant change. Patient is tolerating tube feeds at goal rate. Discussed with palliative care yesterday, patient's family' s wishes remain aggressive. Plan for discharge later today once case management is able to set up home health care and patient's son is instructed on tube feeds and medication ministration. Large left MCA CVA with petechial hemorrhages. Apparent occlusion of the internal carotid arteries bilaterally as well as occlusion of the left MCA proximally. Evidence of diffuse atherosclerotic disease of the right MCA. Not a surgical candidate per Dr. Chahal. LDL 48 A1c 5.9. Unremarkable echo. EKG with sinus rhythm. -Continue on aspirin, per neurology to consider anticoagulation. -Continue PT/OT/ST -Continue NPO. ST ff. Currently with severe expressive and severe receptive aphasia deficits. -Aspiration precautions. Monitor for hypoglycemia. Neurochecks and seizure precautions -Palliative care following, appreciate assistance. Family has declined hospice and comfort care, goals of care remain aggressive. -Neuropsychology following, appreciate assistance. Recommends Buspar to help with depression and anxiety. Will begin with 5mg BID and titrate as indicated. -Dr. Karimi of rehab medicine following, appreciate assistance. Dysphagia -ST following. Patient failed MBS. Continue strict NPO. -GI following, appreciate assistance. PEG tube placed 10/30. Continue Jevity 1.5 @ 45cc. Dietitian following. -Continue with Tramadol prn pain Abdominal discomfort, improved ?due to poorly tolerating TF -KUB reviewed, unremarkable -CT reviewed, PEG tube in good position, no obstruction PNA, hospital associated, concern for aspiration 11/02 +rhonchi on exam. CXR shows mild airspace opacity right lung base. She is afebrile. Not in any respiratory distress. -treated with IV abx, completed course of po Ceftin -Duonebs prn -acapella, IS. EZPAP. -supplemental oxygen to maintain O2 sats >92% Hypertension Tachycardia -continue Norvasc 5mg daily -started on Metoprolol, HR improved but still tachy. Increase dose to 25mg BID with hold parameters -IV Vasotec prn -monitor BP and adjust treatment as indicated Hypokalemia K 3.4 -resolved s/p repletion ordered Alcohol abuse. -no evidence of withdrawal Multiple medical conditions of COPD, coronary artery disease status post stent and hyperlipidemia. DVT prophylaxis with SCD and early ambulation. Hold pharmacological prophylaxis secondary to petechial hemorrhages Code Status: FULL Discussed Condition With: patient, nursing staff, Dr. Machado Discharge Planning: Both adult children have decided and aggressive goals of care and to take patient home with [facility]. Plan for discharge today. CM assisting with discharge planning.
[2017-11-07] MEDS: Aspirin 325 MG Tablet G-TUBE SCH (08:36)
[2017-11-07] MEDS: Metoprolol Tartrate 25 MG Tablet G-TUBE SCH ×2 (08:36→22:27)
[2017-11-07] MEDS: amLODIPine 5 MG Tablet G-TUBE SCH (08:37)
--- NOTE | 2017-11-07 08:53 | P.DCO ---
- Physical Therapy Order: Evaluate and treat, Improve ambulation, Strength and gait training - Occupational Therapy Order: Evaluate and treat, Improve ADL, Gross motor coordination, Fine motor coordination - Speech Therapy Order: To improve: Speech and communication skills, Cognitive skills, Swallowing - Home Health Nursing Order: Medical education, Signs/symptoms of disease process, Medication education-adverse effect, Nursing assessment with vital signs Instructions: Jevity 1.5 @ 45 mls/hr goal - Education Reviewer Order: To evaluate: Living conditions/environment, Support services - Certification I have seen patient Chichi Cadet on 11/07/17. My clinical findings support the need for the requested home health care services because: Limited mobility due to disease progression, Deconditioned with increased weakness, Medication compliance is questionable, Limited ability to care for self, Impaired cognition/judgement, High risk of falls I certify that my clinical findings support that this patient is homebound because: Impaired cognitive ability/safety, Unsteady gait/balance, Unsafe to leave home unassisted, Non-ambulatory: confined to bed or chair, Unable to use public transportation
--- NOTE | 2017-11-07 09:13 | P.DS ---
Date of admission: 10/18/17 16:36 Primary care physician: UNKNOWN Attending physician on discharge: Cullen Machado Anticipated date of discharge: 11/07/17 Brief History from admission: This is a 72-year-old female who was brought in by EMS because of altered mental status. History is mainly taken from ED and chart review. Apparently patient was last seen normal last night. This morning she was found with right- sided facial droop and right arm weakness. She was not following commands and was not verbal. According to her roommate who was intoxicated, patient is also an alcoholic. Head CT shows subacute left MCA CVA with petechial hemorrhages. [employer] reviewed shows she has history of COPD, coronary artery disease status post stent, hyperlipidemia and hypertension. Family history father of Kourtney Gehrig's and mother with cancer type not known. At this time, she is awake but has expressive aphasia. She is following commands intermittently. All other systems reviewed negative DS: Diagnosis - Discharge Diagnosis (1) Ischemic cerebrovascular accident (CVA) Status: Acute (2) Expressive aphasia Status: Acute (3) Receptive aphasia Status: Acute (4) Hemorrhage, petechial Status: Acute (5) Impaired activities of daily living Status: Acute (6) Right hemiplegia Status: Acute (7) Aphasia Status: Acute (8) Dysphagia Status: Acute (9) Accelerated hypertension Status: Acute (10) Hospital-acquired pneumonia Status: Acute (11) At risk for aspiration pneumonia Status: Acute (12) HTN (hypertension) Status: Acute (13) Alcohol dependence in controlled environment Status: Acute (14) Impaired mobility and ADLs Status: Acute DS: Medications - Discharge Medications Prescriptions: amlodipine [Norvasc] 5 mg G-TUBE DAILY #30 tab aspirin 325 mg G-TUBE DAILY #30 tab buspirone 5 mg G-TUBE BID #60 tab lansoprazole [Prevacid SoluTab] 30 mg NG/OG DAILY #30 tab metoprolol tartrate 25 mg G-TUBE BID #60 tab tramadol [Ultram] 50 mg PO Q6H #20 tab DS: Summary Hospital Course: Patient admitted with subacute left MCA CVA with petechial hemorrhages without significant mass-effect. Patient seen in consultation by neurosurgery and neurology. She was found to have bilateral internal carotid stenosis and seen in consultation by vascular surgery who did not recommend any surgical intervention. Patient was treated for pneumonia, hospital associated with concern for aspiration. Patient was followed by palliative care and family decided on aggressive goals of care. Patient had PEG tube placed by GI service for significant dysphagia. Patient was treated by speech therapy, Occupational Therapy and physical therapy throughout her hospitalization. She had significant global aphasia. Patient's family refused rehab placement at discharge and decided patient would be discharged to home with home health care services. Case management assisted in discharge planning. [facility] Pres[employer] Drug Monitoring Database has been queried and verified prior to prescribing the controlled substance. Acute pain exception. This patient has normal, predicted, physiological, and time limited response to an adverse mechanical stimulus associated with surgery, trauma, or acute illness as described in my notes. There is a lack of alternative treatment options other than to include the prescribed narcotic treatment for this condition. - Time Spent with Patient Total time spent providing and/or coordinating discharge services: Greater than 30 minutes Exam Vital signs: Vital Signs 11/06/17 12:00 11/06/17 16:00 11/06/17 20:00 Temperature 97.7 F 98.3 F 98.2 F Pulse Rate 101 H 98 H 103 H Respiratory Rate 16 14 18 Blood Pressure 153/74 H 133/65 153/78 H Pulse Oximetry 94 L 93 L 95 11/06/17 23:32 11/07/17 04:00 11/07/17 08:28 Temperature 98.3 F 97.7 F 98.1 F Pulse Rate 103 H 97 H 100 H Respiratory Rate 18 18 17 Blood Pressure 142/66 H 147/67 H 135/75 Pulse Oximetry 95 95 94 L Intake & Output 11/06/17 11/07/17 11/07/17 18:59 06:59 18:59 Intake Total 420 / 420 Output Total Balance 419 / 419 Weight 53.9 kg Intake: Oral 0 / 0 Tube Feeding 420 / 420 Output: Stool Other: # Voids 1 # Incontinent Voids 2 Date of Last Bowel Movement 11/05/17 # Bowel Movements 0 # Incontinent Bowel Movements 1 Narrative: GENERAL: WDWN elderly female, INAD. Awake and alert. +Global aphasia. SKIN: Warm and dry. No generalized rash. HEENT: Atraumatic. Normocephalic. +right sided facial droop. Pupils equal and round. No scleral icterus. No injection or drainage. No nasal bleeding or discharge. Mucous membranes pink and moist. NECK: Trachea midline. CARDIOVASCULAR: Tachycardic. No murmur appreciated. RESPIRATORY: No accessory muscle use. Diminished BS in bases. Poor effort. GASTROINTESTINAL: Abdomen soft, nondistended. +mild tenderness around PEG site. PEG site C/D/I. MUSCULOSKELETAL: Extremities without clubbing, cyanosis, or edema. NEUROLOGICAL: Awake and alert. Follows some simple commands. Motor grossly intact left upper and lower extremity. +Flaccid RUE. Not moving RLE spontaneously. +Global aphasia. PSYCHIATRIC: Calm. Depressed affect. Results Procedures completed during hospitalization: 10/30 PEG tube placement Labs on day of discharge: Labs from last 24 hours 11/07/17 11/06/17 11/06/17 08:28 13:27 13:27 WBC 11.6 H RBC 4.17 Hgb 12.9 Hct 39.0 MCV 93.6 MCH 30.9 MCHC 33.0 RDW 13.2 Plt Count 553 H MPV 8.0 Neut % (Auto) 77.4 H Lymph % (Auto) 11.6 [place] % (Auto) 7.1 Eos % (Auto) 3.3 Baso % (Auto) 0.6 Neut # (Auto) 9.0 H Lymph # (Auto) 1.3 [place] # (Auto) 0.8 Eos # (Auto) 0.4 Baso # (Auto) 0.1 WBC Differential . Differential Comment Auto diff final Sodium Pending 142 Potassium Pending 3.4 L Chloride Pending 106 Carbon Dioxide Pending 26.0 Anion Gap Pending 10 BUN Pending 14 Creatinine Pending 0.63 Estimated GFR Greater than 89 Random Glucose Pending 91 Calcium Pending 8.9 Phosphorus 4.0 Magnesium 2.0 Total Bilirubin 0.5 AST 33 ALT 36 Alkaline Phosphatase 54 Total Protein 6.8 D Albumin 2.7 L - Impressions ITS Impressions Carotid Doppler Study 10/18/17 00:00 CONCLUSION: 1. Severe plaque identified at the right carotid bulb. Elevated ICA to CCA ratio on the right indicating possible high-grade stenosis. 2. Left ICA and ECA nonvisualized indicating possible occlusion. Head MRI 10/18/17 16:36 CONCLUSION: Moderate-sized acute infarct again seen in the left MCA distribution. There is some mass effect but no midline shift. Head MRA 10/18/17 16:36 CONCLUSION: Apparent occlusion of the internal carotid arteries bilaterally as well as occlusion of the left MCA proximally. Evidence of diffuse atherosclerotic disease of the right MCA. Head CT 10/19/17 00:00 CONCLUSION: 1. Evolving infarct in the left MCA distribution. . Head CTA 10/20/17 00:00 CONCLUSION: 1. Bilateral ICA occlusions as well as left M1 occlusion. Collateralization from the posterior cranial circulation is preserving flow to the bilateral anterior and right middle cranial fossa. Neck CTA 10/20/17 00:00 CONCLUSION: 1. Right ICA occludes at its origin. The left ICA is occluded at the cavernous segment with the extracranial aspect diffusely small in caliber. 2. Robust vertebral arteries bilaterally measuring 4 mm in diameter which are patent throughout. Venous Doppler Study 10/27/17 00:00 CONCLUSION: 1. The study is negative for lower extremity deep venous thrombosis. Videofluoroscopic Swallow 10/27/17 00:00 CONCLUSION: Single episode of laryngeal penetration/aspiration which did elicit a cough reflex as above. Abdomen X-Ray 11/01/17 00:00 CONCLUSION: Scattered contrast in the colon. Nonspecific bowel gas in nondilated small bowel. Chest X-Ray 11/02/17 00:00 CONCLUSION: Stable chest x-ray with mild airspace opacity at the right lung base representing either subsegmental atelectasis or consolidation. Abdomen/Pelvis CT 11/03/17 00:00 CONCLUSION: 1. Gastrostomy tube in good position. 2. Tiny right pleural effusion with mild bibasilar atelectasis. 3. Atrophic left kidney. 4. 5 cm mass involving the uterus. This may simply relate to a fibroid. 5. 3.1 cm AAA. Discharge Plan - Discharge Disposition Patient Disposition: /Home Health Service - Discharge Condition Condition: Stable - Discharge Order Discharge Orders: Discharge Order (Routine); Ordered 11/07/17 Ordered By: Mercedes Mtz - Discharge Details Anticipated Discharge Date: 11/07/17 - Physicians Team Primary Care Provider: UNKNOWN, Attending Provider: Cullen Machado Other Providers: Ave Arndt MD ; Missael Mallory MD ; Katerine Karimi MD ; Juhi Chahal MD ; Keshawn Tilley MD ; Daniel Watt MD ; Sunny De Oliveira, PhD ; Baldev Colmenares,Hasty
[2017-11-07 09:31] LABS: Calcium 8.9 mg/dL (8.5-10.1); Carbon Dioxide 26.3 meq/L (21.0-32.0)
[2017-11-07 09:33] LABS: Potassium 3.9 meq/L (3.5-5.1)
--- NOTE | 2017-11-08 09:11 | P.PNIM ---
Subjective Interval history: Patient seen and examined this morning. Afebrile vital signs stable. Patient appears to only be able to say no and okay, but is smiling and very friendly. She was discharged yesterday with the plan to go home with home health once established. She is still cleared for discharge at this time. Able to go once home health established with case management. Physical Exam Vital signs: Vital Signs 11/07/17 11:50 11/07/17 16:00 11/07/17 20:00 Temperature 97.7 F 97.7 F 97.6 F Pulse Rate 97 H 97 H 100 H Respiratory Rate 14 14 18 Blood Pressure 137/72 142/70 H 127/69 Pulse Oximetry 97 95 11/08/17 00:00 11/08/17 04:00 Temperature 98.1 F 98.0 F Pulse Rate 88 89 Respiratory Rate 18 18 Blood Pressure 130/64 132/60 Pulse Oximetry 94 L 94 L Intake & Output 11/07/17 11/08/17 11/08/17 18:59 06:59 18:59 Intake Total 420 / 420 Balance 420 / 420 Weight 53.2 kg Intake: Oral 0 / 0 Tube Feeding 420 / 420 Other: # Voids 1 # Incontinent Voids 2 Date of Last Bowel Movement 11/05/17 11/07/17 # Incontinent Bowel Movements 1 Narrative: GENERAL: WDWN elderly female, INAD. Awake and alert. +Global aphasia. SKIN: Warm and dry. No generalized rash. HEENT: Atraumatic. Normocephalic. +right sided facial droop. Pupils equal and round. No scleral icterus. No injection or drainage. No nasal bleeding or discharge. Mucous membranes pink and moist. NECK: Trachea midline. CARDIOVASCULAR: Tachycardic. No murmur appreciated. RESPIRATORY: No accessory muscle use. Diminished BS in bases. Poor effort. GASTROINTESTINAL: Abdomen soft, nondistended. +mild tenderness around PEG site. PEG site C/D/I. MUSCULOSKELETAL: Extremities without clubbing, cyanosis, or edema. NEUROLOGICAL: Awake and alert. Follows some simple commands. Motor grossly intact left upper and lower extremity. +Flaccid RUE. Not moving RLE spontaneously. +Global aphasia. PSYCHIATRIC: Calm. Depressed affect. - Urinary Catheter Management Female External Cath placed during this visit: no Results - Labs CBC & Chem 7: 11/06/17 13:27 08/24/18 08:28 Laboratory Results - last 24 hr 11/07/17 08:28 Sodium 140 Potassium 3.9 Chloride 104 Carbon Dioxide 26.3 Anion Gap 10 BUN 16 Creatinine 0.75 Estimated GFR 76 L Random Glucose 124 H Calcium 8.9 - Imaging Carotid Doppler Study 10/18/17 00:00 CONCLUSION: 1. Severe plaque identified at the right carotid bulb. Elevated ICA to CCA ratio on the right indicating possible high-grade stenosis. 2. Left ICA and ECA nonvisualized indicating possible occlusion. Chest X-Ray 10/18/17 00:00 CONCLUSION: Negative examination. Head CT 10/18/17 12:21 CONCLUSION: 1. Subacute left MCA distribution infarct associated with some trace petechial hemorrhage in the deep white matter. . Head MRI 10/18/17 16:36 CONCLUSION: Moderate-sized acute infarct again seen in the left MCA distribution. There is some mass effect but no midline shift. Head MRA 10/18/17 16:36 CONCLUSION: Apparent occlusion of the internal carotid arteries bilaterally as well as occlusion of the left MCA proximally. Evidence of diffuse atherosclerotic disease of the right MCA. Head CT 10/19/17 00:00 CONCLUSION: 1. Evolving infarct in the left MCA distribution. . Head CTA 10/20/17 00:00 CONCLUSION: 1. Bilateral ICA occlusions as well as left M1 occlusion. Collateralization from the posterior cranial circulation is preserving flow to the bilateral anterior and right middle cranial fossa. Neck CTA 10/20/17 00:00 CONCLUSION: 1. Right ICA occludes at its origin. The left ICA is occluded at the cavernous segment with the extracranial aspect diffusely small in caliber. 2. Robust vertebral arteries bilaterally measuring 4 mm in diameter which are patent throughout. Abdomen X-Ray 10/23/17 03:16 CONCLUSION: NG tube as above. Chest X-Ray 10/26/17 00:00 CONCLUSION: Minimal patchy densities right lower lobe, likely infiltrate. Venous Doppler Study 10/27/17 00:00 CONCLUSION: 1. The study is negative for lower extremity deep venous thrombosis. Videofluoroscopic Swallow 10/27/17 00:00 CONCLUSION: Single episode of laryngeal penetration/aspiration which did elicit a cough reflex as above. Abdomen X-Ray 11/01/17 00:00 CONCLUSION: Scattered contrast in the colon. Nonspecific bowel gas in nondilated small bowel. Chest X-Ray 11/02/17 00:00 CONCLUSION: Stable chest x-ray with mild airspace opacity at the right lung base representing either subsegmental atelectasis or consolidation. Abdomen/Pelvis CT 11/03/17 00:00 CONCLUSION: 1. Gastrostomy tube in good position. 2. Tiny right pleural effusion with mild bibasilar atelectasis. 3. Atrophic left kidney. 4. 5 cm mass involving the uterus. This may simply relate to a fibroid. 5. 3.1 cm AAA. - Procedures 10/30 PEG tube placement Assessment and Plan - Assessment (1) Ischemic cerebrovascular accident (CVA) Code(s): I63.9 - Cerebral infarction, unspecified Status: Acute (2) Accelerated hypertension Code(s): I10 - Essential (primary) hypertension Status: Acute (3) Hemorrhage, petechial Code(s): R23.3 - Spontaneous ecchymoses Status: Acute (4) Right hemiplegia Code(s): G81.91 - Hemiplegia, unspecified affecting right dominant side Status : Acute (5) Aphasia Code(s): R47.01 - Aphasia Status: Acute (6) Impaired mobility and ADLs Code(s): Z74.09 - Other reduced mobility Status: Acute - Plan This is a 72-year-old female who was brought in by EMS because of altered mental status. History is mainly taken from ED and chart review. Apparently patient was last seen normal last night. This morning she was found with right- sided facial droop and right arm weakness. She was not following commands and was not verbal. According to her roommate who was intoxicated, patient is also an alcoholic. Head CT shows subacute left MCA CVA with petechial hemorrhages. 11/08 Patient is stable. No significant change. Patient is tolerating tube feeds at goal rate. Discussed with palliative care yesterday, patient's family' s wishes remain aggressive. Plan for discharge at this time once case management is able to set up home health care and patient's son is instructed on tube feeds and medication ministration. Large left MCA CVA with petechial hemorrhages. Apparent occlusion of the internal carotid arteries bilaterally as well as occlusion of the left MCA proximally. Evidence of diffuse atherosclerotic disease of the right MCA. Not a surgical candidate per Dr. Chahal. LDL 48 A1c 5.9. Unremarkable echo. EKG with sinus rhythm. -Continue on aspirin, per neurology to consider anticoagulation. -Continue PT/OT/ST -Continue NPO. ST ff. Currently with severe expressive and severe receptive aphasia deficits. -Aspiration precautions. Monitor for hypoglycemia. Neurochecks and seizure precautions -Palliative care following, appreciate assistance. Family has declined hospice and comfort care, goals of care remain aggressive. -Neuropsychology following, appreciate assistance. Recommends Buspar to help with depression and anxiety. Will begin with 5mg BID and titrate as indicated. -Dr. Karimi of rehab medicine following, appreciate assistance. Dysphagia -ST following. Patient failed MBS. Continue strict NPO. -GI following, appreciate assistance. PEG tube placed 10/30. Continue Jevity 1.5 @ 45cc. Dietitian following. -Continue with Tramadol prn pain Abdominal discomfort, improved ?due to poorly tolerating TF -KUB reviewed, unremarkable -CT reviewed, PEG tube in good position, no obstruction PNA, hospital associated, concern for aspiration 11/02 +rhonchi on exam. CXR shows mild airspace opacity right lung base. She is afebrile. Not in any respiratory distress. -treated with IV abx, completed course of po Ceftin -Duonebs prn -acapella, IS. EZPAP. -supplemental oxygen to maintain O2 sats >92% Hypertension Tachycardia -continue Norvasc 5mg daily -started on Metoprolol, HR improved but still tachy. Increase dose to 25mg BID with hold parameters -IV Vasotec prn -monitor BP and adjust treatment as indicated Hypokalemia K 3.4 -resolved s/p repletion ordered Alcohol abuse. -no evidence of withdrawal Multiple medical conditions of COPD, coronary artery disease status post stent and hyperlipidemia. DVT prophylaxis with SCD and early ambulation. Hold pharmacological prophylaxis secondary to petechial hemorrhages Code Status: Full code
[2017-11-08] MEDS: Metoprolol Tartrate 25 MG Tablet G-TUBE SCH ×2 (09:47→22:36)
[2017-11-08] MEDS: Aspirin 325 MG Tablet G-TUBE SCH (09:47)
[2017-11-08] MEDS: amLODIPine 5 MG Tablet G-TUBE SCH (09:47)
--- NOTE | 2017-11-08 17:40 | ECG ---
Date Performed: 11/06/2017 Time Performed: 15:44:24 PTAGE: 72 years EKG: SINUS TACHYCARDIA POSSIBLE LEFT ATRIAL ENLARGEMENT NONSPECIFIC T-WAVE ABNORMALITY ABNORMAL RHYTHM ECG PREVIOUS TRACING : 11/01/2017 16.33 DOCTOR: Mercedes Hall Interpretating Date/Time 11/08/2017 17:35:01
[2017-11-09] MEDS: Aspirin 325 MG Tablet G-TUBE SCH (09:42)
[2017-11-09] MEDS: Metoprolol Tartrate 25 MG Tablet G-TUBE SCH ×2 (09:42→22:45)
[2017-11-09] MEDS: amLODIPine 5 MG Tablet G-TUBE SCH (09:42)
--- NOTE | 2017-11-09 12:41 | P.PNIM ---
Subjective Interval history: Patient seen and examined this morning. Temperature 98, pulse 102-107, respiratory rate 18, blood pressure 150/66, pulse ox 96 on room air. Patient has dysphasia and difficulty with communication. Explained her that she will be going home tomorrow once she gets the medical bed to her house. She seems to understand this and is looking forward to getting out of the hospital. Denies any pain. Denies any issues at this time again difficult to communicate however due to the dysphagia. Physical Exam Vital signs: Vital Signs 11/08/17 16:00 11/08/17 20:00 11/08/17 20:40 Temperature 98.1 F 98.4 F Pulse Rate 92 H 106 H 101 H Respiratory Rate 16 19 Blood Pressure 127/72 139/75 Pulse Oximetry 96 95 11/09/17 00:00 11/09/17 00:10 11/09/17 04:00 Temperature 97.9 F Pulse Rate 101 H 105 H 98 H Respiratory Rate 20 Blood Pressure 130/68 Pulse Oximetry 96 11/09/17 06:15 11/09/17 09:33 11/09/17 10:44 Temperature 98 F Pulse Rate 107 H 102 H Respiratory Rate 19 18 Blood Pressure 150/66 H Pulse Oximetry 96 Intake & Output 11/08/17 11/09/17 11/09/17 18:59 06:59 18:59 Intake Total 860 / 860 Balance 860 / 860 Weight 53.5 kg Intake: Oral 0 / 0 Tube Feeding 540 / 540 Tube Irrigant 120 / 120 Water Bolus Amount 200 / 200 Other: # Incontinent Voids 4 Date of Last Bowel Movement 11/08/17 # Incontinent Bowel Movements 1 0 Narrative: GENERAL: WDWN elderly female, INAD. Awake and alert. +Global aphasia. SKIN: Warm and dry. No generalized rash. HEENT: Atraumatic. Normocephalic. +right sided facial droop. Pupils equal and round. No scleral icterus. No injection or drainage. No nasal bleeding or discharge. Mucous membranes pink and moist. NECK: Trachea midline. CARDIOVASCULAR: Tachycardic. No murmur appreciated. RESPIRATORY: No accessory muscle use. Diminished BS in bases. Poor effort. GASTROINTESTINAL: Abdomen soft, nondistended. +mild tenderness around PEG site. PEG site C/D/I. MUSCULOSKELETAL: Extremities without clubbing, cyanosis, or edema. NEUROLOGICAL: Awake and alert. Follows some simple commands. Motor grossly intact left upper and lower extremity. +Flaccid RUE. Not moving RLE spontaneously. +Global aphasia. PSYCHIATRIC: Calm. Depressed affect. - Urinary Catheter Management Female External Cath placed during this visit: no Results - Labs CBC & Chem 7: 11/06/17 13:27 11/07/17 08:28 - Procedures 10/30 PEG tube placement Assessment and Plan - Assessment (1) Ischemic cerebrovascular accident (CVA) Code(s): I63.9 - Cerebral infarction, unspecified Status: Acute (2) Expressive aphasia Code(s): R47.01 - Aphasia Status: Acute (3) Receptive aphasia Code(s): R47.01 - Aphasia Status: Acute (4) Hemorrhage, petechial Code(s): R23.3 - Spontaneous ecchymoses Status: Acute (5) Impaired activities of daily living Status: Acute (6) Right hemiplegia Code(s): G81.91 - Hemiplegia, unspecified affecting right dominant side Status : Acute (7) Aphasia Code(s): R47.01 - Aphasia Status: Acute (8) Dysphagia Code(s): R13.10 - Dysphagia, unspecified Status: Acute (9) Accelerated hypertension Code(s): I10 - Essential (primary) hypertension Status: Acute (10) Hospital-acquired pneumonia Code(s): J18.9 - Pneumonia, unspecified organism Status: Acute (11) At risk for aspiration pneumonia Code(s): Z91.89 - Other specified personal risk factors, not elsewhere classified Status: Acute (12) HTN (hypertension) Code(s): I10 - Essential (primary) hypertension Status: Acute (13) Alcohol dependence in controlled environment Code(s): F10.20 - Alcohol dependence, uncomplicated Status: Acute (14) Impaired mobility and ADLs Code(s): Z74.09 - Other reduced mobility Status: Acute - Plan This is a 72-year-old female who was brought in by EMS because of altered mental status. History is mainly taken from ED and chart review. Apparently patient was last seen normal last night. This morning she was found with right- sided facial droop and right arm weakness. She was not following commands and was not verbal. According to her roommate who was intoxicated, patient is also an alcoholic. Head CT shows subacute left MCA CVA with petechial hemorrhages. 11/09 Patient is stable. No significant change. Patient is tolerating tube feeds at goal rate. Plan for discharge at this time once case management is able to set up home medical bed anticipated for tomorrow Large left MCA CVA with petechial hemorrhages. Apparent occlusion of the internal carotid arteries bilaterally as well as occlusion of the left MCA proximally. Evidence of diffuse atherosclerotic disease of the right MCA. Not a surgical candidate per Dr. Chahal. LDL 48 A1c 5.9. Unremarkable echo. EKG with sinus rhythm. -Continue on aspirin, per neurology to consider anticoagulation. -Continue PT/OT/ST -Continue NPO. ST ff. Currently with severe expressive and severe receptive aphasia deficits. -Aspiration precautions. Monitor for hypoglycemia. Neurochecks and seizure precautions -Palliative care following, appreciate assistance. Family has declined hospice and comfort care, goals of care remain aggressive. -Neuropsychology following, appreciate assistance. Recommends Buspar to help with depression and anxiety. Will begin with 5mg BID and titrate as indicated. -Dr. Karimi of rehab medicine following, appreciate assistance. Dysphagia -ST following. Patient failed MBS. Continue strict NPO. -GI following, appreciate assistance. PEG tube placed 10/30. Continue Jevity 1.5 @ 45cc. Dietitian following. -Continue with Tramadol prn pain Abdominal discomfort, improved ?due to poorly tolerating TF -KUB reviewed, unremarkable -CT reviewed, PEG tube in good position, no obstruction PNA, hospital associated, concern for aspiration 11/02 +rhonchi on exam. CXR shows mild airspace opacity right lung base. She is afebrile. Not in any respiratory distress. -treated with IV abx, completed course of po Ceftin -Duonebs prn -acapella, IS. EZPAP. -supplemental oxygen to maintain O2 sats >92% Hypertension Tachycardia -continue Norvasc 5mg daily -started on Metoprolol, HR improved but still tachy. Increase dose to 25mg BID with hold parameters -IV Vasotec prn -monitor BP and adjust treatment as indicated Hypokalemia K 3.4 -resolved s/p repletion ordered Alcohol abuse. -no evidence of withdrawal Multiple medical conditions of COPD, coronary artery disease status post stent and hyperlipidemia. DVT prophylaxis with SCD and early ambulation. Hold pharmacological prophylaxis secondary to petechial hemorrhages Code Status: Full code Discharge Planning: Discharge home tomorrow 11/09/17, pending medical bed to be delivered to her house.
[2017-11-10] MEDS: Metoprolol Tartrate 25 MG Tablet G-TUBE SCH (08:12)
[2017-11-10] MEDS: amLODIPine 5 MG Tablet G-TUBE SCH (08:12)
[2017-11-10] MEDS: Aspirin 325 MG Tablet G-TUBE SCH (08:13)
--- NOTE | 2017-11-10 10:13 | P.PNIM ---
Subjective Interval history: Patient seen and examined this morning. Afebrile vital signs stable. Patient continues have dysphagia. Appears to be in good spirits. Anticipate discharge home today as her medical bed is scheduled for delivery today. Physical Exam Vital signs: Vital Signs 11/09/17 10:44 11/09/17 12:00 11/09/17 12:54 Temperature 97.2 F L Pulse Rate 102 H 92 H 94 H Respiratory Rate 18 Blood Pressure 129/64 Pulse Oximetry 94 L 11/09/17 16:00 11/09/17 20:00 11/09/17 20:50 Temperature 98.5 F 97.9 F Pulse Rate 94 H 96 H 89 Respiratory Rate 18 19 Blood Pressure 125/74 130/70 Pulse Oximetry 94 L 96 11/10/17 00:00 11/10/17 03:45 11/10/17 04:00 Temperature 98 F 98 F Pulse Rate 91 H 68 97 H Respiratory Rate 20 18 Blood Pressure 123/65 120/61 Pulse Oximetry 97 98 11/10/17 08:00 Temperature 98.1 F Pulse Rate 93 H Respiratory Rate 18 Blood Pressure 108/57 L Pulse Oximetry 94 L Intake & Output 11/09/17 11/10/17 11/10/17 18:59 06:59 18:59 Intake Total 780 / 780 Balance 780 / 780 Weight 53.5 kg Intake: Oral 0 / 0 Tube Feeding 540 / 540 Tube Irrigant 120 / 120 Water Bolus Amount 120 / 120 Other: # Voids 2 4 # Incontinent Voids 3 Date of Last Bowel Movement 11/08/17 # Bowel Movements 0 # Incontinent Bowel Movements 0 Narrative: GENERAL: WDWN elderly female, INAD. Awake and alert. +Global aphasia. Sitting up in wheelchair appears to be in good spirits SKIN: Warm and dry. No generalized rash. HEENT: Atraumatic. Normocephalic. +right sided facial droop. Pupils equal and round. No scleral icterus. No injection or drainage. No nasal bleeding or discharge. Mucous membranes pink and moist. NECK: Trachea midline. CARDIOVASCULAR: Tachycardic. No murmur appreciated. RESPIRATORY: No accessory muscle use. Diminished BS in bases. Poor effort. GASTROINTESTINAL: Abdomen soft, nondistended. +mild tenderness around PEG site. PEG site C/D/I. MUSCULOSKELETAL: Extremities without clubbing, cyanosis, or edema. NEUROLOGICAL: Awake and alert. Follows some simple commands. Motor grossly intact left upper and lower extremity. +Flaccid RUE. Not moving RLE spontaneously. +Global aphasia. PSYCHIATRIC: Calm. Depressed affect. - Urinary Catheter Management Female External Cath placed during this visit: no Results - Labs CBC & Chem 7: 11/06/17 13:27 11/07/17 08:28 - Procedures 10/30 PEG tube placement Assessment and Plan - Assessment (1) Ischemic cerebrovascular accident (CVA) Code(s): I63.9 - Cerebral infarction, unspecified Status: Acute (2) Expressive aphasia Code(s): R47.01 - Aphasia Status: Acute (3) Receptive aphasia Code(s): R47.01 - Aphasia Status: Acute (4) Hemorrhage, petechial Code(s): R23.3 - Spontaneous ecchymoses Status: Acute (5) Impaired activities of daily living Status: Acute (6) Right hemiplegia Code(s): G81.91 - Hemiplegia, unspecified affecting right dominant side Status : Acute (7) Aphasia Code(s): R47.01 - Aphasia Status: Acute (8) Dysphagia Code(s): R13.10 - Dysphagia, unspecified Status: Acute (9) Accelerated hypertension Code(s): I10 - Essential (primary) hypertension Status: Acute (10) Hospital-acquired pneumonia Code(s): J18.9 - Pneumonia, unspecified organism Status: Acute (11) At risk for aspiration pneumonia Code(s): Z91.89 - Other specified personal risk factors, not elsewhere classified Status: Acute (12) HTN (hypertension) Code(s): I10 - Essential (primary) hypertension Status: Acute (13) Alcohol dependence in controlled environment Code(s): F10.20 - Alcohol dependence, uncomplicated Status: Acute (14) Impaired mobility and ADLs Code(s): Z74.09 - Other reduced mobility Status: Acute - Plan This is a 72-year-old female who was brought in by EMS because of altered mental status. History is mainly taken from ED and chart review. Apparently patient was last seen normal last night. This morning she was found with right- sided facial droop and right arm weakness. She was not following commands and was not verbal. According to her roommate who was intoxicated, patient is also an alcoholic. Head CT shows subacute left MCA CVA with petechial hemorrhages. 11/10 Patient is stable. No significant change. Patient is tolerating tube feeds at goal rate. Plan for discharge at this time once case management is able to set up home medical bed anticipated for tomorrow Large left MCA CVA with petechial hemorrhages. Apparent occlusion of the internal carotid arteries bilaterally as well as occlusion of the left MCA proximally. Evidence of diffuse atherosclerotic disease of the right MCA. Not a surgical candidate per Dr. Chahal. LDL 48 A1c 5.9. Unremarkable echo. EKG with sinus rhythm. -Continue on aspirin, per neurology to consider anticoagulation. -Continue PT/OT/ST -Continue NPO. ST ff. Currently with severe expressive and severe receptive aphasia deficits. -Aspiration precautions. Monitor for hypoglycemia. Neurochecks and seizure precautions -Palliative care following, appreciate assistance. Family has declined hospice and comfort care, goals of care remain aggressive. -Neuropsychology following, appreciate assistance. Recommends Buspar to help with depression and anxiety. Will begin with 5mg BID and titrate as indicated. -Dr. Karimi of rehab medicine following, appreciate assistance. Dysphagia -ST following. Patient failed MBS. Continue strict NPO. -GI following, appreciate assistance. PEG tube placed 10/30. Continue Jevity 1.5 @ 45cc. Dietitian following. -Continue with Tramadol prn pain Abdominal discomfort, improved ?due to poorly tolerating TF -KUB reviewed, unremarkable -CT reviewed, PEG tube in good position, no obstruction PNA, hospital associated, concern for aspiration 11/02 +rhonchi on exam. CXR shows mild airspace opacity right lung base. She is afebrile. Not in any respiratory distress. -treated with IV abx, completed course of po Ceftin -Duonebs prn -acapella, IS. EZPAP. -supplemental oxygen to maintain O2 sats >92% Hypertension Tachycardia -continue Norvasc 5mg daily -started on Metoprolol, HR improved but still tachy. Increase dose to 25mg BID with hold parameters -IV Vasotec prn -monitor BP and adjust treatment as indicated Hypokalemia K 3.4 -resolved s/p repletion ordered Alcohol abuse. -no evidence of withdrawal Multiple medical conditions of COPD, coronary artery disease status post stent and hyperlipidemia. DVT prophylaxis with SCD and early ambulation. Hold pharmacological prophylaxis secondary to petechial hemorrhages Code Status: Full code Discharge Planning: Discharge home today 11/10/17, pending medical bed to be delivered to her house.
== END 2017-11-10 18:07 | disposition home health service (06) ==
LOC: NEPC 11:52 → NEDA 16:36 → N03 17:19 → N05 10-22 14:41
PROVIDERS: ADMIT Hospitalist; ATTEND Hospitalist

== ENCOUNTER 2017-11-11 13:16 | Observation (INO) ==
--- NOTE | 2017-11-11 14:15 | ED ---
HPI General Chief complaint: Medical Clearance Stated complaint: Medical Complaint Time Seen by Provider: 11/11/17 13:48 Source: EMS Mode of arrival: EMS Limitations: physical limitation History of Present Illness HPI Narrative: 72-year-old female presents to the emergency room via ambulance for evaluation. She was brought from the place she is staying, a hotel room, because her son no longer wanted to care for her. Patient had ischemic stroke 15 days ago and was discharged from the hospital yesterday with multiple resources to her son's care. He lives in a hotel at the moment. When the home health nurse came patient was saturated in urine in the son stated he no longer wanted to take care of her. She called 911 in the ambulance transported her here. Patient has aphasia and can provide no meaningful history. Reason for Medical Clearance: medical condition Place: home Alleged Intoxication: No Previous Rx's Medication Instructions Recorded amlodipine [Norvasc] 5 mg G-TUBE DAILY #30 tab 11/07/17 aspirin 325 mg G-TUBE DAILY #30 tab 11/07/17 buspirone 5 mg G-TUBE BID #60 tab 11/07/17 lansoprazole [Prevacid SoluTab] 30 mg NG/OG DAILY #30 tab 11/07/17 metoprolol tartrate 25 mg G-TUBE BID #60 tab 11/07/17 tramadol [Ultram] 50 mg PO Q6H #20 tab 11/07/17 Allergies Allergy/AdvReac Type Severity Reaction Status Date / Time No Known Allergies Allergy Unverified 10/18/17 12:02 Review of Systems ROS: all other systems reviewed are negative [facility] Medical History Medical History Chronic back pain (Chronic) Scoliosis (Acute) Spinal stenosis (Chronic) HTN (hypertension) (Acute) COPD (chronic obstructive pulmonary disease) (Chronic) [place] (hard of hearing) (Acute) HLD (hyperlipidemia) (Acute) Depression (Acute) Arthritis (Chronic) Myocardial infarct (Chronic) Dysphagia as late effect of cerebrovascular accident (CVA) (Acute) Stroke (Acute) CAD (coronary artery disease) (Acute) Surgical History Surgical History Stented coronary artery (Acute) Family History Family History Father ALS (amyotrophic lateral sclerosis) Mother Cancer Asthma Heart disease Social History Social History Substance History: No History of Abuse Second Hand Smoke Exposure: Yes Smoking Status: Smoker, status unknown Tobacco Type: Cigarettes How Often Do You Have a Drink Containing Alcohol: Never Recent Travel in [place] within the Last 8 Weeks: No Recent Out of Country Travel within the Last 8 Weeks: No Immunization History Tetanus Immunization: Unsure Exam Narrative Exam Narrative: GENERAL: Well-nourished, well-developed female no acute distress. Afebrile. SKIN: Focused skin assessment warm/dry. HEAD: Normocephalic. EYES: No scleral icterus. No injection or drainage. NECK: Supple, trachea midline. No JVD or lymphadenopathy. CARDIOVASCULAR: Regular rate and rhythm without murmurs, gallops, or rubs. RESPIRATORY: Breath sounds equal bilaterally. No accessory muscle use. MUSCULOSKELETAL: No cyanosis, or edema. Course Initial Documented Vital Signs Temperature 98.6 F 11/11/17 13:47 Pulse Rate 109 H 11/11/17 13:47 Respiratory Rate 22 11/11/17 13:47 Blood Pressure 130/69 11/11/17 13:47 Pulse Oximetry 98 11/11/17 13:47 Last Documented Vital Signs Temperature 98.6 F 11/11/17 13:47 Pulse Rate 109 H 11/11/17 13:47 Respiratory Rate 22 11/11/17 13:47 Blood Pressure 130/69 11/11/17 13:47 Pulse Oximetry 98 11/11/17 13:47 Medical Decision Making MDM Narrative Medical decision making narrative: 72-year-old female presents to the emergency room via EMS for evaluation after her home health nurse called 911 because she was being adequately cared for by her son. Patient was discharged from the hospital yesterday with multiple resources because her son refused to allow her to be placed in a rehab center. Patient is aphasic and provides no meaningful history. Case management became involved and contacted [facility]. Patient will be readmitted for placement and for new health care surrogate. Medical Screen Exam Complete: Yes Emergency Medical Condition: Yes Differential Diagnosis Differential Diagnosis: Stroke, failed outpatient therapy, unsafe discharge, inability to care for self, failure to thrive Discharge Plan Discharge Disposition Patient Disposition: 30 Still Patient Discharge Condition Condition: Stable Physicians Team ED Provider: Saeid Li ED Midlevel Provider: Morena Willis Primary Care Provider: UNKNOWN, Attending Provider: Cullen Machado Status ED Status: Admitted Patient
--- NOTE | 2017-11-11 16:40 | P.HP ---
History of Present Illness Service: [facility] Primary Care Physician: UNKNOWN Chief Complaint: Unable to care for self History of Present Illness: Patient is a 72-year-old female with history of left MCA CVA, dysphagia on PEG feedings, HTN, ETOH who came in to the hospital after being discharged yesterday after her home health nurse called 911 as she is being in adequately cared for by her son. Patient was discharged yesterday to home with a care of his son, son refused to allow her to be placed in a rehab center that the have discharged her with multiple resources. Case management has been notified and has contacted [facility]. Patient will be readmitted in observation unit pending placement and finding new health care surrogate. Patient seen and examined today. Patient is aphasic and cannot provide any meaningful history. Cannot answer any questions. Does not follow most commands. - Diagnosis (1) Ischemic cerebrovascular accident (CVA) (2) Hemorrhage, petechial (3) Right hemiplegia (4) Aphasia (5) Impaired mobility and ADLs (6) Dysphagia Inpatient Certification: I certify that the inpatient services were ordered in accordance with Medicare regulations governing the order. This includes certification that hospital inpatient services are reasonable and necessary and in the case of services not specified as inpatient-only under 42 CFR 419.22(n), that they are appropriately provided as inpatient services in accordance to with the 2-midnight benchmark under 43 CFR 412.3(e) Review of Systems unobtainable due to mental status PMF - History History Provided By: Medical Record, Public Service Administrator / EMT - Medical History Medical History: Medical History (Last Updated 11/11/17 @ 13:51 by Sarah Hameed) Chronic back pain (Chronic) Scoliosis (Acute) Spinal stenosis (Chronic) HTN (hypertension) (Acute) COPD (chronic obstructive pulmonary disease) (Chronic) [place] (hard of hearing) (Acute) HLD (hyperlipidemia) (Acute) Depression (Acute) Arthritis (Chronic) Myocardial infarct (Chronic) Dysphagia as late effect of cerebrovascular accident (CVA) Stroke CAD (coronary artery disease) - Surgical History Surgical History: Surgical History (Last Reviewed 11/04/17 @ 08:31 by Dov Garcia) Stented coronary artery (Acute) - Family History Family History: Family History (Last Updated 10/27/17 @ 18:02 by Keshawn Tilley MD) Father ALS (amyotrophic lateral sclerosis) Mother Cancer Asthma Heart disease - Tobacco History Second Hand Smoke Exposure: Yes Tobacco Use In Past 30 Days: Yes Smoking Status: Smoker, status unknown Tobacco Type: Cigarettes - Substance Use History Substance History: No History of Abuse - Substance Use Type Alcohol Comment: Patient with known Alcohol Abuse - Travel History Recent Travel in the [place] Within the Last 8 Weeks: No Recent Travel Out of the Country Within the Last 8 Weeks: No - Immunization History Tetanus Immunization: Unsure Medications and Allergies Allergies Allergy/AdvReac Type Severity Reaction Status Date / Time No Known Allergies Allergy Unverified 10/18/17 12:02 Exam Vital signs: Vital Signs 11/11/17 13:47 Temperature 98.6 F Pulse Rate 109 H Respiratory Rate 22 Blood Pressure 130/69 Pulse Oximetry 98 Intake & Output 11/10/17 11/11/17 11/11/17 18:59 06:59 18:59 Weight 56.699 kg Narrative: GENERAL: This is a thin appearing, in no apparent distress. SKIN: Warm and dry. HEENT: Normocephalic. Pupils equal round and reactive. Nose without bleeding. Airway patent. Right Facial droop NECK: Trachea midline. Supple. CARDIOVASCULAR: Regular rate and rhythm without murmurs, gallops, or rubs. RESPIRATORY: Clear to auscultation. Breath sounds equal bilaterally. No wheezes , rales, or rhonchi. GASTROINTESTINAL: Abdomen soft, non-tender, nondistended. Bowel Sounds normoactive x4. MUSCULOSKELETAL: Extremities without clubbing, cyanosis, or edema. NEUROLOGICAL: Awake and alert. RUE flaccid, RLE weakness. Aphasia. Garbled speech, not understandable. Caprini VTE Risk Assessment Caprini VTE Risk Assessment: Moderate/High Risk (score >= 2) Caprini Risk Assessment Model: Point Value = 1 Point Value = 2 Point Value = 3 Point Value = 5 Age 41-60 Minor surgery BMI > 25 kg/m2 Swollen legs Varicose veins or History of unexplained or recurrent spontaneous Oral contraceptives or hormone replacement Sepsis (< 1 month) Serious lung disease, including pneumonia (< 1 month) Abnormal pulmonary function Acute myocardial infarction Congestive heart failure (< 1 month) History of inflammatory bowel disease Medical patient at bed rest Age 61-74 Arthroscopic surgery Major open surgery (> 45 min) Laparoscopic surgery (> 45 min) Malignancy Confined to bed (> 72 hours) Immobilizing plaster cast Central venous access Age >= 75 History of VTE Family history of VTE Factor V Leiden Prothrombin [id number] Lupus anticoagulant Anticardiolipin antibodies Elevated serum homocysteine Heparin-induced thrombocytopenia Other congenital or acquired thrombophilia Stroke (< 1 month) Elective arthroplasty Hip, pelvis, or leg fracture Acute spinal cord injury (< 1 month) Prophylaxis Regimen: Total Risk Factor Score Risk Level Prophylaxis Regimen 0-1 Low Early ambulation 2 Moderate Order ONE of the following: *Sequential Compression Device (SCD) *Heparin 5000 units SQ BID 3-4 Higher Order ONE of the following medications: *Heparin 5000 units SQ TID *Enoxaparin/Lovenox 40 mg SQ daily (WT < 150 kg, CrCl > 30 mL/min) *Enoxaparin/Lovenox 30 mg SQ daily (WT < 150 kg, CrCl > 10-29 mL/min) *Enoxaparin/Lovenox 30 mg SQ BID (WT < 150 kg, CrCl > 30 mL/min) AND/OR *Sequential Compression Device (SCD) 5 or more Highest Order ONE of the following medications: *Heparin 5000 units SQ TID (Preferred with Epidurals) *Enoxaparin/Lovenox 40 mg SQ daily (WT < 150 kg, CrCl > 30 mL/min) *Enoxaparin/Lovenox 30 mg SQ daily (WT < 150 kg, CrCl > 10-29 mL/min) *Enoxaparin/Lovenox 30 mg SQ BID (WT < 150 kg, CrCl > 30 mL/min) AND *Sequential Compression Device (SCD) Assessment and Plan - Assessment (1) Ischemic cerebrovascular accident (CVA) Code(s): I63.9 - Cerebral infarction, unspecified Status: Acute (2) Hemorrhage, petechial Code(s): R23.3 - Spontaneous ecchymoses Status: Acute (3) Right hemiplegia Code(s): G81.91 - Hemiplegia, unspecified affecting right dominant side Status : Acute (4) Aphasia Code(s): R47.01 - Aphasia Status: Acute (5) Impaired mobility and ADLs Code(s): Z74.09 - Other reduced mobility Status: Acute (6) Dysphagia Code(s): R13.10 - Dysphagia, unspecified Status: Acute - Plan Patient is a 72-year-old female with history of left MCA CVA, dysphagia on PEG feedings, HTN, ETOH who came in to the hospital after being discharged yesterday after her home health nurse called 911 as she is being in adequately cared for by her son. Large left MCA CVA with petechial hemorrhages Right sided weakness, Aphasia, Dysphasia -Carotid occluded. Non surgical candidate -LDL 48 A1c 5.9. Unremarkable echo. EKG with sinus rhythm. -Continue on aspirin 325mg -Continue PT/OT/ST -ST for aphasia, cognitive -Placement for SNF -Case management consulted. DCF involve. -Restart medications -tramadol as needed Dysphasia, PEG in place -Aspiration precaution -Previously has failed swallowing evaluation and MBS -Jevity 1.5 at 45 mL's an hour. HTN HLD CAD, stent placement history Tachycardia -Tachycardic on exam -Restart medication Norvasc, metoprolol -Vasotec IV as needed -Monitor BP trend COPD History of hospital-acquired pneumonia -Monitor respiratory status -Duo nebs as needed Alcohol abuse, hx -no evidence of withdrawal -Monitor for now DVT prophylaxis with SCD. Hold pharmacological prophylaxis secondary to petechial hemorrhages. Code Status: Full Code Discussed Condition With: Nursing, Dr. Machado Discharge Planning: DC when arrangements are made.
[2017-11-11] MEDS ORDERED: Bisacodyl 10 MG Supp RECTAL PRN (16:41)
[2017-11-11] MEDS: Aspirin 325 MG Tablet G-TUBE SCH ×2 (18:25→18:58)
[2017-11-11] MEDS: amLODIPine 5 MG Tablet G-TUBE SCH ×2 (18:25→19:01)
[2017-11-11] MEDS: Metoprolol Tartrate 25 MG Tablet G-TUBE SCH (21:45)
[2017-11-11] MEDS: Senna/Docusate Sodium 8.6/50 MG Tablet PO SCH (21:45)
[2017-11-12 06:00] LABS: Baso # (Auto) 0.1 th/mm3 (0.0-0.2); Baso % (Auto) 1.1 % (0.0-2.0); Eos # (Auto) 0.5 th/mm3 (0.0-0.4); Hematocrit 40.4 % (35.0-46.0); Hemoglobin 13.6 gm/dL (11.6-15.3); Lymph # (Auto) 1.8 th/mm3 (1.0-4.8); Lymph % (Auto) 26.1 % (9.0-44.0); Mean Corpuscular HGB Conc 33.7 % (32.0-36.0); Mean Corpuscular Hemoglobin 31.5 pg (27.0-34.0); Mean Corpuscular Volume 93.4 fL (80.0-100.0); Mean Platelet Volume 8.5 fL (7.0-11.0); Mono # (Auto) 0.4 th/mm3 (0.0-0.9); Mono % (Auto) 6.4 % (0.0-8.0); Neut % (Auto) 58.4 % (16.0-70.0); Platelet Count 499 th/mm3 (150-450); Red Blood Count 4.32 mil/mm3 (4.00-5.30); Red Cell Distribution Width 13.4 % (11.6-17.2); White Blood Count 6.8 th/mm3 (4.0-11.0)
[2017-11-12 06:24] LABS: Albumin 2.9 g/dL (3.4-5.0); Anion Gap 8 meq/L (5-15); Aspartate Aminotransferase 34 U/L (15-37); Blood Urea Nitrogen 24 mg/dL (7-18); Calcium 8.9 mg/dL (8.5-10.1); Carbon Dioxide 28.7 meq/L (21.0-32.0); Chloride 101 meq/L (98-107); Glomerular Filtration Rate 56 mL/min (>89); Glucose,Random 127 mg/dL (74-106); Potassium 3.8 meq/L (3.5-5.1); Sodium 138 meq/L (136-145)
[2017-11-12 06:25] LABS: Alanine Aminotransferase 32 U/L (10-53)
[2017-11-12 06:28] LABS: Alkaline Phosphatase 79 U/L (45-117); Total Protein 7.4 g/dL (6.4-8.2)
[2017-11-12] MEDS: Aspirin 325 MG Tablet G-TUBE SCH (10:23)
[2017-11-12] MEDS: amLODIPine 5 MG Tablet G-TUBE SCH (10:24)
[2017-11-12] MEDS: Senna/Docusate Sodium 8.6/50 MG Tablet PO SCH ×2 (10:24→22:14)
[2017-11-12] MEDS: Metoprolol Tartrate 25 MG Tablet G-TUBE SCH ×2 (10:24→22:14)
--- NOTE | 2017-11-12 11:14 | P.DIET ---
Nutritional Evaluation Type of nutrition evaluation: initial Nutrition consult regarding: Tube Feeding Subjective Subjective Comments: Pt recently had a L MCA CVA and has dysphagia and aphasia 2/2 this. She is nonverbal. Objective - Diagnosis Unable to Care for Self, Recent CVA - Objective % IBW: 106 (TJK=151#) Body Weight Used for Calculations: Actual (57.6kg) Energy Needs - Lower Range (kCal/kg): 25 Energy Needs - Upper Range (kCal/kg): 30 Lower Limit kCal/kg (kCals): 1,440 Upper Limit kCal/kg (kCals): 1,728 Lower Limit Protein Factor (Grams per Kg): 1.1 Upper Limit Protein Factor (Grams per Kg): 1.3 Lower Protein Needs (Protein): 63 Upper Protein Needs (Protein): 75 Fluid Factor (ml/kg): 30 Estimated Fluid Needs (ml): 1,728 Dietitian Reviewed in Medical Record: Current diet, Curent medications, Intake & Output, Labs, Medical history, Tube feeding Diet Order: NPO Feeding - Current Tube Feeding Tube Feeding Product: Jevity 1.5 Tube Feeding Method: Pump Tube Feeding Rate: 45 Current kCals Provided by Tube Feedin,620 Current Protein Provided by Tube Feeding (gPRO): 69 Current Free H2O Provided (m/l): 821 Assessment Assessment: Pt admitted for the inability to care for herself and a recent stroke. Pt was D/ C'd recently from [facility]. She had a L MCA CVA, now w/ dysphagia and aphasia 2/2 this. Reviewed previous visit and ST recommendations. Pt is currently NPO, but was receiving TFings. Previous TF order of Jevity 1.5 @ 45mls/hr is appropriate. Recommend restarting TFs as previously ordered. RD following. Recommendations: 1. Continue Jevity 1.5 @ 45mls/hr. Dietitian to Monitor: Lab values, Intake & Output, Tube feeding tolerance, Weight change, Swallow recommendations, Medical course
--- NOTE | 2017-11-12 17:03 | P.PNIM ---
Subjective Interval history: Nursing denies any deterioration since last night. Patient herself vocalizes no new complaints but she has no adequate insight. Is unable to tell me where she is. Physical Exam Vital signs: Vital Signs 11/11/17 20:00 11/12/17 00:00 11/12/17 04:00 Temperature 98.6 F 98.2 F 97.7 F Pulse Rate 18 L 84 85 Respiratory Rate 18 16 15 Blood Pressure 141/65 H 120/70 115/82 Pulse Oximetry 92 L 92 L 94 L 11/12/17 08:00 11/12/17 12:00 Temperature 98.7 F 98.6 F Pulse Rate 91 H 85 Respiratory Rate 17 17 Blood Pressure 114/56 L 117/58 L Pulse Oximetry 93 L 92 L Intake & Output 11/11/17 11/12/17 11/12/17 18:59 06:59 18:59 Weight 56.699 kg 57.6 kg Other: # Voids 1 # Incontinent Voids 3 Narrative: Pleasant demeanor, seems to watch TV actively. Maintains eye contact is able to shift focus to me as I tried to engage her. Tries to answer questions, is able to tell me her name but is not able to demonstrate anything beyond that. Has a facial droop to the right side of her face. Results - Labs CBC & Chem 7: 11/12/17 04:55 11/12/17 04:55 Laboratory Results - last 24 hr 11/12/17 11/12/17 04:55 04:55 WBC 6.8 RBC 4.32 Hgb 13.6 Hct 40.4 MCV 93.4 MCH 31.5 MCHC 33.7 RDW 13.4 Plt Count 499 H MPV 8.5 Neut % (Auto) 58.4 Lymph % (Auto) 26.1 [place] % (Auto) 6.4 Eos % (Auto) 8.0 H Baso % (Auto) 1.1 Neut # (Auto) 4.0 Lymph # (Auto) 1.8 [place] # (Auto) 0.4 Eos # (Auto) 0.5 H Baso # (Auto) 0.1 WBC Differential . Differential Comment Auto diff final Sodium 138 Potassium 3.8 Chloride 101 Carbon Dioxide 28.7 Anion Gap 8 BUN 24 H Creatinine 0.98 Estimated GFR 56 L Random Glucose 127 H Calcium 8.9 Total Bilirubin 0.6 AST 34 ALT 32 Alkaline Phosphatase 79 Total Protein 7.4 D Albumin 2.9 L Assessment and Plan - Assessment (1) Ischemic cerebrovascular accident (CVA) Code(s): I63.9 - Cerebral infarction, unspecified Status: Acute (2) Hemorrhage, petechial Code(s): R23.3 - Spontaneous ecchymoses Status: Acute (3) Right hemiplegia Code(s): G81.91 - Hemiplegia, unspecified affecting right dominant side Status : Acute (4) Aphasia Code(s): R47.01 - Aphasia Status: Acute (5) Impaired mobility and ADLs Code(s): Z74.09 - Other reduced mobility Status: Acute (6) Dysphagia Code(s): R13.10 - Dysphagia, unspecified Status: Acute - Plan Patient is a 72-year-old female with history of left MCA CVA, dysphagia on PEG feedings, HTN, ETOH who came in to the hospital after being discharged yesterday after her home health nurse called 911 as she is being inadequately cared for by her son. Large left MCA CVA with petechial hemorrhages Right sided weakness, Aphasia, Dysphasia -Carotid occluded. Non surgical candidate -Continue on aspirin 325mg -Continue PT/OT/ST -ST for aphasia, cognitive -Placement for SNF -Case management consulted. DCF involve. -tramadol as needed Dysphasia, PEG in place -Aspiration precaution -Previously has failed swallowing evaluation and MBS -Jevity 1.5 at 45 mL's an hour. HTN HLD CAD, stent placement history -norvasc, metoprolol -Vasotec IV as needed COPD History of hospital-acquired pneumonia -Duo nebs as needed Alcohol abuse, hx -no evidence of withdrawal DVT prophylaxis with SCD. Hold pharmacological prophylaxis secondary to petechial hemorrhages.
[2017-11-13] MEDS: Metoprolol Tartrate 25 MG Tablet G-TUBE SCH ×2 (09:51→21:04)
[2017-11-13] MEDS: Senna/Docusate Sodium 8.6/50 MG Tablet PO SCH ×2 (09:51→21:04)
[2017-11-13] MEDS: amLODIPine 5 MG Tablet G-TUBE SCH (09:51)
[2017-11-13] MEDS: Aspirin 325 MG Tablet G-TUBE SCH (09:51)
[2017-11-14] MEDS: amLODIPine 5 MG Tablet G-TUBE SCH (08:39)
[2017-11-14] MEDS: Metoprolol Tartrate 25 MG Tablet G-TUBE SCH ×2 (08:39→22:58)
[2017-11-14] MEDS: Senna/Docusate Sodium 8.6/50 MG Tablet PO SCH ×2 (08:39→22:58)
[2017-11-14] MEDS: Aspirin 325 MG Tablet G-TUBE SCH (08:39)
--- NOTE | 2017-11-14 11:06 | P.PNIM ---
Subjective Interval history: Nursing denies any deterioration since last night. Patient seems to answer no to every single question. Physical Exam Vital signs: Vital Signs 11/13/17 20:00 11/14/17 00:00 11/14/17 04:00 Temperature 98 F 98.4 F 97.8 F Pulse Rate 91 H 86 86 Respiratory Rate 16 20 16 Blood Pressure 112/57 L 122/65 122/62 Pulse Oximetry 93 L 94 L 94 L 11/14/17 08:00 Temperature 98.1 F Pulse Rate 75 Respiratory Rate 18 Blood Pressure 121/58 L Pulse Oximetry 92 L Intake & Output 11/13/17 11/14/17 11/14/17 18:59 06:59 18:59 Intake Total 620 / 620 720 / 720 Output Total 200 / 200 Balance 420 / 420 720 / 720 Weight 58.3 kg Intake: Oral 0 / 0 720 / 720 Tube Feeding 540 / 540 Tube Irrigant 80 / 80 Output: Urine 200 / 200 Other: # Voids 4 # Incontinent Voids 1 Date of Last Bowel Movement 11/12/17 11/12/17 # Bowel Movements 0 Narrative: Therapists state that the patient cooperates although she verbally responds incoherently to all questions Working with therapist at this time Unlabored breathing Facial droop on the right side unchanged since yesterday Results - Labs CBC & Chem 7: 11/12/17 04:55 11/12/17 04:55 Assessment and Plan - Assessment (1) Ischemic cerebrovascular accident (CVA) Code(s): I63.9 - Cerebral infarction, unspecified Status: Acute (2) Hemorrhage, petechial Code(s): R23.3 - Spontaneous ecchymoses Status: Acute (3) Right hemiplegia Code(s): G81.91 - Hemiplegia, unspecified affecting right dominant side Status : Acute (4) Aphasia Code(s): R47.01 - Aphasia Status: Acute (5) Impaired mobility and ADLs Code(s): Z74.09 - Other reduced mobility Status: Acute (6) Dysphagia Code(s): R13.10 - Dysphagia, unspecified Status: Acute - Plan Patient is a 72-year-old female with history of left MCA CVA, dysphagia on PEG feedings, HTN, ETOH who came in to the hospital after being discharged yesterday after her home health nurse called 911 as she is being inadequately cared for by her son. Large left MCA CVA with petechial hemorrhages Right sided weakness, Aphasia, Dysphasia -Carotid occluded. Non surgical candidate -Continue on aspirin -Continue PT/OT/ST -ST for aphasia, cognitive -Placement for SNF -Case management consulted. DCF involve. -tramadol as needed Dysphasia, PEG in place -Aspiration precaution -Previously has failed swallowing evaluation and MBS -Jevity 1.5 at 45 mL's an hour. HTN HLD CAD, stent placement history -norvasc, metoprolol -Vasotec IV as needed COPD History of hospital-acquired pneumonia -Duo nebs as needed Alcohol abuse, hx -no evidence of withdrawal DVT prophylaxis with SCD. Hold pharmacological prophylaxis secondary to petechial hemorrhages.
--- NOTE | 2017-11-14 17:17 | P.PNIM ---
Subjective Interval history: Nursing denies any deterioration since last night except for a rash on the patient's bottom. Patient herself actually says "oh God" when we try to turn her over for examination. Physical Exam Vital signs: Vital Signs 11/13/17 20:00 11/14/17 00:00 11/14/17 04:00 Temperature 98 F 98.4 F 97.8 F Pulse Rate 91 H 86 86 Respiratory Rate 16 20 16 Blood Pressure 112/57 L 122/65 122/62 Pulse Oximetry 93 L 94 L 94 L 11/14/17 08:00 11/14/17 12:00 Temperature 98.1 F 98.1 F Pulse Rate 75 82 Respiratory Rate 18 19 Blood Pressure 121/58 L 112/57 L Pulse Oximetry 92 L 94 L Intake & Output 11/13/17 11/14/17 11/14/17 18:59 06:59 18:59 Intake Total 620 / 620 720 / 720 Output Total 200 / 200 Balance 420 / 420 720 / 720 Weight 58.3 kg Intake: Oral 0 / 0 720 / 720 Tube Feeding 540 / 540 Tube Irrigant 80 / 80 Output: Urine 200 / 200 Other: # Voids 4 # Incontinent Voids 1 Date of Last Bowel Movement 11/12/17 11/12/17 # Bowel Movements 0 Narrative: Right facial droop still present Patient maintaining eye contact Has a diffuse erythematous rash with excoriated skin from hip to hip in the pressure distribution of her buttocks Results - Labs CBC & Chem 7: 11/12/17 04:55 11/12/17 04:55 Assessment and Plan - Assessment (1) Ischemic cerebrovascular accident (CVA) Code(s): I63.9 - Cerebral infarction, unspecified Status: Acute (2) Hemorrhage, petechial Code(s): R23.3 - Spontaneous ecchymoses Status: Acute (3) Right hemiplegia Code(s): G81.91 - Hemiplegia, unspecified affecting right dominant side Status : Acute (4) Aphasia Code(s): R47.01 - Aphasia Status: Acute (5) Impaired mobility and ADLs Code(s): Z74.09 - Other reduced mobility Status: Acute (6) Dysphagia Code(s): R13.10 - Dysphagia, unspecified Status: Acute - Plan Patient is a 72-year-old female with history of left MCA CVA, dysphagia on PEG feedings, HTN, ETOH who came in to the hospital after being discharged yesterday after her home health nurse called 911 as she is being inadequately cared for by her son. Large left MCA CVA with petechial hemorrhages Right sided weakness, Aphasia, Dysphasia -Carotid occluded. Non surgical candidate -Continue on aspirin -Continue PT/OT/ST -ST for aphasia, cognitive -Placement for SNF -Case management consulted. DCF involve. -tramadol as needed Pressure ulcer and/or excoriated skin We will start nystatin, Desitin ointment, and calamine; wound care consult Dysphasia, PEG in place -Aspiration precaution -Previously has failed swallowing evaluation and MBS -Jevity 1.5 at 45 mL's an hour. HTN HLD CAD, stent placement history -norvasc, metoprolol -Vasotec IV as needed COPD History of hospital-acquired pneumonia -Duo nebs as needed Alcohol abuse, hx -no evidence of withdrawal DVT prophylaxis with SCD. Hold pharmacological prophylaxis secondary to petechial hemorrhages.
[2017-11-14] MEDS: Nystatin 100,000 UNITS/GM Powder 15 GM Bottle TOPICAL SCH ×2 (18:06→22:58)
[2017-11-15] MEDS: Metoprolol Tartrate 25 MG Tablet G-TUBE SCH ×2 (09:07→22:52)
[2017-11-15] MEDS: Senna/Docusate Sodium 8.6/50 MG Tablet PO SCH ×2 (09:08→22:53)
[2017-11-15] MEDS: Aspirin 325 MG Tablet G-TUBE SCH (09:08)
[2017-11-15] MEDS: amLODIPine 5 MG Tablet G-TUBE SCH (09:08)
[2017-11-15] MEDS: Nystatin 100,000 UNITS/GM Powder 15 GM Bottle TOPICAL SCH ×4 (09:09→22:53)
--- NOTE | 2017-11-15 13:04 | P.PN ---
Subjective Interval history: No change in patient's status. Still very confused. Unable to hear what she says because she whispers, conversation does not make sense. Physical Exam Vital signs: Vital Signs 11/14/17 16:00 11/14/17 20:00 11/15/17 00:00 Temperature 97.7 F 98.3 F 98.2 F Pulse Rate 79 77 120 H Respiratory Rate 19 16 17 Blood Pressure 130/58 L 132/67 131/76 Pulse Oximetry 94 L 94 L 91 L 11/15/17 05:20 11/15/17 08:00 Temperature 97.9 F 98.2 F Pulse Rate 86 86 Respiratory Rate 18 Blood Pressure 121/59 L 109/56 L Pulse Oximetry 92 L 93 L Intake & Output 11/14/17 11/15/17 11/15/17 18:59 06:59 18:59 Intake Total 0 / 0 0 / 0 Output Total 600 / 600 Balance 0 / 0 -600 / -600 Weight 58.2 kg Intake: Oral 0 / 0 0 / 0 Output: Urine 600 / 600 Other: # Incontinent Voids 3 Date of Last Bowel Movement 11/14/17 11/12/17 11/14/17 # Bowel Movements 2 0 # Incontinent Bowel Movements 2 Narrative: GENERAL: This is a thin appearing female, in no apparent distress. SKIN: Has a diffuse erythematous rash with excoriated skin from hip to hip in the pressure distribution of her buttocks HEENT: Normocephalic. Pupils equal round and reactive. Nose without bleeding. Airway patent. Right Facial droop NECK: Trachea midline. Supple. CARDIOVASCULAR: Regular rate and rhythm without murmurs, gallops, or rubs. RESPIRATORY: Clear to auscultation. Breath sounds equal bilaterally. No wheezes , rales, or rhonchi. GASTROINTESTINAL: Abdomen soft, non-tender, nondistended. Bowel sounds normoactive x4. MUSCULOSKELETAL: Extremities without clubbing, cyanosis, or edema. NEUROLOGICAL: Awake and alert. RUE flaccid, RLE weakness. Aphasia. Garbled speech, not understandable. Results - Labs CBC & Chem 7: 11/12/17 04:55 11/12/17 04:55 Assessment and Plan - Assessment (1) Ischemic cerebrovascular accident (CVA) Code(s): I63.9 - Cerebral infarction, unspecified Status: Chronic (2) Hemorrhage, petechial Code(s): R23.3 - Spontaneous ecchymoses Status: Chronic (3) Right hemiplegia Code(s): G81.91 - Hemiplegia, unspecified affecting right dominant side Status : Chronic (4) Aphasia Code(s): R47.01 - Aphasia Status: Chronic (5) Impaired mobility and ADLs Code(s): Z74.09 - Other reduced mobility Status: Chronic (6) Dysphagia Code(s): R13.10 - Dysphagia, unspecified Status: Chronic - Plan Patient is a 72-year-old female with history of left MCA CVA, dysphagia on PEG feedings, HTN, ETOH who came in to the hospital on 11/11 after being discharged on 11/10 after her home health nurse called 911 as she is being inadequately cared for by her son. Large left MCA CVA with petechial hemorrhages Right sided weakness, Aphasia, Dysphasia -Carotid occluded. Non surgical candidate -Continue on aspirin -Continue PT/OT/ST -ST for aphasia, cognitive -Placement for SNF -Case management consulted. DCF involved. -Tramadol as needed for pain Pressure ulcer and/or excoriated skin Continue nystatin, Desitin ointment, and calamine -Wound care consult Dysphasia, PEG in place -Aspiration precaution -Previously has failed swallowing evaluation and MBS -Jevity 1.5 at 45 mL's an hour HTN HLD CAD, stent placement history -norvasc, metoprolol -Vasotec IV as needed COPD History of hospital-acquired pneumonia -Duo nebs as needed Alcohol abuse, hx -no evidence of withdrawal DVT prophylaxis with SCD. Hold pharmacological prophylaxis secondary to petechial hemorrhages Discharge Planning: Patient here on a social admission, difficult discharge situation. Pending DCF and establishment of a legal healthcare surrogate by the courts.
--- NOTE | 2017-11-16 07:30 | P.PN ---
Subjective Interval history: Patient seen and examined this afternoon. She is lying in bed, responds to questions. Denies abdominal pain but states that she has chest pain. She reaches out and says "help". Nurse at bedside states that earlier, she reached out when her abdomen was palpated and MANAGEMENT PROFESSIONAL reported that she has not peed all day. Physical Exam Vital signs: Vital Signs 11/15/17 08:00 11/15/17 12:00 11/15/17 16:00 Temperature 98.2 F 97.3 F L 97.9 F Pulse Rate 86 85 83 Respiratory Rate 19 18 Blood Pressure 109/56 L 117/69 117/69 Pulse Oximetry 93 L 94 L 94 L 11/15/17 20:00 11/16/17 00:00 11/16/17 04:00 Temperature 98 F 97.8 F 98.5 F Pulse Rate 91 H 79 105 H Respiratory Rate 19 17 20 Blood Pressure 137/64 135/63 165/79 H Pulse Oximetry 98 94 L 94 L 11/16/17 04:19 Temperature Pulse Rate Respiratory Rate Blood Pressure 126/76 Pulse Oximetry Intake & Output 11/15/17 11/16/17 11/16/17 18:59 06:59 18:59 Intake Total 528 / 528 0 / 0 Output Total 800 / 800 Balance 527 / 527 -800 / -800 Weight 58.1 kg Intake: Oral 0 / 0 0 / 0 Tube Feeding 528 / 528 Output: Urine 800 / 800 Stool Other: # Incontinent Voids 5 3 Date of Last Bowel Movement 11/14/17 11/12/17 # Bowel Movements 1 # Incontinent Bowel Movements 3 Narrative: GENERAL: This is a thin appearing female, in no apparent distress. SKIN: Has a diffuse erythematous rash with excoriated skin from hip to hip in the pressure distribution of her groin and buttocks; dry, hard stool present HEENT: Normocephalic. Pupils equal round and reactive. Nose without bleeding. Airway patent. NECK: Trachea midline. Supple. CARDIOVASCULAR: Regular rate and rhythm without murmurs, gallops, or rubs. RESPIRATORY: Upper congested transmitted airway sounds. Breath sounds equal bilaterally. No wheezes, rales, or rhonchi. GASTROINTESTINAL: Abdomen soft, non-tender, nondistended. Bowel sounds normoactive x4. MUSCULOSKELETAL: Extremities without clubbing, cyanosis, or edema. NEUROLOGICAL: Awake and alert. RUE flaccid, RLE weakness. Aphasia. Garbled speech, not understandable. Results - Labs CBC & Chem 7: 11/12/17 04:55 11/12/17 04:55 Assessment and Plan - Assessment (1) Ischemic cerebrovascular accident (CVA) Code(s): I63.9 - Cerebral infarction, unspecified Status: Chronic (2) Hemorrhage, petechial Code(s): R23.3 - Spontaneous ecchymoses Status: Chronic (3) Right hemiplegia Code(s): G81.91 - Hemiplegia, unspecified affecting right dominant side Status : Chronic (4) Aphasia Code(s): R47.01 - Aphasia Status: Chronic (5) Impaired mobility and ADLs Code(s): Z74.09 - Other reduced mobility Status: Chronic (6) Dysphagia Code(s): R13.10 - Dysphagia, unspecified Status: Chronic - Plan Patient is a 72-year-old female with history of left MCA CVA, dysphagia on PEG feedings, HTN, ETOH who came in to the hospital on 11/11 after being discharged on 11/10 after her home health nurse called 911 as she is being inadequately cared for by her son. Large left MCA CVA with petechial hemorrhages Right sided weakness, Aphasia, Dysphasia -Carotid occluded. Non surgical candidate -Continue on aspirin -Continue PT/OT/ST -ST for aphasia, cognitive -Placement for SNF -Case management consulted. DCF involved. -Tramadol as needed for pain Pressure ulcer and/or excoriated skin Continue nystatin, Desitin ointment, and calamine -Wound care consult to evaluate for an air bed Urinary retention -Bladder scan revealed 257 ml of residual urine -Straight cath returned 375ml of urine -If retention continues, okay to insert Betancur catheter Dysphasia, PEG in place -Aspiration precaution -Previously has failed swallowing evaluation and MBS -Jevity 1.5 at 45 mL's an hour HTN HLD CAD, stent placement history -norvasc, metoprolol -Vasotec IV as needed COPD History of hospital-acquired pneumonia -Duo nebs as needed Alcohol abuse, hx -no evidence of withdrawal DVT prophylaxis with SCD. Hold pharmacological prophylaxis secondary to petechial hemorrhages Hospital constipation prophylaxis Discharge Planning: Patient here on a social admission, difficult discharge situation. Pending DCF and establishment of a legal healthcare surrogate by the courts.
[2017-11-16] MEDS: Aspirin 325 MG Tablet G-TUBE SCH (09:29)
[2017-11-16] MEDS: Senna/Docusate Sodium 8.6/50 MG Tablet PO SCH ×2 (09:29→21:12)
[2017-11-16] MEDS: Metoprolol Tartrate 25 MG Tablet G-TUBE SCH ×2 (09:30→21:13)
[2017-11-16] MEDS: Nystatin 100,000 UNITS/GM Powder 15 GM Bottle TOPICAL SCH ×4 (09:30→21:00)
[2017-11-16] MEDS: amLODIPine 5 MG Tablet G-TUBE SCH (09:30)
[2017-11-17] MEDS: Aspirin 325 MG Tablet G-TUBE SCH (09:59)
[2017-11-17] MEDS: Nystatin 100,000 UNITS/GM Powder 15 GM Bottle TOPICAL SCH ×4 (10:00→20:34)
[2017-11-17] MEDS: Senna/Docusate Sodium 8.6/50 MG Tablet PO SCH ×2 (10:00→20:33)
[2017-11-17] MEDS: amLODIPine 5 MG Tablet G-TUBE SCH (10:00)
[2017-11-17] MEDS: Metoprolol Tartrate 25 MG Tablet G-TUBE SCH ×2 (10:00→20:33)
--- NOTE | 2017-11-17 11:52 | P.PNIM ---
Subjective Interval history: Patient response to questions. Denies any pain. Physical Exam Vital signs: Vital Signs 11/16/17 12:00 11/16/17 16:00 11/16/17 20:00 Temperature 99.0 F 99.2 F 98.9 F Pulse Rate 81 89 75 Respiratory Rate 16 18 17 Blood Pressure 109/65 112/68 137/65 Pulse Oximetry 92 L 91 L 99 11/17/17 00:00 11/17/17 04:00 11/17/17 08:00 Temperature 98.2 F 98.1 F 98.2 F Pulse Rate 75 85 89 Respiratory Rate 17 18 14 Blood Pressure 135/60 126/73 123/63 Pulse Oximetry 97 94 L 92 L Intake & Output 11/16/17 11/17/17 11/17/17 18:59 06:59 18:59 Intake Total 720 / 720 Output Total 800 / 800 550 / 550 Balance -80 / -80 -550 / -550 Weight 58 kg Intake: Oral 0 / 0 Tube Feeding 540 / 540 Water Bolus Amount 180 / 180 Output: Urine 800 / 800 Urine Amount (Catheter) 550 / 550 Indwelling Urethral Catheter 550 / 550 Other: # Incontinent Voids 3 1 Date of Last Bowel Movement 11/12/17 11/16/17 # Incontinent Bowel Movements 3 2 Narrative: GENERAL: Dysarthric speech. Patient makes good eye contact. SKIN: Warm and dry. HEAD: Normocephalic. EYES: No scleral icterus. No injection or drainage. NECK: Supple, trachea midline. No JVD . CARDIOVASCULAR: Regular rate and rhythm without murmurs, gallops, or rubs. RESPIRATORY: Breath sounds equal bilaterally. No accessory muscle use. GASTROINTESTINAL: Abdomen soft, non-tender, nondistended. PEG tube left upper quadrant. No surrounding erythema or leakage MUSCULOSKELETAL: No cyanosis, or edema. BACK: Nontender without obvious deformity. No CVA tenderness. - Urinary Catheter Management Indwelling Urethral Catheter Cath placed during this visit: yes Reason for continuing: Acute urinary retention Insertion date: 11/17/17 Insertion time: 01:45 Results - Labs CBC & Chem 7: 11/12/17 04:55 11/12/17 04:55 Assessment and Plan - Assessment (1) Ischemic cerebrovascular accident (CVA) Code(s): I63.9 - Cerebral infarction, unspecified Status: Chronic (2) Hemorrhage, petechial Code(s): R23.3 - Spontaneous ecchymoses Status: Chronic (3) Right hemiplegia Code(s): G81.91 - Hemiplegia, unspecified affecting right dominant side Status : Chronic (4) Aphasia Code(s): R47.01 - Aphasia Status: Chronic (5) Impaired mobility and ADLs Code(s): Z74.09 - Other reduced mobility Status: Chronic (6) Dysphagia Code(s): R13.10 - Dysphagia, unspecified Status: Chronic - Plan 11/17. Patient seen and examined. No acute changes. cont Current management. Patient is a 72-year-old female with history of left MCA CVA, dysphagia on PEG feedings, HTN, ETOH who came in to the hospital on 11/11 after being discharged on 11/10 after her home health nurse called 911 as she is being inadequately cared for by her son. //Large left MCA CVA with petechial hemorrhages Right sided weakness, Aphasia, Dysphasia -Carotid occluded. Non surgical candidate -Continue on aspirin -Continue PT/OT/ST -ST for aphasia, cognitive -Placement for SNF -Case management consulted. DCF involved. -Tramadol as needed for pain //Pressure ulcer and/or excoriated skin Continue nystatin, Desitin ointment, and calamine -Wound care consult to evaluate for an air bed //Urinary retention -Bladder scan revealed 257 ml of residual urine -Straight cath returned 375ml of urine -If retention continues, okay to insert Betancur catheter =11/17 check labs tomorrow. //Dysphasia, PEG in place -Aspiration precaution -Previously has failed swallowing evaluation and MBS -Jevity 1.5 at 45 mL's an hour //HTN //HLD //CAD, stent placement history -norvasc, metoprolol -Vasotec IV as needed //COPD //History of hospital-acquired pneumonia -Duo nebs as needed //alcohol abuse, hx -no evidence of withdrawal //DVT prophylaxis with SCD. Hold pharmacological prophylaxis secondary to petechial hemorrhages Hospital constipation prophylaxis Discharge Planning: Patient here on a social admission, difficult discharge situation. Pending DCF and establishment of a legal healthcare surrogate by the courts.
[2017-11-18 08:33] LABS: Baso % (Auto) 0.4 % (0.0-2.0); Eos # (Auto) 0.5 th/mm3 (0.0-0.4); Eos % (Auto) 6.2 % (0.0-4.0); Hematocrit 40.2 % (35.0-46.0); Hemoglobin 13.8 gm/dL (11.6-15.3); Lymph # (Auto) 1.2 th/mm3 (1.0-4.8); Lymph % (Auto) 13.5 % (9.0-44.0); Mean Corpuscular HGB Conc 34.3 % (32.0-36.0); Mean Corpuscular Hemoglobin 31.9 pg (27.0-34.0); Mean Corpuscular Volume 92.9 fL (80.0-100.0); Mean Platelet Volume 8.4 fL (7.0-11.0); Mono # (Auto) 0.7 th/mm3 (0.0-0.9); Mono % (Auto) 7.6 % (0.0-8.0); Neut # (Auto) 6.4 th/mm3 (1.8-7.7); Neut % (Auto) 72.3 % (16.0-70.0); Platelet Count 431 th/mm3 (150-450); Red Blood Count 4.33 mil/mm3 (4.00-5.30); Red Cell Distribution Width 13.5 % (11.6-17.2); White Blood Count 8.8 th/mm3 (4.0-11.0)
[2017-11-18 08:57] LABS: Albumin 2.8 g/dL (3.4-5.0); Calcium 8.7 mg/dL (8.5-10.1); Carbon Dioxide 31.1 meq/L (21.0-32.0); Magnesium 2.2 mg/dL (1.5-2.5); Potassium 4.1 meq/L (3.5-5.1)
[2017-11-18 08:58] LABS: Phosphorus 4.4 mg/dL (2.5-4.9)
[2017-11-18] MEDS: Aspirin 325 MG Tablet G-TUBE SCH (09:15)
[2017-11-18] MEDS: Metoprolol Tartrate 25 MG Tablet G-TUBE SCH ×2 (09:15→21:42)
[2017-11-18] MEDS: Senna/Docusate Sodium 8.6/50 MG Tablet PO SCH ×2 (09:15→21:42)
[2017-11-18] MEDS: Nystatin 100,000 UNITS/GM Powder 15 GM Bottle TOPICAL SCH ×4 (09:16→21:43)
[2017-11-18] MEDS: amLODIPine 5 MG Tablet G-TUBE SCH (09:16)
--- NOTE | 2017-11-18 15:12 | P.PNIM ---
Subjective Interval history: Patient continues mostly nonverbal. Smiles on my arrival. Able to say no when asked if she has pain. Physical Exam Vital signs: Vital Signs 11/17/17 16:00 11/17/17 20:00 11/18/17 00:00 Temperature 98.0 F 98.0 F 97.7 F Pulse Rate 83 85 76 Respiratory Rate 18 16 20 Blood Pressure 119/63 100/58 L 130/60 Pulse Oximetry 93 L 92 L 90 L 11/18/17 04:00 11/18/17 08:00 11/18/17 12:00 Temperature 97.7 F 98 F 97.5 F L Pulse Rate 75 81 79 Respiratory Rate 18 20 20 Blood Pressure 123/59 L 127/67 119/64 Pulse Oximetry 90 L 92 L 94 L Intake & Output 11/17/17 11/18/17 11/18/17 18:59 06:59 18:59 Intake Total 1385 / 1385 Output Total 550 / 550 800 / 800 250 / 250 Balance -550 / -550 585 / 585 -250 / -250 Weight 57.8 kg Intake: Oral 0 / 0 Tube Feeding 1385 / 1385 Output: Urine 550 / 550 250 / 250 Urine Amount (Catheter) 800 / 800 Indwelling Urethral Catheter 800 / 800 Other: Date of Last Bowel Movement 11/17/17 11/17/17 11/17/17 # Bowel Movements 1 Narrative: GENERAL: Minimal, dysarthric speech. Patient makes good eye contact. Exam unchanged from yesterday. SKIN: Warm and dry. HEAD: Normocephalic. EYES: No scleral icterus. No injection or drainage. NECK: Supple, trachea midline. No JVD . CARDIOVASCULAR: Regular rate and rhythm without murmurs, gallops, or rubs. RESPIRATORY: Breath sounds equal bilaterally. No accessory muscle use. GASTROINTESTINAL: Abdomen soft, non-tender, nondistended. PEG tube left upper quadrant. No surrounding erythema or leakage MUSCULOSKELETAL: No cyanosis, or edema. BACK: Nontender without obvious deformity. No CVA tenderness. - Urinary Catheter Management Indwelling Urethral Catheter Cath placed during this visit: yes Reason for continuing: Acute urinary retention Insertion date: 11/17/17 Insertion time: 01:45 Results - Labs CBC & Chem 7: 11/18/17 08:02 11/18/17 08:02 Laboratory Results - last 24 hr 11/18/17 11/18/17 08:02 08:02 WBC 8.8 RBC 4.33 Hgb 13.8 Hct 40.2 MCV 92.9 MCH 31.9 MCHC 34.3 RDW 13.5 Plt Count 431 MPV 8.4 Neut % (Auto) 72.3 H Lymph % (Auto) 13.5 Murray % (Auto) 7.6 Eos % (Auto) 6.2 H Baso % (Auto) 0.4 Neut # (Auto) 6.4 Lymph # (Auto) 1.2 Murray # (Auto) 0.7 Eos # (Auto) 0.5 H Baso # (Auto) 0.0 WBC Differential . Differential Comment Auto diff final Sodium 137 Potassium 4.1 Chloride 99 Carbon Dioxide 31.1 Anion Gap 7 BUN 26 H Creatinine 0.92 Estimated GFR 60 L Random Glucose 150 H Calcium 8.7 Phosphorus 4.4 Magnesium 2.2 Albumin 2.8 L Assessment and Plan - Assessment (1) Ischemic cerebrovascular accident (CVA) Code(s): I63.9 - Cerebral infarction, unspecified Status: Chronic (2) Hemorrhage, petechial Code(s): R23.3 - Spontaneous ecchymoses Status: Chronic (3) Right hemiplegia Code(s): G81.91 - Hemiplegia, unspecified affecting right dominant side Status : Chronic (4) Aphasia Code(s): R47.01 - Aphasia Status: Chronic (5) Impaired mobility and ADLs Code(s): Z74.09 - Other reduced mobility Status: Chronic (6) Dysphagia Code(s): R13.10 - Dysphagia, unspecified Status: Chronic - Plan 11/18. Patient seen and examined again. No acute changes. Discussed with case management and nursing at [facility]. cont Current management. Patient is a 72-year-old female with history of left MCA CVA, dysphagia on PEG feedings, HTN, ETOH who came in to the hospital on 11/11 after being discharged on 11/10 after her home health nurse called 911 as she is being inadequately cared for by her son. //Large left MCA CVA with petechial hemorrhages Right sided weakness, Aphasia, Dysphasia -Carotid occluded. Non surgical candidate -Continue on aspirin -Continue PT/OT/ST -ST for aphasia, cognitive -Placement for SNF -Case management consulted. DCF involved. -Tramadol as needed for pain //Pressure ulcer and/or excoriated skin Continue nystatin, Desitin ointment, and calamine -Wound care consult to evaluate for an air bed //Urinary retention -Bladder scan revealed 257 ml of residual urine -Straight cath returned 375ml of urine -If retention continues, okay to insert Betancur catheter =11/17 check labs tomorrow. //Dysphasia, PEG in place -Aspiration precaution -Previously has failed swallowing evaluation and MBS -Jevity 1.5 at 45 mL's an hour //HTN //HLD //CAD, stent placement history -norvasc, metoprolol -Vasotec IV as needed //COPD //History of hospital-acquired pneumonia -Duo nebs as needed //alcohol abuse, hx -no evidence of withdrawal //DVT prophylaxis with SCD. Hold pharmacological prophylaxis secondary to petechial hemorrhages Hospital constipation prophylaxis Discharge Planning: Patient here on a social admission, difficult discharge situation. Pending DCF and establishment of a legal healthcare surrogate by the courts.
[2017-11-19] MEDS: Senna/Docusate Sodium 8.6/50 MG Tablet PO SCH ×2 (08:51→20:37)
[2017-11-19] MEDS: Aspirin 325 MG Tablet G-TUBE SCH (08:51)
[2017-11-19] MEDS: Metoprolol Tartrate 25 MG Tablet G-TUBE SCH ×2 (08:52→20:37)
[2017-11-19] MEDS: amLODIPine 5 MG Tablet G-TUBE SCH (08:52)
[2017-11-19] MEDS: Nystatin 100,000 UNITS/GM Powder 15 GM Bottle TOPICAL SCH ×4 (08:53→20:37)
--- NOTE | 2017-11-19 11:55 | P.DIET ---
Nutritional Evaluation Type of nutrition evaluation: follow-up Nutrition consult regarding: Tube Feeding Subjective Subjective Comments: Pt recently had a L MCA CVA and has dysphagia and aphasia 2/2 this. She is mainly nonverbal. Objective - Diagnosis Unable to Care for Self, Recent CVA - Objective % IBW: 105 (VZE=504#) Body Weight Used for Calculations: Actual (57.6kg) Energy Needs - Lower Range (kCal/kg): 25 Energy Needs - Upper Range (kCal/kg): 30 Lower Limit kCal/kg (kCals): 1,440 Upper Limit kCal/kg (kCals): 1,728 Lower Limit Protein Factor (Grams per Kg): 1.1 Upper Limit Protein Factor (Grams per Kg): 1.3 Lower Protein Needs (Protein): 63 Upper Protein Needs (Protein): 75 Fluid Factor (ml/kg): 30 Estimated Fluid Needs (ml): 1,728 Dietitian Reviewed in Medical Record: Current diet, Curent medications, Intake & Output, Labs, Tube feeding Diet Order: TF Only Feeding - Current Tube Feeding Tube Feeding Product: Jevity 1.5 Tube Feeding Method: Pump Tube Feeding Rate: 45 Current kCals Provided by Tube Feedin,620 Current Protein Provided by Tube Feeding (gPRO): 69 Current Free H2O Provided (m/l): 821 Assessment Assessment: Pt remains on Jevity 1.5 @ 45mls/hr and this continues to be appropriate. It is providing 100% of her nutritional requirements as stated above. Wts have been relatively stable. Labs and meds reviewed. LBM 11/17. client portfolio manager assessment reviewed. Noted active WOCN consult. Continue current POC. Dietitian following. Recommendations: 1. Continue Jevity 1.5 @ 45mls/hr. Dietitian to Monitor: Lab values, Intake & Output, Tube feeding tolerance, Weight change, Swallow recommendations, Medical course
--- NOTE | 2017-11-19 13:04 | P.PNWCN ---
Wound Care Nurse Consult Description: Received pressure ulcer consult for buttocks. Communicated with: CHRISTA Michelle [address] [place] [address] Recommendation: 1.Please cleanse buttock with Remedy incontinence wipes and pat dry. Apply Calazime skin protectant paste mixed with Antifungal cream 50/50 to buttock and perineal area BID and PRN. Leave open to air. 2.Please turn and reposition patient every 2 hours and PRN for comfort and offloading of pressure from gisselle prominences. Wound/Pressure Injury - Additional Information Patient seen on [address] [place] [address] for suspected pressure ulcer consult to buttock area. Patient is able to turn with maximum one person assist to L side, for visualization of buttock area. Buttock area presents with Denuded, peeling skin with scattered small areas of partial thickness skin and satellite lesions. Erythema to skin is blanchable. Etiology appears to be mixed moisture and fungal. Cleansed buttock area of stool with Remedy barrier wipes and patted dry. Applied a 50/50 mixture of Calazime skin protectant paste and Antifungal cream available in supply closet on floor. Patient was repositioned off bottom for offloading of pressure from gisselle prominences and comfort. Buttock area was left open to air.
--- NOTE | 2017-11-19 17:07 | P.PNIM ---
Subjective Interval history: Patient with limited verbal communication as before. Appears to deny pain. No acute changes per nursing. Physical Exam Vital signs: Vital Signs 11/18/17 20:00 11/19/17 00:00 11/19/17 04:00 Temperature 98.3 F 98.2 F 98.1 F Pulse Rate 82 72 75 Respiratory Rate 17 16 16 Blood Pressure 125/58 L 113/55 L 104/56 L Pulse Oximetry 93 L 91 L 93 L 11/19/17 08:00 11/19/17 12:00 Temperature 97.8 F 97.3 F L Pulse Rate 79 73 Respiratory Rate 18 18 Blood Pressure 121/63 108/55 L Pulse Oximetry 92 L 94 L Intake & Output 11/18/17 11/19/17 11/19/17 18:59 06:59 18:59 Output Total 250 / 250 575 / 575 Balance -250 / -250 -575 / -575 Weight 57.1 kg Output: Urine 250 / 250 575 / 575 Other: Date of Last Bowel Movement 11/17/17 11/17/17 Narrative: GENERAL: Minimal, dysarthric speech. Patient makes good eye contact. Exam again unchanged from yesterday. SKIN: Warm and dry. HEAD: Normocephalic. EYES: No scleral icterus. No injection or drainage. NECK: Supple, trachea midline. No JVD . CARDIOVASCULAR: Regular rate and rhythm without murmurs, gallops, or rubs. RESPIRATORY: Breath sounds equal bilaterally. No accessory muscle use. GASTROINTESTINAL: Abdomen soft, non-tender, nondistended. PEG tube left upper quadrant. No surrounding erythema or leakage MUSCULOSKELETAL: No cyanosis, or edema. BACK: Nontender without obvious deformity. No CVA tenderness. - Urinary Catheter Management Indwelling Urethral Catheter Cath placed during this visit: yes Reason for continuing: Acute urinary retention Insertion date: 11/17/17 Insertion time: 01:45 Results - Labs CBC & Chem 7: 11/18/17 08:02 11/18/17 08:02 Assessment and Plan - Assessment (1) Ischemic cerebrovascular accident (CVA) Code(s): I63.9 - Cerebral infarction, unspecified Status: Chronic (2) Hemorrhage, petechial Code(s): R23.3 - Spontaneous ecchymoses Status: Chronic (3) Right hemiplegia Code(s): G81.91 - Hemiplegia, unspecified affecting right dominant side Status : Chronic (4) Aphasia Code(s): R47.01 - Aphasia Status: Chronic (5) Impaired mobility and ADLs Code(s): Z74.09 - Other reduced mobility Status: Chronic (6) Dysphagia Code(s): R13.10 - Dysphagia, unspecified Status: Chronic - Plan 11/19. Patient seen and examined. Discussed with nursing. No changes. Discussed with case management MDR. Continue to work on safe discharge plan Patient is a 72-year-old female with history of left MCA CVA, dysphagia on PEG feedings, HTN, ETOH who came in to the hospital on 11/11 after being discharged on 11/10 after her home health nurse called 911 as she is being inadequately cared for by her son. //Large left MCA CVA with petechial hemorrhages Right sided weakness, Aphasia, Dysphasia -Carotid occluded. Non surgical candidate -Continue on aspirin -Continue PT/OT/ST -ST for aphasia, cognitive -Placement for SNF -Case management consulted. DCF involved. -Tramadol as needed for pain //Pressure ulcer and/or excoriated skin Continue nystatin, Desitin ointment, and calamine -Wound care consult to evaluate for an air bed //Urinary retention -Bladder scan revealed 257 ml of residual urine -Straight cath returned 375ml of urine -If retention continues, okay to insert Betancur catheter =11/17 check labs tomorrow. //Dysphasia, PEG in place -Aspiration precaution -Previously has failed swallowing evaluation and MBS -Jevity 1.5 at 45 mL's an hour //HTN //HLD //CAD, stent placement history -norvasc, metoprolol -Vasotec IV as needed //COPD //History of hospital-acquired pneumonia -Duo nebs as needed //alcohol abuse, hx -no evidence of withdrawal //DVT prophylaxis with SCD. Hold pharmacological prophylaxis secondary to petechial hemorrhages Hospital constipation prophylaxis Discharge Planning: Patient here on a social admission, difficult discharge situation. Pending DCF and establishment of a legal healthcare surrogate by the courts.
[2017-11-20 08:05] LABS: Phosphorus 4.3 mg/dL (2.5-4.9)
[2017-11-20 08:08] LABS: Albumin 2.9 g/dL (3.4-5.0); Calcium 9.1 mg/dL (8.5-10.1); Carbon Dioxide 26.4 meq/L (21.0-32.0); Magnesium 2.1 mg/dL (1.5-2.5); Potassium 4.3 meq/L (3.5-5.1)
[2017-11-20] MEDS: Aspirin 325 MG Tablet G-TUBE SCH (09:54)
[2017-11-20] MEDS: Nystatin 100,000 UNITS/GM Powder 15 GM Bottle TOPICAL SCH ×4 (09:54→20:37)
[2017-11-20] MEDS: Senna/Docusate Sodium 8.6/50 MG Tablet PO SCH ×2 (09:54→20:42)
[2017-11-20] MEDS: amLODIPine 5 MG Tablet G-TUBE SCH (09:54)
[2017-11-20] MEDS: Metoprolol Tartrate 25 MG Tablet G-TUBE SCH ×2 (09:54→20:41)
--- NOTE | 2017-11-20 18:56 | P.PNIM ---
Subjective Interval history: patient continues mostly nonverbal as before. . Says no when asked if she has pain. Physical Exam Vital signs: Vital Signs 11/19/17 20:00 11/20/17 00:00 11/20/17 04:00 Temperature 97.8 F 97.4 F L 97.4 F L Pulse Rate 84 76 77 Respiratory Rate 18 19 19 Blood Pressure 127/55 L 114/66 114/66 Pulse Oximetry 94 L 92 L 93 L 11/20/17 08:00 11/20/17 12:00 11/20/17 16:00 Temperature 97.9 F 97.7 F 97.5 F L Pulse Rate 83 79 75 Respiratory Rate 18 16 16 Blood Pressure 114/60 108/51 L 114/55 L Pulse Oximetry 93 L 93 L 94 L Intake & Output 11/19/17 11/20/17 11/20/17 18:59 06:59 18:59 Intake Total 979 / 979 240 / 240 0 / 0 Output Total 750 / 750 750 / 750 Balance 229 / 229 240 / 240 -750 / -750 Weight 65.3 kg Intake: Oral 0 / 0 240 / 240 0 / 0 Tube Feeding 699 / 699 Tube Irrigant 280 / 280 Output: Urine 750 / 750 Urine Amount (Catheter) 750 / 750 Indwelling Urethral Catheter 750 / 750 Other: # Voids 2 Date of Last Bowel Movement 11/17/17 11/17/17 # Bowel Movements 1 Narrative: GENERAL: Minimal, dysarthric speech. Patient makes good eye contact. Exam unchanged from yesterday. SKIN: Warm and dry. HEAD: Normocephalic. EYES: No scleral icterus. No injection or drainage. NECK: Supple, trachea midline. No JVD . CARDIOVASCULAR: Regular rate and rhythm without murmurs, gallops, or rubs. RESPIRATORY: Breath sounds equal bilaterally. No accessory muscle use. GASTROINTESTINAL: Abdomen soft, non-tender, nondistended. PEG tube left upper quadrant. No surrounding erythema or leakage MUSCULOSKELETAL: No cyanosis, or edema. BACK: Nontender without obvious deformity. No CVA tenderness. - Urinary Catheter Management Indwelling Urethral Catheter Cath placed during this visit: yes Reason for continuing: Acute urinary retention Insertion date: 11/17/17 Insertion time: 01:45 Results - Labs CBC & Chem 7: 11/18/17 08:02 11/20/17 06:21 Laboratory Results - last 24 hr 11/20/17 06:21 Sodium 135 L Potassium 4.3 Chloride 98 Carbon Dioxide 26.4 Anion Gap 11 BUN 25 H Creatinine 0.79 Estimated GFR 72 L Random Glucose 99 Calcium 9.1 Phosphorus 4.3 Magnesium 2.1 Albumin 2.9 L Assessment and Plan - Assessment (1) Ischemic cerebrovascular accident (CVA) Code(s): I63.9 - Cerebral infarction, unspecified Status: Chronic (2) Hemorrhage, petechial Code(s): R23.3 - Spontaneous ecchymoses Status: Chronic (3) Right hemiplegia Code(s): G81.91 - Hemiplegia, unspecified affecting right dominant side Status : Chronic (4) Aphasia Code(s): R47.01 - Aphasia Status: Chronic (5) Impaired mobility and ADLs Code(s): Z74.09 - Other reduced mobility Status: Chronic (6) Dysphagia Code(s): R13.10 - Dysphagia, unspecified Status: Chronic - Plan 11/20 Patient seen and examined. blood pressure a little low. We'll discontinue amlodipine. Will order speech reevaluation. Patient is a 72-year-old female with history of left MCA CVA, dysphagia on PEG feedings, HTN, ETOH who came in to the hospital on 11/11 after being discharged on 11/10 after her home health nurse called 911 as she is being inadequately cared for by her son. //Large left MCA CVA with petechial hemorrhages Right sided weakness, Aphasia, Dysphasia -Carotid occluded. Non surgical candidate -Continue on aspirin -Continue PT/OT/ST -ST for aphasia, cognitive -Placement for SNF -Case management consulted. DCF involved. -Tramadol as needed for pain //Pressure ulcer and/or excoriated skin Continue nystatin, Desitin ointment, and calamine -Wound care consult to evaluate for an air bed //Urinary retention -Bladder scan revealed 257 ml of residual urine -Straight cath returned 375ml of urine -If retention continues, okay to insert Betancur catheter =11/17 check labs tomorrow. //Dysphasia, PEG in place -Aspiration precaution -Previously has failed swallowing evaluation and MBS -Jevity 1.5 at 45 mL's an hour //HTN //HLD //CAD, stent placement history -norvasc, metoprolol -Vasotec IV as needed =11/20. Blood pressure low. We will discontinue amlodipine. //COPD //History of hospital-acquired pneumonia -Duo nebs as needed //alcohol abuse, hx -no evidence of withdrawal //DVT prophylaxis with SCD. Hold pharmacological prophylaxis secondary to petechial hemorrhages Hospital constipation prophylaxis Discharge Planning: Patient here on a social admission, difficult discharge situation. Pending DCF and establishment of a legal healthcare surrogate by the courts.
[2017-11-21] MEDS: Senna/Docusate Sodium 8.6/50 MG Tablet PO SCH ×2 (09:56→22:18)
[2017-11-21] MEDS: Aspirin 325 MG Tablet G-TUBE SCH (09:56)
[2017-11-21] MEDS: Nystatin 100,000 UNITS/GM Powder 15 GM Bottle TOPICAL SCH ×4 (09:56→22:20)
[2017-11-21] MEDS: Metoprolol Tartrate 25 MG Tablet G-TUBE SCH ×2 (09:56→22:19)
--- NOTE | 2017-11-21 15:50 | P.PNIM ---
Subjective Interval history: Patient continues mostly nonverbal as before. Denies any pain. No acute changes per nursing. Physical Exam Vital signs: Vital Signs 11/20/17 16:00 11/20/17 20:00 11/21/17 00:00 Temperature 97.5 F L 97.5 F L 98 F Pulse Rate 75 84 76 Respiratory Rate 16 18 16 Blood Pressure 114/55 L 108/67 129/72 Pulse Oximetry 94 L 95 94 L 11/21/17 03:49 11/21/17 08:00 11/21/17 12:00 Temperature 98 F 98.0 F 98.3 F Pulse Rate 96 H 98 H 75 Respiratory Rate 18 17 17 Blood Pressure 134/77 128/74 137/65 Pulse Oximetry 95 92 L 92 L Intake & Output 11/20/17 11/21/17 11/21/17 18:59 06:59 18:59 Intake Total 0 / 0 914 / 914 Output Total 750 / 750 700 / 700 Balance -750 / -750 214 / 214 Weight 57.3 kg Intake: Oral 0 / 0 0 / 0 Tube Feeding 450 / 450 Tube Irrigant 280 / 280 Water Bolus Amount 180 / 180 Other 4 / 4 Output: Urine Amount (Catheter) 750 / 750 700 / 700 Indwelling Urethral Catheter 750 / 750 700 / 700 Other: Other Intake Source Saline Solution Date of Last Bowel Movement 11/20/17 # Bowel Movements 1 # Incontinent Bowel Movements 1 Narrative: GENERAL: Minimal, dysarthric speech. Patient makes good eye contact. Patient sitting up in chair today. Exam otherwise unchanged. SKIN: Warm and dry. HEAD: Normocephalic. EYES: No scleral icterus. No injection or drainage. NECK: Supple, trachea midline. No JVD . CARDIOVASCULAR: Regular rate and rhythm without murmurs, gallops, or rubs. RESPIRATORY: Breath sounds equal bilaterally. No accessory muscle use. GASTROINTESTINAL: Abdomen soft, non-tender, nondistended. PEG tube left upper quadrant. No surrounding erythema or leakage MUSCULOSKELETAL: No cyanosis, or edema. BACK: Nontender without obvious deformity. No CVA tenderness. - Urinary Catheter Management Indwelling Urethral Catheter Cath placed during this visit: yes Reason for continuing: Acute urinary retention Insertion date: 11/17/17 Insertion time: 01:45 Results - Labs CBC & Chem 7: 11/18/17 08:02 11/20/17 06:21 Assessment and Plan - Assessment (1) Ischemic cerebrovascular accident (CVA) Code(s): I63.9 - Cerebral infarction, unspecified Status: Chronic (2) Hemorrhage, petechial Code(s): R23.3 - Spontaneous ecchymoses Status: Chronic (3) Right hemiplegia Code(s): G81.91 - Hemiplegia, unspecified affecting right dominant side Status : Chronic (4) Aphasia Code(s): R47.01 - Aphasia Status: Chronic (5) Impaired mobility and ADLs Code(s): Z74.09 - Other reduced mobility Status: Chronic (6) Dysphagia Code(s): R13.10 - Dysphagia, unspecified Status: Chronic - Plan 11/21 Patient seen and examined again. blood pressure in the 130s systolic. Will add back amlodipine 2.5 mg daily. Continue to monitor. Appreciate speech evaluation. Patient still n.p.o. Patient is a 72-year-old female with history of left MCA CVA, dysphagia on PEG feedings, HTN, ETOH who came in to the hospital on 11/11 after being discharged on 11/10 after her home health nurse called 911 as she is being inadequately cared for by her son. //Large left MCA CVA with petechial hemorrhages Right sided weakness, Aphasia, Dysphasia -Carotid occluded. Non surgical candidate -Continue on aspirin -Continue PT/OT/ST -ST for aphasia, cognitive -Placement for SNF -Case management consulted. DCF involved. -Tramadol as needed for pain //Pressure ulcer and/or excoriated skin Continue nystatin, Desitin ointment, and calamine -Wound care consult to evaluate for an air bed //Urinary retention -Bladder scan revealed 257 ml of residual urine -Straight cath returned 375ml of urine -If retention continues, okay to insert Betancur catheter =11/17 check labs tomorrow. //Dysphasia, PEG in place -Aspiration precaution -Previously has failed swallowing evaluation and MBS -Jevity 1.5 at 45 mL's an hour //HTN //HLD //CAD, stent placement history -norvasc, metoprolol -Vasotec IV as needed =11/20. Blood pressure low. We will discontinue amlodipine. //COPD //History of hospital-acquired pneumonia -Duo nebs as needed //alcohol abuse, hx -no evidence of withdrawal //DVT prophylaxis with SCD. Hold pharmacological prophylaxis secondary to petechial hemorrhages Hospital constipation prophylaxis Discharge Planning: Patient here on a social admission, difficult discharge situation. Pending DCF and establishment of a legal healthcare surrogate by the courts.
[2017-11-21] MEDS: amLODIPine 5 MG Tablet PO SCH (19:45)
[2017-11-22] MEDS: amLODIPine 5 MG Tablet PO SCH (09:38)
[2017-11-22] MEDS: Aspirin 325 MG Tablet G-TUBE SCH (09:38)
[2017-11-22] MEDS: Senna/Docusate Sodium 8.6/50 MG Tablet PO SCH ×2 (09:38→23:27)
[2017-11-22] MEDS: Metoprolol Tartrate 25 MG Tablet G-TUBE SCH ×2 (09:38→23:26)
[2017-11-22] MEDS: Nystatin 100,000 UNITS/GM Powder 15 GM Bottle TOPICAL SCH ×4 (09:39→23:27)
--- NOTE | 2017-11-22 15:07 | P.PNIM ---
Subjective Interval history: Patient mostly nonverbal as before. Denies pain however. Physical Exam Vital signs: Vital Signs 11/21/17 16:00 11/21/17 20:00 11/22/17 00:00 Temperature 98.0 F 97.8 F 99.0 F Pulse Rate 79 97 H 94 H Respiratory Rate 17 18 18 Blood Pressure 134/61 135/65 140/66 Pulse Oximetry 95 94 L 94 L 11/22/17 04:00 11/22/17 08:00 11/22/17 12:00 Temperature 98.8 F 97.9 F 97.9 F Pulse Rate 91 H 89 78 Respiratory Rate 15 18 18 Blood Pressure 135/57 L 127/75 128/60 Pulse Oximetry 95 95 95 Intake & Output 11/21/17 11/22/17 11/22/17 18:59 06:59 18:59 Intake Total 240 / 240 Output Total 1000 / 1000 Balance -760 / -760 Weight 58 kg Intake: Oral 240 / 240 Output: Urine 1000 / 1000 Other: # Bowel Movements 2 # Incontinent Bowel Movements 1 Narrative: GENERAL: Minimal, dysarthric speech. Patient makes good eye contact. no change on exam. SKIN: Warm and dry. HEAD: Normocephalic. EYES: No scleral icterus. No injection or drainage. NECK: Supple, trachea midline. No JVD . CARDIOVASCULAR: Regular rate and rhythm without murmurs, gallops, or rubs. RESPIRATORY: Breath sounds equal bilaterally. No accessory muscle use. GASTROINTESTINAL: Abdomen soft, non-tender, nondistended. PEG tube left upper quadrant. No surrounding erythema or leakage MUSCULOSKELETAL: No cyanosis, or edema. BACK: Nontender without obvious deformity. No CVA tenderness. - Urinary Catheter Management Indwelling Urethral Catheter Cath placed during this visit: yes, but has since been removed by the nurse Reason for continuing: Decision to DC catheter Insertion date: 11/17/17 Insertion time: 01:45 Removal date: 11/22/17 Removal time: 05:30 Results - Labs CBC & Chem 7: 11/18/17 08:02 11/20/17 06:21 Assessment and Plan - Assessment (1) Ischemic cerebrovascular accident (CVA) Code(s): I63.9 - Cerebral infarction, unspecified Status: Chronic (2) Hemorrhage, petechial Code(s): R23.3 - Spontaneous ecchymoses Status: Chronic (3) Right hemiplegia Code(s): G81.91 - Hemiplegia, unspecified affecting right dominant side Status : Chronic (4) Aphasia Code(s): R47.01 - Aphasia Status: Chronic (5) Impaired mobility and ADLs Code(s): Z74.09 - Other reduced mobility Status: Chronic (6) Dysphagia Code(s): R13.10 - Dysphagia, unspecified Status: Chronic - Plan 11/22 Patient seen and examined again. blood pressure acceptable. Continue current regimen. Continue n.p.o. as per speech recommendations. Check labs were Patient is a 72-year-old female with history of left MCA CVA, dysphagia on PEG feedings, HTN, ETOH who came in to the hospital on 11/11 after being discharged on 11/10 after her home health nurse called 911 as she is being inadequately cared for by her son. //Large left MCA CVA with petechial hemorrhages Right sided weakness, Aphasia, Dysphasia -Carotid occluded. Non surgical candidate -Continue on aspirin -Continue PT/OT/ST -ST for aphasia, cognitive -Placement for SNF -Case management consulted. DCF involved. -Tramadol as needed for pain //Pressure ulcer and/or excoriated skin Continue nystatin, Desitin ointment, and calamine -Wound care consult to evaluate for an air bed //Urinary retention -Bladder scan revealed 257 ml of residual urine -Straight cath returned 375ml of urine -If retention continues, okay to insert Betancur catheter =11/17 check labs tomorrow. //Dysphasia, PEG in place -Aspiration precaution -Previously has failed swallowing evaluation and MBS -Jevity 1.5 at 45 mL's an hour //HTN //HLD //CAD, stent placement history -norvasc, metoprolol -Vasotec IV as needed =11/20. Blood pressure low. We will discontinue amlodipine. //COPD //History of hospital-acquired pneumonia -Duo nebs as needed //alcohol abuse, hx -no evidence of withdrawal //DVT prophylaxis with SCD. Hold pharmacological prophylaxis secondary to petechial hemorrhages Hospital constipation prophylaxis Discharge Planning: Patient here on a social admission, difficult discharge situation. Pending DCF and establishment of a legal healthcare surrogate by the courts.
[2017-11-23] MEDS: Senna/Docusate Sodium 8.6/50 MG Tablet PO SCH ×2 (08:28→22:24)
[2017-11-23] MEDS: amLODIPine 5 MG Tablet PO SCH (08:28)
[2017-11-23] MEDS: Metoprolol Tartrate 25 MG Tablet G-TUBE SCH ×2 (08:28→22:22)
[2017-11-23] MEDS: Aspirin 325 MG Tablet G-TUBE SCH (08:28)
[2017-11-23] MEDS: Nystatin 100,000 UNITS/GM Powder 15 GM Bottle TOPICAL SCH ×4 (08:28→22:24)
[2017-11-23 09:01] LABS: Albumin 2.8 g/dL (3.4-5.0); Calcium 8.8 mg/dL (8.5-10.1); Carbon Dioxide 29.8 meq/L (21.0-32.0); Potassium 4.2 meq/L (3.5-5.1)
[2017-11-23 09:03] LABS: Phosphorus 4.1 mg/dL (2.5-4.9)
--- NOTE | 2017-11-23 13:17 | P.PNIM ---
Subjective Interval history: Patient continues mostly nonverbal. Denies any pain. Physical Exam Vital signs: Vital Signs 11/22/17 16:00 11/22/17 20:00 11/23/17 04:00 Temperature 98.2 F 97.6 F 97.6 F Pulse Rate 84 88 81 Respiratory Rate 18 20 18 Blood Pressure 124/64 126/66 117/60 Pulse Oximetry 95 93 L 95 11/23/17 08:00 Temperature 98.2 F Pulse Rate 78 Respiratory Rate 20 Blood Pressure 127/64 Pulse Oximetry 93 L Intake & Output 11/22/17 11/23/17 11/23/17 18:59 06:59 18:59 Intake Total 0 / 0 Balance 0 / 0 Weight 58.1 kg Intake: Oral 0 / 0 Other: # Voids 3 Date of Last Bowel Movement 11/23/17 # Bowel Movements 2 Narrative: GENERAL: Minimal, dysarthric speech. Patient makes good eye contact. Again, no change on exam. SKIN: Warm and dry. HEAD: Normocephalic. EYES: No scleral icterus. No injection or drainage. NECK: Supple, trachea midline. No JVD . CARDIOVASCULAR: Regular rate and rhythm without murmurs, gallops, or rubs. RESPIRATORY: Breath sounds equal bilaterally. No accessory muscle use. GASTROINTESTINAL: Abdomen soft, non-tender, nondistended. PEG tube left upper quadrant. No surrounding erythema or leakage MUSCULOSKELETAL: No cyanosis, or edema. BACK: Nontender without obvious deformity. No CVA tenderness. - Urinary Catheter Management Indwelling Urethral Catheter Cath placed during this visit: yes, but has since been removed by the nurse Reason for continuing: Decision to DC catheter Insertion date: 11/17/17 Insertion time: 01:45 Removal date: 11/22/17 Removal time: 05:30 Results - Labs CBC & Chem 7: 11/18/17 08:02 11/23/17 07:26 Laboratory Results - last 24 hr 11/23/17 07:26 Sodium 136 Potassium 4.2 Chloride 99 Carbon Dioxide 29.8 Anion Gap 7 BUN 27 H Creatinine 0.87 Estimated GFR 64 L Random Glucose 125 H Calcium 8.8 Phosphorus 4.1 Magnesium 2.0 Albumin 2.8 L Assessment and Plan - Assessment (1) Ischemic cerebrovascular accident (CVA) Code(s): I63.9 - Cerebral infarction, unspecified Status: Chronic (2) Hemorrhage, petechial Code(s): R23.3 - Spontaneous ecchymoses Status: Chronic (3) Right hemiplegia Code(s): G81.91 - Hemiplegia, unspecified affecting right dominant side Status : Chronic (4) Aphasia Code(s): R47.01 - Aphasia Status: Chronic (5) Impaired mobility and ADLs Code(s): Z74.09 - Other reduced mobility Status: Chronic (6) Dysphagia Code(s): R13.10 - Dysphagia, unspecified Status: Chronic - Plan 11/23 Patient seen and examined again. Vitals stable. Continue current regimen. Continue n.p.o. as per speech recommendations. Electrolytes stable. Patient is a 72-year-old female with history of left MCA CVA, dysphagia on PEG feedings, HTN, ETOH who came in to the hospital on 11/11 after being discharged on 11/10 after her home health nurse called 911 as she is being inadequately cared for by her son. //Large left MCA CVA with petechial hemorrhages Right sided weakness, Aphasia, Dysphasia -Carotid occluded. Non surgical candidate -Continue on aspirin -Continue PT/OT/ST -ST for aphasia, cognitive -Placement for SNF -Case management consulted. DCF involved. -Tramadol as needed for pain //Pressure ulcer and/or excoriated skin Continue nystatin, Desitin ointment, and calamine -Wound care consult to evaluate for an air bed //Urinary retention -Bladder scan revealed 257 ml of residual urine -Straight cath returned 375ml of urine -If retention continues, okay to insert Betancur catheter =11/17 check labs tomorrow. //Dysphasia, PEG in place -Aspiration precaution -Previously has failed swallowing evaluation and MBS -Jevity 1.5 at 45 mL's an hour //HTN //HLD //CAD, stent placement history -norvasc, metoprolol -Vasotec IV as needed =11/20. Blood pressure low. We will discontinue amlodipine. //COPD //History of hospital-acquired pneumonia -Duo nebs as needed //alcohol abuse, hx -no evidence of withdrawal //DVT prophylaxis with SCD. Hold pharmacological prophylaxis secondary to petechial hemorrhages Hospital constipation prophylaxis Discharge Planning: Patient here on a social admission, difficult discharge situation. Pending DCF and establishment of a legal healthcare surrogate by the courts.
[2017-11-24] MEDS: Aspirin 325 MG Tablet G-TUBE SCH (09:14)
[2017-11-24] MEDS: amLODIPine 5 MG Tablet PO SCH (09:15)
[2017-11-24] MEDS: Senna/Docusate Sodium 8.6/50 MG Tablet PO SCH ×2 (09:15→21:36)
[2017-11-24] MEDS: Metoprolol Tartrate 25 MG Tablet G-TUBE SCH ×2 (09:15→21:37)
[2017-11-24] MEDS: Nystatin 100,000 UNITS/GM Powder 15 GM Bottle TOPICAL SCH ×5 (09:16→21:38)
--- NOTE | 2017-11-24 15:35 | P.PNIM ---
Subjective Interval history: Patient indicates she is feeling all right. Denies any pain. Physical Exam Vital signs: Vital Signs 11/23/17 16:00 11/23/17 20:00 11/24/17 00:00 Temperature 97.5 F L 98.2 F Pulse Rate 81 75 Respiratory Rate 20 16 16 Blood Pressure 110/52 L 134/70 Pulse Oximetry 95 94 L 11/24/17 04:00 11/24/17 08:00 11/24/17 12:00 Temperature 98.2 F 98.0 F 97.6 F Pulse Rate 80 81 85 Respiratory Rate 15 18 18 Blood Pressure 118/67 109/57 L 135/75 Pulse Oximetry 95 93 L 97 11/24/17 15:29 Temperature 97.9 F Pulse Rate 85 Respiratory Rate 18 Blood Pressure 120/72 Pulse Oximetry 95 Intake & Output 11/23/17 11/24/17 11/24/17 18:59 06:59 18:59 Intake Total 0 / 0 640 / 640 Balance 0 / 0 640 / 640 Weight 58.2 kg Intake: Oral 0 / 0 Tube Feeding 540 / 540 Tube Irrigant 100 / 100 Other: # Voids 3 2 # Urine Diapers 5 Date of Last Bowel Movement 11/23/17 # Bowel Movements 0 1 Narrative: GENERAL: Minimal, dysarthric speech. Patient makes good eye contact. no change on exam. SKIN: Warm and dry. HEAD: Normocephalic. EYES: No scleral icterus. No injection or drainage. NECK: Supple, trachea midline. No JVD . CARDIOVASCULAR: Regular rate and rhythm without murmurs, gallops, or rubs. RESPIRATORY: Breath sounds equal bilaterally. No accessory muscle use. GASTROINTESTINAL: Abdomen soft, non-tender, nondistended. PEG tube left upper quadrant. No surrounding erythema or leakage MUSCULOSKELETAL: No cyanosis, or edema. BACK: Nontender without obvious deformity. No CVA tenderness. - Urinary Catheter Management Indwelling Urethral Catheter Cath placed during this visit: yes, but has since been removed by the nurse Reason for continuing: Decision to DC catheter Insertion date: 11/17/17 Insertion time: 01:45 Removal date: 11/22/17 Removal time: 05:30 Results - Labs CBC & Chem 7: 11/18/17 08:02 11/23/17 07:26 Assessment and Plan - Assessment (1) Ischemic cerebrovascular accident (CVA) Code(s): I63.9 - Cerebral infarction, unspecified Status: Chronic (2) Hemorrhage, petechial Code(s): R23.3 - Spontaneous ecchymoses Status: Chronic (3) Right hemiplegia Code(s): G81.91 - Hemiplegia, unspecified affecting right dominant side Status : Chronic (4) Aphasia Code(s): R47.01 - Aphasia Status: Chronic (5) Impaired mobility and ADLs Code(s): Z74.09 - Other reduced mobility Status: Chronic (6) Dysphagia Code(s): R13.10 - Dysphagia, unspecified Status: Chronic - Plan 11/24 patient seen and examined. Discussed with case management. Working on placement. Appreciate case management assistance. Patient is a 72-year-old female with history of left MCA CVA, dysphagia on PEG feedings, HTN, ETOH who came in to the hospital on 11/11 after being discharged on 11/10 after her home health nurse called 911 as she is being inadequately cared for by her son. //Large left MCA CVA with petechial hemorrhages Right sided weakness, Aphasia, Dysphasia -Carotid occluded. Non surgical candidate -Continue on aspirin -Continue PT/OT/ST -ST for aphasia, cognitive -Placement for SNF -Case management consulted. DCF involved. -Tramadol as needed for pain //Pressure ulcer and/or excoriated skin Continue nystatin, Desitin ointment, and calamine -Wound care consult to evaluate for an air bed //Urinary retention -Bladder scan revealed 257 ml of residual urine -Straight cath returned 375ml of urine -If retention continues, okay to insert Betancur catheter =11/17 check labs tomorrow. //Dysphasia, PEG in place -Aspiration precaution -Previously has failed swallowing evaluation and MBS -Jevity 1.5 at 45 mL's an hour //HTN //HLD //CAD, stent placement history -norvasc, metoprolol -Vasotec IV as needed =11/20. Blood pressure low. We will discontinue amlodipine. //COPD //History of hospital-acquired pneumonia -Duo nebs as needed //alcohol abuse, hx -no evidence of withdrawal //DVT prophylaxis with SCD. Hold pharmacological prophylaxis secondary to petechial hemorrhages Hospital constipation prophylaxis Discharge Planning: Awaiting placement as per case management. Appreciate assistance.
[2017-11-25] MEDS: Aspirin 325 MG Tablet G-TUBE SCH (09:43)
[2017-11-25] MEDS: amLODIPine 5 MG Tablet PO SCH (09:43)
[2017-11-25] MEDS: Metoprolol Tartrate 25 MG Tablet G-TUBE SCH ×2 (09:43→20:55)
[2017-11-25] MEDS: Nystatin 100,000 UNITS/GM Powder 15 GM Bottle TOPICAL SCH ×4 (09:44→20:56)
[2017-11-25] MEDS: Senna/Docusate Sodium 8.6/50 MG Tablet PO SCH ×2 (09:44→20:55)
--- NOTE | 2017-11-25 09:51 | P.PNIM ---
Subjective Interval history: Patient nonverbal, as before. She appears to deny pain. Physical Exam Vital signs: Vital Signs 11/24/17 12:00 11/24/17 15:29 11/24/17 20:00 Temperature 97.6 F 97.9 F 98.3 F Pulse Rate 85 85 100 H Respiratory Rate Blood Pressure 135/75 120/72 141/75 H Pulse Oximetry 97 95 95 11/25/17 00:00 11/25/17 04:00 11/25/17 08:00 Temperature 97.1 F L 97.7 F 98.1 F Pulse Rate 94 H 90 86 Respiratory Rate 18 Blood Pressure 130/66 135/59 L 128/67 Pulse Oximetry 93 L 95 94 L Intake & Output 11/24/17 11/25/17 11/25/17 18:59 06:59 18:59 Intake Total 640 / 640 240 / 240 Balance 640 / 640 240 / 240 Weight 58.1 kg Intake: Oral 240 / 240 Tube Feeding 540 / 540 Tube Irrigant 100 / 100 Other: # Voids 2 1 # Incontinent Voids 3 Date of Last Bowel Movement 11/25/17 # Bowel Movements 1 1 # Incontinent Bowel Movements 1 Narrative: GENERAL: Minimal, dysarthric speech. Patient makes good eye contact. no change on exam. SKIN: Warm and dry. HEAD: Normocephalic. EYES: No scleral icterus. No injection or drainage. NECK: Supple, trachea midline. No JVD . CARDIOVASCULAR: Regular rate and rhythm without murmurs, gallops, or rubs. RESPIRATORY: Breath sounds equal bilaterally. No accessory muscle use. GASTROINTESTINAL: Abdomen soft, non-tender, nondistended. PEG tube left upper quadrant. No surrounding erythema or leakage MUSCULOSKELETAL: No cyanosis, or edema. BACK: Nontender without obvious deformity. No CVA tenderness. - Urinary Catheter Management Indwelling Urethral Catheter Cath placed during this visit: yes, but has since been removed by the nurse Reason for continuing: Decision to DC catheter Insertion date: 11/17/17 Insertion time: 01:45 Removal date: 11/22/17 Removal time: 05:30 Results - Labs CBC & Chem 7: 11/18/17 08:02 11/23/17 07:26 Assessment and Plan - Assessment (1) Ischemic cerebrovascular accident (CVA) Code(s): I63.9 - Cerebral infarction, unspecified Status: Chronic (2) Hemorrhage, petechial Code(s): R23.3 - Spontaneous ecchymoses Status: Chronic (3) Right hemiplegia Code(s): G81.91 - Hemiplegia, unspecified affecting right dominant side Status : Chronic (4) Aphasia Code(s): R47.01 - Aphasia Status: Chronic (5) Impaired mobility and ADLs Code(s): Z74.09 - Other reduced mobility Status: Chronic (6) Dysphagia Code(s): R13.10 - Dysphagia, unspecified Status: Chronic - Plan 11/25 patient seen and examined. Working on placement. Appreciate case management assistance. Will discuss with case management later today. Patient is a 72-year-old female with history of left MCA CVA, dysphagia on PEG feedings, HTN, ETOH who came in to the hospital on 11/11 after being discharged on 11/10 after her home health nurse called 911 as she is being inadequately cared for by her son. //Large left MCA CVA with petechial hemorrhages Right sided weakness, Aphasia, Dysphasia -Carotid occluded. Non surgical candidate -Continue on aspirin -Continue PT/OT/ST -ST for aphasia, cognitive -Placement for SNF -Case management consulted. DCF involved. -Tramadol as needed for pain //Pressure ulcer and/or excoriated skin Continue nystatin, Desitin ointment, and calamine -Wound care consult to evaluate for an air bed //Urinary retention -Bladder scan revealed 257 ml of residual urine -Straight cath returned 375ml of urine -If retention continues, okay to insert Betancur catheter =11/17 check labs tomorrow. //Dysphasia, PEG in place -Aspiration precaution -Previously has failed swallowing evaluation and MBS -Jevity 1.5 at 45 mL's an hour //HTN //HLD //CAD, stent placement history -norvasc, metoprolol -Vasotec IV as needed =11/20. Blood pressure low. We will discontinue amlodipine. //COPD //History of hospital-acquired pneumonia -Duo nebs as needed //alcohol abuse, hx -no evidence of withdrawal //DVT prophylaxis with SCD. Hold pharmacological prophylaxis secondary to petechial hemorrhages Hospital constipation prophylaxis Discharge Planning: Awaiting placement as per case management. Appreciate assistance.
[2017-11-25] MEDS: Nystatin Liq 500,000 UNIT/5 ML UDC SWISH-SPIT SCH (20:57)
[2017-11-26] MEDS: Metoprolol Tartrate 25 MG Tablet G-TUBE SCH ×2 (08:32→21:20)
[2017-11-26] MEDS: Nystatin 100,000 UNITS/GM Powder 15 GM Bottle TOPICAL SCH ×4 (08:32→21:20)
[2017-11-26] MEDS: amLODIPine 5 MG Tablet PO SCH (08:32)
[2017-11-26] MEDS: Aspirin 325 MG Tablet G-TUBE SCH (08:32)
[2017-11-26] MEDS: Senna/Docusate Sodium 8.6/50 MG Tablet PO SCH ×2 (10:22→21:20)
[2017-11-26] MEDS: Nystatin Liq 500,000 UNIT/5 ML UDC SWISH-SPIT SCH (12:17)
--- NOTE | 2017-11-26 14:07 | P.PNIM ---
Subjective Interval history: Patient mostly nonverbal as before. Appears comfortable. Indicates she is not in any pain. Physical Exam Vital signs: Vital Signs 11/25/17 16:00 11/25/17 20:00 11/26/17 00:00 Temperature 98.0 F 98.6 F 98 F Pulse Rate 80 91 H 87 Respiratory Rate 18 18 19 Blood Pressure 126/59 L 121/54 L 116/59 L Pulse Oximetry 97 95 94 L 11/26/17 04:00 11/26/17 08:00 11/26/17 12:00 Temperature 97.9 F 98.3 F 98.3 F Pulse Rate 83 90 85 Respiratory Rate 17 16 16 Blood Pressure 107/62 104/58 L 120/59 L Pulse Oximetry 98 95 95 Intake & Output 11/25/17 11/26/17 11/26/17 18:59 06:59 18:59 Intake Total 942 / 942 Balance 942 / 942 Weight 57.1 kg Intake: Tube Feeding 542 / 542 Water Bolus Amount 400 / 400 Other: # Voids 2 # Incontinent Voids 4 Date of Last Bowel Movement 11/25/17 # Bowel Movements 1 # Incontinent Bowel Movements 2 Narrative: GENERAL: Minimal, dysarthric speech. Patient makes good eye contact. no change on exam. SKIN: Warm and dry. HEAD: Normocephalic. EYES: No scleral icterus. No injection or drainage. NECK: Supple, trachea midline. No JVD . Mucous membranes moist. CARDIOVASCULAR: Regular rate and rhythm without murmurs, gallops, or rubs. RESPIRATORY: Breath sounds equal bilaterally. No accessory muscle use. GASTROINTESTINAL: Abdomen soft, non-tender, nondistended. PEG tube left upper quadrant. No surrounding erythema or leakage MUSCULOSKELETAL: No cyanosis, or edema. BACK: Nontender without obvious deformity. No CVA tenderness. - Urinary Catheter Management Indwelling Urethral Catheter Cath placed during this visit: yes, but has since been removed by the nurse Reason for continuing: Decision to DC catheter Insertion date: 11/17/17 Insertion time: 01:45 Removal date: 11/22/17 Removal time: 05:30 Results - Labs CBC & Chem 7: 11/18/17 08:02 11/23/17 07:26 Assessment and Plan - Assessment (1) Ischemic cerebrovascular accident (CVA) Code(s): I63.9 - Cerebral infarction, unspecified Status: Chronic (2) Hemorrhage, petechial Code(s): R23.3 - Spontaneous ecchymoses Status: Chronic (3) Right hemiplegia Code(s): G81.91 - Hemiplegia, unspecified affecting right dominant side Status : Chronic (4) Aphasia Code(s): R47.01 - Aphasia Status: Chronic (5) Impaired mobility and ADLs Code(s): Z74.09 - Other reduced mobility Status: Chronic (6) Dysphagia Code(s): R13.10 - Dysphagia, unspecified Status: Chronic - Plan 11/26 patient seen and examined. Working on placement. Discussed with case management and nursing and MDR. Patient is a 72-year-old female with history of left MCA CVA, dysphagia on PEG feedings, HTN, ETOH who came in to the hospital on 11/11 after being discharged on 11/10 after her home health nurse called 911 as she is being inadequately cared for by her son. //Large left MCA CVA with petechial hemorrhages Right sided weakness, Aphasia, Dysphasia -Carotid occluded. Non surgical candidate -Continue on aspirin -Continue PT/OT/ST -ST for aphasia, cognitive -Placement for SNF -Case management consulted. DCF involved. -Tramadol as needed for pain //Pressure ulcer and/or excoriated skin Continue nystatin, Desitin ointment, and calamine -Wound care consult to evaluate for an air bed //Urinary retention -Bladder scan revealed 257 ml of residual urine -Straight cath returned 375ml of urine -If retention continues, okay to insert Betancur catheter =11/17 check labs tomorrow. //Dysphasia, PEG in place -Aspiration precaution -Previously has failed swallowing evaluation and MBS -Jevity 1.5 at 45 mL's an hour //HTN //HLD //CAD, stent placement history -norvasc, metoprolol -Vasotec IV as needed =11/20. Blood pressure low. We will discontinue amlodipine. //COPD //History of hospital-acquired pneumonia -Duo nebs as needed //alcohol abuse, hx -no evidence of withdrawal //DVT prophylaxis with SCD. Hold pharmacological prophylaxis secondary to petechial hemorrhages Hospital constipation prophylaxis Discharge Planning: Awaiting placement as per case management. Appreciate assistance.
--- NOTE | 2017-11-26 14:38 | P.DIET ---
Nutritional Evaluation Type of nutrition evaluation: follow-up Nutrition consult regarding: Tube Feeding Subjective Subjective Comments: Pt recently had a L MCA CVA and has dysphagia and aphasia 2/2 this. She is mainly nonverbal. Objective - Diagnosis Unable to Care for Self, Recent CVA - Objective % IBW: 105 (AYR=[id number]#) Body Weight Used for Calculations: Actual (57.6kg) Energy Needs - Lower Range (kCal/kg): 25 Energy Needs - Upper Range (kCal/kg): 30 Lower Limit kCal/kg (kCals): 1,440 Upper Limit kCal/kg (kCals): 1,728 Lower Limit Protein Factor (Grams per Kg): 1.1 Upper Limit Protein Factor (Grams per Kg): 1.3 Lower Protein Needs (Protein): 63 Upper Protein Needs (Protein): 75 Fluid Factor (ml/kg): 30 Estimated Fluid Needs (ml): 1,728 Dietitian Reviewed in Medical Record: Current diet, Curent medications, Intake & Output, Labs, Tube feeding Diet Order: TF Only Feeding - Current Tube Feeding Tube Feeding Product: Jevity 1.5 Tube Feeding Method: Pump Tube Feeding Rate: 45 Current kCals Provided by Tube Feedin,620 Current Protein Provided by Tube Feeding (gPRO): 69 Current Free H2O Provided (m/l): 821 Assessment Assessment: Pt remains on Jevity 1.5 @ 45mls/hr and this continues to be appropriate. It is providing 100% of her nutritional requirements as stated above. Wts have been relatively stable. Labs and meds reviewed. LBM 11/25. 11/19 WOCN consult reviewed , no pressure injuries noted. Continue current POC. Dietitian following. Recommendations: 1. Continue Jevity 1.5 @ 45mls/hr. Dietitian to Monitor: Lab values, Intake & Output, Tube feeding tolerance, Weight change, Medical course
[2017-11-27] MEDS: Metoprolol Tartrate 25 MG Tablet G-TUBE SCH ×2 (09:15→20:49)
[2017-11-27] MEDS: amLODIPine 5 MG Tablet PO SCH (09:15)
[2017-11-27] MEDS: Senna/Docusate Sodium 8.6/50 MG Tablet PO SCH ×2 (09:16→20:49)
[2017-11-27] MEDS: Nystatin 100,000 UNITS/GM Powder 15 GM Bottle TOPICAL SCH ×4 (09:16→20:50)
[2017-11-27] MEDS: Aspirin 325 MG Tablet G-TUBE SCH (09:16)
--- NOTE | 2017-11-27 14:10 | P.PNIM ---
Subjective Interval history: Patient continues mostly nonverbal, answers simple questions. Indicates she is feeling all right. Physical Exam Vital signs: Vital Signs 11/26/17 16:00 11/26/17 20:00 11/27/17 00:00 Temperature 98.2 F 98.0 F Pulse Rate 87 100 H 121 H Respiratory Rate 16 18 18 Blood Pressure 127/58 L 140/77 144/63 H Pulse Oximetry 96 95 94 L 11/27/17 04:00 11/27/17 08:00 11/27/17 12:00 Temperature 97.3 F L 98.9 F 97.4 F L Pulse Rate 84 92 H 86 Respiratory Rate 18 20 20 Blood Pressure 143/64 H 130/63 140/73 Pulse Oximetry 94 L 93 L 97 Intake & Output 11/26/17 11/27/17 11/27/17 18:59 06:59 18:59 Intake Total 620 / 620 Output Total 250 / 250 100 / 100 Balance -250 / -250 -100 / -100 620 / 620 Weight 57.4 kg Intake: Tube Feeding 560 / 560 Tube Irrigant 60 / 60 Output: Urine 250 / 250 100 / 100 Other: # Incontinent Voids 3 Date of Last Bowel Movement 11/27/17 # Bowel Movements 1 # Incontinent Bowel Movements 1 Narrative: GENERAL: Minimal, dysarthric speech. Patient makes good eye contact. Again, no change on exam. SKIN: Warm and dry. HEAD: Normocephalic. EYES: No scleral icterus. No injection or drainage. NECK: Supple, trachea midline. No JVD . Mucous membranes moist. CARDIOVASCULAR: Regular rate and rhythm without murmurs, gallops, or rubs. RESPIRATORY: Breath sounds equal bilaterally. No accessory muscle use. GASTROINTESTINAL: Abdomen soft, non-tender, nondistended. PEG tube left upper quadrant. No surrounding erythema or leakage MUSCULOSKELETAL: No cyanosis, or edema. BACK: Nontender without obvious deformity. No CVA tenderness. - Urinary Catheter Management Indwelling Urethral Catheter Cath placed during this visit: yes, but has since been removed by the nurse Reason for continuing: Decision to DC catheter Insertion date: 11/17/17 Insertion time: 01:45 Removal date: 11/22/17 Removal time: 05:30 Results - Labs CBC & Chem 7: 11/18/17 08:02 11/23/17 07:26 Assessment and Plan - Assessment (1) Ischemic cerebrovascular accident (CVA) Code(s): I63.9 - Cerebral infarction, unspecified Status: Chronic (2) Hemorrhage, petechial Code(s): R23.3 - Spontaneous ecchymoses Status: Chronic (3) Right hemiplegia Code(s): G81.91 - Hemiplegia, unspecified affecting right dominant side Status : Chronic (4) Aphasia Code(s): R47.01 - Aphasia Status: Chronic (5) Impaired mobility and ADLs Code(s): Z74.09 - Other reduced mobility Status: Chronic (6) Dysphagia Code(s): R13.10 - Dysphagia, unspecified Status: Chronic - Plan 11/27 patient seen and examined again. Continue working on placement. Discussed with case management and nursing and MDR. Patient is a 72-year-old female with history of left MCA CVA, dysphagia on PEG feedings, HTN, ETOH who came in to the hospital on 11/11 after being discharged on 11/10 after her home health nurse called 911 as she is being inadequately cared for by her son. //Large left MCA CVA with petechial hemorrhages Right sided weakness, Aphasia, Dysphasia -Carotid occluded. Non surgical candidate -Continue on aspirin -Continue PT/OT/ST -ST for aphasia, cognitive -Placement for SNF -Case management consulted. DCF involved. -Tramadol as needed for pain //Pressure ulcer and/or excoriated skin Continue nystatin, Desitin ointment, and calamine -Wound care consult to evaluate for an air bed //Urinary retention -Bladder scan revealed 257 ml of residual urine -Straight cath returned 375ml of urine -If retention continues, okay to insert Betancur catheter =11/17 check labs tomorrow. //Dysphasia, PEG in place -Aspiration precaution -Previously has failed swallowing evaluation and MBS -Jevity 1.5 at 45 mL's an hour //HTN //HLD //CAD, stent placement history -norvasc, metoprolol -Vasotec IV as needed =11/20. Blood pressure low. We will discontinue amlodipine. //COPD //History of hospital-acquired pneumonia -Duo nebs as needed //alcohol abuse, hx -no evidence of withdrawal //DVT prophylaxis with SCD. Hold pharmacological prophylaxis secondary to petechial hemorrhages Hospital constipation prophylaxis Discharge Planning: Awaiting placement as per case management. Appreciate assistance.
[2017-11-28] MEDS: Metoprolol Tartrate 25 MG Tablet G-TUBE SCH ×2 (09:00→22:01)
[2017-11-28] MEDS: Aspirin 325 MG Tablet G-TUBE SCH (09:00)
[2017-11-28] MEDS: Nystatin 100,000 UNITS/GM Powder 15 GM Bottle TOPICAL SCH ×4 (09:00→22:01)
[2017-11-28] MEDS: amLODIPine 5 MG Tablet PO SCH (09:00)
[2017-11-28] MEDS: Senna/Docusate Sodium 8.6/50 MG Tablet PO SCH ×2 (09:00→22:00)
--- NOTE | 2017-11-28 16:33 | P.DS ---
Date of admission: 11/11/17 16:11 Primary care physician: UNKNOWN Brief History from admission: Patient is a 72-year-old female with history of left MCA CVA, dysphagia on PEG feedings, HTN, ETOH who came in to the hospital after being discharged yesterday after her home health nurse called 911 as she is being in adequately cared for by her son. Patient was discharged yesterday to home with a care of his son, son refused to allow her to be placed in a rehab center that the have discharged her with multiple resources. Case management has been notified and has contacted [facility]. Patient will be readmitted in observation unit pending placement and finding new health care surrogate. Patient seen and examined today. Patient is aphasic and cannot provide any meaningful history. Cannot answer any questions. Does not follow most commands. DS: Medications - Discharge Medications Prescriptions: amlodipine [Norvasc] 2.5 mg PO DAILY 30 Days #30 tab aspirin 325 mg G-TUBE DAILY #30 tab buspirone 5 mg G-TUBE BID #60 tab calamine-zinc oxide 1 applicatio TOPICAL Q6H PRN 30 Days #1 tube PRN Reason: Rash metoprolol tartrate 25 mg G-TUBE BID #60 tab nystatin [Nystop] 1 applicatio TOPICAL QID 30 Days #1 tube tramadol [Ultram] 50 mg PO Q6H #20 tab zinc oxide-cod liver oil [Desitin] 1 applicatio TOPICAL PRN PRN 30 Days #1 tube PRN Reason: Rash DS: Summary Hospital Course: 9-year-old female admitted on prior hospitalization for left MCA CVA. She was recommended for rehab placement, but her son took her to his house where things went poorly. She received an adequate care and came back one day later after her home health nurse called 911. She remains with deficits of stroke, mostly right-sided with aphasia and dysphasia. She requires tube feeding with Jevity 1.5 at 45 mL/h. At some point she developed pressure ulcer and wound care nursing has evaluated this, recommended combination cream of nystatin, Desitin, calamine. She has a history of urinary retention, but did well once Betancur was removed, still recommending she get a urinalysis in the next week. She has a history of COPD, hospital-acquired pneumonia, coronary artery disease, high lipids, hypertension ,alcohol abuse, but none of these have been an issue during this hospitalization. I provided all necessary scripts for her medications. Additionally I provided a prescription for urinalysis to be collected in 1 week, and also providing a handwritten prescription for an air bed. She is appropriate for discharge to halfway facility rehab when bed becomes available. - Time Spent with Patient Total time spent providing and/or coordinating discharge services: Less than 30 minutes Exam Vital signs: Vital Signs 11/27/17 21:15 11/28/17 00:46 11/28/17 08:00 Temperature 97.5 F L 97.7 F 97.3 F L Pulse Rate 102 H 100 H 107 H Respiratory Rate 19 20 20 Blood Pressure 141/72 H 153/68 H 152/103 H Pulse Oximetry 95 98 Intake & Output 11/27/17 11/28/17 11/28/17 18:59 06:59 18:59 Intake Total 620 / 620 533 / 533 Balance 620 / 620 533 / 533 Weight 57.1 kg Intake: Tube Feeding 560 / 560 533 / 533 Tube Irrigant 60 / 60 Other: Date of Last Bowel Movement 11/27/17 11/27/17 # Bowel Movements 1 # Incontinent Bowel Movements 1 Results Procedures completed during hospitalization: none Discharge Plan - Discharge Disposition Patient Disposition: 03 Discharge to SNF - Discharge Condition Condition: Stable - Discharge Order Discharge Orders: Discharge Order (Routine); Ordered 11/28/17 Ordered By: Mahamed Nunez - Physicians Team Primary Care Provider: UNKNOWN, Attending Provider: Mahamed Nunez Other Providers: [employer] ; [facility],Agency ; [facility],Agency
[2017-11-29] MEDS: Senna/Docusate Sodium 8.6/50 MG Tablet PO SCH ×2 (08:37→21:11)
[2017-11-29] MEDS: amLODIPine 5 MG Tablet PO SCH (08:37)
[2017-11-29] MEDS: Metoprolol Tartrate 25 MG Tablet G-TUBE SCH ×2 (08:37→21:11)
[2017-11-29] MEDS: Aspirin 325 MG Tablet G-TUBE SCH (08:38)
[2017-11-29] MEDS: Nystatin 100,000 UNITS/GM Powder 15 GM Bottle TOPICAL SCH ×4 (08:38→21:12)
--- NOTE | 2017-11-29 10:57 | P.PNIM ---
Subjective Interval history: Patient has expressive aphasia related to left MCA CVA. On previous admission for CVA she ended up going home instead of to [facility]. She did not do well at home, home health care nursing called 911 due to her poor condition. I explained to her that because things did not work out at home she would be better off to go to rehab and that we are working on open bed for her and possible discharge today. Physical Exam Vital signs: Vital Signs 11/28/17 12:00 11/28/17 16:00 11/28/17 20:00 Temperature 98.0 F 97.5 F L 97.2 F L Pulse Rate 80 92 H 96 H Respiratory Rate 20 20 18 Blood Pressure 120/77 103/73 147/67 H Pulse Oximetry 94 L 97 96 11/29/17 00:00 11/29/17 04:00 11/29/17 08:00 Temperature 97.4 F L 97.4 F L 97.4 F L Pulse Rate 91 H 91 H 94 H Respiratory Rate 18 18 17 Blood Pressure 142/98 H 123/66 139/62 Pulse Oximetry 94 L 92 L 96 Intake & Output 11/28/17 11/29/17 11/29/17 18:59 06:59 18:59 Intake Total 0 / 0 Balance 0 / 0 Weight 56.5 kg Intake: Oral 0 / 0 Other: # Voids 2 # Incontinent Voids 2 Date of Last Bowel Movement 11/28/17 11/28/17 # Bowel Movements 1 # Incontinent Bowel Movements 1 Narrative: GENERAL: Minimal, dysarthric speech. Patient makes good eye contact. Again, no change on exam. SKIN: Warm and dry. HEAD: Normocephalic. EYES: No scleral icterus. No injection or drainage. NECK: Supple, trachea midline. No JVD . Mucous membranes moist. CARDIOVASCULAR: Regular rate and rhythm without murmurs, gallops, or rubs. RESPIRATORY: Breath sounds equal bilaterally. No accessory muscle use. GASTROINTESTINAL: Abdomen soft, non-tender, nondistended. PEG tube left upper quadrant. No surrounding erythema or leakage MUSCULOSKELETAL: No cyanosis, or edema. BACK: Nontender without obvious deformity. No CVA tenderness. Neurological: Right side deficits with slurring of speech and expressive aphasia - Urinary Catheter Management Indwelling Urethral Catheter Cath placed during this visit: yes, but has since been removed by the nurse Reason for continuing: Decision to DC catheter Insertion date: 11/17/17 Insertion time: 01:45 Removal date: 11/22/17 Removal time: 05:30 Results - Labs CBC & Chem 7: 11/18/17 08:02 11/23/17 07:26 - Procedures none Assessment and Plan - Assessment (1) Ischemic cerebrovascular accident (CVA) Code(s): I63.9 - Cerebral infarction, unspecified Status: Chronic (2) Hemorrhage, petechial Code(s): R23.3 - Spontaneous ecchymoses Status: Chronic (3) Right hemiplegia Code(s): G81.91 - Hemiplegia, unspecified affecting right dominant side Status : Chronic (4) Aphasia Code(s): R47.01 - Aphasia Status: Chronic (5) Impaired mobility and ADLs Code(s): Z74.09 - Other reduced mobility Status: Chronic (6) Dysphagia Code(s): R13.10 - Dysphagia, unspecified Status: Chronic - Plan Discharge planning Discharge was placed yesterday, that is open and finalization of transfer to SNF is pending Left MCA CVA Patient has right-sided deficits with expressive aphasia and slurring of speech She would benefit from more intensive PT, OT, speech therapy to help her regain some function Decubitus ulcer Air bed was ordered with discharge, prescription in chart with medications Continue with wound care and triple cream treatment Preventive medicine Patient had recent history of urinary retention Urinalysis in 1 week was also ordered with discharge paperwork, prescription with medications
[2017-11-30] MEDS: Nystatin 100,000 UNITS/GM Powder 15 GM Bottle TOPICAL SCH ×4 (08:34→21:27)
[2017-11-30] MEDS: amLODIPine 5 MG Tablet PO SCH (08:34)
[2017-11-30] MEDS: Senna/Docusate Sodium 8.6/50 MG Tablet PO SCH ×2 (08:34→21:27)
[2017-11-30] MEDS: Aspirin 325 MG Tablet G-TUBE SCH (08:34)
[2017-11-30] MEDS: Metoprolol Tartrate 25 MG Tablet G-TUBE SCH ×2 (08:34→21:29)
--- NOTE | 2017-11-30 11:28 | P.PNIM ---
Subjective Interval history: Patient is awaiting bed approval at a rehab center. She is not verbal due to expressive aphasia but is coughing for the second day. Physical Exam Vital signs: Vital Signs 11/29/17 12:00 11/29/17 20:00 11/30/17 00:00 Temperature 98.0 F 97.3 F L 97.9 F Pulse Rate 81 85 83 Respiratory Rate 17 16 17 Blood Pressure 132/71 113/62 129/60 Pulse Oximetry 94 L 95 92 L 11/30/17 00:58 11/30/17 04:00 11/30/17 06:21 Temperature 97.9 F Pulse Rate 88 Respiratory Rate 18 18 18 Blood Pressure 137/66 Pulse Oximetry 92 L 11/30/17 08:00 Temperature 98.0 F Pulse Rate 83 Respiratory Rate 17 Blood Pressure 125/81 Pulse Oximetry 94 L Intake & Output 11/29/17 11/30/17 11/30/17 18:59 06:59 18:59 Intake Total 0 / 0 0 / 0 Balance 0 / 0 0 / 0 Weight 55.4 kg Intake: Oral 0 / 0 0 / 0 Other: # Voids 3 # Incontinent Voids 4 Date of Last Bowel Movement 11/29/17 11/29/17 # Bowel Movements 0 Narrative: GENERAL: Minimal, dysarthric speech. Patient makes good eye contact. SKIN: Warm and dry. HEAD: Normocephalic. EYES: No scleral icterus. No injection or drainage. NECK: Supple, trachea midline. No JVD . Mucous membranes moist. CARDIOVASCULAR: Regular rate and rhythm without murmurs, gallops, or rubs. RESPIRATORY: Scant cough with anterior congestion, atelectatic sounds in bases. No accessory muscle use. GASTROINTESTINAL: Abdomen soft, non-tender, nondistended. PEG tube left upper quadrant. No surrounding erythema or leakage MUSCULOSKELETAL: No cyanosis, or edema. BACK: Nontender without obvious deformity. No CVA tenderness. Neurological: Right side deficits with slurring of speech and expressive aphasia - Urinary Catheter Management Indwelling Urethral Catheter Cath placed during this visit: yes, but has since been removed by the nurse Reason for continuing: Decision to DC catheter Insertion date: 11/17/17 Insertion time: 01:45 Removal date: 11/22/17 Removal time: 05:30 Results - Labs CBC & Chem 7: 11/18/17 08:02 11/23/17 07:26 - Procedures none Assessment and Plan - Assessment (1) Ischemic cerebrovascular accident (CVA) Code(s): I63.9 - Cerebral infarction, unspecified Status: Chronic (2) Hemorrhage, petechial Code(s): R23.3 - Spontaneous ecchymoses Status: Chronic (3) Right hemiplegia Code(s): G81.91 - Hemiplegia, unspecified affecting right dominant side Status : Chronic (4) Aphasia Code(s): R47.01 - Aphasia Status: Chronic (5) Impaired mobility and ADLs Code(s): Z74.09 - Other reduced mobility Status: Chronic (6) Dysphagia Code(s): R13.10 - Dysphagia, unspecified Status: Chronic - Plan Discharge planning Discharge was placed yesterday, that is open and finalization of transfer to SNF is pending Cough No fever, no leukocytosis, but intermittent cough has persisted more than 1 day We will obtain chest x-ray to rule out anything more than a common cold Patient is high risk for pneumonia given recent stroke, will cover empirically with Z-Toribio Left MCA CVA Patient has right-sided deficits with expressive aphasia and slurring of speech She would benefit from more intensive PT, OT, speech therapy to help her regain some function Decubitus ulcer Air bed was ordered with discharge, prescription in chart with medications Continue with wound care and triple cream treatment h/o urinary retention We will obtain screening urinalysis today
--- NOTE | 2017-11-30 12:16 | XR ---
EXAM DATE: 11/30/2017 12:13 PM EDT AGE/SEX: 72 years / Female INDICATIONS: Cough CLINICAL DATA: This is the patient's initial encounter. Patient reports that signs and symptoms have been present for 1 day and indicates a pain score of Nonresponsive. MEDICAL/SURGICAL HISTORY: . Chronic obstructive pulmonary disease. Hypertension. Arthritis. Cor onary artery disease. Depression. Hyperlipidemia. Hard of hearing. Myocardial infarction . . . Rachell nary artery stent. COMPARISON: [facility] [place], CHEST 1V SINGLE AP, 11/02/2017. . FINDINGS: A single AP view of the chest demonstrates the lungs to be symmetrically aerated without evidence of mass, infiltrate or effusion. The cardiomediastinal contours are unremarkable. Osseous structures a re intact. CONCLUSION: Negative examination. Electronically signed by: Michael Damon MD 11/30/2017 12:14 PM EDT
[2017-11-30] MEDS: Azithromycin 250 MG Tablet G-TUBE SCH (17:24)
[2017-12-01 00:02] VITALS: RESP 16
[2017-12-01] MEDS: Senna/Docusate Sodium 8.6/50 MG Tablet PO SCH (09:23)
[2017-12-01] MEDS: amLODIPine 5 MG Tablet PO SCH (09:23)
[2017-12-01] MEDS: Azithromycin 250 MG Tablet G-TUBE SCH (09:23)
[2017-12-01] MEDS: Aspirin 325 MG Tablet G-TUBE SCH (09:23)
[2017-12-01] MEDS: Nystatin 100,000 UNITS/GM Powder 15 GM Bottle TOPICAL SCH ×2 (09:24→12:45)
[2017-12-01] MEDS: Metoprolol Tartrate 25 MG Tablet G-TUBE SCH (09:24)
[2017-12-01 10:05] VITALS: BP 123/68; PULSE 87; TEMP 98.1; O2SAT 95
--- NOTE | 2017-12-01 12:19 | P.PNIM ---
Subjective Interval history: Patient is resting in bed today, no change from her baseline, no new complaints. She is awaiting transfer to rehab facility. Physical Exam Vital signs: Vital Signs 11/30/17 16:00 11/30/17 20:00 12/01/17 00:00 Temperature 97.5 F L 97.5 F L 97.7 F Pulse Rate 84 92 H 85 Respiratory Rate 18 16 16 Blood Pressure 128/61 137/78 132/74 Pulse Oximetry 95 98 98 12/01/17 04:00 12/01/17 08:00 Temperature 97.8 F 98.1 F Pulse Rate 88 87 Respiratory Rate 16 16 Blood Pressure 135/75 123/68 Pulse Oximetry 96 95 Intake & Output 11/30/17 12/01/17 12/01/17 18:59 06:59 18:59 Intake Total 360 / 360 Balance 360 / 360 Weight 55.5 kg Intake: Oral 360 / 360 Other: # Voids 3 Date of Last Bowel Movement 11/30/17 11/30/17 # Bowel Movements 1 Narrative: GENERAL: Minimal, dysarthric speech. Patient makes good eye contact. SKIN: Warm and dry. HEAD: Normocephalic. EYES: No scleral icterus. No injection or drainage. NECK: Supple, trachea midline. No JVD . Mucous membranes moist. CARDIOVASCULAR: Regular rate and rhythm without murmurs, gallops, or rubs. RESPIRATORY: Scant cough with anterior congestion, atelectatic sounds in bases. No accessory muscle use. GASTROINTESTINAL: Abdomen soft, non-tender, nondistended. PEG tube left upper quadrant. No surrounding erythema or leakage MUSCULOSKELETAL: No cyanosis, or edema. BACK: Nontender without obvious deformity. No CVA tenderness. Neurological: Right side deficits with slurring of speech and expressive aphasia - Urinary Catheter Management Indwelling Urethral Catheter Cath placed during this visit: yes, but has since been removed by the nurse Reason for continuing: Decision to DC catheter Insertion date: 11/17/17 Insertion time: 01:45 Removal date: 11/22/17 Removal time: 05:30 Results - Labs CBC & Chem 7: 11/18/17 08:02 11/23/17 07:26 - Imaging Impressions Chest X-Ray 11/30/17 00:00 CONCLUSION: Negative examination. - Procedures none Assessment and Plan - Assessment (1) Ischemic cerebrovascular accident (CVA) Code(s): I63.9 - Cerebral infarction, unspecified Status: Chronic (2) Hemorrhage, petechial Code(s): R23.3 - Spontaneous ecchymoses Status: Chronic (3) Right hemiplegia Code(s): G81.91 - Hemiplegia, unspecified affecting right dominant side Status : Chronic (4) Aphasia Code(s): R47.01 - Aphasia Status: Chronic (5) Impaired mobility and ADLs Code(s): Z74.09 - Other reduced mobility Status: Chronic (6) Dysphagia Code(s): R13.10 - Dysphagia, unspecified Status: Chronic - Plan Discharge planning Discharge was placed 2 days ago, patient will be going to rehab today Cough Patient has received 2 doses of 500 mg of azithromycin Left MCA CVA Patient has right-sided deficits with expressive aphasia and slurring of speech She would benefit from more intensive PT, OT, speech therapy to help her regain some function Decubitus ulcer Air bed was ordered with discharge, prescription in chart with medications Continue with wound care and triple cream treatment h/o urinary retention Screening urinalysis is pending, is not here then order written for her facility.
== END 2017-12-01 13:06 ==
LOC: NEPD 13:16 → INTOOBSV 16:11 → NEDA 16:11 → N04 18:39
PROVIDERS: ADMIT Family Medicine; ATTEND Family Medicine